=== PATIENT | male | born 1940 | race Caucasian/White ===

== ENCOUNTER 2023-07-30 15:14 | Emergency (ER) | payer OTHER, SELFPAY ==
--- NOTE | ~2023-07-30 | XR_ITS ---
EXAMINATION: XR chest 2V DATE: 07/30/2023 15:54 INDICATION: Left chest pain. TECHNIQUE: Frontal and lateral views of the chest were obtained on 3 radiographs. 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 No pleural effusion or pneumothorax. The heart size is normal. There are promin ent paracardial fat pads. Median sternotomy wires and mediastinal surgical clips are seen, likely fro m prior coronary artery bypass grafting. A left internal jugular central venous catheter is seen with tip at the superior cavoatrial junction. A right-sided ventriculoperitoneal shunt is noted. IMPRESSION: 1. No acute cardiopulmonary disease. Reviewed, dictated and finalized at location E.
--- NOTE | 2023-07-30 15:18 | ECG_ITS ---
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
[2023-07-30 15:46] VITALS: BP 144/69; PULSE 58; RESP 16; TEMP 36.6; O2SAT 97
[2023-07-30 16:23] LABS: Prothrombin Time 13.9 Seconds (11.1-14.7)
[2023-07-30 16:24] LABS: Partial Thromboplastin Time 40.5 SECONDS (22.3-36.8)
[2023-07-30 16:25] LABS: Alanine Aminotransferase 15 U/L (6-50); Albumin Level 3.8 g/dL (3.5-5.1); Alkaline Phosphatase 60 U/L (38-126); Anion Gap 9 mmol/L (8-16); Aspartate Amino Transferase 34 U/L (17-59); Bilirubin,Total 0.8 mg/dL (0.2-1.3); Blood Urea Nitrogen 50 mg/dL (9-20); Calcium 8.7 mg/dL (8.4-10.2); Carbon Dioxide 36 mmol/L (22-30); Chloride 90 mmol/L (98-107); Estimated Glomerular Filt Rate 22; Glucose 121 mg/dL (65-110); Lipase 217 U/L (23-300); Potassium 3.8 mmol/L (3.4-5.0); Sodium 135 mmol/L (137-145)
[2023-07-30 16:30] VITALS: BP 130/85; PULSE 84; RESP 16; O2SAT 96
--- NOTE | 2023-07-30 16:49 | ED.CHESTPAIN ---
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 Patient recently started hemodialysis for CKD. He has a maturing fistula in his right arm. Currently using tunneled dialysis catheter left chest. Today in the middle of dialysis he developed chest tightness. He was noted to be hypotensive pressures in the 60s to 70s over 40s. Dialysis was stopped and he received a fluid bolus. His blood pressures improved and the chest discomfort went away but they became concerned so EMS was called. Currently, he denies any complaints. States that he feels at baseline. He denies lightheadedness or shortness of breath. No leg swelling. Denies infectious symptoms. No further concerns. Related Data Allergies Allergy/AdvReac Type Severity Reaction Status Date / Time lisinopril Allergy Mild coughing Verified 05/15/19 18:11 Sulfa (Sulfonamide Allergy Unknown unknown Verified 05/15/19 18:11 Antibiotics) Review of Systems Review of Systems: All systems reviewed & are unremarkable except as noted in HPI and below Exam Narrative: GENERAL: Well-appearing, in no acute distress, pleasant and cooperative HEAD: Normocephalic, atraumatic. EYES: PERRLA and EOMI. ENT: Mucous membranes moist. NECK: Supple. CHEST: Clear to auscultation. No respiratory distress. +TDC left anterior chest HEART: Regular rate and rhythm. Normal peripheral pulses. ABDOMEN: Soft, nontender, nondistended EXTREMITIES: Normal range of motion. No edema. SKIN: Warm, dry, no rash. NEURO: Alert and oriented x3. PSYCH: Normal mood and affect. Course Vital Signs Vital signs: Vital Signs Temperature 97.8 F 07/30/23 15:46 Pulse Rate 58 L 07/30/23 15:46 Respiratory Rate 16 07/30/23 15:46 Blood Pressure 144/69 H 07/30/23 15:46 Pulse Oximetry 97 07/30/23 15:46 Oxygen Delivery Room Air 07/30/23 15:46 Temperature 97.8 F 07/30/23 15:46 Pulse Rate 80 07/30/23 19:21 Respiratory Rate 16 07/30/23 19:21 Blood Pressure 139/74 07/30/23 19:21 Pulse Oximetry 97 07/30/23 19:21 Oxygen Delivery Room Air 07/30/23 15:46 MDM - Chest Pain Lab Data 07/30/23 17:00 07/30/23 16:07 Labs: Lab Results 07/30/23 07/30/23 07/30/23 Range/Units 16:07 17:00 19:36 WBC 10.5 H (4.5-10.0) K/mm3 RBC 3.43 L (4.6-6.20) M/mm3 Hgb 10.4 L (14.0-18.0) g/dL Hct 32.5 L (42.0-52.0) % MCV 94.8 (80-100) fl MCH 30.3 (26-34) pg MCHC 32.0 (32-36) g/dl RDW 14.1 (11.5-14.5) % Plt Count 158 (150-375) k/mm3 MPV 9.8 (7.4-10.4) fl Immature Gran % (Auto) 1.7 H (0-0.5) % Neut % (Auto) 60.0 (45.5-73.1) % Lymph % (Auto) 28.4 (18.3-44.2) % [place] % (Auto) 7.7 (2.6-8.5) % Eos % (Auto) 1.7 (0-4.4) % Baso % (Auto) 0.5 (0.2-1.2) % Lymph # (Auto) 2.97 (0.9-3.2) K/mm3 [place] # (Auto) 0.8 H (0.1-0.6) K/mm3 Eos # (Auto) 0.2 (0-0.3) K/mm3 Baso # (Auto) 0.1 (0.0-0.1) K/mm3 Abs Immat Gran (auto) 0.18 H (0.00-0.031) K/mm3 Absolute Neuts (auto) 6.3 (1.3-6.7) K/mm3 Absolute Nucleated RBC 0.0 (0.0-0.012) K/mm3 Nucleated RBC % 0.0 (0.0-0.2) % PT 13.9 (11.1-14.7) Seconds INR 1.0 APTT 40.5 H (22.3-36.8) SECONDS Sodium 135 L (137-145) mmol/L Potassium 3.8 (3.4-5.0) mmol/L Chloride 90 L (98-107) mmol/L Carbon Dioxide 36 H (22-30) mmol/L Anion Gap 9 (8-16) mmol/L BUN 50 H (9-20) mg/dL Creatinine 2.80 H (0.7-1.3) mg/dL Estim Creat Clear Calc Not Reportable Estimated GFR 22 L (59 - ) Glucose 121 H (65-110) mg/dL Calcium 8.7 (8.4-10.2) mg/dL Total Bilirubin 0.8 (0.2-1.3) mg/dL AST 34
[2023-07-30 17:12] LABS: Basophils Absolute Auto 0.1 K/mm3 (0.0-0.1); Basophils Percent Auto 0.5 % (0.2-1.2); Eosinophils Absolute Auto 0.2 K/mm3 (0-0.3); Eosinophils Percent Auto 1.7 % (0-4.4); Hematocrit 32.5 % (42.0-52.0); Hemoglobin 10.4 g/dL (14.0-18.0); Immature Granulocyte Absolute 0.18 K/mm3 (0.00-0.031); Immature Granulocyte Percent A 1.7 % (0-0.5); Lymphocytes Absolute Auto 2.97 K/mm3 (0.9-3.2); Lymphocytes Percent Auto 28.4 % (18.3-44.2); Mean Corpuscular Hemoglobin 30.3 pg (26-34); Mean Corpuscular Volume 94.8 fl (80-100); Mean Platelet Volume 9.8 fl (7.4-10.4); Monocytes Absolute Auto 0.8 K/mm3 (0.1-0.6); Monocytes Percent Auto 7.7 % (2.6-8.5); Neutrophils Absolute Auto 6.3 K/mm3 (1.3-6.7); Platelet Count Result 158 k/mm3 (150-375); Red Blood Count 3.43 M/mm3 (4.6-6.20); Red Cell Distribution Width 14.1 % (11.5-14.5); White Blood Count 10.5 K/mm3 (4.5-10.0)
[2023-07-30 17:30] VITALS: BP 130/74; PULSE 80; RESP 16; O2SAT 98
[2023-07-30 18:30] VITALS: BP 137/67; PULSE 79; RESP 16; O2SAT 98
[2023-07-30 19:21] VITALS: BP 139/74; PULSE 80; RESP 16; O2SAT 97
--- NOTE | 2023-07-30 19:22 | PC.NURSE ---
Report taken from PENELOPE Garcia and care of pt assumed at this time. Pt resting comfortably on stretcher.
[2023-07-30 20:06] LABS: Troponin I 0.029 ng/mL (0.000-0.034)
[2023-07-30 20:53] VITALS: BP 140/73; PULSE 58; RESP 16; O2SAT 97
== END 2023-07-30 20:55 | disposition home or self-care (01) ==
PROVIDERS: Preventive Medicine Aerospace Medicine; Emergency Provider Emergency Medicine
DX: R07.89 Other chest pain (principal); I12.0 Hypertensive chronic kidney disease with stage 5 chronic kidney disease or end stage renal disease; N18.6 End stage renal disease; Z99.2 Dependence on renal dialysis; I25.10 Atherosclerotic heart disease of native coronary artery without angina pectoris; Z95.1 Presence of aortocoronary bypass graft; Z95.5 Presence of coronary angioplasty implant and graft; I44.0 Atrioventricular block, first degree; R00.1 Bradycardia, unspecified
CPT/HCPCS: 36415; 71046; 80053; 83690; 84484; 85025; 85610; 85730; 93005; 99284

== ENCOUNTER 2025-05-31 13:41 | Emergency (ER) | payer OTHER, MEDICARE, SELFPAY ==
[2025-05-31] VITALS (7 sets, daily range): BP systolic 100–140; BP diastolic 56–87; PULSE 70–96; RESP 15–18; TEMP 36.2; O2SAT 96–100
--- NOTE | ~2025-05-31 | XR_ITS ---
XR hand LT min 3V Ordering provider: Taty Samayoa PA-C History: . lacerations 4th/5th digits . Comparison: None. FINDINGS: BONES: No acute fracture. Minimal subluxation the distal interphalangeal joint of the middle finger. JOINT SPACES: Narrowing of the distal interphalangeal joints. SOFT TISSUES: Foreign bodies seen in the subcutaneous tissues of the area of the proximal interphalan geal joint of the fourth and fifth finger. IMPRESSION: No definite acute osseous abnormality left hand. Subluxation in the distal interphalangeal joint of t he middle finger which is most likely chronic. Polyarticular osteoarthritic changes. Subcutaneous foreign bodies are present and the fourth and fifth fingers soft tissues opposite the pr oximal interphalangeal joints. Reviewed, dictated and finalized at location A. IMPRESSION: No definite acute osseous abnormality left hand. Subluxation in the distal inte rphalangeal joint of the middle finger which is most likely chronic. Polyarticular osteoarthritic changes. Subcutaneous foreign bodies are present and the fourth and fifth fingers soft t issues opposite the proximal interphalangeal joints.
--- NOTE | ~2025-05-31 | CT_ITS ---
EXAMINATION: CT brain wo con DATE: 05/31/2025 14:05 INDICATION: Anticoagulated patient post fall TECHNIQUE: Computed tomography (CT) of the head was performed without intravenous contrast. Sagittal and coronal reconstructions were performed. The mA was adjusted according to patient size. Iterative reconstruction technique was employed. The dose-length product was 605.33 mGy-cm. COMPARISON: head CT dated 06/25/2016 FINDINGS: Ventricular drainage catheter extending through a right parietal radha hole extending to the right lat eral ventricle with distal tip along the interventricular septum near the foramen of Barrow. High att enuation debris/foreign bodies in the soft tissues surrounding a deep laceration anteriorly at the fo rehead. No fracture. Small regions of encephalomalacia at the right temporal lobe and left frontal lo be consistent with sequela of old infarcts. No acute intracranial hemorrhage, acute infarction or abn ormal extra axial fluid collection. There is mild scattered white matter hypoattenuation consistent w ith chronic small vessel ischemic disease. Symmetric prominence of the sulci and ventricles consisten t with moderate age-appropriate diffuse cerebral volume loss. No mass/mass effect. Changes of bilater al intraocular lens replacement. The orbits and mastoid air cells are normal. Mild mucosal thickening in the left maxillary sinus. IMPRESSION: 1. High attenuation debris/foreign bodies along a deep scalp laceration anteriorly at the forehead wi th no underlying fracture or acute intracranial process. 2. 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 3. Age-related changes including moderate diffuse on loss and mild scattered white matter hypoattenua tion consistent with chronic small vessel ischemic disease. 4. Distal tip of a right parietal ventricular drainage catheter in the anterior right lateral ventric le near the foramen of Monro. Reviewed, dictated and finalized at location B. IMPRESSION: 1. High attenuation debris/foreign bodies along a deep scalp laceration anterio rly at the forehead with no underlying fracture or acute intracranial process. 2. 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 3. Age-related changes including moderate diffuse on loss and mild scattered wh ite matter hypoattenuation consistent with chronic small vessel ischemic diseas e. 4. Distal tip of a right parietal ventricular drainage catheter in the anterior right lateral ventricle near the foramen of Monro.
--- NOTE | ~2025-05-31 | CT_ITS ---
EXAMINATION: CT cervical spine wo con DATE: 05/31/2025 14:05 INDICATION: Fall with head injury TECHNIQUE: Computed tomography (CT) of the cervical spine was performed without intravenous contrast. Automated exposure control and iterative reconstruction technique were employed. The dose-length pro duct was 406.50 mGy-cm. COMPARISON: None FINDINGS: Alignment is normal. Severe osteoarthritis at the atlantoaxial articulation. Vertebral body heights a re normal. No acute fracture. There are prominent bridging or nearly bridging anterior osteophytes ex tending from C2 through T1. There is also prominent ossification of the posterior longitudinal ligame nt resulting in mild central canal stenosis at C2 through C4 as well as at C5-C6. There is fusion acr oss the uncovertebral joints at C3-C4 and at C5-C6 there is also some fusion more centrally across th e moderately narrowed disc space. Minimal to mild disc height loss throughout the remainder of the ce rvical disc spaces. There is mild to moderate uncovertebral osteoarthritis the remaining unfused unco vertebral joints. There is also multilevel moderate and severe facet osteoarthritis throughout the ce rvical spine with left-sided prominence. This contributes to moderate neural foraminal stenosis on th e left at C3-C4 and C4-C5 and on the right at C4-C5 with mild neural from stenosis at the remaining c ervical levels. Atherosclerotic calcification is at the bilateral carotid bulbs. Ventricular drainage catheter courses along the subcutaneous tissues of the lateral right neck. Visualized apices of lung s are clear. IMPRESSION: 1. No acute osseous abnormality. 2. 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 3. Prominent bridging and nearly bridging anterior endplate osteophytes and ossification along the po sterior longitudinal ligament. Reviewed, dictated and finalized at location B. IMPRESSION: 1. No acute osseous abnormality. 2. Moderate cervical spondylosis with moderate to severe multilevel facet osteo arthritis with multilevel mild central canal and mild and moderate neural rosy inal stenosis. 3. Prominent bridging and nearly bridging anterior endplate osteophytes and oss ification along the posterior longitudinal ligament.
--- OUTSIDE RECORDS SUMMARY | 2025-05-31 13:44 | XMS_ITS | Patient Health Record ---
Author Organization [facility] Address [address] [place] [address] Care Team Providers Care Airplane Pilot Name Role Phone [facility], [place] Primary Care Provider Unavail able Nithin Rodrigues Unavailable [phone] ALLERGIES Allergen (clinical drug ingredient) Drug/Non Drug Allergy documented on EMR Reaction Allergy Type Onset Date Status lisinopril Lisinopril Unknown Drug Allergy Activ e Substance with sulfonamide structure and antibacterial mechanism of action (substance) Sulfa Antibiotics rash Drug Allergy Active terazosin Terazosin hypotension Drug Allergy Activ e REASON FOR REFERRAL No Information MEDICATIONS Medication SIG (Take, Route, Frequency, Duration) Notes Start Date End Date Status Atorvastatin Calcium 80 MG 1 tablet Oral ly Once a day for 30 day(s) Active Lidocaine 5 % 1 patch remove after 12 hours Externally Once a day Active Amoxicillin 500 MG 1 capsule Orally ronny ry 8 hrs for 5 day(s) Active Isosorbide Dinitrate 20 MG 1 tablet Oral ly Twice a day for 30 day(s) Active Naloxone HCl 4 MG/10ML as directed Injection Active hydrALAZINE HCl 100 MG 1 tablet with edel d Orally Twice a day for 30 day(s) Active metOLazone 5 MG 1 tablet Orally Once a day for 30 day(s) Active Fish Oil 1000 MG 1 capsule Orally Onc e a day for 30 day(s) Active Tamsulosin HCl 0.4 MG 1 capsule Orally O nce a day for 30 day(s) Active Aspirin 81 MG 1 tablet Orally Once a day for 30 day(s) Active Potassium Chloride 20 MEQ 1 packet with food Orally Once a day for 30 day(s) Active amLODIPine Besylate 5 MG 1 tablet Orally Once a day for 30 day(s) Active Mirtazapine 45 MG 1 tablet at bedtime Orally Once a day for 30 day(s) Active Albuterol Sulfate HFA 108 (90 Base) MCG/ACT 1 puff as needed Inhalation every 4 hrs Active Melatonin 3 MG 1 tablet at bedtime as needed Orally Once a day for 30 day(s) Active HYDROcodone-Acetaminophen 5-325 MG 1 tablet as needed Orally 3x/day Active Carvedilol 25 MG 1 tablet with food O rally Twice a day for 30 day(s) Active Venlafaxine HCl ER 150 MG 1 capsule with food Orally Once a day for 30 day(s) Active Bumetanide 2 MG 1 tablet Orally Once a day for 30 day(s) Active Topiramate 50 MG 1 tablet Orally Once a day for 30 day(s) Active PROBLEMS Problem Type ICD Code Onset Dates Problem Status W/U Status Risk SNOMED Code Notes Problem Fear of injections and transfusions (F40.231) Active confirmed Fear of medical treatment (557999172) Problem Spondylosis without myelopathy or radiculopathy, cervical region (M47.812) Active confirmed Cervical spondylosis without myelopathy (787882242) Problem Spondylosis without myelopathy or radiculopathy, cervicothoracic region (M47.813) Active confirmed Cervical spondylosis without myelopathy (285754039) Problem Spinal stenosis, cervical region (M48.02) Active confirmed Spinal stenosis in cervical region (60292355) Problem Radiculopathy, cervical region (M54.12) Active confirmed Cervical radiculopathy (29136455) Problem Radiculopathy, cervicothoracic region (M54.13) Active confirmed Cervical radiculopathy (72577976) Problem Postlaminectomy syndrome, not elsewhere classified (M96.1) Active confirmed Post-lami nectomy syndrome (03487847) Problem 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) Active confirmed Spinal stenosis in cervical region (92229726) Problem technician terminal and repeater (current) use of anticoagulants (Z79.01) Active confirmed Long-term current use of anticoagulant (067983474) PLAN OF TREATMENT No Information Insurance Providers Payer Name Payer Address Payer Phone Subscriber Number Group Number Insured Name Patient Relationship to Insured Coverage Start Date Coverage End Date [employer] [id number] AIXA LEA Self - patient is the insured MEDICAL (GENERAL) HISTORY Medical History History ICD Code Sleep apnea Diabetes type 2 Abdominal aortic aneurysm BPH Hypertension Migraine Insomnia COPD Chronic kidney disease stage 4 CAD Parkinsonism Surgical History Surgery Date(Month/Year) C4-5 Fusion 1998 Lumbar laminectomy 2004 CABG x 3 2007 Aortic graft 07/2022
--- OUTSIDE RECORDS SUMMARY | 2025-05-31 13:44 | XMS_ITS | Referral Summary ---
Author Organization [facility] al Address [address] [place] [address] Care Team Providers Care Parking Meter Attendant Name Role Phone Angi Andrade MD Primary Care Provider Encounters Date Type Department Care Team Description 04/10/2025 Orders Only [facility] Health Information Management [address] [place] [address] Scanning, Provider 04/10/2025 2:05 PM CDT Office Visit [facility] [address] [facility] [place] [facility] 6th [place] [address] [place] [address] Kelly Vazquez NP Hydrocephalus, unspecified type (HCC) (Primary Dx) 04/10/2025 12:09 PM CDT - 04/10/2025 11:59 PM CDT Hospital Encounter [facility] [address] [place] [id number] Margie Guidry MD PhD Encounter for imaging to screen for metal prior to magnetic resonance imaging (MRI) Discharge Disposition: Discharge to home or self care 04/10/2025 12:00 PM CDT - 04/10/2025 11:59 PM CDT Hospital Encounter [facility] ([facility]) [address] [place] [id number] Other low back pain Discharge Disposition: Discharge to home or self care 03/02/2025 Telephone [facility] [address] [place] [address] Chanel Morrow from Last 3 Months Allergies Active Allergy Reactions Criticality Noted Date Comments Lisinopril Unknown 01/03/2019 Sulfa (Sulfonamide Antibiotics) Other (See comments),Rash Medium 04/21/2019 Reaction: Terazosin Other (See comments),Unknown Low 01/03/2019 Reaction: Other Medications mirtazapine (REMERON) 30 mg tablet 1.5 tablets (45 mg total) nightly 6 Active therapeutic multivitamin (THERA) tabletIndications :Vitamin Deficiency Prevention Active polyethylene glycol (MIRALAX) 17 gram/dose powder Take 17 g by mouth as needed Active docusate sodium (COLACE) 100 mg capsuleIndication s:constipation Take 1 capsule (100 mg total) by mouth 2 (two) times a day Active atorvastatin (LIPITOR) 80 mg tablet Take 1 tablet (80 mg total) by mouth daily Active albuterol HFA (PROVENTIL HFA,VENTOLIN HFA,PROAIR HFA) 90 mcg/actuation inhaler every 4 hours 2 Active amoxicillin-clavu lanate (AUGMENTIN) 875-125 mg per tablet Take 500 mg by mouth Active bumetanide (BUMEX) 1 mg tablet Take 3 tablets (3 mg total) by mouth 2 (two) times a day Active carvediloL (COREG) 25 mg tablet Take 0.5 tablets (12.5 mg total) by mouth 2 (two) times a day with meals Active metOLazone (ZAROXOLYN) 5 mg tablet 1 tablet (5 mg total) Active cholecalciferol, vitamin D3, (VITAMIN D3 ORAL) Take 1,000 Units by mouth Active ipratropium (ATROVENT) 21 mcg (0.03 %) nasal spray Administer 2 sprays into each nostril every 12 (twelve) hours Active DULoxetine DR (CYMBALTA) 60 mg capsule Take 1 capsule (60 mg total) by mouth daily Active divalproex ER (DEPAKOTE ER) 500 mg 24 hr tablet Take 1 tablet (500 mg total) by mouth daily Active cetirizine (ZyrTEC) 10 mg tabletIndications :Allergic Rhinitis Take 1 tablet (10 mg total) by mouth daily 4 Active tamsulosin (FLOMAX) 0.4 mg extended release capsule Take 2 capsules (0.8 mg total) by mouth daily with dinner 4 Active acetaminophen (TYLENOL) 325 mg tablet Take 2 tablets (650 mg total) by mouth every 6 (six) hours as needed for pain 4 Active levETIRAcetam (KEPPRA) 500 mg tablet Take 1 tablet (500 mg total) by mouth 2 (two) times a day for 7 doses 7 tablet 4 Active HYDROcodone-aceta minophen (NORCO) 5-325 mg per tablet 1 tablet as needed Orally 3x/day Active omega 9-fup-gen-fish oil (Fish OiL) 1,000 (120-180) mg capsule 1 capsule (1,000 mg total) daily Active calcium acetate,phosphat bind, (PHOSLO) 667 mg capsule Take 1 capsule (667 mg total) by mouth 4 Active methyl salicylate-mentho l 15-10 % cream Apply topically 4 Active tiotropium bromide (SPIRIVA RESPIMAT) 2.5 mcg/actuation inhaler Inhale 4 Active Active Problems Problem Noted Date Diagnosed Date Bradycardia, unspecified 04/10/2025 Chronic respiratory failure with hypoxia 025 Contusion of left forearm 04/10/2025 Age-related osteoporosis wit hout current pathological fracture 04/10/2025 Osteoporosis 04/10/2025 Other seborrheic keratosis 04/10/2025 Stenosis of other vascular p rosthetic devices, implants and grafts, initial encounter 04/10/2025 Ventricular tachycardia, unspecified 04/10/2025 Fear of injections and transfusions 03/27/2025 Acute kidney failure, unspecified 06/23/2024 Arteriosclerosis of coronary artery 06/23/2024 Overview (06/23/2024): Dec 31, 2022 Entered By: CAROLYN HARDY Comment: s/p 3v CABG Arteriovenous fistula, acquired 06/23/2024 Basal cell carcinoma of skin of right lower limb, including hip 06/23/2024 Benign prostatic hyperplasia 06/23/2024 Cardiomyopathy, unspecified 06/23/2024 Cervicalgia 06/23/2024 Chronic combined systolic and diastolic heart fa ilure 06/23/2024 Chronic obstructive pulmonary disease 06/23/2024 Complete loss of teeth, unsp ecified cause, unspecified class 06/23/2024 Dependence on renal dialysis 06/23/2024 Depressive disorder 06/23/2024 Dysphagia, unspecified 06/23/2024 Erectile dysfunction 06/23/2024 Hyperlipidemia, unspecified 06/23/2024 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, stage IV 06/23/2024 Hypokalemia 06/23/2024 Insomnia 06/23/2024 Irritability and anger 06/23/2024 Lumbar spinal stenosis 06/23/2024 Major depressive disorder, recurrent, mild 06/23 Major depressive disorder, single episode, unspe cified 06/23/2024 Melanocytic nevi, unspecified 06/23/2024 Migraine 06/23/2024 Moderate protein-calorie mal nutrition (weight for age 60-74% of standard) 06/23/2024 Neoplasm of unspecified beha vior of bone, soft tissue, and skin 06/23/2024 Obstructive sleep apnea 06/23/2024 Other fatigue 06/23/2024 Other general symptoms and signs 06/23/2024 Pain in left leg 06/23/2024 Pain in left shoulder 06/23/2024 Presence of aortocoronary bypass graft Sensorineural hearing loss, bilateral 06/23/2024 Shortness of breath 06/23/2024 Subdural hemorrhage followin g injury, no loss of consciousness 06/23/2024 Vascular graft infection 06/23/2024 Overview (06/23/2024): Dec 31, 2022 Entered By: CAROLYN HARDY Comment: 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 07/2022 Vitamin D deficiency 06/23/2024 Subdural hematoma 05/20/2024 Assessment & Plan (05/23/2024 10:58 AM CDT): -NSGY c/s -NSGY adjusted [employer] shunt from 5->7 on admission -Transfused 2u PLT 05/20 -Repeat CTH 05/20 and 05/21 stable -keppra 500 BID x 7 days -BI consult -Q4h NC -Ok for DVT ppx - SQH -NSGY outpatient follow up in [address] head ESRD on dialysis 05/20/2024 Assessment & Plan (05/23/2024 10:58 AM CDT): - Schedule: 4x/week - Last dialyzed on 05/18 before admission - Access: RUE AVF - Nephrology following, plan for HD today - Daily BMP Hypertension 05/20/2024 CHF (congestive heart failure) 05/20/2024 Assessment & Plan (05/21/2024 10:53 AM CDT): Home meds: bumex, metolazone, carvedilol - Restarted home carvedilol 05/20 - Restarted home bumex and metolazone 05/21 Cervical radiculopathy 04/07/2023 3 Cervical spondylosis without myelopathy 04/07/20 23 04/07/2023 Complication of surgical procedure 04/07/2023 04/07/2023 DM (diabetes mellitus) 08/27/2022 3 Infection of aortic graft 08/13/20222022 Abdominal aortic aneurysm without rupture 202104/07/2023 Abdominal pain, generalized 08/05/202203/29 Idiopathic normal pressure hydrocephalus 019 Primary osteoarthritis of both knees 02/23/2019 Primary osteoarthritis of left knee 01/03/2019 Headache(784.0) 03/02/2017 Normal pressure hydrocephalus 03/02/2017 Unsteady gait 12/16/2016 Mid back pain 06/30/2016 Chronic constipation 06/08/2016 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 06/08/2016 Assessment & Plan (05/20/2024 5:32 PM CDT): - home meds: duloxetine, valproate, mirtazapine - Restart home meds Parkinsonism 06/08/2016 Stenosis of intervertebral foramina 12/03/2015 Immunizations Immunization Administration Dates Next Due H1N1 All Forms 10/30/2009 Hep B Vaccine 07/10/2023,02/09/2023,01/05/2023 Influenza, Quadrivalent, Spl it, Preservative Free, Intramuscular 09/26/2018 Influenza, Trivalent, Preser vative Free, Intramuscular 10/03/2017,08/29/2016,07/30/2016,09/16 Influenza, Unspecified 09/03/2023,2021,10/03/2017,09/26,10/11/2013,08/17/2012,10/15/2011 ,10/01/2010,08/08/2009,09/25/2008,08/29,09/21/2006,11/20/2005, 4,09/19/2002 Pfizer SARS-CoV-2 Monovalent Vaccination (12+ Yrs) PURPLE 10/08/2021,01/07/2021,12/17/2020 Pneumococcal Conjugate PCV 13 09/25/2015 Pneumococcal Polysaccharide PPV23 10/01/2014 Pneumococcal, Unspecified 01/19/2003 RSV, Bivalent, Protein Subun it Rsvpref, Diluent (Abrysvo) 09/16/2023 Td, Unspecified 06/18/2010 Tdap 10/15/2020 ZOSTER LIVE 01/17/2010 ZOSTER Recombinant 04/12/2019,06/14/2018 Social History Tobacco Use Types Packs/Day Years Used Date Smoking Tobacco: Former Smokeless Tobacco: Former Tobacco Cessation:Counseling Given: Not Answered [facility] [employer] Answer Date Recorded In the past 12 months has [facility] [place], [employer], oil, or water [employer] threatened to shut off services in your home? No 05/21/2024 Humiliation, Afraid, Rape, and Kick questionnair e Answer Date Recorded Within the last year, have y ou been afraid of your partner or ex-partner? No 05/21/2024 Within the last year, have y ou been humiliated or emotionally abused in other ways by your partner or ex-partner? No Within the last year, have y ou been kicked, hit, slapped, or otherwise physically hurt by your partner or ex-partner? No 05/21/2024 Within the last year, have y ou been raped or forced to have any kind of sexual activity by your partner or ex-partner? No 05/21/2024 Social Connection and Isolat ion Panel [NHANES] Answer Date Recorded In a typical week, how many times do you talk on the phone with family, friends, or neighbors? More than three times a week 05/21/2024 How often do you get togethe r with friends or relatives? Twice a week 05/21/2024 How often do you attend chur ch or islam services? Never 05/21/2024 Do you belong to any clubs o r organizations such as scientologist groups, unions, fraternal or athletic groups, or school groups? Yes 05/21/2024 How often do you attend meet ings of the clubs or organizations you belong to? Never 05/21/2024 Are you , , di vorced, , never , or living with a partner? 05/21/2024 AUDIT-C Answer Date Recorded Q1: How often do you have a drink containing alcohol? Monthly or less 05/21/2024 Q2: How many drinks containi ng alcohol do you have on a typical day when you are drinking? Patient does not drink Q3: How often do you have si x or more drinks on one occasion? Never 05/21/2024 Overall Financial Resource Strain (CARDIA) Answe r Date Recorded How hard is it for you to pa y for the very basics like food, housing, medical care, and heating? Not hard at all 05/21/2024 [facility] - Occupational Stress Questionnaire Answer Date Recorded Do you feel stress - tense, restless, nervous, or anxious, or unable to sleep at night because your mind is troubled all the time - these days? Not at all 05/21/2024 Exercise Vital Sign Answer Date Recorde d On average, how many days pe r week do you engage in moderate to strenuous exercise (like a brisk walk)? 0 days 05/21/2024 On average, how many minutes do you engage in exercise at this level? 0 min 05/21/2024 Hunger Vital Sign Answer Date Recorded Within the past 12 months, y ou worried that your food would run out before you got the money to buy more. Never true 05/21/20 24 Within the past 12 months, t he food you bought just didn't last and you didn't have money to get more. Never true 05/21/2024 PRAPARE - Transportation Answer Date Re corded In the past 12 months, has l ack of transportation kept you from medical appointments or from getting medications? No 04/30 In the past 12 months, has l ack of transportation kept you from meetings, work, or from getting things needed for daily living? No 05/21/2024 Housing Stability Vital Sign Answer [place] Recorded In the last 12 months, was t here a time when you were not able to pay the mortgage or rent on time? No 05/21/2024 Number of Times Moved in the Last Year Not on fi le 05/21/2024 At any time in the past 12 m [facility], were you homeless or living in a half-way (including now)? No 05/21/2024 Personal Safety Answer Date Recorded Have you ever been in or are you currently in a harmful physical or emotional relationship or is someone making you feel afraid or unsafe? Denies 05/20/2024 Sex and Gender Information Value Date Recorded Sex Assigned at Not on file Legal Sex Male 12:27 AM [employer] J[employer] Gender Identity Not on file Sexual Orientation Not on file Last Filed Vital Signs Vital Sign Reading Time Taken Comments Blood Pressure 112/71 12/12/2024 2:39 PM [employer]AZINE JOU[employer] Pulse 92 12/12/2024 2:39 PM [employer]AZINE JOU[employer] Temperature 36.4 C (97.5 F) 05/23/2024 12:30 PM CDT Respiratory Rate 18 11/07/2024 2:25 PM [employer]AZINE JOU[employer] Oxygen Saturation 92% 12/12/2024 2:39 PM MAGAZINE JOURNALIST Inhaled Oxygen Concentration - - Weight 89 kg (196 lb 3.4 oz) 04/10/2025 12:45 PM CDT Height 182.9 cm (6') 04/10/2025 12:45 PM CDT Body Mass Index 26.61 04/10/2025 12:45 PM CDT Plan of Treatment Not on file Medical Devices Implanted Type Area Interior Design Professional Device Identifier Shelf Expiration Date Model / Serial / Lot Cardiac Stent Heart Hardware In Femur Left: Femur Sternal Wires Sternum Procedures Procedure Name Priority Date/Time Associated Diagnosis Comments MRI LUMBAR SPINE WO CONTRAST Schedule Routine, Read Routine (OP Routine) 04/10/2025 1:48 PM CDT Other low back pain XR EYE FOREIGN BODY BILATERAL Schedule Routine, Read Routine (OP Routine) 04/10/2025 12:18 PM CDT Encounter for imaging to screen for metal prior to magnetic resonance imaging (MRI) SCAN - OTHER ORDERS 04/10/2025 EGFR Routine 05/22/2024 8:45 PM CDT HEMOGLOBIN A1C Routine 05/22/2024 8:45 PM CDT LIPID PANEL STAT 06/28/2017 2:09 PM CDT from Last 3 Months or Most Recently Relevant to Health Maintenance Results * MRI Lumbar Spine WO Contrast (04/10/2025 1:48 PM CDT) Anatomical Region Laterality Modality Spine N/A Magnetic Resonan ce 04/10/2025 4:13 PM CDT Impressions 04/10/2025 5:14 PM CDT 1. Postsurgical changes of L3-L4 and L4-L5 laminectomies with residual synovial cysts contributing to up to [id number] spinal canal stenosis at L4-L5, similar to prior. 2. Advanced lumbar facet arthropathy with up to severe neuroforaminal stenosis on the left at L3-L4. Please see above report for [id number] details. Dictated by: Franco Haas MD The radiology attending physician has personally reviewed this study, and had reviewed and/or edited this written report and agrees with it. Electronically signed by: Joe Sellers M.D. Narrative 04/10/2025 5:14 PM CDT EXAMINATION: Magnetic resonance imaging (MRI) of the lumbar spine without contrast HISTORY: 85-year-old man with low back pain. TECHNIQUE: Multiplanar multi-weighted MRI of the lumbar spine was performed without intravenous contrast using the standard protocol. COMPARISON: 08/20/2020 FINDINGS: Postsurgical changes of laminectomy at L3-L4 and L4-L5, similar to prior. There is mild retrolisthesis of L2 on L3 and L3 on L4. Vertebral bodies demonstrate normal signal intensity on all sequences. There are no compression fractures. The conus medullaris terminates at the level of L1-L2. The distal spinal cord signal intensity is normal. Multilevel degenerative disc height loss with disc desiccation at multiple levels, greatest at L3-L4 and L4-L5, progressed from prior examination. Annular fissure at L3-L4 and L4-L5. Limited views of the abdomen and pelvis shows left renal atrophy. Mild atrophy of the paraspinal musculature. The aorta is normal. L1-L2: Disc bulge. There is moderate bilateral facet arthropathy with ligamentum flavum infolding. There is mild right and no left neuroforaminal stenosis. There is mild spinal canal stenosis. L2-L3: Disc bulge. There is moderate bilateral facet arthropathy with ligamentum flavum infolding. There is no neuroforaminal stenosis. There is no spinal canal stenosis. L3-L4: Disc bulge. There are small T2 hyperintense foci extending medially from the left L3-L4 facet joint measuring up to 3 mm in diameter (series 7, image 14), likely representing small synovial cysts, similar to prior. There is severe bilateral facet arthropathy with ligamentum flavum infolding. There is mild right and severe left neuroforaminal stenosis. There is mild spinal canal stenosis. L4-L5: Disc bulge. Bilateral synovial cysts measuring 6 mm, similar to prior study. There is severe bilateral facet arthropathy. There is moderate right and moderate left neuroforaminal stenosis. There is [id number]-sa-[id number] spinal canal stenosis. L5-S1: Disc bulge. There is severe left greater than right facet arthropathy. There is moderate left greater than right neuroforaminal stenosis. There is no spinal canal stenosis. Procedure Note Joe Sellers MD - 04/10/2025 EXAMINATION: Magnetic resonance imaging (MRI) of the lumbar spine without contrast HISTORY: 85-year-old man with low back pain. TECHNIQUE: Multiplanar multi-weighted MRI of the lumbar spine was performed without intravenous contrast using the standard protocol. COMPARISON: 08/20/2020 FINDINGS: Postsurgical changes of laminectomy at L3-L4 and L4-L5, similar to prior. There is mild retrolisthesis of L2 on L3 and L3 on L4. Vertebral bodies demonstrate normal signal intensity on all sequences. There are no compression fractures. The conus medullaris terminates at the level of L1-L2. The distal spinal cord signal intensity is normal. Multilevel degenerative disc height loss with disc desiccation at multiple levels, greatest at L3-L4 and L4-L5, progressed from prior examination. Annular fissure at L3-L4 and L4-L5. Limited views of the abdomen and pelvis shows left renal atrophy. Mild atrophy of the paraspinal musculature. The aorta is normal. L1-L2: Disc bulge. There is moderate bilateral facet arthropathy with ligamentum flavum infolding. There is mild right and no left neuroforaminal stenosis. There is mild spinal canal stenosis. L2-L3: Disc bulge. There is moderate bilateral facet arthropathy with ligamentum flavum infolding. There is no neuroforaminal stenosis. There is no spinal canal stenosis. L3-L4: Disc bulge. There are small T2 hyperintense foci extending medially from the left L3-L4 facet joint measuring up to 3 mm in diameter (series 7, image 14), likely representing small synovial cysts, similar to prior. There is severe bilateral facet arthropathy with ligamentum flavum infolding. There is mild right and severe left neuroforaminal stenosis. There is mild spinal canal stenosis. L4-L5: Disc bulge. Bilateral synovial cysts measuring 6 mm, similar to prior study. There is severe bilateral facet arthropathy. There is moderate right and moderate left neuroforaminal stenosis. There is [id number] spinal canal stenosis. L5-S1: Disc bulge. There is severe left greater than right facet arthropathy. There is moderate left greater than right neuroforaminal stenosis. There is no spinal canal stenosis. IMPRESSION: 1. Postsurgical changes of L3-L4 and L4-L5 laminectomies with residual synovial cysts contributing to up to [id number]-[id number] spinal canal stenosis at L4-L5, similar to prior. 2. Advanced lumbar facet arthropathy with up to severe neuroforaminal stenosis on the left at L3-L4. Please see above report for [id number] details. Dictated by: Franco Haas MD The radiology attending physician has personally reviewed this study, and had reviewed and/or edited this written report and agrees with it. Electronically signed by: Joe Sellers M.D. us Notinfile Unknown IMG MRI PROCEDURES Final Resul t * XR Eye Foreign Body Bilateral (04/10/2025 12:18 PM CDT) Anatomical Region Laterality Modality Head and Neck Bilateral Computed Radiogr aphy 04/10/2025 1:0 2 PM CDT Impressions 04/10/2025 1:32 PM CDT No metallic foreign bodies identified projecting over the orbits. Dictated by: David Partida D.O. The radiology attending physician has personally reviewed this study, and had reviewed and/or edited this written report and agrees with it. Electronically signed by: Josephine Dowd M.D. Narrative 04/10/2025 1:32 PM CDT EXAMINATION: XR EYE FOREIGN BODY BILATERAL HISTORY: magnetic resonance imaging TECHNIQUE: One view provided for interpretation COMPARISON: CT head 08/11/2024 FINDINGS: No metallic foreign bodies identified overlying the orbits. Metallic density seen overlying the right temporal bone/maxilla Partially evaluated right occipital approach ventriculostomy catheter. Procedure Note Josephine Dowd MD - 04/10/2025 EXAMINATION: XR EYE FOREIGN BODY BILATERAL HISTORY: magnetic resonance imaging TECHNIQUE: One view provided for interpretation COMPARISON: CT head 08/11/2024 FINDINGS: No metallic foreign bodies identified overlying the orbits. Metallic density seen overlying the right temporal bone/maxilla Partially evaluated right occipital approach ventriculostomy catheter. IMPRESSION: No metallic foreign bodies identified projecting over the orbits. Dictated by: David Partida D.O. The radiology attending physician has personally reviewed this study, and had reviewed and/or edited this written report and agrees with it. Electronically signed by: Josephine Dowd M.D. us Margie Guidry MD PhD IMG XR PROCEDURES Fi nal Result * SCAN - OTHER ORDERS (04/10/2025) us Provider Scanning Final Result * (ABNORMAL) eGFR (05/22/2024 8:45 PM CDT) eGFR 13(L) >=60 mL/min/1. 73 m2 Comment: Interpretive Data Reference Interval Normal >/= 90 mL/min/1.73m2 Mildly decreased* 60 - 89 mL/min/1.73m2 Mildly to moderately decreased 45 - 59 mL/min/1.73m2 Moderately to severely decreased 30 - 44 mL/min/1.73m2 Severely decreased 15 - 29 mL/min/1.73m2 Kidney Failure < 15 mL/min/1.73m2 *Relative to young adult level Estimated glomerular filtration rate is determined by the 2020 CKD-EPI equation recommended by the National Kidney Foundation (A Unifying Approach to GFR Estimation: Recommendations of the NKF-ASK Task Force on Reassessing the Inclusion of Race in Diagnosing Kidney Disease, JASN 2020). The CKD-EPI equation should not be used for patients with unstable renal function and has not been validated in children and those over 70. Current interpretive data was last reviewed 2021. Blood 05/22/2024 8:45 PM CDT 05/22/2024 9:04 PM CDT Cecil Fish MD LAB BLOOD ORDERABLES Laura l Result Performing Organization Address [facility] de Phone Number [facility] [employer] [place] [address] * Hemoglobin A1c (05/22/2024 8:45 PM CDT) Pathologist [facility] Hgb A1C 5.0 4.0 - 5.6 % Estimated Average Glucose 97 mg/dL [facility] Comment: The ADA recommends reporting an estimated Average Glucose (eAG) with all Hemoglobin A1c results using the equation derived from a study of 507 normal and diabetic adults. Minority populations were underrepresented and children were not included. (Diabetes Care 2020; 43(S1): S66-S76). The eAG is not equivalent to a fasting glucose. Blood 05/22/2024 8:45 PM CDT 05/22/2024 9:08 PM CDT Cecil Fish MD LAB BLOOD ORDERABLES Laura l Result Performing Organization Address [facility] Co de Phone Number [facility] Department [place] [address] * (ABNORMAL) Lipid panel (06/28/2017 2:09 PM CDT) Cholesterol 131 30 - 200 mg/dL [facility] LU[facility] Comment: Interpretive Data Desirable: <200 mg/dL Borderline high: 200-239 mg/dL High: > or = 240 mg/dL Literature Reference: National Cholesterol Education Program (NCEP) Expert Panel on Detection, Evaluation, and Treatment of High Blood Cholesterol in Adults (Adult Treatment Panel III). Circulation 2004; 110:227. Current interpretive data was last revised on 2015. Triglycerides 246(H) 0 - 150 mg/dL [facility] Comment: Interpretive Data Desirable: < 150 mg/dL Borderline High: 150 - 199 mg/dL High: 200 - 499 mg/dL Very High: > or = 499 mg/dL Literature Reference: See Cholesterol Current interpretive data was last revised on 2015. HDL 32(L) >=40 mg/dL [facility] Comment: Interpretive Data Less than 40 mg/dL - low; A major risk factor for heart disease. Greater than or equal to 60 mg/dL - High; considered protective of heart disease. Literature Reference: See Cholesterol Current interpretive data was last revised on 2015. LDL, calculated 50 10 - 129 mg/dL [facility] Comment: Interpretive Data Optimal: < 100 mg/dL Near Optimal: 100 - 129 mg/dL Borderline High: 130 - 159 mg/dL High: 160 - 189 mg/dL Very high: > or = 190 mg/dL Literature Reference: See Cholesterol Current interpretive data was last revised on 2015. Non-HDL Cholesterol 99 mg/dL [facility] Comment: Interpretive Data When triglycerides are >200 mg/dL, non-HDL C is a secondary target of therapy, with a goal 30 mg/dL higher than the identified LDL-C goal. Reference: See Cholesterol Reference. Current interpretive data was last revised 2015. Blood specimen (specimen) 06/28/2017 2:09 PM CDT 06/28/2017 2:30 PM CDT us Cecelia Calles MD LAB BLOOD ORDERABLES Final Result [facility] Department of Laboratories [place], [place] [id number] from Last 3 Months or Most Recently Relevant to Health Maintenance Insurance [facility] MEDICARE [facility] MEDICARE MEDICARE [facility] Advance Directives For more information, please contact: [phone] Documents on File Type Date Recorded Patient Nuclear Medicine Technician Expl anation ADVANCE DIRECTIVE 05/25/2024 4:24 PM POWER OF CERAMIC CHEMIST-MEDICAL * Full Code (Latest Code Status on File) Date Activated Date Inactivated Comments 05/20/2024 1:34 PM 05/23/2024 8:04 PM Care Teams Parking Meter Attendant Relationship Specialty Start Date End Date Angi Andrade MD [address] [place] [address] PCP - General Internal Medicine 08/02/24
--- OUTSIDE RECORDS SUMMARY | 2025-05-31 13:44 | XMS_ITS | Clinical Summary ---
Author Organization [facility] Address [address] [place] [address] Care Team Providers Care Audiology Assistant Name Role Phone Amanda Montilla MD Primary Care Provider Amy vailable Source Comments [facility],non-owned Affiliates and Associated Physician Practices is amultiple site organization consisting of ambulatory clinics and hospital sitesin [place], [place], [place] and [place]. This disclosure is being madepursuant to the Care Everywhere program and may not contain all information available regarding this patient. Last updated 18.[facility] Allergies Active Allergy Reactions Criticality Noted Date Comments Lisinopril Unknown 01/03/2019 Sulfa Drugs Unknown 04/21/2019 Terazosin Unknown 01/03/2019 Medications * Be aware that medications may not be up to date on this document. Alwaysverify current medications with the patient. docusate sodium (COLACE) 100 MG capsule Take 1 (one) capsule by mouth 2 times daily Active topiramate (TOPAMAX) 50 MG tablet Take 1 (one) tablet by mouth 2 times daily Active atorvastatin (LIPITOR) 80 MG tablet Take 1 (one) tablet by mouth at bedtime Active Multiple Vitamins-Southgate als (MULTIVITAMIN & MINERAL PO) Take 1 tablet by mouth once daily Active Yoder-3 Fatty Acids (EQL OMEGA 3 FISH OIL) 1200 MG Take 1,200 mg by mouth at bedtime Active polyethylene glycol 3350 (MIRALAX) powder Take 17 (seventeen) g by mouth once daily as needed for Constipation Active miconazole (Lotrimin Af) 2 % powder Apply 1 Product to affected area once daily 2 Active acetaminophen (Tylenol) 500 MG tablet Take 1 (one) tablet by mouth every 6 hours as needed Maximum allowable Acetaminophen amount = 4 Grams (4000 mg) / 24 hours. 2 Active Additional Information Patient not taking.Reported on 12/28/2022 hydrocortisone (Hytone) 2.5 % cream Apply to affected area 4 times daily 2 Active Additional Information Patient not taking.Reported on 12/28/2022 melatonin 3 MG tablet Take 2 (two) tablets by mouth at bedtime 2 Active venlafaxine (Effexor) 25 MG tablet Take 1 (one) tablet by mouth every 8 hours 90 tablet 2 Active Additional Information Patient taking differently: 150 mgOralDAILY, Reported on 12/28/2022 lidocaine (Lidoderm) 5 % patch Apply 2 (two) patches to skin every 24 hours Apply patch to most painful area and remove after 12 hours. May reapply a new patch 12 hours later. 30 patch 2 Active tamsulosin (Flomax) 0.4 MG capsule Take 1 (one) capsule by mouth once daily At the same time every day after a meal. 30 capsule 2 Active Additional Information Patient taking differently: 0.8 mgOral DAILY, At the same time every day after a meal., Reported on 12/28/2022 diphenhydrAMIN E (Benadryl) 25 MG tablet Take by mouth nightly as needed for Itching Active carvedilol (Coreg) 12.5 MG tablet Take 2 (two) tablets by mouth 2 times daily with morning and evening meal Active amoxicillin-cl avulanate (Augmentin) 875-125 MG tablet Take 500 mg by mouth Active isosorbide dinitrate CR (Isordil Tembid) 40 MG tablet Take 1 (one) tablet by mouth 3 times daily Active bumetanide (Bumex) 1 MG tablet Take 3 (three) tablets by mouth 2 times daily Active metOLazone (Zaroxolyn) 5 MG tablet Take 1 (one) tablet by mouth once daily Active Psyllium 33 % MIX AND DRINK 1 ROUNDED TABLESPOONFUL BY MOUTH TWICE A DAY FOR FIBER SUPPLEMENTATION; MIX IN GLASS OF WATER/JUICE. 2 Active potassium chloride ER (Klor-Con M) 20 MEQ tablet 3 (three) tablets 3 Active naloxone HCl (Narcan) 4 MG/0.1ML nasal spray USE 1 SPRAY (4MG) INTO ONE NOSTRIL ONLY ONE-TIME FOR OPIOID OVERDOSE DO NOT PRIME NASAL SPRAYS. GIVE ADDITIONAL DOSE IF PATIENT DOES NOT RESPOND WITHIN 2-3 MINUTES OR RESPONDING BUT STOPS BREATHING AGAIN. CALL 911. IF USED, NOTIFY YOUR PROVIDER. 3 Active mirtazapine (Remeron) 45 MG tablet 1 (one) tablet 2 Active HYDROcodone-ac etaminophen ([place]) 5-325 MG tablet Take 1 (one) tablet by mouth 3 times daily as needed 2 Active hydrALAZINE (Apresoline) 100 MG tablet 1 (one) tablet 3 Active diphenhydrAMIN E HCl, Sleep, 25 MG Take 1 tablet by mouth at bedtime Active cyclobenzaprin e (Flexeril) 10 MG tablet Take 1 (one) tablet by mouth 3 times daily as needed Active albuterol HFA (Proventil; Ventolin; Proair) 108 (90 Base) MCG/ACT inhaler INHALE 2 PUFFS BY ORAL INHALATION FOUR TIMES A DAY NEEDED FOR BREATHING. SHAKE WELL. RINSE MOUTHPIECE FREQUENTLY TO PREVENT CLOGGING. 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 Primary osteoarthritis of both knees 02/23/2019 Primary osteoarthritis of left knee 01/03/2019 Immunizations Immunization Administration Dates Next Due [employer] PFIZER BIVALENT 12Y+ 30mcg/0.3ML 2 INFLUENZA VACCINE 09/03/2022 Social History Tobacco Use Types Packs/Day Years Used Date Smoking Tobacco: Former Cigarettes 2 43 0 11/29/1936 - 11/29/1979 Smokeless Tobacco: Never Tobacco Cessation:Counseling Given: Not Answered Alcohol Use Standard Drinks/Week Comments Not Currently 0 (1 standard drink = 0.6 oz pur e alcohol) socially AUDIT-C Answer Date Recorded Q1: How often do you have a drink containing alcohol? Never 08/05/2022 Q2: How many drinks containi ng alcohol do you have on a typical day when you are drinking? Patient does not drink Q3: How often do you have si x or more drinks on one occasion? Never 08/05/2022 PHQ-2 Answer Date Recorded PHQ2 TOTAL SCORE 0 01/04/2023 Hunger Vital Sign Answer Date Recorded Within the past 12 months, y ou worried that your food would run out before you got the money to buy more. Never true 08/06/20 22 Within the past 12 months, t he food you bought just didn't last and you didn't have money to get more. Never true 08/06/2022 Comments Unknown Sex and Gender Information Value Date Recorded Sex Assigned at Female 09/09/2022 12:36 AM CDT Legal Sex Male 5:22 AM AUTOMOBILE MECHANIC Gender Identity Male 09/09/2022 12:36 AM CDT Sexual Orientation Not on file Last Filed Vital Signs Vital Sign Reading Time Taken Comments Blood Pressure 167/88 04/13/2023 10:27 AM CDT Pulse 82 01/21/2023 2:50 PM AUTOMOBILE MECHANIC Temperature 36.8 C (98.3 F) 01/04/2023 3:52 PM AUTOMOBILE MECHANIC Respiratory Rate 17 01/21/2023 2:50 PM AUTOMOBILE MECHANIC Oxygen Saturation 98% 04/13/2023 10:27 AM CDT Inhaled Oxygen Concentration 40% 08/13/2022 8 :19 AM CDT Weight 83.1 kg (183 lb 3.2 oz) 01/21/2023 11:56 AM AUTOMOBILE MECHANIC Height 182.9 cm (6') 01/21/2023 11:56 AM AUTOMOBILE MECHANIC Body Mass Index 24.85 01/21/2023 11:56 AM AUTOMOBILE MECHANIC Plan of Treatment Health Maintenance Due Date Last Done Comments BONE DENSITY TESTING 1940 MEDICARE AWV 12 MONTHS 1938 DTAP/TDAP/TD VACCINES (1 - Tdap) 1957 PNEUMOCOCCAL VACCINE 50+ (1 of 2 - PCV) 1957 HEPATITIS B VACCINE (1 of 3 - Risk Dialysis 4-dose series) 1958 ZOSTER VACCINE (1 of 2) 1988 Respiratory Syncytial Virus (RSV) Vaccine Pt: or over 60 yrs (1 - 1-dose 75+ series) 2013 COVID-19 VACCINE ( - season) 2024 08/27/2022, 10/08/2021, 01/07/2021, Additional history exists DEPRESSION SCREENING 11/29/2024 01/04/2023 INFLUENZA VACCINE (Season Ended) 2025 09/03/2022, 09/26/2018, 10/03/2017, Additional history exists HIB VACCINE Aged Out No longer eligi ble based on patient's age to complete this topic HPV VACCINE Aged Out No longer eligi ble based on patient's age to complete this topic MENINGOCOCCAL (Group B) VACCINE SHARED DECISION-MAKING Aged Out No longer eligible based on patient's age to complete this topic MENINGOCOCCAL GROUPS A/C/Y/W VACCINE Aged Out No longer eligible based on patient's age to complete this topic Medical Devices Implanted Type Area Senior Net Architect Device Identifier Shelf Expiration Date Model / Serial / Lot Graft Vasc 20mm 10mm 40cm Polystr 2 Vlr Implanted:Qty: 1 on 08/12/2022 by Regulo Langford MD at [facility] N/A: Aorta Maquet 09/28/2024 [id number] Description:IMPLANT RINSED W ITH RIFAMPIN PER SURGEON REQUEST ON STERILE FIELD Patch Srg 4x2in Slnt Evarrest Fbrn - [id number] Implanted:Qty: 1 on 08/12/2022 by Regulo Langford MD at [facility] N/A: Aorta [employer] 07/26/2024 [id number] / Graft Cv 6mm 30cm Hmsh Pl Polystr 2 Vlr Implanted:Qty: 1 on 08/12/2022 by Regulo Langford MD at [facility] Left: Aorta Maquet 12/29/2026 [id number] / / [id number] Insurance MEDICARE [facility] MEDICARE Advance Directives Documents on File Type Date Recorded Patient Electrical Drafter Expl anation Adv Directive/Living Will/POA 08/28/2022 3:58 PM * Full Code (Latest Code Status on File) Date Activated Date Inactivated Comments 08/07/2022 9:43 AM 08/27/2022 7:53 PM * Full Code Date Activated Date Inactivated Comments 08/05/2022 1:40 AM 08/07/2022 9:43 AM Care Teams Audiology Assistant Relationship Specialty Start Date End Date Amanda Montilla MD PCP - General Student Resident 04/13/23
--- OUTSIDE RECORDS SUMMARY | 2025-05-31 13:44 | XMS_ITS ---
Author Organization [facility] Address [address] [place] [address] Care Team Providers Care Bar Examiner Name Role Phone Angi Andrade MD Primary Care Provider Dialysis Access Sites Type Status Location Placement Date Removal Da te AV fistula Active Right Upper Arm - Anterior Procedures Procedure Name Priority Date/Time Associated Diagnosis [...] or Most Recently Relevant to Health Maintenance Allergies Active Allergy Reactions Criticality Noted Date [...] tablet as needed Orally 3x/day Active omega 2-ekh-kev-fish oil (Fish OiL) 1,000 (120-180) mg capsule 1 capsule (1,000 mg total) daily Active calcium acetate,phosphat bind, (PHOSLO) 667 mg capsule Take 1 capsule (667 mg total) by mouth 4 Active methyl salicylate-mentho l 15-10 % cream Apply topically Active tiotropium bromide (SPIRIVA RESPIMAT) 2.5 mcg/actuation [...] 10:58 AM CDT): -NSGY c/s -NSGY adjusted NEONATAL SPECIALIST shunt from 5->7 on admission -Transfused 2u [...] radiculopathy 04/07/2023 3 Cervical spondylosis without myelopathy 04/07/2004/07/2023 Complication of surgical procedure 04/07/2023 04/07/2023 DM [...] Tobacco: Former Tobacco Cessation:Counseling Given: Not Answered [employer] Answer Date Recorded In the past 12 months has e [employer], [employer], or water [employer] threatened to shut off services in your [...] often do you attend chur ch or hindu services? Never 05/21/2024 Do you belong to any clubs o r organizations such as buddhism groups, unions, fraternal or athletic groups, or [...] and heating? Not hard at all 05/21/2024 [facility] - Occupational Stress [...] any time in the past [address] [facility], were you homeless or living in a penitentiary (including now)? No 05/21/2024 Personal Safety Answer Date Recorded Have you ever been in or are you currently in a harmful physical or emotional relationship or is someone making you feel afraid or unsafe? Denies 05/20/2024 Sex and Gender Information Value Date Recorded Sex Assigned at Not on file Legal Sex Male 12:27 AM CREW DIRECTOR Gender Identity Not on file Sexual Orientation Not on file Last Filed Vital Signs Vital Sign Reading Time Taken Comments Blood Pressure 112/71 12/12/2024 2:39 PM CREW DIRECTOR Pulse 92 12/12/2024 2:39 PM CREW DIRECTOR Temperature 36.4 C (97.5 F) 05/23/2024 12:30 PM CDT Respiratory Rate 18 11/07/2024 2:25 PM CREW DIRECTOR Oxygen Saturation 92% 12/12/2024 2:39 PM CREW DIRECTOR Inhaled Oxygen Concentration - - Weight 89 kg (196 lb 3.4 oz) 04/10/2025 12:45 PM CDT Height 182.9 cm (6') 04/10/2025 12:45 PM CDT Body Mass Index 26.61 04/10/2025 12:45 PM CDT Results * MRI Lumbar Spine WO Contrast (04/10/2025 1:48 PM CDT) Anatomical Region Laterality Modality Spine N/A Magnetic Resonan ce 04/10/2025 4:13 PM CDT Impressions 04/10/2025 5:14 PM CDT 1. Postsurgical changes of L3-L4 and L4-L5 laminectomies with residual synovial cysts contributing to up to etfrenyj-ia-xgynww spinal canal stenosis at L4-L5, similar to prior. 2. Advanced lumbar facet arthropathy with up to severe neuroforaminal stenosis on the left at L3-L4. Please see above report for [id number] details. Dictated by: Franco Haas MD The [...] and moderate left neuroforaminal stenosis. There is naqrptdd-oy-qsorzt spinal canal stenosis. L5-S1: Disc bulge. There [...] and moderate left neuroforaminal stenosis. There is gamnthfy-ke-sycwob spinal canal stenosis. L5-S1: Disc bulge. There is severe left greater than right facet arthropathy. There is moderate left greater than right neuroforaminal stenosis. There is no spinal canal stenosis. IMPRESSION: 1. Postsurgical changes of L3-L4 and L4-L5 laminectomies with residual synovial cysts contributing to up to gmtiowfh-lw-vugtrn spinal canal stenosis at L4-L5, similar to prior. 2. Advanced lumbar facet arthropathy with up to severe neuroforaminal stenosis on the left at L3-L4. Please see above report for ituoy-[id number] details. Dictated by: Franco Haas MD The [...] and Neck Bilateral Computed Radiogr aphy 04/10/2025 1:02 PM CDT Impressions 04/10/2025 1:32 PM CDT [...] identified projecting over the orbits. Dictated by: Noor Alnazal, D.O. The radiology attending physician has personally reviewed this study, and had reviewed and/or edited this written report and agrees with it. Electronically signed by: Josephine Dowd M.D. us Mragie Guidry MD PhD IMG XR PROCEDURES Fi [...] 8:45 PM CDT 05/22/2024 9:04 PM CDT us Cecil Fish MD LAB BLOOD ORDERABLES Laura l Result [facility] [place] [address] * Hemoglobin A1c (05/22/2024 8:45 PM CDT) Hgb A1C 5.0 4.0 - 5.6 % Estimated Average Glucose 97 mg/dL [facility] Comment: The ADA recommends reporting an estimated Average Glucose (eAG) with all Hemoglobin A1c results using the equation derived from a study of 507 normal and diabetic adults. Minority populations were underrepresented and children were not included. (Diabetes Care 2020; 43(S1): S66-S76). The eAG is not equivalent to a fasting glucose. Blood 05/22/2024 8:45 PM CDT 05/22/2024 9:08 PM CDT us Cecil Fish MD LAB BLOOD ORDERABLES Laura valenzuela Result [facility] [place] [address] * (ABNORMAL) Lipid panel (06/28/2017 2:09 PM CDT) Cholesterol 131 30 - 200 mg/dL [facility] Comment: Interpretive Data Desirable: <200 mg/dL Borderline high: 200-239 mg/dL High: > or = 240 mg/dL Literature Reference: National Cholesterol Education Program (NCEP) Expert Panel on Detection, Evaluation, and Treatment of High Blood Cholesterol in Adults (Adult Treatment Panel III). Circulation 2004; 110:227. Current interpretive data was last revised on 2015. Triglycerides 246(H) 0 - 150 mg/dL [facility] Comment: Interpretive Data Desirable: < 150 mg/dL Borderline High: 150 - 199 mg/dL High: 200 - 499 mg/dL Very High: > or = 499 mg/dL Literature Reference: See Cholesterol Current interpretive data was last revised on 2015. HDL 32(L) >=40 mg/dL [facility] Comment: Interpretive Data Less than 40 mg/dL - low; A major risk factor for heart disease. Greater than or equal to 60 mg/dL - High; considered protective of heart disease. Literature Reference: See Cholesterol Current interpretive data was last revised on 2015. LDL, calculated 50 10 - 129 mg/dL [facility] Comment: Interpretive Data Optimal: < 100 mg/dL Near Optimal: 100 - 129 mg/dL Borderline High: 130 - 159 mg/dL High: 160 - 189 mg/dL Very high: > or = 190 mg/dL Literature Reference: See Cholesterol Current interpretive data was last revised on 2015. Non-HDL Cholesterol 99 mg/dL [facility] Comment: Interpretive Data When triglycerides are >200 mg/dL, non-HDL C is a secondary target of therapy, with a goal 30 mg/dL higher than the identified LDL-C goal. Reference: See Cholesterol Reference. Current interpretive data was last revised 2015. Blood specimen (specimen) 06/28/2017 2:09 PM CDT 06/28/2017 2:30 PM CDT us Cecelia Calles MD LAB BLOOD ORDERABLES Final Result [facility] [place] [address] from Last 3 Months or Most Recently Relevant to Health Maintenance
--- OUTSIDE RECORDS SUMMARY | 2025-05-31 13:44 | XMS_ITS ---
Author Organization [facility] Address [address] [place] [address] Care Team Providers Care Escalator Mechanic Name Role Phone Angi Andrade MD Primary Care Provider Active Problems Problem Noted Date Diagnosed Date [...] 10:58 AM CDT): -NSGY c/s -NSGY adjusted INFANTRYMAN shunt from 5->7 on admission -Transfused 2u [...] dialyzed on 05/18 before admission - Access: TESSA AVF - Nephrology following, plan for HD today - Daily BMP Hypertension 05/20/2024 CHF (congestive heart failure) 05/20/2024 Assessment & Plan (05/21/2024 10:53 AM CDT): Home meds: bumex, metolazone, carvedilol - Restarted home carvedilol 05/20 - Restarted home bumex and metolazone 05/21 Cervical radiculopathy 04/07/2023 Cervical spondylosis without myelopathy 04/07/2004/07/2023 Complication of [...] Parkinsonism 06/08/2016 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 Past Treatment and Therapy Plans No past plan information found. Lifetime Dose Tracking * Chemical Lifetime Dose Automatic Entry Manual Entr y DLP 3,716 mGycm 3,716 mGycm 0 mGycm
--- OUTSIDE RECORDS SUMMARY | 2025-05-31 13:45 | XMS_ITS | Clinical Summary ---
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 Encounters Date Type Department Care Team Description 04/10/2025 2:05 PM CDT Office Visit [facility] Neurosurgery [address] [facility] Advanced Medicine 6th [place] [address] [place] [address] Kelly Vazquez NP Hydrocephalus, unspecified type (HCC) (Primary Dx) 04/10/2025 12:09 PM CDT - 04/10/2025 11:59 PM CDT Hospital Encounter [facility] [address] [place] [id number] Margie Guidry MD PhD Encounter for imaging to screen for metal prior to magnetic resonance imaging (MRI) Discharge Disposition: Discharge to home or self care 04/10/2025 12:00 PM CDT - 04/10/2025 11:59 PM CDT Hospital Encounter [facility] ([facility]) [address] [place] [id number] Other low back pain Discharge Disposition: Discharge to home or self care 04/10/2025 Orders Only [facility] Health Information Management [address] [facility] [address] Scanning, Provider 03/02/2025 Telephone [facility] Scheduling [address] [place] [address] Chanel Morrow from Last 3 Months Immunizations Immunization Administration Dates Next Due H1N1 [...] 10/15/2020 ZOSTER LIVE 01/17/2010 ZOSTER Recombinant 04/12/2019,06/14/2018 Surgical History Surgery Date Site/Laterality Comments LUMBAR PUNCTURE WO INJECTION, DIAGNOSTIC 11/12/2015 N/A FL UPPER GI AIR CONTRAST W KUB 04/13/2023 Left PORT PLACEMENT CHEST >5 YEARS 08/10/2022 N/A FL FLUORO GUIDED LUMBAR PUNCTURE 10/22/2020 Right FL FLUORO GUIDED LUMBAR PUNCTURE 05/04/2019 Right Medical History Medical History Date Comments Aneurysm COPD (chronic obstructive pulmonary disease) (HC C) Coronary artery disease Deep vein thrombosis (HCC) Depression Type 2 diabetes mellitus (HCC) Hypertension Disc disorder of lumbar region Lumbar stenosis Myocardial infarction (HCC) TIA (transient ischemic attack) Family History Medical History Relation Name Comments Depression Mother Relation Name Status Comments Mother Social History Tobacco Use Types Packs/Day Years Used Date Smoking Tobacco: Former Smokeless Tobacco: Former Tobacco Cessation:Counseling Given: Not Answered [facility] Utilities Answer Date Recorded In the past 12 months has [employer], gas, oil, or water Vends[employer] threatened to shut off services in your [...] week 05/21/2024 How often do you attend [facility] or orthodox services? Never 05/21/2024 Do you belong to any clubs o r organizations such as synagogue groups, unions, fraternal or athletic groups, or [...] and heating? Not hard at all 05/21/2024 [facility] [place] of Occupat ional Health - Occupational Stress [...] any time in the past 12 m [facility], were you homeless or living in a custodial (including now)? No 05/21/2024 Personal Safety Answer Date Recorded Have you ever been in or are you currently in a harmful physical or emotional relationship or is someone making you feel afraid or unsafe? Denies 05/20/2024 Sex and Gender Information Value Date Recorded Sex Assigned at Not on file Legal Sex Male 12:27 AM FINISHING MANAGER Gender Identity Not on file Sexual Orientation Not on file Obstetrics History Last Filed Vital Signs Vital Sign Reading Time Taken Comments Blood Pressure 112/71 12/12/2024 2:39 PM FINISHING MANAGER Pulse 92 12/12/2024 2:39 PM FINISHING MANAGER Temperature 36.4 C (97.5 F) 05/23/2024 12:30 PM CDT Respiratory Rate 18 11/07/2024 2:25 PM FINISHING MANAGER Oxygen Saturation 92% 12/12/2024 2:39 PM FINISHING MANAGER Inhaled Oxygen Concentration - - Weight 89 kg (196 lb 3.4 oz) 04/10/2025 12:45 PM CDT Height 182.9 cm (6') 04/10/2025 12:45 PM CDT Body Mass Index 26.61 04/10/2025 12:45 PM CDT Plan of Treatment Health Maintenance Due Date Last Done Comments Albumin Creatinine Ratio, Urine 1938 Depression Screening 1940 Dilated Eye Exam 1938 Foot Exam 1938 Well Visit 65+ 2003 Lipid Panel 06/28/2018 06/28/2017, 11/08/2015 Covid-19 Vaccine (2023-12 5 season) 2024 09/16/2023, 08/27/2022, 10/08/2021, Additional history exists Hemoglobin A1C 11/22/2024 05/23/2024, 04/30, 09/23/2017, Additional history exists eGFR 05/22/2025 05/22/2024, 04/30, 05/20/2024, Additional history exists Fall Risk Assessment 05/23/2025 05/23/2024 DTaP/Tdap/Td Vaccine (2 - Td or Tdap) 10/15/2030 10/15/2020, 06/18/2010 Pneumococcal vaccine 65+ Completed 015, 10/01/2014, 01/19/2003 Zoster Vaccine Completed 04/12/2019, 05/29, 01/17/2010 Hepatitis B Screening Completed 07/10/2023 , 02/09/2023, 01/05/2023 Influenza Vaccine Completed 08/30/2024, , 09/03/2022, Additional history exists Medical Devices Implanted Type Area Head Of Business Development Device Identifier Shelf Expiration Date Model / [...] residual synovial cysts contributing to up to wowohwnr-es-zlhrrl spinal canal stenosis at L4-L5, similar to prior. 2. Advanced lumbar facet arthropathy with up to severe neuroforaminal stenosis on the left at L3-L4. Please see above report for [id number] details. Dictated by: Franco Haas MD The [...] and moderate left neuroforaminal stenosis. There is dejbwamb-lj-hgmswq spinal canal stenosis. L5-S1: Disc bulge. There [...] and moderate left neuroforaminal stenosis. There is bxavhdsb-ce-ujstrw spinal canal stenosis. L5-S1: Disc bulge. There is severe left greater than right facet arthropathy. There is moderate left greater than right neuroforaminal stenosis. There is no spinal canal stenosis. IMPRESSION: 1. Postsurgical changes of L3-L4 and L4-L5 laminectomies with residual synovial cysts contributing to up to lpoxqfeo-ug-cyfnez spinal canal stenosis at L4-L5, similar to prior. 2. Advanced lumbar facet arthropathy with up to severe neuroforaminal stenosis on the left at L3-L4. Please see above report for [id number] details. Dictated by: Franco Haas MD The [...] it. Electronically signed by: Josephine Dowd M.D. Margie Guidry MD PhD IMG XR PROCEDURES [...] of Race in Diagnosing Kidney Disease, JASN 202). The CKD-EPI equation should not be used for patients with unstable renal function and has not been validated in children and those over 70. Current interpretive data was last reviewed 2021. Blood 05/22/2024 8:45 PM CDT 05/22/2024 9:04 PM CDT Cecil Fish MD LAB BLOOD ORDERABLES Laura l Result Performing Organization Address [facility] de Phone Number [facility] [place] [address] * Hemoglobin A1c (05/22/2024 8:45 PM CDT) [facility] Hgb A1C 5.0 4.0 - 5.6 % Estimated Average Glucose 97 mg/dL [facility] Comment: The ADA recommends reporting an estimated [...] ORDERABLES Laura l Result Performing Organization Address [facility] Co de Phone Number [facility] [place] [place] [address] * (ABNORMAL) Lipid panel (06/28/2017 2:09 PM CDT) Cholesterol 131 30 - 200 mg/dL [facility] Comment: Interpretive Data Desirable: <200 mg/dL Borderline high: 200-239 mg/dL High: > or = 240 mg/dL Literature Reference: National Cholesterol Education Program (NCEP) Expert Panel on Detection, Evaluation, and Treatment of High Blood Cholesterol in Adults (Adult Treatment Panel III). Circulation 2004; 110:227. Current interpretive data was last revised on 2015. Triglycerides 246(H) 0 - 150 mg/dL [facility] Comment: Interpretive Data Desirable: < 150 mg/dL Borderline High: 150 - 199 mg/dL High: 200 - 499 mg/dL Very High: > or = 499 mg/dL Literature Reference: See Cholesterol Current interpretive data was last revised on 2015. HDL 32(L) >=40 mg/dL [facility] Comment: Interpretive Data Less than 40 mg/dL - low; A major risk factor for heart disease. Greater than or equal to 60 mg/dL - High; considered protective of heart disease. Literature Reference: See Cholesterol Current interpretive data was last revised on 2015. LDL, calculated 50 10 - 129 mg/dL [facility] Comment: Interpretive Data Optimal: < 100 mg/dL Near Optimal: 100 - 129 mg/dL Borderline High: 130 - 159 mg/dL High: 160 - 189 mg/dL Very high: > or = 190 mg/dL Literature Reference: See Cholesterol Current interpretive data was last revised on 2015. Non-HDL Cholesterol 99 mg/dL [facility] Comment: Interpretive Data When triglycerides are >200 mg/dL, non-HDL C is a secondary target of therapy, with a goal 30 mg/dL higher than the identified LDL-C goal. Reference: See Cholesterol Reference. Current interpretive data was last revised 2015. Blood specimen (specimen) 06/28/2017 2:09 PM CDT 06/28/2017 2:30 PM CDT us Cecelia Calles MD LAB BLOOD ORDERABLES Final Result [facility] Department of Laboratories [place], [place] [id number] from Last 3 Months or Most Recently Relevant to Health Maintenance Insurance [facility] MEDICARE [facility] MEDICARE MEDICARE [facility] Advance Directives For more information, please contact: [phone] Documents on File Type Date Recorded Patient Software Developer Mid Level Expl anation ADVANCE DIRECTIVE 05/25/2024 4:24 PM POWER OF ELECTRICAL PARTS RECONDITIONER-MEDICAL * Full Code (Latest Code Status on File) Date Activated Date Inactivated Comments 05/20/2024 1:34 PM 05/23/2024 8:04 PM Care Teams Stick Inserter Relationship Specialty Start Date End Date Angi Andrade MD [address] [place] [address] PCP - General Internal Medicine 08/02/24
--- NOTE | 2025-05-31 15:43 | ED.FALL ---
HPI - Fall General Chief Complaint: Fall <NELY Park Last Filed: 05/31/25 15:53> Stated Complaint: fall out of wheelchair, on heparin <NELY Park Last Filed: 05/31/25 15:53> Time Seen by Provider: 05/31/25 15:43 <NELY Park Last Filed: 05/31/25 15:53> Focused HPI: Patient is an 85 y/o male, with PMH of ESRD on home hemodialysis four times a week, who presents to the ED with report of head injury. Patient was being wheeled out of his house in his wheelchair down a ramp when he felt forward out of his wheelchair. Hit his head on the gravel driveway, sustained large laceration to forehead. Laceration is very contaminated by debris/gravel. Also sustained lacerations/abrasions to L 3rd-5th fingers. Patient c/o pain to his head and neck. Denies back pain, numbness. Tetanus unknown. Patient is on heparin for his home dialysis. GENERAL: Elderly, chronically ill appearing, and in no acute distress. HEAD: Normocephalic. Large irregular laceration/contusion/macerated tissue with innumerable amount of debris/gravel deep in wounds. CHEST: Clear to auscultation. ?No respiratory distress. HEART: Regular rate and rhythm.? MSK: Abrasions/skin avulsions to extensor surface of L 3rd-5th fingers with macerated tissues. Laceration over L 5th digit PIP joint. NEURO: ?Alert and oriented x3. Patient screened in triage and initial orders placed.? ?Additional care and disposition to be based upon?diagnostic testing and treatment. <NELY Park Last Filed: 05/31/25 15:53> Source: patient and family <NELY Park Last Filed: 05/31/25 15:53> Mode of arrival: wheelchair <NELY Park Last Filed: 05/31/25 15:53> Limitations: no limitations <NELY Park Filed: 05/31/25 15:53> History of Present Illness HPI Narrative: Agree with the HPI above <Wilbert Strong MD - Last Filed: 05/31/25 23:24> Related Data Allergies/Adverse Reactions: Allergies Allergy/AdvReac Type Severity Reaction Status Date / Time lisinopril Allergy Mild coughing Verified 05/15/19 18:11 Sulfa (Sulfonamide Allergy Unknown unknown Verified 05/15/19 18:11 Antibiotics) <Taty Samayoa PA-C - Last Filed: 05/31/25 15:53> Review of Systems Review of Systems: As reviewed above in HPI <Wilbert Strong MD - Last Filed: 05/31/25 23:24> Exam Narrative: GENERAL: Elderly, chronically ill appearing, and in no acute distress. HEAD: Normocephalic. Large irregular laceration/contusion/macerated tissue with innumerable amount of debris/gravel deep in wounds. CHEST: Clear to auscultation. ?No respiratory distress. HEART: Regular rate and rhythm.? MSK: Abrasions/skin avulsions to extensor surface of L 3rd-5th fingers with macerated tissues. Laceration over L 5th digit PIP joint. NEURO: ?Alert and oriented x3. No focal deficits and moving all extremities equally. No facial asymmetry. <Wilbert Strong MD - Last Filed: 05/31/25 23:24> Course Vital Signs Vital signs: Vital Signs Temperature 36.2 C L 05/31/25 13:53 Pulse Rate 96 05/31/25 13:53 Respiratory Rate 18 05/31/25 13:53 Blood Pressure 102/56 L 05/31/25 13:53 Pulse Oximetry 100 05/31/25 13:53 Oxygen Delivery Room Air 05/31/25 13:53 Temperature 36.2 C L 05/31/25 13:53 Pulse Rate 94 05/31/25 18:45 Respiratory Rate 16 05/31/25 18:45 Blood Pressure 140/74 05/31/25 18:45 Pulse Oximetry 98 05/31/25 18:45 Oxygen Delivery Room Air 05/31/25 13:53 <Taty Samayoa PA-C - Last Filed: 05/31/25 15:53> Vital Signs Temperature 36.2 C L 05/31/25 13:53 Pulse Rate 96 05/31/25 13:53 Respiratory Rate 18 05/31/25 13:53 Blood Pressure 102/56 L 05/31/25 13:53 Pulse Oximetry 100 05/31/25 13:53 Oxygen Delivery Room Air 05/31/25 13:53 Temperature 36.2 C L 05/31/25 13:53 Pulse Rate 94 05/31/25 18:45 Respiratory Rate 16 05/31/25 18:45 Blood Pressure 140/74 05/31/25 18:45 Pulse Oximetry 98 05/31/25 18:45 Oxygen Delivery Room Air 05/31/25 13:53 <Wilbert Strong MD - Last Filed: 05/31/25 23:24> Procedures Laceration Laceration 1: Date: 05/31/25 <Wilbert Strong MD - Last Filed: 05/31/25 23:24> Time: 23:17 <Wilbert Strong MD - Last Filed: 05/31/25 23:24> Site: scalp <Wilbert Strong MD - Last Filed: 05/31/25 23:24> Side (If applicable): right <Wilbert Strong MD - Last Filed: 05/31/25 23:24> Size (cm): 2.5 <Wilbert Strong MD - Last Filed: 05/31/25 23:24> Description: linear <Wilbert Strong MD - Last Filed: 05/31/25 23:24> Depth: simple, single layer <Wilbert Strong MD - Last Filed: 05/31/25 23:24> Local Anesthetic: lidocaine 1% <Wilbert Strong MD - Last Filed: 05/31/25 23:24> Amount of anesthesia used (mL): 3 <Wilbert Strong MD - Last Filed: 05/31/25 23:24> Pre-repair: wound explored, irrigated extensively, minor debridement and deep structures intact <Wilbert Strong MD - Last Filed: 05/31/25 23:24> ====== Skin Level ======: Skin layer closed with: nylon <Wilbert Strong MD - Last Filed: 05/31/25 23:24> Size (cm): 4-0 <Wilbert Strong MD - Last Filed: 05/31/25 23:24> Number of sutures: 4 <Wilbert Strong MD - Last Filed: 05/31/25 23:24> Technique: simple, interrupted <Wilbert Strong MD - Last Filed: 05/31/25 23:24> ====== Subcutaneous Layer ======: ====== Muscle Layer ======: ====== Tendon Layer ======: Dressing: Non adherent dressing <Wilbert Strong MD - Last Filed: 05/31/25 23:24> Laceration 2: Date: 05/31/25 <Wilbert Strong MD - Last Filed: 05/31/25 23:24> Time: 23:18 <Wilbert Strong MD - Last Filed: 05/31/25 23:24> Site: scalp <Wilbert Strong MD - Last Filed: 05/31/25 23:24> Side (If applicable): left <Wilbert Strong MD - Last Filed: 05/31/25 23:24> Size (cm): 5.0 <Wilbert Strong MD - Last Filed: 05/31/25 23:24> Description: stellate, irregular and contaminated <Wilbert Strong MD - Last Filed: 05/31/25 23:24> Depth: simple, single layer <Wilbert Strong MD - Last Filed: 05/31/25 23:24> Local Anesthetic: lidocaine 1% <Wilbert Strong MD - Last Filed: 05/31/25 23:24> Amount of anesthesia used (mL): 5 <Wilbert Strong MD - Last Filed: 05/31/25 23:24> Pre-repair: wound explored, irrigated extensively, extensive debridement and deep structures intact <Wilbert Strong MD - Last Filed: 05/31/25 23:24> ====== Skin Level ======: Skin layer closed with: nylon <Wilbert Strong MD - Last Filed: 05/31/25 23:24> Size (cm): 4-0 <Wilbert Strong MD - Last Filed: 05/31/25 23:24> Number of sutures: 8 <Wilbert Strong MD - Last Filed: 05/31/25 23:24> Technique: simple, interrupted <Wilbert Strong MD - Last Filed: 05/31/25 23:24> ====== Subcutaneous Layer ======: ====== Muscle Layer ======: ====== Tendon Layer ======: Dressing: Not adherent dressing <Wilbert Strong MD - Last Filed: 05/31/25 23:24> Laceration 3: Date: 05/31/25 <Wilbert Strong MD - Last Filed: 05/31/25 23:24> Time: 23:19 <Wilbert Strong MD - Last Filed: 05/31/25 23:24> Site: scalp <Wilbert Strong MD - Last Filed: 05/31/25 23:24> Side (If applicable): right <Wilbert Strong MD - Last Filed: 05/31/25 23:24> Size (cm): 1 <Wilbert Strong MD - Last Filed: 05/31/25 23:24> Description: linear <Wilbert Strong MD - Last Filed: 05/31/25 23:24> Depth: simple, single layer <Wilbert Strong MD - Last Filed: 05/31/25 23:24> Local Anesthetic: lidocaine 1% <Wilbert Strong MD - Last Filed: 05/31/25 23:24> Amount of anesthesia used (mL): 1 <Wilbert Strong MD - Last Filed: 05/31/25 23:24> Pre-repair: wound explored, irrigated extensively and minor debridement <Wilbert Strong MD - Last Filed: 05/31/25 23:24> ====== Skin Level ======: Skin layer closed with: nylon <Wilbert Strong MD - Last Filed: 05/31/25 23:24> Size (cm): 4-0 <Wilbert Strong MD - Last Filed: 05/31/25 23:24> Number of sutures: 1 <Wilbert Strong MD - Last Filed: 05/31/25 23:24> Technique: simple, interrupted <Wilbert Strong MD - Last Filed: 05/31/25 23:24> ====== Subcutaneous Layer ======: ====== Muscle Layer ======: ====== Tendon Layer ======: Dressing: Not hand dressing <Wilbert Strong MD - Last Filed: 05/31/25 23:24> MDM - Fall MDM Narrative Medical decision making narrative: MSE by RADHA in triage. <Taty Samayoa PA-C - Last Filed: 05/31/25 15:53> MSE by RADHA in triage. Patient is an 85 y/o male, with PMH of ESRD on home hemodialysis four times a week, who presents to the ED with report of head injury. Patient was being wheeled out of his house in his wheelchair down a ramp when he felt forward out of his wheelchair. Hit his head on the gravel driveway, sustained large laceration to forehead. Laceration is very contaminated by debris/gravel. Also sustained lacerations/abrasions to L 3rd-5th fingers. Patient c/o pain to his head and neck. Denies back pain, numbness. Tetanus unknown. Patient is on heparin for his home dialysis. Patient is not any acute distress and otherwise well-appearing but does have significant amounts of debris in his wounds on the forehead and his left upper extremity at the hand. None any pain in his tetanus was updated here. Who placed on Keflex for bacterial prophylaxis given the contaminated wounds. CTs of the head neck and x-rays of the hand were obtained. Tetanus updated. Will close the wounds loosely with sutures and have him follow-up with General surgery for wound check. And x-ray showed no definitive osseous abnormalities, chronic subluxation of the distal interphalangeal joints, positive early osteoarthritis. Foreign bodies identified which were debrided at bedside with extensive irrigation. CT of the cervical spine shows no acute abnormalities. CT of the head shows no acute intracranial abnormalities but lots of debris in the forehead which was irrigated extensively debrided at bedside with good return without any obvious foreign bodies left over with copious amounts of irrigation. Wound closed with loose approximation. Refer to procedure notes above. Patient's wounds were irrigated extensively and debrided of all of the visible foreign bodies. Arrival was in the wounds and the wounds are contaminated. Discussed this with the patient and he is already on a prophylactic antibiotic daily including Augmentin and this will be able to cover his antibiosis needs for the forehead and hand as well. His wounds were repaired and all 3 lacerations of his forehead were repaired with loose approximation and his hand was bandaged up without any need for wound repair given the avulsed skin and not needing stitches. Full range of motion of the hand. He is awake alert oriented and safe for discharge home at this time family member bedside comfortable with this at this time and will follow-up with General surgery for wound check in 10-14 days and suture removal at that time. Patient given return precautions. <Wilbert Strong MD - Last Filed: 05/31/25 23:24> Medical Records Attestation: I reviewed the patient's medical records. <Wilbert Strong MD - Last Filed: 05/31/25 23:24> Imaging Data Attestation: I personally reviewed and interpreted this imaging study as follows: <Wilbert Strong MD - Last Filed: 05/31/25 23:24> My impression: Impressions Head CT 05/31/25 14:38 IMPRESSION: 1. High attenuation debris/foreign bodies along a deep scalp laceration anteriorly at the forehead with no underlying fracture or acute intracranial process. 2. 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 3. Age-related changes including moderate diffuse on loss and mild scattered white matter hypoattenuation consistent with chronic small vessel ischemic disease. 4. Distal tip of a right parietal ventricular drainage catheter in the anterior right lateral ventricle near the foramen of Monro. Cervical Spine CT 05/31/25 14:49 IMPRESSION: 1. No acute osseous abnormality. 2. Moderate cervical spondylosis with moderate to severe multilevel facet osteoarthritis with multilevel mild central canal and mild and moderate neural foraminal stenosis. 3. Prominent bridging and nearly bridging anterior endplate osteophytes and ossification along the posterior longitudinal ligament. Hand X-Ray 05/31/25 16:10 IMPRESSION: No definite acute osseous abnormality left hand. Subluxation in the distal interphalangeal joint of the middle finger which is most likely chronic. Polyarticular osteoarthritic changes. Subcutaneous foreign bodies are present and the fourth and fifth fingers soft tissues opposite the proximal interphalangeal joints. <Wilbert Strong MD - Last Filed: 05/31/25 23:24> Discharge Plan Discharge Clinical Impression: CHI (closed head injury), Contaminated complex laceration of forehead, Avulsion of skin of finger <Taty Samayoa PA-C - Last Filed: 05/31/25 15:53> Patient Disposition: Home <Taty Samayoa PA-C - Last Filed: 05/31/25 15:53> Condition: Stable <NELY Park Last Filed: 05/31/25 15:53> Instructions: Antibiotic Form, Laceration (ED), Skin Avulsion (ED), Abrasion (ED) <NELY Park Last Filed: 05/31/25 15:53> Additional Instructions: You have 13 stitches in your forehead keep the area clean and dry and change the dressings once or twice a day with nonadherent Telfa dressing. Take the antibiotics that you are already prescribed to make sure that these wounds do not get infected. The skin avulsion on your left finger does not need any repair aside from wound care locally. Your scans showed no acute injuries. Follow-up with your general surgery in 10-14 days for wound check and suture removal at that time. Return with any signs of infection or worsening concerns. <Taty Samayoa PA-C - Last Filed: 05/31/25 15:53> Patient Language: Occitan <Taty Samayoa PA-C - Last Filed: 05/31/25 15:53> Follow-up/Referrals: Gurpreet Rodriguez MD [Physician] - 2 Weeks (Wound follow-up after ER visit) PHYSICIAN NOT ON STAFF,NONSTAFF [Primary Care Provider] - <Taty Samayoa PA-C - Last Filed: 05/31/25 15:53> Time of Disposition: 23:24 <Taty Samayoa PA-C - Last Filed: 05/31/25 15:53> 23:24 <Wilbert Strong MD - Last Filed: 05/31/25 23:24>
[2025-05-31] MEDS: TETANUS,DIPHTHERIA,AC PERTUSSIS ADULT (0.5 ML) BOOSTRIX IM (15:44)
--- OUTSIDE RECORDS SUMMARY | 2025-05-31 19:17 | XMS_ITS ---
Author Organization [facility] [employer] Sydni melendez ([facility]) Address [address] [place] [id number] Care Team Providers Care Platform Beater Name Role Phone Unavailable Unavailable Unavailable Allergies, Adverse Reactions, Alerts Allergy Name Allergy Type Status Severity Reaction(s) Onset Date Inactive Date Treating Clinician Comments Tuberculin Purified Protein Derivative Allergy Active Mild Allergy 2023-08 05:00:0 0 Sulfa 10 Allergy Active Unknown 2022-07 05:00:0 0 Terazosin Allergy Active Unknown 2022-07 05:00:0 0 Lisinopril Allergy Active Unknown 2022-07 05:00:0 0 Medications Ordered Medication Name Filled Medication Name Start Date Stop Date Current Medication? Ordering Clinician Indication Dosage Frequency Signature (SIG) Comments Components Mircera 05-14 15:43: 13 Yes [id number] Number of Repeats Allowed: Frequency: RON dosing, every three to four weeks Mircera 04-09 17:08: 37 Yes [id number] Number of Repeats Allowed: Frequency: RON dosing, every three to four weeks Potassium Chloride 04-06 19:19: 53 Yes Number of Repeats Allowed: Frequency: Two times a day Cetirizine HCl 03-15 19:46: 20 Yes Number of Repeats Allowed: Frequency: One time a day Acetaminoph en 03-15 19:46: 00 Yes Number of Repeats Allowed: Frequency: Three times a day metOLazone 03-15 19:45: 14 Yes Number of Repeats Allowed: Frequency: One time a day Lidocaine 03-15 19:44: 54 Yes Number of Repeats Allowed: Frequency: As needed Polyethylen e Glycol 3350 12 17:56: 34 Yes Number of Repeats Allowed: Frequency: One time a day Docusate Sodium 212 17:53: 41 Yes Number of Repeats Allowed: Frequency: Two times a day Albuterol Sulfate HFA 2023-11 0 19:43: 54 Yes Number of Repeats Allowed: Frequency: As needed Spiriva Respimat 2023-11 0 19:43: 07 Yes Number of Repeats Allowed: Frequency: One time a day HYDROcodone -Acetaminop hen 9 18:39: 40 Yes Number of Repeats Allowed: Frequency: Every eight hours Cyclobenzap rine HCl 05-26 13:04: 36 Yes Number of Repeats Allowed: Frequency: As needed Bumetanide 02-22 20:38: 11 Yes Number of Repeats Allowed: Frequency: Two times a day Nepro/CarbS teady 02-15 15:01: 05 Yes Number of Repeats Allowed: Frequency: Every other day Divalproex Sodium ER 12-15 14:09: 34 Yes Number of Repeats Allowed: Frequency: One time a day Tamsulosin HCl 07-29 18:18: 47 Yes Number of Repeats Allowed: Frequency: Once a day, at bedtime Renal Vitamin 07-29 18:17: 43 Yes Number of Repeats Allowed: Frequency: One time a day Mirtazapine 07-29 18:13: 17 Yes Number of Repeats Allowed: Frequency: Once a day, at bedtime Menthol-Met hyl Salicylate 07-29 18:12: 02 Yes Number of Repeats Allowed: Frequency: As needed Melatonin 07-29 18:10: 05 Yes Number of Repeats Allowed: Frequency: Once a day, at bedtime DULoxetine HCl 07-29 17:58: 44 Yes Number of Repeats Allowed: Frequency: Every morning Atorvastati n Calcium 07-29 17:48: 14 Yes Number of Repeats Allowed: Frequency: Every evening Amoxicillin -Pot Clavulanate 07-29 17:46: 31 Yes Number of Repeats Allowed: Frequency: Two times a day Problems This patient has no known problems. Procedures Procedure Date / Time Performed Performing Clinician Tita ce Details AV Fistula 2023-05-31 05:00:00 Access Site Upper Arm (Right) Access Use Start Date 2024-02-21 17:58:0 0 Central Venous Catheter (CVC)2022-08-15 05:00:00 Access Site Chest (Right) Access Use Start Date 2022-08-28 05:00:0 0 Access Use End Date 2024-03-24 05:00:00 DIALYSIS TREATMENT INFORMATION Conventional Hemodialysis Date Type Treatment Start Date Treatment End Date Pre-Treatment Vitals Post-Treatment Vitals Weight Gain BFR DFR Actual UF Dialysis Access May 29, 2025 Home Hemod ialys is Treat ment BP Sitting (Pre-Dialysis) 153/78 mmHg BP Sitting (Post-D ialysis ) 143/ 83 mmHg Weight Pre-Dialysis 90.5 kg Weight Post-Dialysis 87.8 kg May 27, 2025 Home Hemodialysis Treatment BP Sitting (Pre-Dialysis) 166/79 mmHg BP Sitting (Post-Dialysis) 137/74 mmHg Concurrent Access: NoAV Fistula (Upper Arm (Right)) ArterialAV Fistula (Upper Arm (Right)) Venous Weight Pre-Dialysis 91 kg Weight Post-Dialysis 87.1 kg May 25, 2025 Home Hemodialysis Treatment BP Sitting (Pre-Dialysis) 157/82 mmHg BP Sitting (Post-Dialysis) 127/82 mmHg Concurrent Access: NoAV Fistula (Upper Arm (Right)) ArterialAV Fistula (Upper Arm (Right)) Venous Weight Pre-Dialysis 90.7 kg Weight Post-Dialysis 85.7 kg May 24, 2025 Home Hemodialysis Treatment BP Sitting (Pre-Dialysis) 158/73 mmHg BP Sitting (Post-Dialysis) 115/85 mmHg Concurrent Access: NoAV Fistula (Upper Arm (Right)) ArterialAV Fistula (Upper Arm (Right)) Venous Weight Pre-Dialysis 95.1 kg Weight Post-Dialysis 87.5 kg May 22, 2025 Home Hemodialysis Treatment BP Sitting (Pre-Dialysis) 144/67 mmHg BP Sitting (Post-Dialysis) 145/74 mmHg Concurrent Access: NoAV Fistula (Upper Arm (Right)) ArterialAV Fistula (Upper Arm (Right)) Venous Weight Pre-Dialysis 93.4 kg Weight Post-Dialysis 87.7 kg May 21, 2025 Home Hemodialysis Treatment BP Sitting (Pre-Dialysis) 137/79 mmHg BP Sitting (Post-Dialysis) 126/73 mmHg Concurrent Access: NoAV Fistula (Upper Arm (Right)) ArterialAV Fistula (Upper Arm (Right)) Venous Weight Pre-Dialysis 89.7 kg Weight Post-Dialysis 87.7 kg May 18, 2025 Home Hemodialysis Treatment BP Sitting (Pre-Dialysis) 135/74 mmHg BP Sitting (Post-Dialysis) 128/66 mmHg Concurrent Access: NoAV Fistula (Upper Arm (Right)) ArterialAV Fistula (Upper Arm (Right)) Venous Weight Pre-Dialysis 89.3 kg Weight Post-Dialysis 88.2 kg May 17, 2025 Home Hemodialysis Treatment BP Sitting (Pre-Dialysis) 138/69 mmHg BP Sitting (Post-Dialysis) 150/72 mmHg Concurrent Access: NoAV Fistula (Upper Arm (Right)) ArterialAV Fistula (Upper Arm (Right)) Venous Weight Pre-Dialysis 90.3 kg Weight Post-Dialysis 87.5 kg May 15, 2025 Home Hemodialysis Treatment BP Sitting (Pre-Dialysis) 120/49 mmHg Concurrent Access: NoAV Fistula (Upper Arm (Right)) ArterialAV Fistula (Upper Arm (Right)) Venous Sitting Heart Rate Pre-Dialysis 72 BPM Temperature Pre-Dialysis 97.3 degF Weight Pre-Dialysis 87.4 kg May 15, 2025 Home Hemodialysis Treatment BP Sitting (Pre-Dialysis) 137/70 mmHg BP Sitting (Post-Dialysis) 140/69 mmHg Concurrent Access: NoAV Fistula (Upper Arm (Right)) ArterialAV Fistula (Upper Arm (Right)) Venous Weight Pre-Dialysis 91.1 kg Weight Post-Dialysis 87.4 kg May 14, 2025 Home Hemodialysis Treatment 300 mL/min Concurrent Access: NoAV Fistula (Upper Arm (Right)) ArterialAV Fistula (Upper Arm (Right)) Venous May 13, 2025 Home Hemodialysis Treatment BP Sitting (Pre-Dialy sis) 134/75 mmHg BP Sitting (Post-Dial ysis) 131/66 mmHg Concurrent Access: NoAV Fistula (Upper Arm (Right)) ArterialAV Fistula (Upper Arm (Right)) Venous Weight Pre-Dialysis 92 kg Weight Post-Dialysis 87.8 kg May 11, 2025 Home Hemodialysis Treatment BP Sitting (Pre-Dialysis) 152/74 mmHg BP Sitting (Post-Dialysis) 134/74 mmHg Concurrent Access: NoAV Fistula (Upper Arm (Right)) ArterialAV Fistula (Upper Arm (Right)) Venous Weight Pre-Dialysis 89.7 kg Weight Post-Dialysis 87.3 kg May 10, 2025 Home Hemodialysis Treatment BP Sitting (Pre-Dialysis) 150/75 mmHg BP Sitting (Post-Dialysis) 142/79 mmHg Concurrent Access: NoAV Fistula (Upper Arm (Right)) ArterialAV Fistula (Upper Arm (Right)) Venous Weight Pre-Dialysis 92.5 kg Weight Post-Dialysis 86.7 kg May 08, 2025 Home Hemodialysis Treatment BP Sitting (Pre-Dialysis) 155/78 mmHg BP Sitting (Post-Dialysis) 128/70 mmHg Concurrent Access: NoAV Fistula (Upper Arm (Right)) ArterialAV Fistula (Upper Arm (Right)) Venous Weight Pre-Dialysis 91.6 kg Weight Post-Dialysis 87.4 kg May 06, 2025 Home Hemodialysis Treatment BP Sitting (Pre-Dialysis) 154/76 mmHg BP Sitting (Post-Dialysis) 138/67 mmHg Concurrent Access: NoAV Fistula (Upper Arm (Right)) ArterialAV Fistula (Upper Arm (Right)) Venous Weight Pre-Dialysis 91.6 kg Weight Post-Dialysis 88 kg May 04, 2025 Home Hemodialysis Treatment BP Sitting (Pre-Dialysis) 137/78 mmHg BP Sitting (Post-Dialysis) 120/71 mmHg Concurrent Access: NoAV Fistula (Upper Arm (Right)) ArterialAV Fistula (Upper Arm (Right)) Venous Weight Pre-Dialysis 82 kg Weight Post-Dialysis 83 kg May 02, 2025 Home Hemodialysis Treatment BP Sitting (Pre-Dialysis) 140/67 mmHg BP Sitting (Post-Dialysis) 140/65 mmHg Concurrent Access: NoAV Fistula (Upper Arm (Right)) ArterialAV Fistula (Upper Arm (Right)) Venous Weight Pre-Dialysis 92.5 kg Weight Post-Dialysis 87.5 kg April 30, 2025 Home Hemodialysis Treatment BP Sitting (Pre-Dialysis) 152/75 mmHg BP Sitting (Post-Dialysis) 130/68 mmHg Concurrent Access: NoAV Fistula (Upper Arm (Right)) ArterialAV Fistula (Upper Arm (Right)) Venous Weight Pre-Dialysis 94.1 kg Weight Post-Dialysis 88.4 kg April 28, 2025 Home Hemodialysis Treatment BP Sitting (Pre-Dialysis) 137/75 mmHg BP Sitting (Post-Dialysis) 125/62 mmHg Concurrent Access: NoAV Fistula (Upper Arm (Right)) ArterialAV Fistula (Upper Arm (Right)) Venous Weight Pre-Dialysis 88.9 kg Weight Post-Dialysis 87.2 kg April 27, 2025 Home Hemodialysis Treatment BP Sitting (Pre-Dialysis) 150/67 mmHg BP Sitting (Post-Dialysis) 149/78 mmHg Concurrent Access: NoAV Fistula (Upper Arm (Right)) ArterialAV Fistula (Upper Arm (Right)) Venous Weight Pre-Dialysis 93 kg Weight Post-Dialysis 87.4 kg April 26, 2025 Home Hemodialysis Treatment 300 mL/min Concu rrent Access: NoAV Fistula (Upper Arm (Right)) ArterialAV Fistula (Upper Arm (Right)) Venous April 25, 2025 Home Hemodialysis Treatment BP Sitting (Pre-Dialysi s) 122/63 mmHg Concurrent Access: NoAV Fistula (Upper Arm (Right)) ArterialAV Fistula (Upper Arm (Right)) Venous Sitting Heart Rate Pre-Dialysis 90 BPM Temperature Pre-Dialysis 97.6 degF Weight Pre-Dialysis 85.5 kg April 24, 2025 Home Hemodialysis Treatment BP Sitting (Pre-Dialysis) 135/71 mmHg BP Sitting (Post-Dialysis) 122/63 mmHg Concurrent Access: NoAV Fistula (Upper Arm (Right)) ArterialAV Fistula (Upper Arm (Right)) Venous Weight Pre-Dialysis 92 kg Weight Post-Dialysis 85.5 kg April 23, 2025 Home Hemodialysis Treatment BP Sitting (Pre-Dialysis) 157/74 mmHg BP Sitting (Post-Dialysis) 136/73 mmHg Concurrent Access: NoAV Fistula (Upper Arm (Right)) ArterialAV Fistula (Upper Arm (Right)) Venous Weight Pre-Dialysis 94.9 kg Weight Post-Dialysis 89.2 kg April 19, 2025 Home Hemodialysis Treatment BP Sitting (Pre-Dialysis) 159/78 mmHg BP Sitting (Post-Dialysis) 141/73 mmHg Concurrent Access: NoAV Fistula (Upper Arm (Right)) ArterialAV Fistula (Upper Arm (Right)) Venous Weight Post-Dialysis 86.5 kg April 18, 2025 Home Hemodialysis Treatment BP Sitting (Pre-Dialysis) 168/78 mmHg BP Sitting (Post-Dialysis) 140/69 mmHg Concurrent Access: NoAV Fistula (Upper Arm (Right)) ArterialAV Fistula (Upper Arm (Right)) Venous Weight Pre-Dialysis 91.2 kg Weight Post-Dialysis 87.3 kg April 17, 2025 Home Hemodialysis Treatment BP Sitting (Pre-Dialysis) 117/52 mmHg Concurrent Access: NoAV Fistula (Upper Arm (Right)) ArterialAV Fistula (Upper Arm (Right)) Venous Sitting Heart Rate Pre-Dialysis 81 BPM Temperature Pre-Dialysis 97.7 degF Weight Pre-Dialysis 90.1 kg April 15, 2025 Home Hemodialysis Treatment BP Sitting (Pre-Dialysis) 136/68 mmHg BP Sitting (Post-Dialysis) 144/70 mmHg Concurrent Access: NoAV Fistula (Upper Arm (Right)) ArterialAV Fistula (Upper Arm (Right)) Venous Weight Pre-Dialysis 91.7 kg Weight Post-Dialysis 86 kg April 13, 2025 Home Hemodialysis Treatment BP Sitting (Pre-Dialysis) 130/67 mmHg BP Sitting (Post-Dialysis) 130/55 mmHg Concurrent Access: NoAV Fistula (Upper Arm (Right)) ArterialAV Fistula (Upper Arm (Right)) Venous Weight Pre-Dialysis 91.8 kg Weight Post-Dialysis 87.6 kg April 11, 2025 Home Hemodialysis Retraining BP Sitting (Pre-Dialysis) 131/61 mmHg BP Sitting (Post-Dialysis) 130/68 mmHg Concurrent Access: NoAV Fistula (Upper Arm (Right)) ArterialAV Fistula (Upper Arm (Right)) Venous Sitting Heart Rate Pre-Dialysis 84 BPM Sitting H eart Rate Post-Dialysis 84 BPM Temperature Pre-Dialysis 97.5 degF Temperature Post -Dialysis 97.4 degF Weight Pre-Dialysis 91.6 kg April 09, 2025 Home Hemodialysis Treatment Concurrent Access: NoAV Fistula (Upper Arm (Right)) ArterialAV Fistula (Upper Arm (Right)) Venous April 09, 2025 Home Hemodialysis Retraining BP Sitting (Pre-Dialys is) 136/61 mmHg BP Sitting (Post-Dial ysis) 122/56 mmHg Concurrent Access: NoAV Fistula (Upper Arm (Right)) ArterialAV Fistula (Upper Arm (Right)) Venous Sitting Heart Rate Pre-Dialysis 82 BPM Sitting H eart Rate Post-Dialysis 78 BPM Temperature Pre-Dialysis 97.5 degF Temperature Post -Dialysis 97.5 degF Weight Pre-Dialysis 90.1 kg April 06, 2025 Home Hemodialysis Retraining BP Sitting (Pre-Dialysis) 158/81 mmHg BP Sitting (Post-Dialysis) 138/87 mmHg Concurrent Access: NoAV Fistula (Upper Arm (Right)) ArterialAV Fistula (Upper Arm (Right)) Venous Sitting Heart Rate Pre-Dialysis 63 BPM Sitting H eart Rate Post-Dialysis 93 BPM Temperature Pre-Dialysis 97.3 degF Temperature Post -Dialysis 97.6 degF Weight Pre-Dialysis 90.6 kg April 04, 2025 Home Hemodialysis Retraining BP Sitting (Pre-Dialysis) 140/73 mmHg BP Sitting (Post-Dialysis) 122/74 mmHg Concurrent Access: NoAV Fistula (Upper Arm (Right)) ArterialAV Fistula (Upper Arm (Right)) Venous Sitting Heart Rate Pre-Dialysis 74 BPM Sitting H eart Rate Post-Dialysis 91 BPM Temperature Pre-Dialysis 98 degF Temperature Post -Dialysis 97.2 degF Weight Pre-Dialysis 92.5 kg April 03, 2025 Home Hemodialysis Treatment BP Sitting (Pre-Dialysis) 149/56 mmHg BP Sitting (Post-Dialysis) 164/84 mmHg Concurrent Access: NoAV Fistula (Upper Arm (Right)) ArterialAV Fistula (Upper Arm (Right)) Venous Weight Pre-Dialysis 92 kg Weight Post-Dialysis 88.5 kg April 01, 2025 Home Hemodialysis Treatment BP Sitting (Pre-Dialysis) 134/52 mmHg BP Sitting (Post-Dialysis) 112/67 mmHg Concurrent Access: NoAV Fistula (Upper Arm (Right)) ArterialAV Fistula (Upper Arm (Right)) Venous Weight Pre-Dialysis 94.8 kg March 29, 2025 Home Hemodialysis Treatment BP Sitting (Pre-Dialysis) 126/71 mmHg BP Sitting (Post-Dialysis) 116/70 mmHg Concurrent Access: NoAV Fistula (Upper Arm (Right)) ArterialAV Fistula (Upper Arm (Right)) Venous Weight Pre-Dialysis 90.3 kg Weight Post-Dialysis 87.9 kg March 28, 2025 Home Hemodialysis Treatment BP Sitting (Pre-Dialysis) 134/64 mmHg BP Sitting (Post-Dialysis) 142/66 mmHg Concurrent Access: NoAV Fistula (Upper Arm (Right)) ArterialAV Fistula (Upper Arm (Right)) Venous Weight Pre-Dialysis 91 kg Weight Post-Dialysis 88.6 kg March 26, 2025 Home Hemodialysis Treatment BP Sitting (Pre-Dialysis) 134/53 mmHg BP Sitting (Post-Dialysis) 143/72 mmHg Concurrent Access: NoAV Fistula (Upper Arm (Right)) ArterialAV Fistula (Upper Arm (Right)) Venous Weight Pre-Dialysis 90.3 kg Weight Post-Dialysis 88 kg March 24, 2025 Home Hemodialysis Treatment BP Sitting (Pre-Dialysis) 128/60 mmHg BP Sitting (Post-Dialysis) 136/78 mmHg Concurrent Access: NoAV Fistula (Upper Arm (Right)) ArterialAV Fistula (Upper Arm (Right)) Venous Weight Pre-Dialysis 92.9 kg Weight Post-Dialysis 88.2 kg March 22, 2025 Home Hemodialysis Treatment BP Sitting (Pre-Dialysis) 132/68 mmHg BP Sitting (Post-Dialysis) 137/61 mmHg Concurrent Access: NoAV Fistula (Upper Arm (Right)) ArterialAV Fistula (Upper Arm (Right)) Venous Weight Pre-Dialysis 90.2 kg Weight Post-Dialysis 88.8 kg March 21, 2025 Home Hemodialysis Treatment BP Sitting (Pre-Dialysis) 136/63 mmHg BP Sitting (Post-Dialysis) 134/71 mmHg Concurrent Access: NoAV Fistula (Upper Arm (Right)) ArterialAV Fistula (Upper Arm (Right)) Venous Weight Pre-Dialysis 93.5 kg Weight Post-Dialysis 88 kg March 19, 2025 Home Hemodialysis Treatment BP Sitting (Pre-Dialysis) 121/57 mmHg BP Sitting (Post-Dialysis) 116/59 mmHg Concurrent Access: NoAV Fistula (Upper Arm (Right)) ArterialAV Fistula (Upper Arm (Right)) Venous Weight Pre-Dialysis 91.3 kg Weight Post-Dialysis 88.5 kg March 17, 2025 Home Hemodialysis Treatment BP Sitting (Pre-Dialysis) 145/67 mmHg BP Sitting (Post-Dialysis) 114/64 mmHg Concurrent Access: NoAV Fistula (Upper Arm (Right)) ArterialAV Fistula (Upper Arm (Right)) Venous Weight Pre-Dialysis 93.1 kg Weight Post-Dialysis 88.7 kg March 15, 2025 Home Hemodialysis Treatment BP Sitting (Pre-Dialysis) 117/57 mmHg Concurrent Access: NoAV Fistula (Upper Arm (Right)) ArterialAV Fistula (Upper Arm (Right)) Venous Sitting Heart Rate Pre-Dialysis 70 BPM Temperature Pre-Dialysis 97.4 degF Weight Pre-Dialysis 88.3 kg March 15, 2025 Home Hemodialysis Treatment BP Sitting (Pre-Dialysis) 160/69 mmHg BP Sitting (Post-Dialysis) 137/70 mmHg Concurrent Access: NoAV Fistula (Upper Arm (Right)) ArterialAV Fistula (Upper Arm (Right)) Venous Weight Pre-Dialysis 93.2 kg Weight Post-Dialysis 89.1 kg March 12, 2025 Home Hemodialysis Treatment BP Sitting (Pre-Dialysis) 135/68 mmHg BP Sitting (Post-Dialysis) 137/71 mmHg Concurrent Access: NoAV Fistula (Upper Arm (Right)) ArterialAV Fistula (Upper Arm (Right)) Venous Weight Pre-Dialysis 89.5 kg Weight Post-Dialysis 88.3 kg March 11, 2025 Home Hemodialysis Treatment BP Sitting (Pre-Dialysis) 130/68 mmHg BP Sitting (Post-Dialysis) 135/74 mmHg Concurrent Access: NoAV Fistula (Upper Arm (Right)) ArterialAV Fistula (Upper Arm (Right)) Venous Weight Pre-Dialysis 91.5 kg Weight Post-Dialysis 88.1 kg March 10, 2025 Home Hemodialysis Treatment BP Sitting (Pre-Dialysis) 157/69 mmHg BP Sitting (Post-Dialysis) 138/69 mmHg Concurrent Access: NoAV Fistula (Upper Arm (Right)) ArterialAV Fistula (Upper Arm (Right)) Venous Weight Pre-Dialysis 90 kg Weight Post-Dialysis 88.2 kg March 07, 2025 Home Hemodialysis Treatment BP Sitting (Pre-Dialysis) 131/64 mmHg BP Sitting (Post-Dialysis) 111/58 mmHg Concurrent Access: NoAV Fistula (Upper Arm (Right)) ArterialAV Fistula (Upper Arm (Right)) Venous Weight Pre-Dialysis 91.7 kg Weight Post-Dialysis 88.5 kg March 05, 2025 Home Hemodialysis Treatment BP Sitting (Pre-Dialysis) 136/68 mmHg BP Sitting (Post-Dialysis) 112/62 mmHg Concurrent Access: NoAV Fistula (Upper Arm (Right)) ArterialAV Fistula (Upper Arm (Right)) Venous Weight Pre-Dialysis 91 kg Weight Post-Dialysis 86.8 kg March 04, 2025 Home Hemodialysis Treatment BP Sitting (Pre-Dialysis) 145/60 mmHg BP Sitting (Post-Dialysis) 121/62 mmHg Concurrent Access: NoAV Fistula (Upper Arm (Right)) ArterialAV Fistula (Upper Arm (Right)) Venous Weight Pre-Dialysis 94 kg Weight Post-Dialysis 89.6 kg March 01, 2025 Home Hemodialysis Treatment BP Sitting (Pre-Dialysis) 127/68 mmHg BP Sitting (Post-Dialysis) 128/69 mmHg Concurrent Access: NoAV Fistula (Upper Arm (Right)) ArterialAV Fistula (Upper Arm (Right)) Venous Weight Pre-Dialysis 90 kg Weight Post-Dialysis 88.3 kg February 28, 2025 Home Hemodialysis Treatment BP Sitting (Pre-Dialysis) 140/82 mmHg BP Sitting (Post-Dialysis) 124/54 mmHg Concurrent Access: NoAV Fistula (Upper Arm (Right)) ArterialAV Fistula (Upper Arm (Right)) Venous Weight Pre-Dialysis 90.5 kg Weight Post-Dialysis 88.2 kg February 27, 2025 Home Hemodialysis Treatment BP Sitting (Pre-Dialysis) 147/62 mmHg BP Sitting (Post-Dialysis) 101/61 mmHg Concurrent Access: NoAV Fistula (Upper Arm (Right)) ArterialAV Fistula (Upper Arm (Right)) Venous Weight Pre-Dialysis 92 kg Weight Post-Dialysis 87.4 kg February 24, 2025 Home Hemodialysis Treatment BP Sitting (Pre-Dialysis) 147/53 mmHg BP Sitting (Post-Dialysis) 126/61 mmHg Concurrent Access: NoAV Fistula (Upper Arm (Right)) ArterialAV Fistula (Upper Arm (Right)) Venous Weight Pre-Dialysis 92 kg Weight Post-Dialysis 88.2 kg February 22, 2025 Home Hemodialysis Treatment BP Sitting (Pre-Dialysis) 140/77 mmHg BP Sitting (Post-Dialysis) 118/63 mmHg Concurrent Access: NoAV Fistula (Upper Arm (Right)) ArterialAV Fistula (Upper Arm (Right)) Venous Weight Pre-Dialysis 91.9 kg Weight Post-Dialysis 89 kg February 20, 2025 Home Hemodialysis Treatment BP Sitting (Pre-Dialysis) 125/61 mmHg BP Sitting (Post-Dialysis) 123/61 mmHg Concurrent Access: NoAV Fistula (Upper Arm (Right)) ArterialAV Fistula (Upper Arm (Right)) Venous Weight Pre-Dialysis 91.1 kg February 19, 2025 Home Hemodialysis Treatment BP Sitting (Pre-Dialysis) 138/70 mmHg BP Sitting (Post-Dialysis) 139/76 mmHg Concurrent Access: NoAV Fistula (Upper Arm (Right)) ArterialAV Fistula (Upper Arm (Right)) Venous Weight Pre-Dialysis 93.4 kg Weight Post-Dialysis 88.9 kg February 17, 2025 Home Hemodialysis Treatment BP Sitting (Pre-Dialysis) 152/68 mmHg BP Sitting (Post-Dialysis) 133/81 mmHg Concurrent Access: NoAV Fistula (Upper Arm (Right)) ArterialAV Fistula (Upper Arm (Right)) Venous Weight Pre-Dialysis 90.1 kg Weight Post-Dialysis 89.4 kg February 15, 2025 Home Hemodialysis Treatment BP Sitting (Pre-Dialysis) 154/71 mmHg BP Sitting (Post-Dialysis) 138/64 mmHg Concurrent Access: NoAV Fistula (Upper Arm (Right)) ArterialAV Fistula (Upper Arm (Right)) Venous Weight Pre-Dialysis 90.1 kg Weight Post-Dialysis 88.6 kg February 13, 2025 Home Hemodialysis Treatment BP Sitting (Pre-Dialysis) 101/54 mmHg Concurrent Access: NoAV Fistula (Upper Arm (Right)) ArterialAV Fistula (Upper Arm (Right)) Venous Sitting Heart Rate Pre-Dialysis 91 BPM Temperature Pre-Dialysis 97.3 degF Weight Pre-Dialysis 88.4 kg February 13, 2025 Home Hemodialysis Treatment BP Sitting (Pre-Dialysis) 137/56 mmHg BP Sitting (Post-Dialysis) 123/55 mmHg Concurrent Access: NoAV Fistula (Upper Arm (Right)) ArterialAV Fistula (Upper Arm (Right)) Venous Weight Pre-Dialysis 90.3 kg Weight Post-Dialysis 88.5 kg February 12, 2025 Home Hemodialysis Treatment BP Sitting (Pre-Dialysis) 119/58 mmHg BP Sitting (Post-Dialysis) 97/58 mmHg Concurrent Access: NoAV Fistula (Upper Arm (Right)) ArterialAV Fistula (Upper Arm (Right)) Venous Weight Pre-Dialysis 92.8 kg Weight Post-Dialysis 87.3 kg February 10, 2025 Home Hemodialysis Treatment BP Sitting (Pre-Dialysis) 149/66 mmHg BP Sitting (Post-Dialysis) 123/61 mmHg Concurrent Access: NoAV Fistula (Upper Arm (Right)) ArterialAV Fistula (Upper Arm (Right)) Venous Weight Pre-Dialysis 92.4 kg Weight Post-Dialysis 88.4 kg February 08, 2025 Home Hemodialysis Treatment BP Sitting (Pre-Dialysis) 116/54 mmHg BP Sitting (Post-Dialysis) 126/69 mmHg Concurrent Access: NoAV Fistula (Upper Arm (Right)) ArterialAV Fistula (Upper Arm (Right)) Venous Weight Pre-Dialysis 92.4 kg Weight Post-Dialysis 87.8 kg February 06, 2025 Home Hemodialysis Treatment BP Sitting (Pre-Dialysis) 138/56 mmHg BP Sitting (Post-Dialysis) 126/63 mmHg Concurrent Access: NoAV Fistula (Upper Arm (Right)) ArterialAV Fistula (Upper Arm (Right)) Venous Weight Pre-Dialysis 88.4 kg Weight Post-Dialysis 88.1 kg February 05, 2025 Home Hemodialysis Treatment BP Sitting (Pre-Dialysis) 153/58 mmHg BP Sitting (Post-Dialysis) 123/69 mmHg Concurrent Access: NoAV Fistula (Upper Arm (Right)) ArterialAV Fistula (Upper Arm (Right)) Venous Weight Pre-Dialysis 92 kg Weight Post-Dialysis 85.1 kg February 03, 2025 Home Hemodialysis Treatment BP Sitting (Pre-Dialysis) 138/52 mmHg BP Sitting (Post-Dialysis) 126/80 mmHg Concurrent Access: NoAV Fistula (Upper Arm (Right)) ArterialAV Fistula (Upper Arm (Right)) Venous Weight Pre-Dialysis 92 kg Weight Post-Dialysis 87.5 kg February 01, 2025 Home Hemodialysis Treatment BP Sitting (Pre-Dialysis) 119/48 mmHg BP Sitting (Post-Dialysis) 122/63 mmHg Concurrent Access: NoAV Fistula (Upper Arm (Right)) ArterialAV Fistula (Upper Arm (Right)) Venous Weight Pre-Dialysis 89.8 kg Weight Post-Dialysis 87.9 kg January 31, 2025 Home Hemodialysis Treatment BP Sitting (Pre-Dialysis) 159/73 mmHg BP Sitting (Post-Dialysis) 130/69 mmHg Concurrent Access: NoAV Fistula (Upper Arm (Right)) ArterialAV Fistula (Upper Arm (Right)) Venous Weight Pre-Dialysis 93.6 kg Weight Post-Dialysis 89.2 kg January 28, 2025 Home Hemodialysis Treatment BP Sitting (Pre-Dialysis) 142/57 mmHg BP Sitting (Post-Dialysis) 115/62 mmHg Concurrent Access: NoAV Fistula (Upper Arm (Right)) ArterialAV Fistula (Upper Arm (Right)) Venous Weight Pre-Dialysis 91.7 kg Weight Post-Dialysis 89.6 kg January 27, 2025 Home Hemodialysis Treatment BP Sitting (Pre-Dialysis) 154/75 mmHg BP Sitting (Post-Dialysis) 126/69 mmHg Concurrent Access: NoAV Fistula (Upper Arm (Right)) ArterialAV Fistula (Upper Arm (Right)) Venous Weight Pre-Dialysis 92.6 kg Weight Post-Dialysis 89.3 kg January 25, 2025 Home Hemodialysis Treatment BP Sitting (Pre-Dialysis) 136/60 mmHg BP Sitting (Post-Dialysis) 119/69 mmHg Concurrent Access: NoAV Fistula (Upper Arm (Right)) ArterialAV Fistula (Upper Arm (Right)) Venous Weight Pre-Dialysis 93 kg Weight Post-Dialysis 89.7 kg January 23, 2025 Home Hemodialysis Treatment BP Sitting (Pre-Dialysis) 121/61 mmHg BP Sitting (Post-Dialysis) 119/63 mmHg Concurrent Access: NoAV Fistula (Upper Arm (Right)) ArterialAV Fistula (Upper Arm (Right)) Venous Weight Pre-Dialysis 90 kg Weight Post-Dialysis 89.8 kg January 22, 2025 Home Hemodialysis Treatment BP Sitting (Pre-Dialysis) 126/48 mmHg BP Sitting (Post-Dialysis) 121/69 mmHg Concurrent Access: NoAV Fistula (Upper Arm (Right)) ArterialAV Fistula (Upper Arm (Right)) Venous Weight Pre-Dialysis 92.7 kg Weight Post-Dialysis 87.5 kg January 20, 2025 Home Hemodialysis Treatment BP Sitting (Pre-Dialysis) 133/67 mmHg BP Sitting (Post-Dialysis) 126/69 mmHg Concurrent Access: NoAV Fistula (Upper Arm (Right)) ArterialAV Fistula (Upper Arm (Right)) Venous Weight Pre-Dialysis 91.3 kg Weight Post-Dialysis 88.7 kg January 19, 2025 Home Hemodialysis Treatment BP Sitting (Pre-Dialysis) 144/68 mmHg BP Sitting (Post-Dialysis) 117/63 mmHg Concurrent Access: NoAV Fistula (Upper Arm (Right)) ArterialAV Fistula (Upper Arm (Right)) Venous Weight Pre-Dialysis 93.9 kg Weight Post-Dialysis 89.2 kg January 16, 2025 Home Hemodialysis Treatment BP Sitting (Pre-Dialysis) 151/73 mmHg BP Sitting (Post-Dialysis) 115/64 mmHg Concurrent Access: NoAV Fistula (Upper Arm (Right)) ArterialAV Fistula (Upper Arm (Right)) Venous Weight Pre-Dialysis 91.5 kg Weight Post-Dialysis 88.2 kg January 15, 2025 Home Hemodialysis Treatment BP Sitting (Pre-Dialysis) 135/61 mmHg BP Sitting (Post-Dialysis) 135/68 mmHg Concurrent Access: NoAV Fistula (Upper Arm (Right)) ArterialAV Fistula (Upper Arm (Right)) Venous Weight Pre-Dialysis 94.1 kg Weight Post-Dialysis 90.4 kg January 12, 2025 Home Hemodialysis Treatment BP Sitting (Pre-Dialysis) 119/69 mmHg Concurrent Access: NoAV Fistula (Upper Arm (Right)) ArterialAV Fistula (Upper Arm (Right)) Venous Sitting Heart Rate Pre-Dialysis 65 BPM Temperature Pre-Dialysis 96.6 degF Weight Pre-Dialysis 88.7 kg January 11, 2025 Home Hemodialysis Treatment BP Sitting (Pre-Dialysis) 152/60 mmHg BP Sitting (Post-Dialysis) 137/61 mmHg Concurrent Access: NoAV Fistula (Upper Arm (Right)) ArterialAV Fistula (Upper Arm (Right)) Venous Weight Pre-Dialysis 90.4 kg Weight Post-Dialysis 89 kg January 10, 2025 Home Hemodialysis Treatment BP Sitting (Pre-Dialysis) 143/56 mmHg BP Sitting (Post-Dialysis) 123/63 mmHg Concurrent Access: NoAV Fistula (Upper Arm (Right)) ArterialAV Fistula (Upper Arm (Right)) Venous Weight Pre-Dialysis 89.8 kg Weight Post-Dialysis 88.3 kg January 09, 2025 Home Hemodialysis Treatment BP Sitting (Pre-Dialysis) 125/65 mmHg Concurrent Access: NoAV Fistula (Upper Arm (Right)) ArterialAV Fistula (Upper Arm (Right)) Venous Sitting Heart Rate Pre-Dialysis 76 BPM Temperature Pre-Dialysis 97.3 degF Weight Pre-Dialysis 88.7 kg January 09, 2025 Home Hemodialysis Treatment BP Sitting (Pre-Dialysis) 155/55 mmHg BP Sitting (Post-Dialysis) 101/94 mmHg Concurrent Access: NoAV Fistula (Upper Arm (Right)) ArterialAV Fistula (Upper Arm (Right)) Venous Weight Pre-Dialysis 92.6 kg Weight Post-Dialysis 88.7 kg January 07, 2025 Home Hemodialysis Treatment BP Sitting (Pre-Dialysis) 133/56 mmHg BP Sitting (Post-Dialysis) 143/66 mmHg Concurrent Access: NoAV Fistula (Upper Arm (Right)) ArterialAV Fistula (Upper Arm (Right)) Venous Weight Pre-Dialysis 90 kg Weight Post-Dialysis 88.7 kg January 06, 2025 Home Hemodialysis Treatment BP Sitting (Pre-Dialysis) 131/55 mmHg BP Sitting (Post-Dialysis) 120/63 mmHg Concurrent Access: NoAV Fistula (Upper Arm (Right)) ArterialAV Fistula (Upper Arm (Right)) Venous Weight Pre-Dialysis 92.3 kg Weight Post-Dialysis 88.7 kg January 04, 2025 Home Hemodialysis Treatment BP Sitting (Pre-Dialysis) 145/61 mmHg BP Sitting (Post-Dialysis) 132/64 mmHg Concurrent Access: NoAV Fistula (Upper Arm (Right)) ArterialAV Fistula (Upper Arm (Right)) Venous Weight Pre-Dialysis 92.6 kg Weight Post-Dialysis 89.2 kg January 02, 2025 Home Hemodialysis Treatment BP Sitting (Pre-Dialysis) 134/66 mmHg BP Sitting (Post-Dialysis) 113/67 mmHg Concurrent Access: NoAV Fistula (Upper Arm (Right)) ArterialAV Fistula (Upper Arm (Right)) Venous Weight Pre-Dialysis 92.7 kg Weight Post-Dialysis 88.5 kg January 01, 2025 Home Hemodialysis Treatment BP Sitting (Pre-Dialysis) 138/66 mmHg BP Sitting (Post-Dialysis) 106/61 mmHg Concurrent Access: NoAV Fistula (Upper Arm (Right)) ArterialAV Fistula (Upper Arm (Right)) Venous Weight Pre-Dialysis 94 kg Weight Post-Dialysis 90.3 kg December 30, 2024 Home Hemodialysis Treatment BP Sitting (Pre-Dialysis) 142/66 mmHg BP Sitting (Post-Dialysis) 136/52 mmHg Concurrent Access: NoAV Fistula (Upper Arm (Right)) ArterialAV Fistula (Upper Arm (Right)) Venous Weight Pre-Dialysis 93.8 kg Weight Post-Dialysis 90 kg December 28, 2024 Home Hemodialysis Treatment BP Sitting (Pre-Dialysis) 147/70 mmHg BP Sitting (Post-Dialysis) 132/58 mmHg Concurrent Access: NoAV Fistula (Upper Arm (Right)) ArterialAV Fistula (Upper Arm (Right)) Venous Weight Pre-Dialysis 92.9 kg Weight Post-Dialysis 88.6 kg December 26, 2024 Home Hemodialysis Treatment BP Sitting (Pre-Dialysis) 133/72 mmHg BP Sitting (Post-Dialysis) 123/75 mmHg Concurrent Access: NoAV Fistula (Upper Arm (Right)) ArterialAV Fistula (Upper Arm (Right)) Venous Weight Pre-Dialysis 91.2 kg Weight Post-Dialysis 88.6 kg December 25, 2024 Home Hemodialysis Treatment BP Sitting (Pre-Dialysis) 145/65 mmHg BP Sitting (Post-Dialysis) 117/63 mmHg Concurrent Access: NoAV Fistula (Upper Arm (Right)) ArterialAV Fistula (Upper Arm (Right)) Venous Weight Pre-Dialysis 91.9 kg Weight Post-Dialysis 87.7 kg December 23, 2024 Home Hemodialysis Treatment BP Sitting (Pre-Dialysis) 131/70 mmHg BP Sitting (Post-Dialysis) 129/64 mmHg Concurrent Access: NoAV Fistula (Upper Arm (Right)) ArterialAV Fistula (Upper Arm (Right)) Venous Weight Pre-Dialysis 92.2 kg Weight Post-Dialysis 87.4 kg December 20, 2024 Home Hemodialysis Treatment BP Sitting (Pre-Dialysis) 150/99 mmHg BP Sitting (Post-Dialysis) 129/64 mmHg Concurrent Access: NoAV Fistula (Upper Arm (Right)) ArterialAV Fistula (Upper Arm (Right)) Venous Weight Pre-Dialysis 90.1 kg Weight Post-Dialysis 89 kg December 19, 2024 Home Hemodialysis Treatment BP Sitting (Pre-Dialysis) 136/68 mmHg Concurrent Access: NoAV Fistula (Upper Arm (Right)) ArterialAV Fistula (Upper Arm (Right)) Venous Sitting Heart Rate Pre-Dialysis 89 BPM Temperature Pre-Dialysis 98.1 degF Weight Pre-Dialysis 89.1 kg December 19, 2024 Home Hemodialysis Treatment BP Sitting (Pre-Dialysis) 134/62 mmHg BP Sitting (Post-Dialysis) 128/67 mmHg Concurrent Access: NoAV Fistula (Upper Arm (Right)) ArterialAV Fistula (Upper Arm (Right)) Venous Weight Pre-Dialysis 92.2 kg Weight Post-Dialysis 87.7 kg December 18, 2024 Home Hemodialysis Treatment BP Sitting (Pre-Dialysis) 145/65 mmHg BP Sitting (Post-Dialysis) 119/63 mmHg Concurrent Access: NoAV Fistula (Upper Arm (Right)) ArterialAV Fistula (Upper Arm (Right)) Venous Weight Pre-Dialysis 92.9 kg Weight Post-Dialysis 89.1 kg December 16, 2024 Home Hemodialysis Treatment BP Sitting (Pre-Dialysis) 152/73 mmHg BP Sitting (Post-Dialysis) 123/64 mmHg Concurrent Access: NoAV Fistula (Upper Arm (Right)) ArterialAV Fistula (Upper Arm (Right)) Venous Weight Pre-Dialysis 92.5 kg Weight Post-Dialysis 88.6 kg December 14, 2024 Home Hemodialysis Treatment BP Sitting (Pre-Dialysis) 134/63 mmHg BP Sitting (Post-Dialysis) 114/67 mmHg Concurrent Access: NoAV Fistula (Upper Arm (Right)) ArterialAV Fistula (Upper Arm (Right)) Venous Weight Pre-Dialysis 92.5 kg Weight Post-Dialysis 90.1 kg December 12, 2024 Home Hemodialysis Treatment BP Sitting (Pre-Dialysis) 142/67 mmHg BP Sitting (Post-Dialysis) 125/64 mmHg Concurrent Access: NoAV Fistula (Upper Arm (Right)) ArterialAV Fistula (Upper Arm (Right)) Venous Weight Pre-Dialysis 92.5 kg Weight Post-Dialysis 88.7 kg December 11, 2024 Home Hemodialysis Treatment BP Sitting (Pre-Dialysis) 26/74 mmHg BP Sitting (Post-Dialysis) 127/59 mmHg Concurrent Access: NoAV Fistula (Upper Arm (Right)) ArterialAV Fistula (Upper Arm (Right)) Venous Weight Pre-Dialysis 93.9 kg Weight Post-Dialysis 90 kg December 09, 2024 Home Hemodialysis Treatment BP Sitting (Pre-Dialysis) 127/59 mmHg BP Sitting (Post-Dialysis) 128/56 mmHg Concurrent Access: NoAV Fistula (Upper Arm (Right)) ArterialAV Fistula (Upper Arm (Right)) Venous Weight Pre-Dialysis 91.4 kg Weight Post-Dialysis 89.3 kg December 07, 2024 Home Hemodialysis Treatment BP Sitting (Pre-Dialysis) 149/71 mmHg BP Sitting (Post-Dialysis) 108/89 mmHg Concurrent Access: NoAV Fistula (Upper Arm (Right)) ArterialAV Fistula (Upper Arm (Right)) Venous Weight Pre-Dialysis 92.5 kg Weight Post-Dialysis 86.5 kg December 05, 2024 Home Hemodialysis Treatment BP Sitting (Pre-Dialysis) 125/64 mmHg BP Sitting (Post-Dialysis) 115/57 mmHg Concurrent Access: NoAV Fistula (Upper Arm (Right)) ArterialAV Fistula (Upper Arm (Right)) Venous Weight Pre-Dialysis 90.3 kg Weight Post-Dialysis 87.5 kg December 04, 2024 Home Hemodialysis Treatment BP Sitting (Pre-Dialysis) 152/72 mmHg BP Sitting (Post-Dialysis) 112/82 mmHg Concurrent Access: NoAV Fistula (Upper Arm (Right)) ArterialAV Fistula (Upper Arm (Right)) Venous Weight Pre-Dialysis 90.4 kg Weight Post-Dialysis 88.9 kg December 02, 2024 Home Hemodialysis Treatment BP Sitting (Pre-Dialysis) 151/78 mmHg BP Sitting (Post-Dialysis) 126/65 mmHg Concurrent Access: NoAV Fistula (Upper Arm (Right)) ArterialAV Fistula (Upper Arm (Right)) Venous Weight Pre-Dialysis 90.8 kg Weight Post-Dialysis 88.5 kg November 30, 2024 Home Hemodialysis Treatment BP Sitting (Pre-Dialysis) 125/60 mmHg BP Sitting (Post-Dialysis) 124/68 mmHg Concurrent Access: NoAV Fistula (Upper Arm (Right)) ArterialAV Fistula (Upper Arm (Right)) Venous Weight Pre-Dialysis 91.4 kg Weight Post-Dialysis 87.7 kg November 28, 2024 Home Hemodialysis Treatment BP Sitting (Pre-Dialysis) 151/69 mmHg BP Sitting (Post-Dialysis) 112/78 mmHg Concurrent Access: NoAV Fistula (Upper Arm (Right)) ArterialAV Fistula (Upper Arm (Right)) Venous Weight Pre-Dialysis 89.4 kg Weight Post-Dialysis 88.2 kg November 27, 2024 Home Hemodialysis Treatment BP Sitting (Pre-Dialysis) 148/68 mmHg BP Sitting (Post-Dialysis) 137/61 mmHg Concurrent Access: NoAV Fistula (Upper Arm (Right)) ArterialAV Fistula (Upper Arm (Right)) Venous Weight Pre-Dialysis 91.9 kg Weight Post-Dialysis 88.4 kg November 25, 2024 Home Hemodialysis Treatment BP Sitting (Pre-Dialysis) 142/69 mmHg BP Sitting (Post-Dialysis) 130/63 mmHg Concurrent Access: NoAV Fistula (Upper Arm (Right)) ArterialAV Fistula (Upper Arm (Right)) Venous Weight Pre-Dialysis 92.4 kg Weight Post-Dialysis 86.5 kg November 23, 2024 Home Hemodialysis Treatment BP Sitting (Pre-Dialysis) 157/71 mmHg BP Sitting (Post-Dialysis) 115/78 mmHg Concurrent Access: NoAV Fistula (Upper Arm (Right)) ArterialAV Fistula (Upper Arm (Right)) Venous Weight Pre-Dialysis 91.3 kg Weight Post-Dialysis 89.4 kg November 21, 2024 Home Hemodialysis Treatment BP Sitting (Pre-Dialysis) 145/69 mmHg BP Sitting (Post-Dialysis) 127/71 mmHg Concurrent Access: NoAV Fistula (Upper Arm (Right)) ArterialAV Fistula (Upper Arm (Right)) Venous Weight Pre-Dialysis 91.6 kg Weight Post-Dialysis 88.2 kg November 20, 2024 Home Hemodialysis Treatment BP Sitting (Pre-Dialysis) 135/63 mmHg BP Sitting (Post-Dialysis) 131/58 mmHg Concurrent Access: NoAV Fistula (Upper Arm (Right)) ArterialAV Fistula (Upper Arm (Right)) Venous Weight Pre-Dialysis 93.2 kg Weight Post-Dialysis 88.8 kg November 18, 2024 Home Hemodialysis Treatment BP Sitting (Pre-Dialysis) 136/63 mmHg BP Sitting (Post-Dialysis) 141/70 mmHg Concurrent Access: NoAV Fistula (Upper Arm (Right)) ArterialAV Fistula (Upper Arm (Right)) Venous Weight Pre-Dialysis 92.4 kg Weight Post-Dialysis 88.9 kg November 16, 2024 Home Hemodialysis Treatment BP Sitting (Pre-Dialysis) 143/64 mmHg BP Sitting (Post-Dialysis) 131/69 mmHg Concurrent Access: NoAV Fistula (Upper Arm (Right)) ArterialAV Fistula (Upper Arm (Right)) Venous Weight Pre-Dialysis 91.7 kg Weight Post-Dialysis 88.1 kg November 14, 2024 Home Hemodialysis Treatment BP Sitting (Pre-Dialysis) 121/59 mmHg Concurrent Access: NoAV Fistula (Upper Arm (Right)) ArterialAV Fistula (Upper Arm (Right)) Venous Sitting Heart Rate Pre-Dialysis 68 BPM Temperature Pre-Dialysis 97.7 degF Weight Pre-Dialysis 87.9 kg November 14, 2024 Home Hemodialysis Treatment BP Sitting (Pre-Dialysis) 134/58 mmHg BP Sitting (Post-Dialysis) 130/63 mmHg Concurrent Access: NoAV Fistula (Upper Arm (Right)) ArterialAV Fistula (Upper Arm (Right)) Venous Weight Pre-Dialysis 91.2 kg Weight Post-Dialysis 88 kg November 13, 2024 Home Hemodialysis Treatment BP Sitting (Pre-Dialysis) 147/58 mmHg BP Sitting (Post-Dialysis) 138/67 mmHg Concurrent Access: NoAV Fistula (Upper Arm (Right)) ArterialAV Fistula (Upper Arm (Right)) Venous Weight Pre-Dialysis 91.6 kg Weight Post-Dialysis 87.9 kg November 11, 2024 Home Hemodialysis Treatment BP Sitting (Pre-Dialysis) 143/65 mmHg BP Sitting (Post-Dialysis) 137/71 mmHg Concurrent Access: NoAV Fistula (Upper Arm (Right)) ArterialAV Fistula (Upper Arm (Right)) Venous Weight Pre-Dialysis 91.7 kg Weight Post-Dialysis 87.8 kg November 09, 2024 Home Hemodialysis Treatment BP Sitting (Pre-Dialysis) 165/74 mmHg BP Sitting (Post-Dialysis) 147/62 mmHg Concurrent Access: NoAV Fistula (Upper Arm (Right)) ArterialAV Fistula (Upper Arm (Right)) Venous Weight Pre-Dialysis 89.9 kg Weight Post-Dialysis 88.2 kg November 07, 2024 Home Hemodialysis Treatment BP Sitting (Pre-Dialysis) 132/63 mmHg BP Sitting (Post-Dialysis) 120/57 mmHg Concurrent Access: NoAV Fistula (Upper Arm (Right)) ArterialAV Fistula (Upper Arm (Right)) Venous Weight Pre-Dialysis 90.6 kg Weight Post-Dialysis 89.7 kg November 06, 2024 Home Hemodialysis Treatment BP Sitting (Pre-Dialysis) 146/65 mmHg BP Sitting (Post-Dialysis) 123/60 mmHg Concurrent Access: NoAV Fistula (Upper Arm (Right)) ArterialAV Fistula (Upper Arm (Right)) Venous Weight Pre-Dialysis 89.7 kg Weight Post-Dialysis 88.6 kg November 04, 2024 Home Hemodialysis Treatment BP Sitting (Pre-Dialysis) 133/63 mmHg BP Sitting (Post-Dialysis) 139/70 mmHg Concurrent Access: NoAV Fistula (Upper Arm (Right)) ArterialAV Fistula (Upper Arm (Right)) Venous Weight Pre-Dialysis 92.5 kg Weight Post-Dialysis 88.4 kg October 31, 2024 Home Hemodialysis Treatment BP Sitting (Pre-Dialysis) 143/84 mmHg BP Sitting (Post-Dialysis) 145/82 mmHg Concurrent Access: NoAV Fistula (Upper Arm (Right)) ArterialAV Fistula (Upper Arm (Right)) Venous Weight Pre-Dialysis 89 kg Weight Post-Dialysis 88.2 kg October 30, 2024 Home Hemodialysis Treatment BP Sitting (Pre-Dialysis) 139/65 mmHg BP Sitting (Post-Dialysis) 142/70 mmHg Concurrent Access: NoAV Fistula (Upper Arm (Right)) ArterialAV Fistula (Upper Arm (Right)) Venous Weight Pre-Dialysis 91.7 kg Weight Post-Dialysis 87.7 kg October 29, 2024 Home Hemodialysis Treatment BP Sitting (Pre-Dialysis) 139/65 mmHg BP Sitting (Post-Dialysis) 142/70 mmHg Concurrent Access: NoAV Fistula (Upper Arm (Right)) ArterialAV Fistula (Upper Arm (Right)) Venous Weight Pre-Dialysis 91.7 kg Weight Post-Dialysis 87.7 kg October 26, 2024 Home Hemodialysis Treatment BP Sitting (Pre-Dialysis) 142/65 mmHg BP Sitting (Post-Dialysis) 145/72 mmHg Concurrent Access: NoAV Fistula (Upper Arm (Right)) ArterialAV Fistula (Upper Arm (Right)) Venous Weight Pre-Dialysis 91.4 kg Weight Post-Dialysis 89.8 kg October 24, 2024 Home Hemodialysis Treatment BP Sitting (Pre-Dialysis) 146/76 mmHg BP Sitting (Post-Dialysis) 172/94 mmHg Concurrent Access: NoAV Fistula (Upper Arm (Right)) ArterialAV Fistula (Upper Arm (Right)) Venous Weight Pre-Dialysis 113.8 kg Weight Post-Dialysis 113.2 kg October 23, 2024 Home Hemodialysis Treatment BP Sitting (Pre-Dialysis) 134/65 mmHg BP Sitting (Post-Dialysis) 121/57 mmHg Concurrent Access: NoAV Fistula (Upper Arm (Right)) ArterialAV Fistula (Upper Arm (Right)) Venous Weight Pre-Dialysis 90.7 kg Weight Post-Dialysis 87.8 kg October 22, 2024 Home Hemodialysis Treatment BP Sitting (Pre-Dialysis) 154/72 mmHg BP Sitting (Post-Dialysis) 127/60 mmHg Concurrent Access: NoAV Fistula (Upper Arm (Right)) ArterialAV Fistula (Upper Arm (Right)) Venous Weight Pre-Dialysis 91 kg Weight Post-Dialysis 88.5 kg October 21, 2024 Home Hemodialysis Treatment BP Sitting (Pre-Dialysis) 148/68 mmHg BP Sitting (Post-Dialysis) 122/55 mmHg Concurrent Access: NoAV Fistula (Upper Arm (Right)) ArterialAV Fistula (Upper Arm (Right)) Venous Weight Pre-Dialysis 91 kg Weight Post-Dialysis 88.8 kg October 18, 2024 Home Hemodialysis Treatment BP Sitting (Pre-Dialysis) 108/59 mmHg BP Sitting (Post-Dialysis) 130/64 mmHg Concurrent Access: NoAV Fistula (Upper Arm (Right)) ArterialAV Fistula (Upper Arm (Right)) Venous Weight Pre-Dialysis 88.9 kg Weight Post-Dialysis 87.5 kg October 17, 2024 Home Hemodialysis Treatment BP Sitting (Pre-Dialysis) 128/74 mmHg Concurrent Access: NoAV Fistula (Upper Arm (Right)) ArterialAV Fistula (Upper Arm (Right)) Venous Sitting Heart Rate Pre-Dialysis 76 BPM Temperature Pre-Dialysis 98.3 degF Weight Pre-Dialysis 89.7 kg October 17, 2024 Home Hemodialysis Treatment BP Sitting (Pre-Dialysis) 131/66 mmHg BP Sitting (Post-Dialysis) 114/62 mmHg Concurrent Access: NoAV Fistula (Upper Arm (Right)) ArterialAV Fistula (Upper Arm (Right)) Venous Weight Pre-Dialysis 92.3 kg Weight Post-Dialysis 88.4 kg October 16, 2024 Home Hemodialysis Treatment BP Sitting (Pre-Dialysis) 114/61 mmHg BP Sitting (Post-Dialysis) 122/62 mmHg Concurrent Access: NoAV Fistula (Upper Arm (Right)) ArterialAV Fistula (Upper Arm (Right)) Venous Weight Pre-Dialysis 90.7 kg Weight Post-Dialysis 89.7 kg October 14, 2024 Home Hemodialysis Treatment BP Sitting (Pre-Dialysis) 135/57 mmHg BP Sitting (Post-Dialysis) 114/67 mmHg Concurrent Access: NoAV Fistula (Upper Arm (Right)) ArterialAV Fistula (Upper Arm (Right)) Venous Weight Pre-Dialysis 92.6 kg Weight Post-Dialysis 87.9 kg October 12, 2024 Home Hemodialysis Treatment BP Sitting (Pre-Dialysis) 145/70 mmHg BP Sitting (Post-Dialysis) 130/62 mmHg Concurrent Access: NoAV Fistula (Upper Arm (Right)) ArterialAV Fistula (Upper Arm (Right)) Venous Weight Pre-Dialysis 89.1 kg Weight Post-Dialysis 89.1 kg October 11, 2024 Home Hemodialysis Treatment BP Sitting (Pre-Dialysis) 145/64 mmHg BP Sitting (Post-Dialysis) 130/67 mmHg Concurrent Access: NoAV Fistula (Upper Arm (Right)) ArterialAV Fistula (Upper Arm (Right)) Venous Weight Pre-Dialysis 91.6 kg Weight Post-Dialysis 89.4 kg October 09, 2024 Home Hemodialysis Treatment BP Sitting (Pre-Dialysis) 117/60 mmHg BP Sitting (Post-Dialysis) 118/61 mmHg Concurrent Access: NoAV Fistula (Upper Arm (Right)) ArterialAV Fistula (Upper Arm (Right)) Venous Weight Pre-Dialysis 91.7 kg Weight Post-Dialysis 87.8 kg October 07, 2024 Home Hemodialysis Treatment BP Sitting (Pre-Dialysis) 144/57 mmHg BP Sitting (Post-Dialysis) 131/73 mmHg Concurrent Access: NoAV Fistula (Upper Arm (Right)) ArterialAV Fistula (Upper Arm (Right)) Venous Weight Pre-Dialysis 92.1 kg Weight Post-Dialysis 87.7 kg October 05, 2024 Home Hemodialysis Treatment BP Sitting (Pre-Dialysis) 129/59 mmHg BP Sitting (Post-Dialysis) 151/68 mmHg Concurrent Access: NoAV Fistula (Upper Arm (Right)) ArterialAV Fistula (Upper Arm (Right)) Venous Weight Pre-Dialysis 90.6 kg Weight Post-Dialysis 87.8 kg October 04, 2024 Home Hemodialysis Treatment BP Sitting (Pre-Dialysis) 148/60 mmHg BP Sitting (Post-Dialysis) 132/63 mmHg Concurrent Access: NoAV Fistula (Upper Arm (Right)) ArterialAV Fistula (Upper Arm (Right)) Venous Weight Pre-Dialysis 89.5 kg Weight Post-Dialysis 89 kg October 03, 2024 Home Hemodialysis Treatment BP Sitting (Pre-Dialysis) 142/58 mmHg BP Sitting (Post-Dialysis) 110/59 mmHg Concurrent Access: NoAV Fistula (Upper Arm (Right)) ArterialAV Fistula (Upper Arm (Right)) Venous Weight Pre-Dialysis 92.5 kg Weight Post-Dialysis 88.2 kg September 30, 2024 Home Hemodialysis Treatment BP Sitting (Pre-Dialysis) 151/74 mmHg BP Sitting (Post-Dialysis) 136/80 mmHg Concurrent Access: NoAV Fistula (Upper Arm (Right)) ArterialAV Fistula (Upper Arm (Right)) Venous Weight Pre-Dialysis 93.7 kg Weight Post-Dialysis 89.6 kg September 29, 2024 Home Hemodialysis Treatment BP Sitting (Pre-Dialysis) 156/61 mmHg BP Sitting (Post-Dialysis) 134/77 mmHg Concurrent Access: NoAV Fistula (Upper Arm (Right)) ArterialAV Fistula (Upper Arm (Right)) Venous Weight Pre-Dialysis 92.2 kg Weight Post-Dialysis 89.1 kg September 28, 2024 Home Hemodialysis Treatment Concurrent Access: NoAV Fistula (Upper Arm (Right)) ArterialAV Fistula (Upper Arm (Right)) Venous September 27, 2024 Home Hemodialysis Treatment BP Sitting (Pre-Dialy sis) 148/74 mmHg BP Sitting (Post-Dial ysis) 134/70 mmHg Concurrent Access: NoAV Fistula (Upper Arm (Right)) ArterialAV Fistula (Upper Arm (Right)) Venous Weight Pre-Dialysis 93.9 kg Weight Post-Dialysis 91 kg September 25, 2024 Home Hemodialysis Treatment BP Sitting (Pre-Dialysis) 132/84 mmHg BP Sitting (Post-Dialysis) 122/63 mmHg Concurrent Access: NoAV Fistula (Upper Arm (Right)) ArterialAV Fistula (Upper Arm (Right)) Venous Weight Pre-Dialysis 94.7 kg Weight Post-Dialysis 91.1 kg September 23, 2024 Home Hemodialysis Treatment BP Sitting (Pre-Dialysis) 153/74 mmHg BP Sitting (Post-Dialysis) 148/68 mmHg Concurrent Access: NoAV Fistula (Upper Arm (Right)) ArterialAV Fistula (Upper Arm (Right)) Venous Weight Pre-Dialysis 93.3 kg Weight Post-Dialysis 92.3 kg September 21, 2024 Home Hemodialysis Treatment BP Sitting (Pre-Dialysis) 151/69 mmHg BP Sitting (Post-Dialysis) 132/70 mmHg Concurrent Access: NoAV Fistula (Upper Arm (Right)) ArterialAV Fistula (Upper Arm (Right)) Venous Weight Pre-Dialysis 93.2 kg Weight Post-Dialysis 90 kg September 19, 2024 Home Hemodialysis Treatment BP Sitting (Pre-Dialysis) 124/62 mmHg BP Sitting (Post-Dialysis) 128/88 mmHg Concurrent Access: NoAV Fistula (Upper Arm (Right)) ArterialAV Fistula (Upper Arm (Right)) Venous Weight Pre-Dialysis 92 kg Weight Post-Dialysis 88.9 kg September 18, 2024 Home Hemodialysis Treatment BP Sitting (Pre-Dialysis) 162/63 mmHg BP Sitting (Post-Dialysis) 125/70 mmHg Concurrent Access: NoAV Fistula (Upper Arm (Right)) ArterialAV Fistula (Upper Arm (Right)) Venous Weight Pre-Dialysis 93.1 kg Weight Post-Dialysis 89.1 kg September 16, 2024 Home Hemodialysis Treatment BP Sitting (Pre-Dialysis) 147/65 mmHg BP Sitting (Post-Dialysis) 134/68 mmHg Concurrent Access: NoAV Fistula (Upper Arm (Right)) ArterialAV Fistula (Upper Arm (Right)) Venous Weight Pre-Dialysis 92.4 kg Weight Post-Dialysis 91 kg September 14, 2024 Home Hemodialysis Treatment BP Sitting (Pre-Dialysis) 142/69 mmHg BP Sitting (Post-Dialysis) 141/63 mmHg Concurrent Access: NoAV Fistula (Upper Arm (Right)) ArterialAV Fistula (Upper Arm (Right)) Venous Weight Pre-Dialysis 92.3 kg Weight Post-Dialysis 89.4 kg September 13, 2024 Home Hemodialysis Treatment BP Sitting (Pre-Dialysis) 132/65 mmHg BP Sitting (Post-Dialysis) 149/70 mmHg Concurrent Access: NoAV Fistula (Upper Arm (Right)) ArterialAV Fistula (Upper Arm (Right)) Venous Weight Pre-Dialysis 92.9 kg September 09, 2024 Home Hemodialysis Treatment BP Sitting (Pre-Dialysis) 117/85 mmHg BP Sitting (Post-Dialysis) 133/72 mmHg Concurrent Access: NoAV Fistula (Upper Arm (Right)) ArterialAV Fistula (Upper Arm (Right)) Venous Weight Pre-Dialysis 90.1 kg Weight Post-Dialysis 89.2 kg September 07, 2024 Home Hemodialysis Treatment BP Sitting (Pre-Dialysis) 144/63 mmHg BP Sitting (Post-Dialysis) 123/61 mmHg Concurrent Access: NoAV Fistula (Upper Arm (Right)) ArterialAV Fistula (Upper Arm (Right)) Venous Weight Pre-Dialysis 90.8 kg Weight Post-Dialysis 87.7 kg September 06, 2024 Home Hemodialysis Treatment BP Sitting (Pre-Dialysis) 138/79 mmHg Concurrent Access: NoAV Fistula (Upper Arm (Right)) ArterialAV Fistula (Upper Arm (Right)) Venous Sitting Heart Rate Pre-Dialysis 73 BPM Temperature Pre-Dialysis 97.8 degF Weight Pre-Dialysis 87.9 kg September 05, 2024 Home Hemodialysis Treatment BP Sitting (Pre-Dialysis) 138/58 mmHg BP Sitting (Post-Dialysis) 136/74 mmHg Concurrent Access: NoAV Fistula (Upper Arm (Right)) ArterialAV Fistula (Upper Arm (Right)) Venous Weight Pre-Dialysis 90.9 kg Weight Post-Dialysis 87.9 kg September 04, 2024 Home Hemodialysis Treatment BP Sitting (Pre-Dialysis) 166/90 mmHg BP Sitting (Post-Dialysis) 143/75 mmHg Concurrent Access: NoAV Fistula (Upper Arm (Right)) ArterialAV Fistula (Upper Arm (Right)) Venous Weight Pre-Dialysis 91.7 kg Weight Post-Dialysis 88.5 kg September 02, 2024 Home Hemodialysis Treatment BP Sitting (Pre-Dialysis) 156/61 mmHg BP Sitting (Post-Dialysis) 134/72 mmHg Concurrent Access: NoAV Fistula (Upper Arm (Right)) ArterialAV Fistula (Upper Arm (Right)) Venous Weight Pre-Dialysis 92.2 kg Weight Post-Dialysis 89.1 kg August 31, 2024 Home Hemodialysis Treatment BP Sitting (Pre-Dialysis) 132/66 mmHg BP Sitting (Post-Dialysis) 137/69 mmHg Concurrent Access: NoAV Fistula (Upper Arm (Right)) ArterialAV Fistula (Upper Arm (Right)) Venous Weight Pre-Dialysis 91.4 kg Weight Post-Dialysis 88.8 kg August 29, 2024 Home Hemodialysis Treatment BP Sitting (Pre-Dialysis) 132/55 mmHg BP Sitting (Post-Dialysis) 145/74 mmHg Concurrent Access: NoAV Fistula (Upper Arm (Right)) ArterialAV Fistula (Upper Arm (Right)) Venous Weight Pre-Dialysis 89.7 kg Weight Post-Dialysis 88.7 kg August 28, 2024 Home Hemodialysis Treatment BP Sitting (Pre-Dialysis) 133/54 mmHg BP Sitting (Post-Dialysis) 124/54 mmHg Concurrent Access: NoAV Fistula (Upper Arm (Right)) ArterialAV Fistula (Upper Arm (Right)) Venous Weight Pre-Dialysis 91 kg Weight Post-Dialysis 88.5 kg August 26, 2024 Home Hemodialysis Treatment BP Sitting (Pre-Dialysis) 156/50 mmHg BP Sitting (Post-Dialysis) 136/68 mmHg Concurrent Access: NoAV Fistula (Upper Arm (Right)) ArterialAV Fistula (Upper Arm (Right)) Venous Weight Pre-Dialysis 92.3 kg Weight Post-Dialysis 89.5 kg August 24, 2024 Home Hemodialysis Treatment BP Sitting (Pre-Dialysis) 144/66 mmHg BP Sitting (Post-Dialysis) 128/87 mmHg Concurrent Access: NoAV Fistula (Upper Arm (Right)) ArterialAV Fistula (Upper Arm (Right)) Venous Weight Pre-Dialysis 91.9 kg Weight Post-Dialysis 89.4 kg August 22, 2024 Home Hemodialysis Treatment BP Sitting (Pre-Dialysis) 150/58 mmHg BP Sitting (Post-Dialysis) 109/74 mmHg Concurrent Access: NoAV Fistula (Upper Arm (Right)) ArterialAV Fistula (Upper Arm (Right)) Venous Weight Pre-Dialysis 91 kg Weight Post-Dialysis 88.1 kg August 20, 2024 Home Hemodialysis Treatment BP Sitting (Pre-Dialysis) 130/60 mmHg BP Sitting (Post-Dialysis) 123/67 mmHg Concurrent Access: NoAV Fistula (Upper Arm (Right)) ArterialAV Fistula (Upper Arm (Right)) Venous Weight Pre-Dialysis 90.3 kg Weight Post-Dialysis 88.3 kg August 19, 2024 Home Hemodialysis Treatment BP Sitting (Pre-Dialysis) 146/67 mmHg BP Sitting (Post-Dialysis) 129/62 mmHg Concurrent Access: NoAV Fistula (Upper Arm (Right)) ArterialAV Fistula (Upper Arm (Right)) Venous Weight Pre-Dialysis 90.7 kg Weight Post-Dialysis 88.3 kg August 17, 2024 Home Hemodialysis Treatment BP Sitting (Pre-Dialysis) 127/52 mmHg BP Sitting (Post-Dialysis) 115/60 mmHg Concurrent Access: NoAV Fistula (Upper Arm (Right)) ArterialAV Fistula (Upper Arm (Right)) Venous Weight Pre-Dialysis 91.4 kg Weight Post-Dialysis 89 kg August 15, 2024 Home Hemodialysis Treatment BP Sitting (Pre-Dialysis) 119/71 mmHg Concurrent Access: NoAV Fistula (Upper Arm (Right)) ArterialAV Fistula (Upper Arm (Right)) Venous Sitting Heart Rate Pre-Dialysis 73 BPM Temperature Pre-Dialysis 97.7 degF Weight Pre-Dialysis 88.9 kg August 15, 2024 Home Hemodialysis Treatment BP Sitting (Pre-Dialysis) 132/64 mmHg BP Sitting (Post-Dialysis) 135/71 mmHg Concurrent Access: NoAV Fistula (Upper Arm (Right)) ArterialAV Fistula (Upper Arm (Right)) Venous Weight Pre-Dialysis 90.6 kg Weight Post-Dialysis 88.2 kg August 14, 2024 Home Hemodialysis Treatment BP Sitting (Pre-Dialysis) 128/54 mmHg BP Sitting (Post-Dialysis) 108/63 mmHg Concurrent Access: NoAV Fistula (Upper Arm (Right)) ArterialAV Fistula (Upper Arm (Right)) Venous Weight Pre-Dialysis 91.5 kg Weight Post-Dialysis 88.9 kg August 11, 2024 Home Hemodialysis Treatment BP Sitting (Pre-Dialysis) 124/68 mmHg BP Sitting (Post-Dialysis) 126/75 mmHg Concurrent Access: NoAV Fistula (Upper Arm (Right)) ArterialAV Fistula (Upper Arm (Right)) Venous Weight Pre-Dialysis 92.4 kg Weight Post-Dialysis 89.3 kg August 10, 2024 Home Hemodialysis Treatment BP Sitting (Pre-Dialysis) 137/64 mmHg BP Sitting (Post-Dialysis) 135/71 mmHg Concurrent Access: NoAV Fistula (Upper Arm (Right)) ArterialAV Fistula (Upper Arm (Right)) Venous Weight Pre-Dialysis 92.5 kg Weight Post-Dialysis 89.5 kg August 09, 2024 Home Hemodialysis Treatment BP Sitting (Pre-Dialysis) 126/81 mmHg BP Sitting (Post-Dialysis) 134/66 mmHg Concurrent Access: NoAV Fistula (Upper Arm (Right)) ArterialAV Fistula (Upper Arm (Right)) Venous Weight Pre-Dialysis 93 kg Weight Post-Dialysis 91.3 kg August 07, 2024 Home Hemodialysis Treatment BP Sitting (Pre-Dialysis) 132/64 mmHg BP Sitting (Post-Dialysis) 120/67 mmHg Concurrent Access: NoAV Fistula (Upper Arm (Right)) ArterialAV Fistula (Upper Arm (Right)) Venous Weight Pre-Dialysis 92.9 kg Weight Post-Dialysis 89.5 kg August 05, 2024 Home Hemodialysis Treatment BP Sitting (Pre-Dialysis) 134/64 mmHg BP Sitting (Post-Dialysis) 121/65 mmHg Concurrent Access: NoAV Fistula (Upper Arm (Right)) ArterialAV Fistula (Upper Arm (Right)) Venous Weight Pre-Dialysis 92.8 kg Weight Post-Dialysis 90.5 kg August 03, 2024 Home Hemodialysis Treatment BP Sitting (Pre-Dialysis) 133/63 mmHg BP Sitting (Post-Dialysis) 142/78 mmHg Concurrent Access: NoAV Fistula (Upper Arm (Right)) ArterialAV Fistula (Upper Arm (Right)) Venous Weight Pre-Dialysis 93.9 kg Weight Post-Dialysis 90.8 kg August 02, 2024 Home Hemodialysis Treatment BP Sitting (Pre-Dialysis) 133/67 mmHg BP Sitting (Post-Dialysis) 127/66 mmHg Concurrent Access: NoAV Fistula (Upper Arm (Right)) ArterialAV Fistula (Upper Arm (Right)) Venous Weight Pre-Dialysis 94.5 kg Weight Post-Dialysis 91.8 kg July 30, 2024 Home Hemodialysis Treatment BP Sitting (Pre-Dialysis) 141/68 mmHg BP Sitting (Post-Dialysis) 119/65 mmHg Concurrent Access: NoAV Fistula (Upper Arm (Right)) ArterialAV Fistula (Upper Arm (Right)) Venous Weight Pre-Dialysis 93.5 kg Weight Post-Dialysis 91.8 kg July 28, 2024 Home Hemodialysis Treatment BP Sitting (Pre-Dialysis) 137/77 mmHg BP Sitting (Post-Dialysis) 153/80 mmHg Concurrent Access: NoAV Fistula (Upper Arm (Right)) ArterialAV Fistula (Upper Arm (Right)) Venous Weight Pre-Dialysis 92.3 kg Weight Post-Dialysis 90.5 kg July 25, 2024 Home Hemodialysis Treatment BP Sitting (Pre-Dialysis) 148/59 mmHg BP Sitting (Post-Dialysis) 126/59 mmHg Concurrent Access: NoAV Fistula (Upper Arm (Right)) ArterialAV Fistula (Upper Arm (Right)) Venous Weight Pre-Dialysis 91.5 kg Weight Post-Dialysis 90 kg July 24, 2024 Home Hemodialysis Treatment BP Sitting (Pre-Dialysis) 129/72 mmHg BP Sitting (Post-Dialysis) 141/64 mmHg Concurrent Access: NoAV Fistula (Upper Arm (Right)) ArterialAV Fistula (Upper Arm (Right)) Venous Weight Pre-Dialysis 90.9 kg July 22, 2024 Home Hemodialysis Treatment BP Sitting (Pre-Dialysis) 115/63 mmHg BP Sitting (Post-Dialysis) 128/56 mmHg Concurrent Access: NoAV Fistula (Upper Arm (Right)) ArterialAV Fistula (Upper Arm (Right)) Venous Weight Pre-Dialysis 89.5 kg Weight Post-Dialysis 88.2 kg July 20, 2024 Home Hemodialysis Treatment BP Sitting (Pre-Dialysis) 115/65 mmHg BP Sitting (Post-Dialysis) 113/67 mmHg Concurrent Access: NoAV Fistula (Upper Arm (Right)) ArterialAV Fistula (Upper Arm (Right)) Venous Weight Pre-Dialysis 90 kg Weight Post-Dialysis 87.5 kg July 18, 2024 Home Hemodialysis Treatment BP Sitting (Pre-Dialysis) 124/67 mmHg Concurrent Access: NoAV Fistula (Upper Arm (Right)) ArterialAV Fistula (Upper Arm (Right)) Venous Sitting Heart Rate Pre-Dialysis 72 BPM Temperature Pre-Dialysis 98 degF Weight Pre-Dialysis 88.3 kg July 18, 2024 Home Hemodialysis Treatment BP Sitting (Pre-Dialysis) 132/67 mmHg BP Sitting (Post-Dialysis) 136/78 mmHg Concurrent Access: NoAV Fistula (Upper Arm (Right)) ArterialAV Fistula (Upper Arm (Right)) Venous Weight Pre-Dialysis 91.4 kg Weight Post-Dialysis 88.8 kg July 16, 2024 Home Hemodialysis Treatment BP Sitting (Pre-Dialysis) 135/65 mmHg BP Sitting (Post-Dialysis) 141/70 mmHg Concurrent Access: NoAV Fistula (Upper Arm (Right)) ArterialAV Fistula (Upper Arm (Right)) Venous Weight Pre-Dialysis 89 kg Weight Post-Dialysis 88.3 kg July 15, 2024 Home Hemodialysis Treatment BP Sitting (Pre-Dialysis) 147/70 mmHg BP Sitting (Post-Dialysis) 113/69 mmHg Concurrent Access: NoAV Fistula (Upper Arm (Right)) ArterialAV Fistula (Upper Arm (Right)) Venous Weight Pre-Dialysis 90.3 kg Weight Post-Dialysis 88.7 kg July 13, 2024 Home Hemodialysis Treatment BP Sitting (Pre-Dialysis) 118/56 mmHg BP Sitting (Post-Dialysis) 106/64 mmHg Concurrent Access: NoAV Fistula (Upper Arm (Right)) ArterialAV Fistula (Upper Arm (Right)) Venous Weight Pre-Dialysis 90.6 kg Weight Post-Dialysis 88.7 kg July 11, 2024 Home Hemodialysis Treatment BP Sitting (Pre-Dialysis) 135/67 mmHg BP Sitting (Post-Dialysis) 112/64 mmHg Concurrent Access: NoAV Fistula (Upper Arm (Right)) ArterialAV Fistula (Upper Arm (Right)) Venous Weight Pre-Dialysis 90 kg Weight Post-Dialysis 88.5 kg July 10, 2024 Home Hemodialysis Treatment BP Sitting (Pre-Dialysis) 156/68 mmHg BP Sitting (Post-Dialysis) 128/70 mmHg Concurrent Access: NoAV Fistula (Upper Arm (Right)) ArterialAV Fistula (Upper Arm (Right)) Venous Weight Pre-Dialysis 90.4 kg Weight Post-Dialysis 89.2 kg July 08, 2024 Home Hemodialysis Treatment BP Sitting (Pre-Dialysis) 126/68 mmHg BP Sitting (Post-Dialysis) 130/67 mmHg Concurrent Access: NoAV Fistula (Upper Arm (Right)) ArterialAV Fistula (Upper Arm (Right)) Venous Weight Pre-Dialysis 90.5 kg Weight Post-Dialysis 86 kg July 06, 2024 Home Hemodialysis Treatment BP Sitting (Pre-Dialysis) 120/63 mmHg BP Sitting (Post-Dialysis) 117/64 mmHg Concurrent Access: NoAV Fistula (Upper Arm (Right)) ArterialAV Fistula (Upper Arm (Right)) Venous Weight Pre-Dialysis 89.7 kg Weight Post-Dialysis 88.4 kg July 05, 2024 Home Hemodialysis Treatment BP Sitting (Pre-Dialysis) 117/58 mmHg BP Sitting (Post-Dialysis) 130/71 mmHg Concurrent Access: NoAV Fistula (Upper Arm (Right)) ArterialAV Fistula (Upper Arm (Right)) Venous Weight Pre-Dialysis 90.9 kg Weight Post-Dialysis 87.2 kg July 03, 2024 Home Hemodialysis Treatment BP Sitting (Pre-Dialysis) 129/69 mmHg BP Sitting (Post-Dialysis) 141/70 mmHg Concurrent Access: NoAV Fistula (Upper Arm (Right)) ArterialAV Fistula (Upper Arm (Right)) Venous Weight Pre-Dialysis 91.4 kg Weight Post-Dialysis 88.5 kg July 01, 2024 Home Hemodialysis Treatment BP Sitting (Pre-Dialysis) 132/67 mmHg BP Sitting (Post-Dialysis) 129/73 mmHg Concurrent Access: NoAV Fistula (Upper Arm (Right)) ArterialAV Fistula (Upper Arm (Right)) Venous Weight Pre-Dialysis 90.2 kg Weight Post-Dialysis 88 kg June 29, 2024 Home Hemodialysis Treatment BP Sitting (Pre-Dialysis) 132/64 mmHg BP Sitting (Post-Dialysis) 126/71 mmHg Concurrent Access: NoAV Fistula (Upper Arm (Right)) ArterialAV Fistula (Upper Arm (Right)) Venous Weight Pre-Dialysis 91.1 kg Weight Post-Dialysis 88.3 kg June 27, 2024 Home Hemodialysis Treatment BP Sitting (Pre-Dialysis) 147/71 mmHg BP Sitting (Post-Dialysis) 149/81 mmHg Concurrent Access: NoAV Fistula (Upper Arm (Right)) ArterialAV Fistula (Upper Arm (Right)) Venous Weight Pre-Dialysis 90.7 kg Weight Post-Dialysis 87.6 kg June 26, 2024 Home Hemodialysis Treatment BP Sitting (Pre-Dialysis) 116/51 mmHg BP Sitting (Post-Dialysis) 133/70 mmHg Concurrent Access: NoAV Fistula (Upper Arm (Right)) ArterialAV Fistula (Upper Arm (Right)) Venous Weight Pre-Dialysis 92.2 kg Weight Post-Dialysis 89 kg June 23, 2024 Home Hemodialysis Treatment BP Sitting (Pre-Dialysis) 134/68 mmHg BP Sitting (Post-Dialysis) 138/65 mmHg Concurrent Access: NoAV Fistula (Upper Arm (Right)) ArterialAV Fistula (Upper Arm (Right)) Venous Weight Pre-Dialysis 92 kg Weight Post-Dialysis 89.1 kg June 22, 2024 Home Hemodialysis Treatment BP Sitting (Pre-Dialysis) 133/67 mmHg BP Sitting (Post-Dialysis) 122/62 mmHg Concurrent Access: NoAV Fistula (Upper Arm (Right)) ArterialAV Fistula (Upper Arm (Right)) Venous Weight Pre-Dialysis 89.2 kg Weight Post-Dialysis 88.4 kg June 20, 2024 Home Hemodialysis Treatment BP Sitting (Pre-Dialysis) 126/65 mmHg BP Sitting (Post-Dialysis) 128/67 mmHg Concurrent Access: NoAV Fistula (Upper Arm (Right)) ArterialAV Fistula (Upper Arm (Right)) Venous Weight Pre-Dialysis 91.2 kg Weight Post-Dialysis 88.4 kg June 19, 2024 Home Hemodialysis Treatment BP Sitting (Pre-Dialysis) 136/66 mmHg BP Sitting (Post-Dialysis) 136/65 mmHg Concurrent Access: NoAV Fistula (Upper Arm (Right)) ArterialAV Fistula (Upper Arm (Right)) Venous Weight Pre-Dialysis 92.1 kg Weight Post-Dialysis 89 kg June 16, 2024 Home Hemodialysis Treatment BP Sitting (Pre-Dialysis) 127/61 mmHg BP Sitting (Post-Dialysis) 122/58 mmHg Concurrent Access: NoAV Fistula (Upper Arm (Right)) ArterialAV Fistula (Upper Arm (Right)) Venous Weight Pre-Dialysis 89.3 kg Weight Post-Dialysis 88.1 kg June 15, 2024 Home Hemodialysis Treatment BP Sitting (Pre-Dialysis) 121/64 mmHg BP Sitting (Post-Dialysis) 122/62 mmHg Concurrent Access: NoAV Fistula (Upper Arm (Right)) ArterialAV Fistula (Upper Arm (Right)) Venous Weight Pre-Dialysis 88.8 kg Weight Post-Dialysis 87.9 kg June 13, 2024 Home Hemodialysis Treatment BP Sitting (Pre-Dialysis) 114/71 mmHg Concurrent Access: NoAV Fistula (Upper Arm (Right)) ArterialAV Fistula (Upper Arm (Right)) Venous Sitting Heart Rate Pre-Dialysis 73 BPM Temperature Pre-Dialysis 96.7 degF Weight Pre-Dialysis 88 kg June 13, 2024 Home Hemodialysis Treatment BP Sitting (Pre-Dialysis) 197/87 mmHg BP Sitting (Post-Dialysis) 159/80 mmHg Concurrent Access: NoAV Fistula (Upper Arm (Right)) ArterialAV Fistula (Upper Arm (Right)) Venous Weight Pre-Dialysis 70 kg Weight Post-Dialysis 69.4 kg June 12, 2024 Home Hemodialysis Treatment BP Sitting (Pre-Dialysis) 116/58 mmHg BP Sitting (Post-Dialysis) 143/72 mmHg Concurrent Access: NoAV Fistula (Upper Arm (Right)) ArterialAV Fistula (Upper Arm (Right)) Venous Weight Pre-Dialysis 91.1 kg Weight Post-Dialysis 88.6 kg June 10, 2024 Home Hemodialysis Treatment BP Sitting (Pre-Dialysis) 126/58 mmHg BP Sitting (Post-Dialysis) 123/58 mmHg Concurrent Access: NoAV Fistula (Upper Arm (Right)) ArterialAV Fistula (Upper Arm (Right)) Venous Weight Pre-Dialysis 89.7 kg Weight Post-Dialysis 89.2 kg June 08, 2024 Home Hemodialysis Treatment BP Sitting (Pre-Dialysis) 134/60 mmHg BP Sitting (Post-Dialysis) 133/58 mmHg Concurrent Access: NoAV Fistula (Upper Arm (Right)) ArterialAV Fistula (Upper Arm (Right)) Venous Weight Pre-Dialysis 90.7 kg Weight Post-Dialysis 88.8 kg June 06, 2024 Home Hemodialysis Treatment BP Sitting (Pre-Dialysis) 136/65 mmHg BP Sitting (Post-Dialysis) 151/71 mmHg Concurrent Access: NoAV Fistula (Upper Arm (Right)) ArterialAV Fistula (Upper Arm (Right)) Venous Weight Pre-Dialysis 90.3 kg Weight Post-Dialysis 88.5 kg June 05, 2024 Home Hemodialysis Treatment BP Sitting (Pre-Dialysis) 135/64 mmHg BP Sitting (Post-Dialysis) 136/73 mmHg Concurrent Access: NoAV Fistula (Upper Arm (Right)) ArterialAV Fistula (Upper Arm (Right)) Venous Weight Pre-Dialysis 90.3 kg Weight Post-Dialysis 88.1 kg June 03, 2024 Home Hemodialysis Treatment BP Sitting (Pre-Dialysis) 145/67 mmHg BP Sitting (Post-Dialysis) 148/70 mmHg Concurrent Access: NoAV Fistula (Upper Arm (Right)) ArterialAV Fistula (Upper Arm (Right)) Venous Weight Pre-Dialysis 91.8 kg Weight Post-Dialysis 89.1 kg May 31, 2024 Home Hemodialysis Treatment BP Sitting (Pre-Dialysis) 130/55 mmHg BP Sitting (Post-Dialysis) 123/62 mmHg Concurrent Access: NoAV Fistula (Upper Arm (Right)) ArterialAV Fistula (Upper Arm (Right)) Venous Weight Pre-Dialysis 90 kg Weight Post-Dialysis 88.6 kg May 30, 2024 Home Hemodialysis Treatment BP Sitting (Pre-Dialysis) 134/60 mmHg BP Sitting (Post-Dialysis) 121/62 mmHg Concurrent Access: NoAV Fistula (Upper Arm (Right)) ArterialAV Fistula (Upper Arm (Right)) Venous Weight Pre-Dialysis 89.8 kg Weight Post-Dialysis 88.3 kg May 28, 2024 Home Hemodialysis Treatment BP Sitting (Pre-Dialysis) 115/65 mmHg BP Sitting (Post-Dialysis) 134/67 mmHg Concurrent Access: NoAV Fistula (Upper Arm (Right)) ArterialAV Fistula (Upper Arm (Right)) Venous Weight Pre-Dialysis 89.5 kg Weight Post-Dialysis 88.4 kg May 27, 2024 Home Hemodialysis Treatment BP Sitting (Pre-Dialysis) 108/61 mmHg BP Sitting (Post-Dialysis) 145/75 mmHg Concurrent Access: NoAV Fistula (Upper Arm (Right)) ArterialAV Fistula (Upper Arm (Right)) Venous Weight Pre-Dialysis 89.7 kg Weight Post-Dialysis 88.3 kg May 25, 2024 Home Hemodialysis Treatment BP Sitting (Pre-Dialysis) 152/86 mmHg Concurrent Access: NoAV Fistula (Upper Arm (Right)) ArterialAV Fistula (Upper Arm (Right)) Venous Sitting Heart Rate Pre-Dialysis 74 BPM Temperature Pre-Dialysis 97.3 degF Weight Pre-Dialysis 90.2 kg May 25, 2024 Home Hemodialysis Treatment BP Sitting (Pre-Dialysis) 161/78 mmHg BP Sitting (Post-Dialysis) 138/72 mmHg Concurrent Access: NoAV Fistula (Upper Arm (Right)) ArterialAV Fistula (Upper Arm (Right)) Venous Weight Pre-Dialysis 90.3 kg Weight Post-Dialysis 88 kg May 18, 2024 Home Hemodialysis Treatment BP Sitting (Pre-Dialysis) 125/59 mmHg BP Sitting (Post-Dialysis) 128/65 mmHg Concurrent Access: NoAV Fistula (Upper Arm (Right)) ArterialAV Fistula (Upper Arm (Right)) Venous Weight Pre-Dialysis 90.8 kg Weight Post-Dialysis 88.4 kg May 17, 2024 Home Hemodialysis Treatment BP Sitting (Pre-Dialysis) 122/74 mmHg BP Sitting (Post-Dialysis) 131/52 mmHg Concurrent Access: NoAV Fistula (Upper Arm (Right)) ArterialAV Fistula (Upper Arm (Right)) Venous Weight Pre-Dialysis 91.6 kg Weight Post-Dialysis 89.3 kg May 16, 2024 Home Hemodialysis Treatment BP Sitting (Pre-Dialysis) 133/57 mmHg BP Sitting (Post-Dialysis) 135/62 mmHg Concurrent Access: NoAV Fistula (Upper Arm (Right)) ArterialAV Fistula (Upper Arm (Right)) Venous Weight Pre-Dialysis 92.6 kg Weight Post-Dialysis 89.6 kg May 11, 2024 Home Hemodialysis Treatment BP Sitting (Pre-Dialysis) 142/64 mmHg BP Sitting (Post-Dialysis) 118/62 mmHg Concurrent Access: NoAV Fistula (Upper Arm (Right)) ArterialAV Fistula (Upper Arm (Right)) Venous Weight Pre-Dialysis 89.8 kg Weight Post-Dialysis 69 kg May 09, 2024 Home Hemodialysis Treatment BP Sitting (Pre-Dialysis) 111/54 mmHg BP Sitting (Post-Dialysis) 115/56 mmHg Concurrent Access: NoAV Fistula (Upper Arm (Right)) ArterialAV Fistula (Upper Arm (Right)) Venous Weight Pre-Dialysis 90 kg Weight Post-Dialysis 88.7 kg May 08, 2024 Home Hemodialysis Treatment BP Sitting (Pre-Dialysis) 123/58 mmHg BP Sitting (Post-Dialysis) 109/55 mmHg Concurrent Access: NoAV Fistula (Upper Arm (Right)) ArterialAV Fistula (Upper Arm (Right)) Venous Weight Pre-Dialysis 90.9 kg Weight Post-Dialysis 88.7 kg May 05, 2024 Home Hemodialysis Treatment BP Sitting (Pre-Dialysis) 133/64 mmHg BP Sitting (Post-Dialysis) 126/60 mmHg Concurrent Access: NoAV Fistula (Upper Arm (Right)) ArterialAV Fistula (Upper Arm (Right)) Venous Weight Pre-Dialysis 90.7 kg Weight Post-Dialysis 88.8 kg May 04, 2024 Home Hemodialysis Treatment BP Sitting (Pre-Dialysis) 133/64 mmHg BP Sitting (Post-Dialysis) 126/60 mmHg Concurrent Access: NoAV Fistula (Upper Arm (Right)) ArterialAV Fistula (Upper Arm (Right)) Venous Weight Pre-Dialysis 90.7 kg Weight Post-Dialysis 88.8 kg May 03, 2024 Home Hemodialysis Treatment BP Sitting (Pre-Dialysis) 121/55 mmHg BP Sitting (Post-Dialysis) 134/54 mmHg Concurrent Access: NoAV Fistula (Upper Arm (Right)) ArterialAV Fistula (Upper Arm (Right)) Venous Weight Pre-Dialysis 89.7 kg Weight Post-Dialysis 91.1 kg April 30, 2024 Home Hemodialysis Treatment BP Sitting (Pre-Dialysis) 114/54 mmHg BP Sitting (Post-Dialysis) 116/78 mmHg Concurrent Access: NoAV Fistula (Upper Arm (Right)) ArterialAV Fistula (Upper Arm (Right)) Venous Weight Pre-Dialysis 90.3 kg Weight Post-Dialysis 88.8 kg April 28, 2024 Home Hemodialysis Treatment BP Sitting (Pre-Dialysis) 131/65 mmHg BP Sitting (Post-Dialysis) 116/65 mmHg Concurrent Access: NoAV Fistula (Upper Arm (Right)) ArterialAV Fistula (Upper Arm (Right)) Venous Weight Pre-Dialysis 89.5 kg Weight Post-Dialysis 89.2 kg April 27, 2024 Home Hemodialysis Treatment Concurrent Access: NoAV Fistula (Upper Arm (Right)) ArterialAV Fistula (Upper Arm (Right)) Venous April 25, 2024 Home Hemodialysis Treatment BP Sitting (Pre-Dialys is) 134/79 mmHg BP Sitting (Post-Dial ysis) 122/56 mmHg Concurrent Access: NoAV Fistula (Upper Arm (Right)) ArterialAV Fistula (Upper Arm (Right)) Venous Weight Pre-Dialysis 89.9 kg Weight Post-Dialysis 82.4 kg April 23, 2024 Home Hemodialysis Treatment BP Sitting (Pre-Dialysis) 141/75 mmHg BP Sitting (Post-Dialysis) 130/56 mmHg Concurrent Access: NoAV Fistula (Upper Arm (Right)) ArterialAV Fistula (Upper Arm (Right)) Venous Weight Pre-Dialysis 89.5 kg Weight Post-Dialysis 87 kg April 21, 2024 Home Hemodialysis Treatment BP Sitting (Pre-Dialysis) 123/64 mmHg BP Sitting (Post-Dialysis) 133/60 mmHg Concurrent Access: NoAV Fistula (Upper Arm (Right)) ArterialAV Fistula (Upper Arm (Right)) Venous Weight Pre-Dialysis 90.3 kg Weight Post-Dialysis 87 kg April 20, 2024 Home Hemodialysis Treatment Concurrent Access: NoAV Fistula (Upper Arm (Right)) ArterialAV Fistula (Upper Arm (Right)) Venous April 18, 2024 Home Hemodialysis Treatment BP Sitting (Pre-Dialys is) 121/60 mmHg BP Sitting (Post-Dial ysis) 109/54 mmHg Concurrent Access: NoAV Fistula (Upper Arm (Right)) ArterialAV Fistula (Upper Arm (Right)) Venous Weight Pre-Dialysis 90.4 kg Weight Post-Dialysis 88.1 kg April 17, 2024 Home Hemodialysis Treatment BP Sitting (Pre-Dialysis) 137/72 mmHg BP Sitting (Post-Dialysis) 135/67 mmHg Concurrent Access: NoAV Fistula (Upper Arm (Right)) ArterialAV Fistula (Upper Arm (Right)) Venous Weight Pre-Dialysis 92 kg Weight Post-Dialysis 89.9 kg April 14, 2024 Home Hemodialysis Treatment BP Sitting (Pre-Dialysis) 124/63 mmHg BP Sitting (Post-Dialysis) 135/60 mmHg Concurrent Access: NoAV Fistula (Upper Arm (Right)) ArterialAV Fistula (Upper Arm (Right)) Venous Weight Pre-Dialysis 89.1 kg Weight Post-Dialysis 88.4 kg April 12, 2024 Home Hemodialysis Treatment BP Sitting (Pre-Dialysis) 122/58 mmHg BP Sitting (Post-Dialysis) 130/51 mmHg Concurrent Access: NoAV Fistula (Upper Arm (Right)) ArterialAV Fistula (Upper Arm (Right)) Venous Weight Pre-Dialysis 89.2 kg Weight Post-Dialysis 88.9 kg April 11, 2024 Home Hemodialysis Treatment BP Sitting (Pre-Dialysis) 112/59 mmHg Concurrent Access: NoAV Fistula (Upper Arm (Right)) ArterialAV Fistula (Upper Arm (Right)) Venous Sitting Heart Rate Pre-Dialysis 75 BPM Temperature Pre-Dialysis 97.8 degF Weight Pre-Dialysis 88.2 kg April 11, 2024 Home Hemodialysis Treatment BP Sitting (Pre-Dialysis) 146/56 mmHg Weight Post-Dialysis 88.6 kg Concurrent Access: NoAV Fistula (Upper Arm (Right)) ArterialAV Fistula (Upper Arm (Right)) Venous Weight Pre-Dialysis 89.8 kg April 10, 2024 Home Hemodialysis Treatment BP Sitting (Pre-Dialysis) 111/46 mmHg BP Sitting (Post-Dialysis) 136/63 mmHg Concurrent Access: NoAV Fistula (Upper Arm (Right)) ArterialAV Fistula (Upper Arm (Right)) Venous Weight Pre-Dialysis 90.8 kg Weight Post-Dialysis 88.2 kg April 08, 2024 Home Hemodialysis Treatment BP Sitting (Pre-Dialysis) 122/55 mmHg BP Sitting (Post-Dialysis) 131/65 mmHg Concurrent Access: NoAV Fistula (Upper Arm (Right)) ArterialAV Fistula (Upper Arm (Right)) Venous Weight Pre-Dialysis 91.2 kg Weight Post-Dialysis 88.9 kg April 06, 2024 Home Hemodialysis Treatment BP Sitting (Pre-Dialysis) 131/55 mmHg BP Sitting (Post-Dialysis) 126/70 mmHg Concurrent Access: NoAV Fistula (Upper Arm (Right)) ArterialAV Fistula (Upper Arm (Right)) Venous Weight Pre-Dialysis 90.2 kg Weight Post-Dialysis 89.4 kg April 04, 2024 Home Hemodialysis Treatment BP Sitting (Pre-Dialysis) 144/68 mmHg BP Sitting (Post-Dialysis) 120/53 mmHg Concurrent Access: NoAV Fistula (Upper Arm (Right)) ArterialAV Fistula (Upper Arm (Right)) Venous Weight Pre-Dialysis 90.6 kg Weight Post-Dialysis 88.6 kg April 02, 2024 Home Hemodialysis Treatment BP Sitting (Pre-Dialysis) 128/59 mmHg Weight Post-Dialysis 88.4 kg Concurrent Access: NoAV Fistula (Upper Arm (Right)) ArterialAV Fistula (Upper Arm (Right)) Venous Weight Pre-Dialysis 90.1 kg April 01, 2024 Home Hemodialysis Treatment BP Sitting (Pre-Dialysis) 127/58 mmHg BP Sitting (Post-Dialysis) 145/69 mmHg Concurrent Access: NoAV Fistula (Upper Arm (Right)) ArterialAV Fistula (Upper Arm (Right)) Venous Weight Pre-Dialysis 91.2 kg Weight Post-Dialysis 89.2 kg March 29, 2024 Home Hemodialysis Treatment BP Sitting (Pre-Dialysis) 141/62 mmHg BP Sitting (Post-Dialysis) 108/65 mmHg Concurrent Access: NoAV Fistula (Upper Arm (Right)) ArterialAV Fistula (Upper Arm (Right)) Venous Weight Pre-Dialysis 91 kg Weight Post-Dialysis 88.6 kg March 27, 2024 Home Hemodialysis Treatment BP Sitting (Pre-Dialysis) 131/51 mmHg BP Sitting (Post-Dialysis) 119/62 mmHg Concurrent Access: NoAV Fistula (Upper Arm (Right)) ArterialAV Fistula (Upper Arm (Right)) Venous Weight Pre-Dialysis 91.1 kg Weight Post-Dialysis 89.4 kg March 26, 2024 Home Hemodialysis Treatment BP Sitting (Pre-Dialysis) 123/54 mmHg BP Sitting (Post-Dialysis) 104/61 mmHg Concurrent Access: NoAV Fistula (Upper Arm (Right)) ArterialAV Fistula (Upper Arm (Right)) Venous Weight Pre-Dialysis 90.4 kg Weight Post-Dialysis 89.1 kg March 24, 2024 Home Hemodialysis Treatment BP Sitting (Pre-Dialysis) 144/59 mmHg BP Sitting (Post-Dialysis) 141/72 mmHg Concurrent Access: NoAV Fistula (Upper Arm (Right)) ArterialAV Fistula (Upper Arm (Right)) Venous Weight Pre-Dialysis 91 kg Weight Post-Dialysis 88.6 kg March 22, 2024 Home Hemodialysis Treatment BP Sitting (Pre-Dialysis) 133/59 mmHg BP Sitting (Post-Dialysis) 133/61 mmHg Concurrent Access: NoAV Fistula (Upper Arm (Right)) ArterialAV Fistula (Upper Arm (Right)) Venous Weight Pre-Dialysis 90.3 kg Weight Post-Dialysis 89.2 kg March 21, 2024 Home Hemodialysis Treatment BP Sitting (Pre-Dialysis) 135/54 mmHg BP Sitting (Post-Dialysis) 127/57 mmHg Concurrent Access: NoAV Fistula (Upper Arm (Right)) ArterialAV Fistula (Upper Arm (Right)) Venous Weight Pre-Dialysis 90.1 kg Weight Post-Dialysis 88.8 kg March 20, 2024 Home Hemodialysis Treatment Concurrent Access: NoAV Fistula (Upper Arm (Right)) ArterialAV Fistula (Upper Arm (Right)) Venous March 18, 2024 Home Hemodialysis Treatment BP Sitting (Pre-Dialys is) 130/60 mmHg BP Sitting (Post-Dial ysis) 121/60 mmHg Concurrent Access: NoAV Fistula (Upper Arm (Right)) ArterialAV Fistula (Upper Arm (Right)) Venous Weight Pre-Dialysis 89.9 kg Weight Post-Dialysis 88.5 kg March 17, 2024 Home Hemodialysis Treatment BP Sitting (Pre-Dialysis) 120/55 mmHg BP Sitting (Post-Dialysis) 100/59 mmHg Concurrent Access: NoAV Fistula (Upper Arm (Right)) ArterialAV Fistula (Upper Arm (Right)) Venous Weight Pre-Dialysis 89.1 kg Weight Post-Dialysis 88.8 kg March 15, 2024 Home Hemodialysis Treatment BP Sitting (Pre-Dialysis) 132/55 mmHg BP Sitting (Post-Dialysis) 120/55 mmHg Concurrent Access: NoAV Fistula (Upper Arm (Right)) ArterialAV Fistula (Upper Arm (Right)) Venous Weight Pre-Dialysis 90.3 kg Weight Post-Dialysis 88.4 kg March 13, 2024 Home Hemodialysis Treatment BP Sitting (Pre-Dialysis) 115/55 mmHg BP Sitting (Post-Dialysis) 117/61 mmHg Concurrent Access: NoAV Fistula (Upper Arm (Right)) ArterialAV Fistula (Upper Arm (Right)) Venous Weight Pre-Dialysis 90.4 kg Weight Post-Dialysis 88.5 kg March 11, 2024 Home Hemodialysis Treatment BP Sitting (Pre-Dialysis) 137/61 mmHg BP Sitting (Post-Dialysis) 113/61 mmHg Concurrent Access: NoCentral Venous Catheter (CVC) (Chest (Right)) ArterialCentral Venous Catheter (CVC) (Chest (Right)) Venous Weight Pre-Dialysis 91.1 kg Weight Post-Dialysis 88.4 kg March 08, 2024 Home Hemodialysis Retraining BP Sitting (Pre-Dialysis) 90/64 mmHg BP Sitting (Post-Dialysis) 117/62 mmHg Concurrent Access: NoAV Fistula (Upper Arm (Right)) ArterialAV Fistula (Upper Arm (Right)) Venous Sitting Heart Rate Pre-Dialysis 65 BPM Sitting H eart Rate Post-Dialysis 81 BPM Temperature Pre-Dialysis 97.7 degF Temperature Post -Dialysis 97.2 degF Weight Pre-Dialysis 90.6 kg Weight Post-Dialysis 88.5 kg March 07, 2024 Home Hemodialysis Retraining BP Sitting (Pre-Dialysis) 118/54 mmHg BP Sitting (Post-Dialysis) 123/59 mmHg Concurrent Access: NoAV Fistula (Upper Arm (Right)) ArterialAV Fistula (Upper Arm (Right)) Venous Sitting Heart Rate Pre-Dialysis 75 BPM Sitting H eart Rate Post-Dialysis 73 BPM Temperature Pre-Dialysis 98 degF Temperature Post -Dialysis 97.6 degF Weight Pre-Dialysis 92.2 kg Weight Post-Dialysis 89 kg March 06, 2024 Home Hemodialysis Retraining BP Sitting (Pre-Dialysis) 134/52 mmHg BP Sitting (Post-Dialysis) 101/42 mmHg Concurrent Access: NoAV Fistula (Upper Arm (Right)) ArterialAV Fistula (Upper Arm (Right)) Venous Sitting Heart Rate Pre-Dialysis 57 BPM Sitting H eart Rate Post-Dialysis 67 BPM Temperature Pre-Dialysis 97.7 degF Temperature Post -Dialysis 97.5 degF Weight Pre-Dialysis 92.2 kg Weight Post-Dialysis 89.8 kg 2024 Home Hemodialysis Treatment BP Sitting (Pre-Dialysis) 140/67 mmHg BP Sitting (Post-Dialysis) 121/60 mmHg Concurrent Access: NoCentral Venous Catheter (CVC) (Chest (Right)) ArterialCentral Venous Catheter (CVC) (Chest (Right)) Venous Weight Pre-Dialysis 90.8 kg Weight Post-Dialysis 88.7 kg March 02, 2024 Home Hemodialysis Retraining BP Sitting (Pre-Dialysis) 102/51 mmHg BP Sitting (Post-Dialysis) 105/50 mmHg Concurrent Access: NoAV Fistula (Upper Arm (Right)) ArterialAV Fistula (Upper Arm (Right)) Venous Sitting Heart Rate Pre-Dialysis 72 BPM Sitting H eart Rate Post-Dialysis 50 BPM Temperature Pre-Dialysis 97.7 degF Temperature Post -Dialysis 97.1 degF Weight Pre-Dialysis 90.4 kg Weight Post-Dialysis 88.4 kg March 01, 2024 Home Hemodialysis Retraining BP Sitting (Pre-Dialysis) 106/51 mmHg BP Sitting (Post-Dialysis) 114/50 mmHg Concurrent Access: NoAV Fistula (Upper Arm (Right)) ArterialAV Fistula (Upper Arm (Right)) Venous Sitting Heart Rate Pre-Dialysis 75 BPM Sitting H eart Rate Post-Dialysis 49 BPM Temperature Pre-Dialysis 97.5 degF Temperature Post -Dialysis 97.3 degF Weight Pre-Dialysis 89.1 kg Weight Post-Dialysis 89.5 kg February 28, 2024 Home Hemodialysis Retraining BP Sitting (Pre-Dialysis) 113/55 mmHg BP Sitting (Post-Dialysis) 113/55 mmHg Concurrent Access: NoAV Fistula (Upper Arm (Right)) ArterialAV Fistula (Upper Arm (Right)) Venous Sitting Heart Rate Pre-Dialysis 76 BPM Sitting H eart Rate Post-Dialysis 76 BPM Temperature Pre-Dialysis 97.5 degF Temperature Post -Dialysis 97.5 degF Weight Pre-Dialysis 90.4 kg Weight Post-Dialysis 87.8 kg February 26, 2024 Home Hemodialysis Treatment BP Sitting (Pre-Dialysis) 121/63 mmHg BP Sitting (Post-Dialysis) 107/52 mmHg Concurrent Access: NoCentral Venous Catheter (CVC) (Chest (Right)) ArterialCentral Venous Catheter (CVC) (Chest (Right)) Venous Weight Pre-Dialysis 91 kg Weight Post-Dialysis 88 kg February 24, 2024 Home Hemodialysis Retraining BP Sitting (Pre-Dialysis) 91/56 mmHg BP Sitting (Post-Dialysis) 144/69 mmHg Concurrent Access: NoAV Fistula (Upper Arm (Right)) ArterialAV Fistula (Upper Arm (Right)) Venous Sitting Heart Rate Pre-Dialysis 77 BPM Sitting H eart Rate Post-Dialysis 75 BPM Temperature Pre-Dialysis 98.3 degF Temperature Post -Dialysis 97.8 degF Weight Pre-Dialysis 89.3 kg Weight Post-Dialysis 88.3 kg February 23, 2024 Home Hemodialysis Retraining BP Sitting (Pre-Dialysis) 114/58 mmHg BP Sitting (Post-Dialysis) 109/54 mmHg Concurrent Access: NoAV Fistula (Upper Arm (Right)) ArterialAV Fistula (Upper Arm (Right)) Venous Sitting Heart Rate Pre-Dialysis 76 BPM Sitting H eart Rate Post-Dialysis 76 BPM Temperature Pre-Dialysis 97.9 degF Temperature Post -Dialysis 97.6 degF Weight Pre-Dialysis 90.5 kg Weight Post-Dialysis 88.1 kg February 21, 2024 Home Hemodialysis Retraining BP Sitting (Pre-Dialysis) 116/57 mmHg BP Sitting (Post-Dialysis) 94/55 mmHg Concurrent Access: NoAV Fistula (Upper Arm (Right)) ArterialAV Fistula (Upper Arm (Right)) Venous Sitting Heart Rate Pre-Dialysis 77 BPM Sitting H eart Rate Post-Dialysis 77 BPM Temperature Pre-Dialysis 98 degF Temperature Post -Dialysis 97.6 degF Weight Pre-Dialysis 91.1 kg Weight Post-Dialysis 89.4 kg February 19, 2024 Home Hemodialysis Treatment BP Sitting (Pre-Dialysis) 113/57 mmHg BP Sitting (Post-Dialysis) 106/60 mmHg Concurrent Access: NoCentral Venous Catheter (CVC) (Chest (Right)) ArterialCentral Venous Catheter (CVC) (Chest (Right)) Venous Weight Pre-Dialysis 89.7 kg Weight Post-Dialysis 88.8 kg February 18, 2024 Home Hemodialysis Treatment BP Sitting (Pre-Dialysis) 107/55 mmHg BP Sitting (Post-Dialysis) 116/64 mmHg Concurrent Access: NoCentral Venous Catheter (CVC) (Chest (Right)) ArterialCentral Venous Catheter (CVC) (Chest (Right)) Venous Weight Pre-Dialysis 90.5 kg Weight Post-Dialysis 88.5 kg February 17, 2024 Home Hemodialysis Treatment BP Sitting (Pre-Dialysis) 121/53 mmHg BP Sitting (Post-Dialysis) 116/56 mmHg Concurrent Access: NoCentral Venous Catheter (CVC) (Chest (Right)) ArterialCentral Venous Catheter (CVC) (Chest (Right)) Venous Weight Pre-Dialysis 91.3 kg Weight Post-Dialysis 89.2 kg February 15, 2024 Home Hemodialysis Treatment BP Sitting (Pre-Dialysis) 114/67 mmHg Concurrent Access: NoCentral Venous Catheter (CVC) (Chest (Right)) ArterialCentral Venous Catheter (CVC) (Chest (Right)) Venous Sitting Heart Rate Pre-Dialysis 74 BPM Temperature Pre-Dialysis 98 degF Weight Pre-Dialysis 88.8 kg February 14, 2024 Home Hemodialysis Treatment BP Sitting (Pre-Dialysis) 117/48 mmHg BP Sitting (Post-Dialysis) 125/56 mmHg Concurrent Access: NoCentral Venous Catheter (CVC) (Chest (Right)) ArterialCentral Venous Catheter (CVC) (Chest (Right)) Venous Weight Pre-Dialysis 90.6 kg Weight Post-Dialysis 88.6 kg February 12, 2024 Home Hemodialysis Treatment BP Sitting (Pre-Dialysis) 119/53 mmHg BP Sitting (Post-Dialysis) 98/57 mmHg Concurrent Access: NoCentral Venous Catheter (CVC) (Chest (Right)) ArterialCentral Venous Catheter (CVC) (Chest (Right)) Venous Weight Pre-Dialysis 90.1 kg Weight Post-Dialysis 88.8 kg February 11, 2024 Home Hemodialysis Treatment BP Sitting (Pre-Dialysis) 115/52 mmHg BP Sitting (Post-Dialysis) 96/56 mmHg Concurrent Access: NoCentral Venous Catheter (CVC) (Chest (Right)) ArterialCentral Venous Catheter (CVC) (Chest (Right)) Venous Weight Pre-Dialysis 78 kg Weight Post-Dialysis 88.5 kg February 10, 2024 Home Hemodialysis Treatment BP Sitting (Pre-Dialysis) 141/65 mmHg BP Sitting (Post-Dialysis) 140/64 mmHg Concurrent Access: NoCentral Venous Catheter (CVC) (Chest (Right)) ArterialCentral Venous Catheter (CVC) (Chest (Right)) Venous Weight Pre-Dialysis 91.3 kg Weight Post-Dialysis 89 kg February 07, 2024 Home Hemodialysis Treatment BP Sitting (Pre-Dialysis) 145/62 mmHg BP Sitting (Post-Dialysis) 121/48 mmHg Concurrent Access: NoCentral Venous Catheter (CVC) (Chest (Right)) ArterialCentral Venous Catheter (CVC) (Chest (Right)) Venous Weight Pre-Dialysis 90.7 kg Weight Post-Dialysis 88 kg February 05, 2024 Home Hemodialysis Treatment BP Sitting (Pre-Dialysis) 135/66 mmHg BP Sitting (Post-Dialysis) 141/58 mmHg Concurrent Access: NoCentral Venous Catheter (CVC) (Chest (Right)) ArterialCentral Venous Catheter (CVC) (Chest (Right)) Venous Weight Pre-Dialysis 90.4 kg Weight Post-Dialysis 89.1 kg February 04, 2024 Home Hemodialysis Treatment BP Sitting (Pre-Dialysis) 93/63 mmHg Concurrent Access: NoCentral Venous Catheter (CVC) (Chest (Right)) ArterialCentral Venous Catheter (CVC) (Chest (Right)) Venous Sitting Heart Rate Pre-Dialysis 66 BPM Temperature Pre-Dialysis 97.8 degF Weight Pre-Dialysis 88.7 kg February 03, 2024 Home Hemodialysis Treatment BP Sitting (Pre-Dialysis) 126/52 mmHg BP Sitting (Post-Dialysis) 126/58 mmHg Concurrent Access: NoCentral Venous Catheter (CVC) (Chest (Right)) ArterialCentral Venous Catheter (CVC) (Chest (Right)) Venous Weight Pre-Dialysis 90.9 kg Weight Post-Dialysis 88.7 kg January 31, 2024 Home Hemodialysis Treatment BP Sitting (Pre-Dialysis) 137/63 mmHg Weight Post-Dialysis 88.5 kg Concurrent Access: NoCentral Venous Catheter (CVC) (Chest (Right)) ArterialCentral Venous Catheter (CVC) (Chest (Right)) Venous Weight Pre-Dialysis 89.6 kg January 30, 2024 Home Hemodialysis Treatment BP Sitting (Pre-Dialysis) 130/54 mmHg BP Sitting (Post-Dialysis) 135/60 mmHg Concurrent Access: NoCentral Venous Catheter (CVC) (Chest (Right)) ArterialCentral Venous Catheter (CVC) (Chest (Right)) Venous Weight Pre-Dialysis 90.5 kg Weight Post-Dialysis 88.5 kg January 29, 2024 Home Hemodialysis Treatment BP Sitting (Pre-Dialysis) 142/56 mmHg BP Sitting (Post-Dialysis) 139/65 mmHg Concurrent Access: NoCentral Venous Catheter (CVC) (Chest (Right)) ArterialCentral Venous Catheter (CVC) (Chest (Right)) Venous Weight Pre-Dialysis 91 kg Weight Post-Dialysis 89.2 kg January 27, 2024 Home Hemodialysis Treatment BP Sitting (Pre-Dialysis) 120/54 mmHg BP Sitting (Post-Dialysis) 112/52 mmHg Concurrent Access: NoCentral Venous Catheter (CVC) (Chest (Right)) ArterialCentral Venous Catheter (CVC) (Chest (Right)) Venous Weight Pre-Dialysis 90.1 kg Weight Post-Dialysis 89.4 kg January 26, 2024 Home Hemodialysis Treatment BP Sitting (Pre-Dialysis) 137/59 mmHg BP Sitting (Post-Dialysis) 134/50 mmHg Concurrent Access: NoCentral Venous Catheter (CVC) (Chest (Right)) ArterialCentral Venous Catheter (CVC) (Chest (Right)) Venous Weight Pre-Dialysis 90.3 kg Weight Post-Dialysis 88.8 kg January 24, 2024 Home Hemodialysis Treatment BP Sitting (Pre-Dialysis) 142/88 mmHg BP Sitting (Post-Dialysis) 128/64 mmHg Concurrent Access: NoCentral Venous Catheter (CVC) (Chest (Right)) ArterialCentral Venous Catheter (CVC) (Chest (Right)) Venous Weight Pre-Dialysis 90.2 kg Weight Post-Dialysis 88.8 kg January 22, 2024 Home Hemodialysis Treatment BP Sitting (Pre-Dialysis) 138/64 mmHg BP Sitting (Post-Dialysis) 136/61 mmHg Concurrent Access: NoCentral Venous Catheter (CVC) (Chest (Right)) ArterialCentral Venous Catheter (CVC) (Chest (Right)) Venous Weight Pre-Dialysis 89.9 kg Weight Post-Dialysis 89.2 kg January 21, 2024 Home Hemodialysis Treatment BP Sitting (Pre-Dialysis) 118/55 mmHg BP Sitting (Post-Dialysis) 114/56 mmHg Concurrent Access: NoCentral Venous Catheter (CVC) (Chest (Right)) ArterialCentral Venous Catheter (CVC) (Chest (Right)) Venous Weight Pre-Dialysis 89.3 kg Weight Post-Dialysis 88.8 kg January 20, 2024 Home Hemodialysis Treatment BP Sitting (Pre-Dialysis) 123/61 mmHg BP Sitting (Post-Dialysis) 135/54 mmHg Concurrent Access: NoCentral Venous Catheter (CVC) (Chest (Right)) ArterialCentral Venous Catheter (CVC) (Chest (Right)) Venous Weight Pre-Dialysis 91 kg Weight Post-Dialysis 89.4 kg January 18, 2024 Home Hemodialysis Treatment BP Sitting (Pre-Dialysis) 120/55 mmHg Concurrent Access: NoCentral Venous Catheter (CVC) (Chest (Right)) ArterialCentral Venous Catheter (CVC) (Chest (Right)) Venous Sitting Heart Rate Pre-Dialysis 81 BPM Temperature Pre-Dialysis 97.7 degF Weight Pre-Dialysis 89.4 kg January 17, 2024 Home Hemodialysis Treatment BP Sitting (Pre-Dialysis) 135/56 mmHg BP Sitting (Post-Dialysis) 129/66 mmHg Concurrent Access: NoCentral Venous Catheter (CVC) (Chest (Right)) ArterialCentral Venous Catheter (CVC) (Chest (Right)) Venous Weight Pre-Dialysis 91.1 kg Weight Post-Dialysis 89.4 kg January 13, 2024 Home Hemodialysis Treatment BP Sitting (Pre-Dialysis) 125/55 mmHg BP Sitting (Post-Dialysis) 122/51 mmHg Concurrent Access: NoCentral Venous Catheter (CVC) (Chest (Right)) ArterialCentral Venous Catheter (CVC) (Chest (Right)) Venous Weight Pre-Dialysis 89.7 kg Weight Post-Dialysis 89.2 kg January 12, 2024 Home Hemodialysis Treatment BP Sitting (Pre-Dialysis) 133/56 mmHg BP Sitting (Post-Dialysis) 119/56 mmHg Concurrent Access: NoCentral Venous Catheter (CVC) (Chest (Right)) ArterialCentral Venous Catheter (CVC) (Chest (Right)) Venous Weight Pre-Dialysis 89.4 kg Weight Post-Dialysis 88.7 kg January 11, 2024 Home Hemodialysis Treatment BP Sitting (Pre-Dialysis) 115/55 mmHg BP Sitting (Post-Dialysis) 112/53 mmHg Concurrent Access: NoCentral Venous Catheter (CVC) (Chest (Right)) ArterialCentral Venous Catheter (CVC) (Chest (Right)) Venous Weight Pre-Dialysis 89.4 kg Weight Post-Dialysis 88.7 kg January 10, 2024 Home Hemodialysis Treatment BP Sitting (Pre-Dialysis) 131/62 mmHg BP Sitting (Post-Dialysis) 132/55 mmHg Concurrent Access: NoCentral Venous Catheter (CVC) (Chest (Right)) ArterialCentral Venous Catheter (CVC) (Chest (Right)) Venous Weight Pre-Dialysis 88.1 kg Weight Post-Dialysis 87.9 kg January 08, 2024 Home Hemodialysis Treatment BP Sitting (Pre-Dialysis) 130/60 mmHg BP Sitting (Post-Dialysis) 129/64 mmHg Concurrent Access: NoCentral Venous Catheter (CVC) (Chest (Right)) ArterialCentral Venous Catheter (CVC) (Chest (Right)) Venous Weight Pre-Dialysis 90.4 kg Weight Post-Dialysis 89.3 kg January 05, 2024 Home Hemodialysis Treatment BP Sitting (Pre-Dialysis) 116/54 mmHg BP Sitting (Post-Dialysis) 105/43 mmHg Concurrent Access: NoCentral Venous Catheter (CVC) (Chest (Right)) ArterialCentral Venous Catheter (CVC) (Chest (Right)) Venous Weight Pre-Dialysis 88 kg Weight Post-Dialysis 88.3 kg January 04, 2024 Home Hemodialysis Treatment BP Sitting (Pre-Dialysis) 111/55 mmHg BP Sitting (Post-Dialysis) 120/61 mmHg Concurrent Access: NoCentral Venous Catheter (CVC) (Chest (Right)) ArterialCentral Venous Catheter (CVC) (Chest (Right)) Venous Weight Pre-Dialysis 90 kg Weight Post-Dialysis 88.4 kg January 03, 2024 Home Hemodialysis Treatment BP Sitting (Pre-Dialysis) 145/67 mmHg BP Sitting (Post-Dialysis) 142/61 mmHg Concurrent Access: NoCentral Venous Catheter (CVC) (Chest (Right)) ArterialCentral Venous Catheter (CVC) (Chest (Right)) Venous Weight Pre-Dialysis 89 kg Weight Post-Dialysis 88.5 kg December 29, 2023 Home Hemodialysis Treatment BP Sitting (Pre-Dialysis) 142/61 mmHg BP Sitting (Post-Dialysis) 125/51 mmHg Concurrent Access: NoCentral Venous Catheter (CVC) (Chest (Right)) ArterialCentral Venous Catheter (CVC) (Chest (Right)) Venous Weight Pre-Dialysis 88.2 kg Weight Post-Dialysis 87.8 kg December 28, 2023 Home Hemodialysis Treatment BP Sitting (Pre-Dialysis) 99/55 mmHg Concurrent Access: NoCentral Venous Catheter (CVC) (Chest (Right)) ArterialCentral Venous Catheter (CVC) (Chest (Right)) Venous Sitting Heart Rate Pre-Dialysis 70 BPM Temperature Pre-Dialysis 97.2 degF Weight Pre-Dialysis 88 kg December 28, 2023 Home Hemodialysis Treatment BP Sitting (Pre-Dialysis) 129/61 mmHg BP Sitting (Post-Dialysis) 124/55 mmHg Concurrent Access: NoCentral Venous Catheter (CVC) (Chest (Right)) ArterialCentral Venous Catheter (CVC) (Chest (Right)) Venous Weight Pre-Dialysis 89.2 kg Weight Post-Dialysis 88.5 kg December 26, 2023 Home Hemodialysis Treatment BP Sitting (Pre-Dialysis) 124/61 mmHg BP Sitting (Post-Dialysis) 128/65 mmHg Concurrent Access: NoCentral Venous Catheter (CVC) (Chest (Right)) ArterialCentral Venous Catheter (CVC) (Chest (Right)) Venous Weight Pre-Dialysis 88.2 kg Weight Post-Dialysis 88.2 kg December 25, 2023 Home Hemodialysis Treatment BP Sitting (Pre-Dialysis) 126/66 mmHg BP Sitting (Post-Dialysis) 134/65 mmHg Concurrent Access: NoCentral Venous Catheter (CVC) (Chest (Right)) ArterialCentral Venous Catheter (CVC) (Chest (Right)) Venous Weight Pre-Dialysis 87.3 kg December 23, 2023 Home Hemodialysis Treatment BP Sitting (Pre-Dialysis) 106/52 mmHg BP Sitting (Post-Dialysis) 119/51 mmHg Concurrent Access: NoCentral Venous Catheter (CVC) (Chest (Right)) ArterialCentral Venous Catheter (CVC) (Chest (Right)) Venous Weight Pre-Dialysis 88.1 kg Weight Post-Dialysis 88.3 kg December 21, 2023 Home Hemodialysis Treatment BP Sitting (Pre-Dialysis) 113/55 mmHg BP Sitting (Post-Dialysis) 125/60 mmHg Concurrent Access: NoCentral Venous Catheter (CVC) (Chest (Right)) ArterialCentral Venous Catheter (CVC) (Chest (Right)) Venous Weight Pre-Dialysis 88.3 kg Weight Post-Dialysis 88.7 kg December 19, 2023 Home Hemodialysis Treatment BP Sitting (Pre-Dialysis) 102/52 mmHg BP Sitting (Post-Dialysis) 115/55 mmHg Concurrent Access: NoCentral Venous Catheter (CVC) (Chest (Right)) ArterialCentral Venous Catheter (CVC) (Chest (Right)) Venous Weight Pre-Dialysis 89.4 kg Weight Post-Dialysis 88.4 kg December 17, 2023 Home Hemodialysis Treatment Concurrent Access: NoCentral Venous Catheter (CVC) (Chest (Right)) ArterialCentral Venous Catheter (CVC) (Chest (Right)) Venous December 16, 2023 Home Hemodialysis Treatment BP Sitting (Pre-Dialy sis) 115/61 mmHg BP Sitting (Post-Farheen lysis) 127/54 mmHg Concurrent Access: NoCentral Venous Catheter (CVC) (Chest (Right)) ArterialCentral Venous Catheter (CVC) (Chest (Right)) Venous Weight Pre-Dialysis 89.2 kg Weight Post-Dialysis 88.9 kg December 14, 2023 Home Hemodialysis Treatment BP Sitting (Pre-Dialysis) 115/51 mmHg Concurrent Access: NoCentral Venous Catheter (CVC) (Chest (Right)) ArterialCentral Venous Catheter (CVC) (Chest (Right)) Venous Sitting Heart Rate Pre-Dialysis 54 BPM Temperature Pre-Dialysis 97.4 degF Weight Pre-Dialysis 87.4 kg December 14, 2023 Home Hemodialysis Treatment BP Sitting (Pre-Dialysis) 119/59 mmHg BP Sitting (Post-Dialysis) 123/59 mmHg Concurrent Access: NoCentral Venous Catheter (CVC) (Chest (Right)) ArterialCentral Venous Catheter (CVC) (Chest (Right)) Venous Weight Pre-Dialysis 88.8 kg Weight Post-Dialysis 87.8 kg December 13, 2023 Home Hemodialysis Treatment BP Sitting (Pre-Dialysis) 124/60 mmHg BP Sitting (Post-Dialysis) 131/63 mmHg Concurrent Access: NoCentral Venous Catheter (CVC) (Chest (Right)) ArterialCentral Venous Catheter (CVC) (Chest (Right)) Venous Weight Pre-Dialysis 86.9 kg Weight Post-Dialysis 87.4 kg December 09, 2023 Home Hemodialysis Treatment BP Sitting (Pre-Dialysis) 119/58 mmHg BP Sitting (Post-Dialysis) 111/60 mmHg Concurrent Access: NoCentral Venous Catheter (CVC) (Chest (Right)) ArterialCentral Venous Catheter (CVC) (Chest (Right)) Venous Weight Pre-Dialysis 88 kg Weight Post-Dialysis 88.3 kg December 08, 2023 Home Hemodialysis Treatment BP Sitting (Pre-Dialysis) 124/64 mmHg BP Sitting (Post-Dialysis) 130/68 mmHg Concurrent Access: NoCentral Venous Catheter (CVC) (Chest (Right)) ArterialCentral Venous Catheter (CVC) (Chest (Right)) Venous Weight Pre-Dialysis 89.1 kg Weight Post-Dialysis 88.5 kg December 06, 2023 Home Hemodialysis Treatment BP Sitting (Pre-Dialysis) 112/52 mmHg BP Sitting (Post-Dialysis) 116/71 mmHg Concurrent Access: NoCentral Venous Catheter (CVC) (Chest (Right)) ArterialCentral Venous Catheter (CVC) (Chest (Right)) Venous Weight Pre-Dialysis 89.6 kg Weight Post-Dialysis 88.4 kg December 02, 2023 Home Hemodialysis Treatment BP Sitting (Pre-Dialysis) 124/59 mmHg BP Sitting (Post-Dialysis) 111/56 mmHg Concurrent Access: NoCentral Venous Catheter (CVC) (Chest (Right)) ArterialCentral Venous Catheter (CVC) (Chest (Right)) Venous Weight Pre-Dialysis 89.4 kg Weight Post-Dialysis 88.5 kg December 01, 2023 Home Hemodialysis Treatment BP Sitting (Pre-Dialysis) 129/59 mmHg BP Sitting (Post-Dialysis) 117/54 mmHg Concurrent Access: NoCentral Venous Catheter (CVC) (Chest (Right)) ArterialCentral Venous Catheter (CVC) (Chest (Right)) Venous Weight Pre-Dialysis 89 kg Weight Post-Dialysis 89 kg November 30, 2023 Home Hemodialysis Treatment BP Sitting (Pre-Dialysis) 134/62 mmHg BP Sitting (Post-Dialysis) 122/59 mmHg Concurrent Access: NoCentral Venous Catheter (CVC) (Chest (Right)) ArterialCentral Venous Catheter (CVC) (Chest (Right)) Venous Weight Pre-Dialysis 88.9 kg Weight Post-Dialysis 88.2 kg November 28, 2023 Home Hemodialysis Treatment BP Sitting (Pre-Dialysis) 117/47 mmHg BP Sitting (Post-Dialysis) 126/56 mmHg Concurrent Access: NoCentral Venous Catheter (CVC) (Chest (Right)) ArterialCentral Venous Catheter (CVC) (Chest (Right)) Venous Weight Pre-Dialysis 89.3 kg Weight Post-Dialysis 89.3 kg November 27, 2023 Home Hemodialysis Treatment BP Sitting (Pre-Dialysis) 120/57 mmHg BP Sitting (Post-Dialysis) 122/65 mmHg Concurrent Access: NoCentral Venous Catheter (CVC) (Chest (Right)) ArterialCentral Venous Catheter (CVC) (Chest (Right)) Venous Weight Pre-Dialysis 88.6 kg Weight Post-Dialysis 89.2 kg November 25, 2023 Home Hemodialysis Treatment BP Sitting (Pre-Dialysis) 124/61 mmHg BP Sitting (Post-Dialysis) 137/58 mmHg Concurrent Access: NoCentral Venous Catheter (CVC) (Chest (Right)) ArterialCentral Venous Catheter (CVC) (Chest (Right)) Venous Weight Pre-Dialysis 89.5 kg Weight Post-Dialysis 88.5 kg November 24, 2023 Home Hemodialysis Treatment BP Sitting (Pre-Dialysis) 115/58 mmHg BP Sitting (Post-Dialysis) 132/60 mmHg Concurrent Access: NoCentral Venous Catheter (CVC) (Chest (Right)) ArterialCentral Venous Catheter (CVC) (Chest (Right)) Venous Weight Pre-Dialysis 89.4 kg Weight Post-Dialysis 88.9 kg November 22, 2023 Home Hemodialysis Treatment BP Sitting (Pre-Dialysis) 101/52 mmHg BP Sitting (Post-Dialysis) 116/58 mmHg Concurrent Access: NoCentral Venous Catheter (CVC) (Chest (Right)) ArterialCentral Venous Catheter (CVC) (Chest (Right)) Venous Weight Pre-Dialysis 89.5 kg Weight Post-Dialysis 88.6 kg November 20, 2023 Home Hemodialysis Treatment BP Sitting (Pre-Dialysis) 136/62 mmHg BP Sitting (Post-Dialysis) 100/63 mmHg Concurrent Access: NoCentral Venous Catheter (CVC) (Chest (Right)) ArterialCentral Venous Catheter (CVC) (Chest (Right)) Venous Weight Pre-Dialysis 90.8 kg Weight Post-Dialysis 89.3 kg November 17, 2023 Home Hemodialysis Treatment BP Sitting (Pre-Dialysis) 117/66 mmHg BP Sitting (Post-Dialysis) 126/81 mmHg Concurrent Access: NoCentral Venous Catheter (CVC) (Chest (Right)) ArterialCentral Venous Catheter (CVC) (Chest (Right)) Venous Weight Pre-Dialysis 89 kg Weight Post-Dialysis 89 kg November 16, 2023 Home Hemodialysis Treatment BP Sitting (Pre-Dialysis) 104/60 mmHg Concurrent Access: NoCentral Venous Catheter (CVC) (Chest (Right)) ArterialCentral Venous Catheter (CVC) (Chest (Right)) Venous Sitting Heart Rate Pre-Dialysis 79 BPM Temperature Pre-Dialysis 98 degF Weight Pre-Dialysis 88.4 kg November 15, 2023 Home Hemodialysis Treatment BP Sitting (Pre-Dialysis) 126/57 mmHg BP Sitting (Post-Dialysis) 111/72 mmHg Concurrent Access: NoCentral Venous Catheter (CVC) (Chest (Right)) ArterialCentral Venous Catheter (CVC) (Chest (Right)) Venous Weight Pre-Dialysis 88 kg Weight Post-Dialysis 88.7 kg November 14, 2023 Home Hemodialysis Treatment BP Sitting (Pre-Dialysis) 126/57 mmHg BP Sitting (Post-Dialysis) 111/72 mmHg Concurrent Access: NoCentral Venous Catheter (CVC) (Chest (Right)) ArterialCentral Venous Catheter (CVC) (Chest (Right)) Venous Weight Pre-Dialysis 88 kg Weight Post-Dialysis 88.7 kg November 12, 2023 Home Hemodialysis Treatment BP Sitting (Pre-Dialysis) 95/74 mmHg BP Sitting (Post-Dialysis) 84/70 mmHg Concurrent Access: NoCentral Venous Catheter (CVC) (Chest (Right)) ArterialCentral Venous Catheter (CVC) (Chest (Right)) Venous Weight Pre-Dialysis 88.3 kg Weight Post-Dialysis 87.6 kg November 11, 2023 Home Hemodialysis Treatment BP Sitting (Pre-Dialysis) 97/67 mmHg BP Sitting (Post-Dialysis) 103/62 mmHg Concurrent Access: NoCentral Venous Catheter (CVC) (Chest (Right)) ArterialCentral Venous Catheter (CVC) (Chest (Right)) Venous Weight Pre-Dialysis 88.2 kg Weight Post-Dialysis 88 kg November 09, 2023 Home Hemodialysis Treatment BP Sitting (Pre-Dialysis) 103/65 mmHg BP Sitting (Post-Dialysis) 131/51 mmHg Concurrent Access: NoCentral Venous Catheter (CVC) (Chest (Right)) ArterialCentral Venous Catheter (CVC) (Chest (Right)) Venous Weight Pre-Dialysis 88.2 kg Weight Post-Dialysis 88.2 kg November 08, 2023 Home Hemodialysis Treatment BP Sitting (Pre-Dialysis) 122/64 mmHg BP Sitting (Post-Dialysis) 127/65 mmHg Concurrent Access: NoCentral Venous Catheter (CVC) (Chest (Right)) ArterialCentral Venous Catheter (CVC) (Chest (Right)) Venous Weight Pre-Dialysis 89 kg Weight Post-Dialysis 88.4 kg November 05, 2023 Home Hemodialysis Treatment BP Sitting (Pre-Dialysis) 145/94 mmHg BP Sitting (Post-Dialysis) 123/73 mmHg Concurrent Access: NoCentral Venous Catheter (CVC) (Chest (Right)) ArterialCentral Venous Catheter (CVC) (Chest (Right)) Venous Weight Pre-Dialysis 79.4 kg Weight Post-Dialysis 78.9 kg November 04, 2023 Home Hemodialysis Treatment BP Sitting (Pre-Dialysis) 103/67 mmHg BP Sitting (Post-Dialysis) 112/56 mmHg Concurrent Access: NoCentral Venous Catheter (CVC) (Chest (Right)) ArterialCentral Venous Catheter (CVC) (Chest (Right)) Venous Weight Pre-Dialysis 88.1 kg Weight Post-Dialysis 88 kg November 02, 2023 Home Hemodialysis Treatment BP Sitting (Pre-Dialysis) 125/59 mmHg BP Sitting (Post-Dialysis) 121/60 mmHg Concurrent Access: NoCentral Venous Catheter (CVC) (Chest (Right)) ArterialCentral Venous Catheter (CVC) (Chest (Right)) Venous Weight Pre-Dialysis 88.4 kg Weight Post-Dialysis 88.4 kg November 01, 2023 Home Hemodialysis Treatment BP Sitting (Pre-Dialysis) 125/89 mmHg BP Sitting (Post-Dialysis) 112/66 mmHg Concurrent Access: NoCentral Venous Catheter (CVC) (Chest (Right)) ArterialCentral Venous Catheter (CVC) (Chest (Right)) Venous Weight Pre-Dialysis 90.1 kg October 30, 2023 Home Hemodialysis Treatment BP Sitting (Pre-Dialysis) 119/60 mmHg BP Sitting (Post-Dialysis) 129/63 mmHg Concurrent Access: NoCentral Venous Catheter (CVC) (Chest (Right)) ArterialCentral Venous Catheter (CVC) (Chest (Right)) Venous Weight Pre-Dialysis 90.4 kg Weight Post-Dialysis 89.8 kg October 28, 2023 Home Hemodialysis Treatment BP Sitting (Pre-Dialysis) 146/76 mmHg BP Sitting (Post-Dialysis) 121/59 mmHg Concurrent Access: NoCentral Venous Catheter (CVC) (Chest (Right)) ArterialCentral Venous Catheter (CVC) (Chest (Right)) Venous Weight Pre-Dialysis 90 kg Weight Post-Dialysis 88.9 kg October 27, 2023 Home Hemodialysis Treatment BP Sitting (Pre-Dialysis) 134/75 mmHg BP Sitting (Post-Dialysis) 122/62 mmHg Concurrent Access: NoCentral Venous Catheter (CVC) (Chest (Right)) ArterialCentral Venous Catheter (CVC) (Chest (Right)) Venous Weight Pre-Dialysis 88.6 kg Weight Post-Dialysis 88.5 kg October 25, 2023 Home Hemodialysis Treatment BP Sitting (Pre-Dialysis) 119/69 mmHg BP Sitting (Post-Dialysis) 132/63 mmHg Concurrent Access: NoCentral Venous Catheter (CVC) (Chest (Right)) ArterialCentral Venous Catheter (CVC) (Chest (Right)) Venous Weight Pre-Dialysis 88.3 kg Weight Post-Dialysis 88.3 kg October 23, 2023 Home Hemodialysis Treatment BP Sitting (Pre-Dialysis) 122/64 mmHg BP Sitting (Post-Dialysis) 128/57 mmHg Concurrent Access: NoCentral Venous Catheter (CVC) (Chest (Right)) ArterialCentral Venous Catheter (CVC) (Chest (Right)) Venous Weight Pre-Dialysis 89.6 kg Weight Post-Dialysis 89.1 kg October 21, 2023 Home Hemodialysis Treatment BP Sitting (Pre-Dialysis) 125/59 mmHg BP Sitting (Post-Dialysis) 129/77 mmHg Concurrent Access: NoCentral Venous Catheter (CVC) (Chest (Right)) ArterialCentral Venous Catheter (CVC) (Chest (Right)) Venous Weight Pre-Dialysis 89.7 kg Weight Post-Dialysis 88.9 kg October 20, 2023 Home Hemodialysis Treatment BP Sitting (Pre-Dialysis) 114/61 mmHg BP Sitting (Post-Dialysis) 136/58 mmHg Concurrent Access: NoCentral Venous Catheter (CVC) (Chest (Right)) ArterialCentral Venous Catheter (CVC) (Chest (Right)) Venous Weight Pre-Dialysis 89.5 kg October 18, 2023 Home Hemodialysis Treatment BP Sitting (Pre-Dialysis) 138/72 mmHg BP Sitting (Post-Dialysis) 118/51 mmHg Concurrent Access: NoCentral Venous Catheter (CVC) (Chest (Right)) ArterialCentral Venous Catheter (CVC) (Chest (Right)) Venous Weight Pre-Dialysis 89.2 kg Weight Post-Dialysis 89.3 kg October 16, 2023 Home Hemodialysis Treatment BP Sitting (Pre-Dialysis) 146/74 mmHg BP Sitting (Post-Dialysis) 128/63 mmHg Concurrent Access: NoCentral Venous Catheter (CVC) (Chest (Right)) ArterialCentral Venous Catheter (CVC) (Chest (Right)) Venous Weight Pre-Dialysis 90.1 kg Weight Post-Dialysis 89.2 kg October 14, 2023 Home Hemodialysis Treatment BP Sitting (Pre-Dialysis) 122/64 mmHg Concurrent Access: NoCentral Venous Catheter (CVC) (Chest (Right)) ArterialCentral Venous Catheter (CVC) (Chest (Right)) Venous Sitting Heart Rate Pre-Dialysis 61 BPM Temperature Pre-Dialysis 97.7 degF Weight Pre-Dialysis 88.5 kg October 14, 2023 Home Hemodialysis Treatment BP Sitting (Pre-Dialysis) 127/62 mmHg BP Sitting (Post-Dialysis) 130/63 mmHg Concurrent Access: NoCentral Venous Catheter (CVC) (Chest (Right)) ArterialCentral Venous Catheter (CVC) (Chest (Right)) Venous Weight Pre-Dialysis 89.4 kg Weight Post-Dialysis 89.4 kg October 12, 2023 Home Hemodialysis Treatment BP Sitting (Pre-Dialysis) 136/62 mmHg BP Sitting (Post-Dialysis) 120/61 mmHg Concurrent Access: NoCentral Venous Catheter (CVC) (Chest (Right)) ArterialCentral Venous Catheter (CVC) (Chest (Right)) Venous Weight Pre-Dialysis 90.7 kg Weight Post-Dialysis 89.2 kg October 11, 2023 Home Hemodialysis Treatment BP Sitting (Pre-Dialysis) 111/49 mmHg BP Sitting (Post-Dialysis) 136/65 mmHg Concurrent Access: NoCentral Venous Catheter (CVC) (Chest (Right)) ArterialCentral Venous Catheter (CVC) (Chest (Right)) Venous Weight Pre-Dialysis 89.2 kg Weight Post-Dialysis 88.7 kg October 09, 2023 Home Hemodialysis Treatment BP Sitting (Pre-Dialysis) 152/67 mmHg BP Sitting (Post-Dialysis) 132/92 mmHg Concurrent Access: NoCentral Venous Catheter (CVC) (Chest (Right)) ArterialCentral Venous Catheter (CVC) (Chest (Right)) Venous Weight Pre-Dialysis 89.5 kg Weight Post-Dialysis 89.5 kg October 08, 2023 Home Hemodialysis Treatment BP Sitting (Pre-Dialysis) 131/56 mmHg Concurrent Access: NoCentral Venous Catheter (CVC) (Chest (Right)) ArterialCentral Venous Catheter (CVC) (Chest (Right)) Venous Sitting Heart Rate Pre-Dialysis 53 BPM Temperature Pre-Dialysis 97.2 degF Weight Pre-Dialysis 89 kg October 06, 2023 Home Hemodialysis Treatment BP Sitting (Pre-Dialysis) 116/57 mmHg Concurrent Access: NoCentral Venous Catheter (CVC) (Chest (Right)) ArterialCentral Venous Catheter (CVC) (Chest (Right)) Venous Weight Pre-Dialysis 89.1 kg October 04, 2023 Home Hemodialysis Treatment BP Sitting (Pre-Dialysis) 119/68 mmHg BP Sitting (Post-Dialysis) 117/61 mmHg Concurrent Access: NoCentral Venous Catheter (CVC) (Chest (Right)) ArterialCentral Venous Catheter (CVC) (Chest (Right)) Venous Weight Pre-Dialysis 90.5 kg Weight Post-Dialysis 89.2 kg October 03, 2023 Home Hemodialysis Treatment BP Sitting (Pre-Dialysis) 131/67 mmHg BP Sitting (Post-Dialysis) 103/54 mmHg Concurrent Access: NoCentral Venous Catheter (CVC) (Chest (Right)) ArterialCentral Venous Catheter (CVC) (Chest (Right)) Venous Weight Pre-Dialysis 89.9 kg Weight Post-Dialysis 88.9 kg October 02, 2023 Home Hemodialysis Treatment BP Sitting (Pre-Dialysis) 120/70 mmHg BP Sitting (Post-Dialysis) 116/60 mmHg Concurrent Access: NoCentral Venous Catheter (CVC) (Chest (Right)) ArterialCentral Venous Catheter (CVC) (Chest (Right)) Venous Weight Pre-Dialysis 90.7 kg Weight Post-Dialysis 89.6 kg September 29, 2023 Home Hemodialysis Treatment BP Sitting (Pre-Dialysis) 119/66 mmHg BP Sitting (Post-Dialysis) 115/60 mmHg Concurrent Access: NoCentral Venous Catheter (CVC) (Chest (Right)) ArterialCentral Venous Catheter (CVC) (Chest (Right)) Venous Weight Pre-Dialysis 89.9 kg Weight Post-Dialysis 90 kg September 28, 2023 Home Hemodialysis Treatment BP Sitting (Pre-Dialysis) 110/47 mmHg BP Sitting (Post-Dialysis) 109/59 mmHg Concurrent Access: NoCentral Venous Catheter (CVC) (Chest (Right)) ArterialCentral Venous Catheter (CVC) (Chest (Right)) Venous Weight Pre-Dialysis 89.3 kg Weight Post-Dialysis 89.9 kg September 25, 2023 Home Hemodialysis Treatment BP Sitting (Pre-Dialysis) 150/68 mmHg BP Sitting (Post-Dialysis) 168/68 mmHg Concurrent Access: NoCentral Venous Catheter (CVC) (Chest (Right)) ArterialCentral Venous Catheter (CVC) (Chest (Right)) Venous Weight Pre-Dialysis 90.3 kg Weight Post-Dialysis 88.8 kg September 23, 2023 Home Hemodialysis Treatment BP Sitting (Pre-Dialysis) 144/75 mmHg BP Sitting (Post-Dialysis) 147/75 mmHg Concurrent Access: NoCentral Venous Catheter (CVC) (Chest (Right)) ArterialCentral Venous Catheter (CVC) (Chest (Right)) Venous Weight Pre-Dialysis 90.1 kg Weight Post-Dialysis 89.1 kg September 21, 2023 Home Hemodialysis Treatment Weight Pre-Dialysis 90.4 kg BP Sitting (Post-Dialysis) 136/58 mmHg Concurrent Access: NoCentral Venous Catheter (CVC) (Chest (Right)) ArterialCentral Venous Catheter (CVC) (Chest (Right)) Venous Weight Post-Dialysis 89.3 kg September 20, 2023 Home Hemodialysis Treatment BP Sitting (Pre-Dialysis) 130/70 mmHg BP Sitting (Post-Dialysis) 148/82 mmHg Concurrent Access: NoCentral Venous Catheter (CVC) (Chest (Right)) ArterialCentral Venous Catheter (CVC) (Chest (Right)) Venous Weight Pre-Dialysis 81 kg Weight Post-Dialysis 90.5 kg September 18, 2023 Home Hemodialysis Treatment BP Sitting (Pre-Dialysis) 129/59 mmHg BP Sitting (Post-Dialysis) 146/70 mmHg Concurrent Access: NoCentral Venous Catheter (CVC) (Chest (Right)) ArterialCentral Venous Catheter (CVC) (Chest (Right)) Venous Weight Pre-Dialysis 89.9 kg Weight Post-Dialysis 89.3 kg September 16, 2023 Home Hemodialysis Treatment BP Sitting (Pre-Dialysis) 144/71 mmHg Concurrent Access: NoCentral Venous Catheter (CVC) (Chest (Right)) ArterialCentral Venous Catheter (CVC) (Chest (Right)) Venous Sitting Heart Rate Pre-Dialysis 54 BPM Temperature Pre-Dialysis 97.3 degF Weight Pre-Dialysis 88 kg September 15, 2023 Home Hemodialysis Treatment BP Sitting (Pre-Dialysis) 120/62 mmHg BP Sitting (Post-Dialysis) 122/74 mmHg Concurrent Access: NoCentral Venous Catheter (CVC) (Chest (Right)) ArterialCentral Venous Catheter (CVC) (Chest (Right)) Venous Weight Pre-Dialysis 88.7 kg Weight Post-Dialysis 88.8 kg September 13, 2023 Home Hemodialysis Treatment BP Sitting (Pre-Dialysis) 125/69 mmHg BP Sitting (Post-Dialysis) 140/60 mmHg Concurrent Access: NoCentral Venous Catheter (CVC) (Chest (Right)) ArterialCentral Venous Catheter (CVC) (Chest (Right)) Venous Weight Pre-Dialysis 88.5 kg Weight Post-Dialysis 87.8 kg September 12, 2023 Home Hemodialysis Treatment BP Sitting (Pre-Dialysis) 127/67 mmHg BP Sitting (Post-Dialysis) 153/86 mmHg Concurrent Access: NoCentral Venous Catheter (CVC) (Chest (Right)) ArterialCentral Venous Catheter (CVC) (Chest (Right)) Venous Weight Pre-Dialysis 88.9 kg Weight Post-Dialysis 88.3 kg September 11, 2023 Home Hemodialysis Treatment BP Sitting (Pre-Dialysis) 108/53 mmHg BP Sitting (Post-Dialysis) 139/60 mmHg Concurrent Access: NoCentral Venous Catheter (CVC) (Chest (Right)) ArterialCentral Venous Catheter (CVC) (Chest (Right)) Venous Weight Pre-Dialysis 89.2 kg Weight Post-Dialysis 88.7 kg September 09, 2023 Home Hemodialysis Treatment BP Sitting (Pre-Dialysis) 104/56 mmHg BP Sitting (Post-Dialysis) 130/63 mmHg Concurrent Access: NoCentral Venous Catheter (CVC) (Chest (Right)) ArterialCentral Venous Catheter (CVC) (Chest (Right)) Venous Weight Pre-Dialysis 88.9 kg Weight Post-Dialysis 88.9 kg September 07, 2023 Home Hemodialysis Treatment BP Sitting (Pre-Dialysis) 109/66 mmHg BP Sitting (Post-Dialysis) 150/70 mmHg Concurrent Access: NoCentral Venous Catheter (CVC) (Chest (Right)) ArterialCentral Venous Catheter (CVC) (Chest (Right)) Venous Weight Pre-Dialysis 89.4 kg Weight Post-Dialysis 88.2 kg September 06, 2023 Home Hemodialysis Treatment BP Sitting (Pre-Dialysis) 133/54 mmHg BP Sitting (Post-Dialysis) 148/65 mmHg Concurrent Access: NoCentral Venous Catheter (CVC) (Chest (Right)) ArterialCentral Venous Catheter (CVC) (Chest (Right)) Venous Weight Pre-Dialysis 89.2 kg Weight Post-Dialysis 88.2 kg September 03, 2023 Home Hemodialysis Training BP Sitting (Pre-Dialysis) 128/56 mmHg BP Sitting (Post-Dialysis) 121/57 mmHg Concurrent Access: NoCentral Venous Catheter (CVC) (Chest (Right)) ArterialCentral Venous Catheter (CVC) (Chest (Right)) Venous Sitting Heart Rate Pre-Dialysis 54 BPM Sitting H eart Rate Post-Dialysis 55 BPM Temperature Pre-Dialysis 97.2 degF Temperature Post -Dialysis 98 degF Weight Pre-Dialysis 89.1 kg Weight Post-Dialysis 88.1 kg September 02, 2023 Home Hemodialysis Training BP Sitting (Pre-Dialysis) 134/62 mmHg BP Sitting (Post-Dialysis) 132/58 mmHg Concurrent Access: NoCentral Venous Catheter (CVC) (Chest (Right)) ArterialCentral Venous Catheter (CVC) (Chest (Right)) Venous Sitting Heart Rate Pre-Dialysis 80 BPM Sitting H eart Rate Post-Dialysis 52 BPM Temperature Pre-Dialysis 98.4 degF Temperature Post -Dialysis 97.5 degF Weight Pre-Dialysis 90 kg Weight Post-Dialysis 88.7 kg September 01, 2023 Home Hemodialysis Training BP Sitting (Pre-Dialysis) 105/58 mmHg BP Sitting (Post-Dialysis) 121/42 mmHg Concurrent Access: NoCentral Venous Catheter (CVC) (Chest (Right)) ArterialCentral Venous Catheter (CVC) (Chest (Right)) Venous Sitting Heart Rate Pre-Dialysis 82 BPM Sitting H eart Rate Post-Dialysis 74 BPM Temperature Pre-Dialysis 96.4 degF Temperature Post -Dialysis 98 degF Weight Pre-Dialysis 89 kg Weight Post-Dialysis 89.5 kg August 31, 2023 Home Hemodialysis Training BP Sitting (Pre-Dialysis) 102/47 mmHg BP Sitting (Post-Dialysis) 118/51 mmHg Concurrent Access: NoCentral Venous Catheter (CVC) (Chest (Right)) ArterialCentral Venous Catheter (CVC) (Chest (Right)) Venous Sitting Heart Rate Pre-Dialysis 51 BPM Sitting H eart Rate Post-Dialysis 70 BPM Temperature Pre-Dialysis 98 degF Temperature Post -Dialysis 98 degF Weight Pre-Dialysis 89.4 kg Weight Post-Dialysis 88.8 kg August 27, 2023 Home Hemodialysis Training BP Sitting (Pre-Dialysis) 95/49 mmHg BP Sitting (Post-Dialysis) 95/59 mmHg Concurrent Access: NoCentral Venous Catheter (CVC) (Chest (Right)) ArterialCentral Venous Catheter (CVC) (Chest (Right)) Venous Sitting Heart Rate Pre-Dialysis 74 BPM Sitting H eart Rate Post-Dialysis 83 BPM Temperature Pre-Dialysis 97.2 degF Temperature Post -Dialysis 96.7 degF Weight Pre-Dialysis 88.5 kg Weight Post-Dialysis 88.5 kg August 26, 2023 Home Hemodialysis Training BP Sitting (Pre-Dialysis) 132/64 mmHg BP Sitting (Post-Dialysis) 103/46 mmHg Concurrent Access: NoCentral Venous Catheter (CVC) (Chest (Right)) ArterialCentral Venous Catheter (CVC) (Chest (Right)) Venous Sitting Heart Rate Pre-Dialysis 78 BPM Sitting H eart Rate Post-Dialysis 53 BPM Temperature Pre-Dialysis 97.7 degF Temperature Post -Dialysis 98.1 degF Weight Pre-Dialysis 89.2 kg Weight Post-Dialysis 88.5 kg August 25, 2023 Home Hemodialysis Training BP Sitting (Pre-Dialysis) 141/57 mmHg BP Sitting (Post-Dialysis) 120/68 mmHg Concurrent Access: NoCentral Venous Catheter (CVC) (Chest (Right)) ArterialCentral Venous Catheter (CVC) (Chest (Right)) Venous Sitting Heart Rate Pre-Dialysis 56 BPM Sitting H eart Rate Post-Dialysis 56 BPM Temperature Pre-Dialysis 97.9 degF Temperature Post -Dialysis 98.1 degF Weight Pre-Dialysis 88.4 kg Weight Post-Dialysis 88.3 kg August 24, 2023 Home Hemodialysis Training BP Sitting (Pre-Dialysis) 144/56 mmHg BP Sitting (Post-Dialysis) 147/58 mmHg Concurrent Access: NoCentral Venous Catheter (CVC) (Chest (Right)) ArterialCentral Venous Catheter (CVC) (Chest (Right)) Venous Sitting Heart Rate Pre-Dialysis 51 BPM Sitting H eart Rate Post-Dialysis 58 BPM Temperature Pre-Dialysis 98 degF Temperature Post -Dialysis 97.9 degF Weight Pre-Dialysis 90.7 kg Weight Post-Dialysis 89.2 kg August 20, 2023 Home Hemodialysis Training BP Sitting (Pre-Dialysis) 118/56 mmHg BP Sitting (Post-Dialysis) 125/50 mmHg Concurrent Access: NoCentral Venous Catheter (CVC) (Chest (Right)) ArterialCentral Venous Catheter (CVC) (Chest (Right)) Venous Sitting Heart Rate Pre-Dialysis 75 BPM Sitting H eart Rate Post-Dialysis 58 BPM Temperature Pre-Dialysis 97.9 degF Temperature Post -Dialysis 97.9 degF Weight Pre-Dialysis 88.2 kg Weight Post-Dialysis 88 kg August 19, 2023 Home Hemodialysis Training BP Sitting (Pre-Dialysis) 91/45 mmHg BP Sitting (Post-Dialysis) 130/58 mmHg Concurrent Access: NoCentral Venous Catheter (CVC) (Chest (Right)) ArterialCentral Venous Catheter (CVC) (Chest (Right)) Venous Sitting Heart Rate Pre-Dialysis 56 BPM Sitting H eart Rate Post-Dialysis 62 BPM Temperature Pre-Dialysis 98 degF Temperature Post -Dialysis 98 degF Weight Pre-Dialysis 88.4 kg Weight Post-Dialysis 87.6 kg August 17, 2023 Home Hemodialysis Training BP Sitting (Pre-Dialysis) 121/54 mmHg BP Sitting (Post-Dialysis) 98/54 mmHg Concurrent Access: NoCentral Venous Catheter (CVC) (Chest (Right)) ArterialCentral Venous Catheter (CVC) (Chest (Right)) Venous Sitting Heart Rate Pre-Dialysis 56 BPM Sitting H eart Rate Post-Dialysis 77 BPM Temperature Pre-Dialysis 98 degF Temperature Post -Dialysis 97.2 degF Weight Pre-Dialysis 89.1 kg Weight Post-Dialysis 87.5 kg August 16, 2023 Home Hemodialysis Training BP Sitting (Pre-Dialysis) 142/62 mmHg BP Sitting (Post-Dialysis) 117/59 mmHg Concurrent Access: NoCentral Venous Catheter (CVC) (Chest (Right)) ArterialCentral Venous Catheter (CVC) (Chest (Right)) Venous Sitting Heart Rate Pre-Dialysis 76 BPM Sitting H eart Rate Post-Dialysis 59 BPM Temperature Pre-Dialysis 97.6 degF Temperature Post -Dialysis 97.5 degF Weight Pre-Dialysis 89.5 kg Weight Post-Dialysis 88.9 kg August 13, 2023 Home Hemodialysis Training BP Sitting (Pre-Dialysis) 130/66 mmHg BP Sitting (Post-Dialysis) 113/60 mmHg Concurrent Access: NoCentral Venous Catheter (CVC) (Chest (Right)) ArterialCentral Venous Catheter (CVC) (Chest (Right)) Venous Sitting Heart Rate Pre-Dialysis 80 BPM Sitting H eart Rate Post-Dialysis 58 BPM Temperature Pre-Dialysis 97 degF Temperature Post -Dialysis 97 degF Weight Pre-Dialysis 88.8 kg Weight Post-Dialysis 87.4 kg August 11, 2023 Home Hemodialysis Training BP Sitting (Pre-Dialysis) 107/59 mmHg BP Sitting (Post-Dialysis) 108/59 mmHg Concurrent Access: NoCentral Venous Catheter (CVC) (Chest (Right)) ArterialCentral Venous Catheter (CVC) (Chest (Right)) Venous Sitting Heart Rate Pre-Dialysis 79 BPM Sitting H eart Rate Post-Dialysis 84 BPM Temperature Pre-Dialysis 98.4 degF Temperature Post -Dialysis 97.4 degF Weight Pre-Dialysis 89.3 kg Weight Post-Dialysis 87.8 kg August 09, 2023 Home Hemodialysis Training BP Sitting (Pre-Dialysis) 98/52 mmHg BP Sitting (Post-Dialysis) 140/70 mmHg Concurrent Access: NoCentral Venous Catheter (CVC) (Chest (Right)) ArterialCentral Venous Catheter (CVC) (Chest (Right)) Venous Sitting Heart Rate Pre-Dialysis 57 BPM Sitting H eart Rate Post-Dialysis 62 BPM Temperature Pre-Dialysis 97.3 degF Temperature Post -Dialysis 97.4 degF Weight Pre-Dialysis 90.1 kg Weight Post-Dialysis 89.1 kg August 06, 2023 Home Hemodialysis Training BP Sitting (Pre-Dialysis) 110/62 mmHg BP Sitting (Post-Dialysis) 118/62 mmHg Concurrent Access: NoCentral Venous Catheter (CVC) (Chest (Right)) ArterialCentral Venous Catheter (CVC) (Chest (Right)) Venous Sitting Heart Rate Pre-Dialysis 56 BPM Sitting H eart Rate Post-Dialysis 83 BPM Temperature Pre-Dialysis 98 degF Temperature Post -Dialysis 97.9 degF Weight Pre-Dialysis 89.3 kg Weight Post-Dialysis 88.7 kg August 05, 2023 Home Hemodialysis Training BP Sitting (Pre-Dialysis) 109/50 mmHg BP Sitting (Post-Dialysis) 119/54 mmHg Concurrent Access: NoCentral Venous Catheter (CVC) (Chest (Right)) ArterialCentral Venous Catheter (CVC) (Chest (Right)) Venous Sitting Heart Rate Pre-Dialysis 68 BPM Sitting H eart Rate Post-Dialysis 57 BPM Temperature Pre-Dialysis 98 degF Temperature Post -Dialysis 97.8 degF Weight Pre-Dialysis 89 kg Weight Post-Dialysis 88.5 kg August 04, 2023 Home Hemodialysis Training BP Sitting (Pre-Dialysis) 111/58 mmHg BP Sitting (Post-Dialysis) 125/60 mmHg Concurrent Access: NoCentral Venous Catheter (CVC) (Chest (Right)) ArterialCentral Venous Catheter (CVC) (Chest (Right)) Venous Sitting Heart Rate Pre-Dialysis 80 BPM Sitting H eart Rate Post-Dialysis 54 BPM Temperature Pre-Dialysis 98 degF Temperature Post -Dialysis 97.3 degF Weight Pre-Dialysis 89.1 kg Weight Post-Dialysis 88.3 kg August 03, 2023 Home Hemodialysis Training BP Sitting (Pre-Dialysis) 103/57 mmHg BP Sitting (Post-Dialysis) 127/59 mmHg Concurrent Access: NoCentral Venous Catheter (CVC) (Chest (Right)) ArterialCentral Venous Catheter (CVC) (Chest (Right)) Venous Sitting Heart Rate Pre-Dialysis 54 BPM Sitting H eart Rate Post-Dialysis 59 BPM Temperature Pre-Dialysis 98.3 degF Temperature Post -Dialysis 98.3 degF Weight Pre-Dialysis 89 kg Weight Post-Dialysis 88.4 kg July 30, 2023 Home Hemodialysis Training BP Sitting (Pre-Dialysis) 124/58 mmHg BP Sitting (Post-Dialysis) 90/50 mmHg Concurrent Access: NoCentral Venous Catheter (CVC) (Chest (Right)) ArterialCentral Venous Catheter (CVC) (Chest (Right)) Venous Sitting Heart Rate Pre-Dialysis 61 BPM Sitting H eart Rate Post-Dialysis 49 BPM Temperature Pre-Dialysis 97.4 degF Temperature Post -Dialysis 98.6 degF Weight Pre-Dialysis 88.8 kg Weight Post-Dialysis 87.8 kg July 28, 2023 Home Hemodialysis Training BP Sitting (Pre-Dialysis) 116/57 mmHg BP Sitting (Post-Dialysis) 130/58 mmHg Concurrent Access: NoCentral Venous Catheter (CVC) (Chest (Right)) ArterialCentral Venous Catheter (CVC) (Chest (Right)) Venous Sitting Heart Rate Pre-Dialysis 57 BPM Sitting H eart Rate Post-Dialysis 63 BPM Temperature Pre-Dialysis 97.8 degF Temperature Post -Dialysis 97.9 degF Weight Pre-Dialysis 88.1 kg Weight Post-Dialysis 88 kg July 27, 2023 Home Hemodialysis Training BP Sitting (Pre-Dialysis) 110/53 mmHg BP Sitting (Post-Dialysis) 120/62 mmHg Concurrent Access: NoCentral Venous Catheter (CVC) (Chest (Right)) ArterialCentral Venous Catheter (CVC) (Chest (Right)) Venous Sitting Heart Rate Pre-Dialysis 62 BPM Sitting H eart Rate Post-Dialysis 71 BPM Temperature Pre-Dialysis 97.5 degF Temperature Post -Dialysis 97.9 degF Weight Pre-Dialysis 87.9 kg Weight Post-Dialysis 87.3 kg DIALYSIS ORDER Dialysis Procedure Orders Type of Dialysis Procedure Order Order Date/Time Observations Home Hemodialysis Treatment May 22 Target Weight 87.5 kg Blood Flow Rate 300 mL/min Max UF Rate 10 mL/kg/hr Base Sodium Dialysate Base Sodium 140 mE q/L Therapy Volume 30 L Potassium Value Potassium 2 mEq/L Calcium Dialysate Calcium 3 mEq/L Lactate Lactate 45 mEq/L Access Concurrent No Arterial Access AV Fistula (Upper Ar m (Right)) Venous Access AV Fistula (Upper Ar m (Right)) Machine Type NxStage Arterial Needle Display EonsSYRailRunnerS, [email or web address] TERGUARD, 15G x 1, SHARP , TWIN Venous Needle MEDISYSTEMS, MASTERG UARD, 15G x 1, SHARP , TWIN Cartridge NxStage CAR 172-C Dialyzer NxStage CAR 172-C 11 74 Home Hemodialysis TreatmentApril 13, 2025 Observation Value Target Weight 88 kg Blood Flow Rate 300 mL/min Max UF Rate 10 mL/kg/hr Base Sodium Dialysate Base Sodium 140 mE q/L Therapy Volume 30 L Potassium Value Potassium 2 mEq/L Calcium Dialysate Calcium 3 mEq/L Lactate Lactate 45 mEq/L Access Concurrent No Arterial Access AV Fistula (Upper Ar m (Right)) Venous Access AV Fistula (Upper Ar m (Right)) Machine Type NxStage Arterial Needle Display 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, [email or web address] TERGUARD, 15G x 1, SHARP , TWIN Venous Needle MEDISYSTEMS, MASTERG UARD, 15G x 1, SHARP , TWIN Cartridge NxStage CAR 170-C Dialyzer NxStage CAR 170-C 11 74 Results Adequacy Description Draw Date Result/Unit Status Ref Range Result Comments URR% 2025-05-28 07:38:19 F Unable to Calculate.,Canceled - Specimen not received 30 days past draw date,Canceled - Specimen not received 30 days past draw date Urea nitrogen [Mass/volume] in Serum or Plasma 2025-05-28 07:23:32 F Canceled - Speci men not received 30 days past draw date,Canceled - Specimen not received 30 days past draw date Urea nitrogen [Mass/volume] in Serum or Plasma --post dialysis 2025-05-28 07:23:32 F Canceled - Speci men not received 30 days past draw date,Canceled - Specimen not received 30 days past draw date Creatinine [Mass/volume] in Serum or Plasma 2025-05-28 07:23:32 F Canceled - Speci men not received 30 days past draw date,Canceled - Specimen not received 30 days past draw date DIALYZER FLOW-QD 2025-05-11 17:54:11 63 mL/min F Dialyzer MALATHI 2025-05-11 17:54:11 1174 Calc F LENGTH OF DIALYSIS 2025-05-11 17:54:11 489 min F WEIGHT - POST DAY 1 2025-05-11 17:54:11 87.4 kg F WEIGHT - PRE DAY 1 2025-05-11 17:54:11 91.6 kg F BSA NIEVES 2025-05-11 17:54:11 2.1 sq m F WEIGHT (KG) 2025-05-11 17:54:11 88 kg F PRESCRIBED DAYS/WEEK 2025-05-11 17:54:11 4 Day/Wk F Residual kt/v 2025-05-11 17:54:11 N/A F KT/V PRESCRIBED 2025-05-11 17:54:11 F Total Kt/V 2025-05-11 17:54:11 N/A F stdKt/V (DIAL) 2025-05-11 17:54:11 2.42 F Std Renal KT/V 2025-05-11 17:54:11 0.07 F eKt/V 2025-05-11 17:54:11 0.82 F URR% 2025-05-11 17:54:11 47 % F HEIGHT IN INCHES 2025-05-11 17:54:11 72 Inches F PATIENT AGE 2025-05-11 17:54:11 85 Years F VT (KT/V TX VOL) 2025-05-11 17:54:11 N/A F AMPUTATE FACTOR 2025-05-11 17:54:11 0 F VM (KT/V MEAN VOL) 2025-05-11 17:54:11 N/A F TBW (Love) 2025-05-11 17:54:11 43.19 Liters F nPCR 2025-05-11 17:54:11 N/A F spKt/V 2025-05-11 17:54:11 0.88 F stdKT/V Total 2025-05-11 17:54:11 2.49 F TOTAL HOURS/WEEK DIALYSIS 2025-05-11 17:54:11 8 hrs F BLOOD FLOW-QWB 2025-05-11 17:54:11 300 F CURRENT KRU 2025-05-11 17:54:11 0.38 F PRESCRIBED DAYS/WEEK 2025-05-11 17:54:11 4 Day/Wk F PATIENT AGE 2025-05-11 17:54:11 85 Years F Total Kt/V 2025-05-11 17:54:11 N/A F nPCR 2025-05-11 17:54:11 N/A F WEIGHT - POST DAY 1 2025-05-11 17:54:11 87.4 kg F CURRENT KRU 2025-05-11 17:54:11 0.38 F URR% 2025-05-11 17:54:11 47 % F VM (KT/V MEAN VOL) 2025-05-11 17:54:11 N/A F Residual kt/v 2025-05-11 17:54:11 N/A F LENGTH OF DIALYSIS 2025-05-11 17:54:11 489 min F DIALYZER FLOW-QD 2025-05-11 17:54:11 63 mL/min F KT/V PRESCRIBED 2025-05-11 17:54:11 F HEIGHT IN INCHES 2025-05-11 17:54:11 72 Inches F WEIGHT (KG) 2025-05-11 17:54:11 88 kg F Dialyzer MALATHI 2025-05-11 17:54:11 1174 Calc F BSA NIEVES 2025-05-11 17:54:11 2.1 sq m F TBW (Love) 2025-05-11 17:54:11 43.19 Liters F VT (KT/V TX VOL) 2025-05-11 17:54:11 N/A F stdKT/V Total 2025-05-11 17:54:11 2.49 F AMPUTATE FACTOR 2025-05-11 17:54:11 0 F BLOOD FLOW-QWB 2025-05-11 17:54:11 300 F eKt/V 2025-05-11 17:54:11 0.82 F spKt/V 2025-05-11 17:54:11 0.88 F stdKt/V (DIAL) 2025-05-11 17:54:11 2.42 F TOTAL HOURS/WEEK DIALYSIS 2025-05-11 17:54:11 8 hrs F Std Renal KT/V 2025-05-11 17:54:11 0.07 F WEIGHT - PRE DAY 1 2025-05-11 17:54:11 91.6 kg F Urea nitrogen [Mass/volume] in Serum or Plasma --post dialysis 2025-05-10 03:03:16 30 mg/dL F 9.0-23.0 Urea nitrogen [Mass/volume] in Serum or Plasma --post dialysis 2025-05-10 03:03:16 30 mg/dL F 9.0-23.0 Creatinine [Mass/volume] in Serum or Plasma 2025-05-10 03:03:16 4.69 mg/dL F 0.7-1.3 Urea nitrogen [Mass/volume] in Serum or Plasma 2025-05-10 03:03:16 57 mg/dL F 9.0-23.0 Creatinine [Mass/volume] in Serum or Plasma 2025-05-10 03:03:16 4.69 mg/dL F 0.7-1.3 Urea nitrogen [Mass/volume] in Serum or Plasma 2025-05-10 03:03:16 57 mg/dL F 9.0-23.0 HEIGHT IN INCHES 2025-04-29 05:17:11 72 Inches F AMPUTATE FACTOR 2025-04-29 05:17:11 0 F PATIENT AGE 2025-04-29 05:17:11 85 Years F WEIGHT (KG) 2025-04-29 05:17:11 88 kg F WEIGHT (KG) 2025-04-29 05:17:11 88 kg F HEIGHT IN INCHES 2025-04-29 05:17:11 72 Inches F PATIENT AGE 2025-04-29 05:17:11 85 Years F AMPUTATE FACTOR 2025-04-29 05:17:11 0 F HEIGHT IN INCHES 2025-04-06 14:54:20 72 Inches F CURRENT KRU 2025-04-06 14:54:20 0.38 F KT/V PRESCRIBED 2025-04-06 14:54:20 F Unable to calculate: Pre BUN lab result is unknown URR% 2025-04-06 14:54:20 53 % F stdKt/V (DIAL) 2025-04-06 14:54:20 2.23 F Dialyzer MALATHI 2025-04-06 14:54:20 1174 Calc F VM (KT/V MEAN VOL) 2025-04-06 14:54:20 N/A F VT (KT/V TX VOL) 2025-04-06 14:54:20 N/A F BLOOD FLOW-QWB 2025-04-06 14:54:20 450 F Total Kt/V 2025-04-06 14:54:20 N/A F Residual kt/v 2025-04-06 14:54:20 N/A F PATIENT AGE 2025-04-06 14:54:20 85 Years F WEIGHT - PRE DAY 1 2025-04-06 14:54:20 92.5 kg F DIALYZER FLOW-QD 2025-04-06 14:54:20 200 mL/min F WEIGHT (KG) 2025-04-06 14:54:20 88.5 kg F Std Renal KT/V 2025-04-06 14:54:20 0.08 F BSA NIEVES 2025-04-06 14:54:20 2.11 sq m F WEIGHT - POST DAY 1 2025-04-06 14:54:20 88.7 kg F nPCR 2025-04-06 14:54:20 N/A F AMPUTATE FACTOR 2025-04-06 14:54:20 0 F PRESCRIBED DAYS/WEEK 2025-04-06 14:54:20 4 Day/Wk F TOTAL HOURS/WEEK DIALYSIS 2025-04-06 14:54:20 2 hrs F eKt/V 2025-04-06 14:54:20 0.78 F TBW (Love) 2025-04-06 14:54:20 43.63 Liters F LENGTH OF DIALYSIS 2025-04-06 14:54:20 179 min F stdKT/V Total 2025-04-06 14:54:20 2.31 F spKt/V 2025-04-06 14:54:20 0.92 F URR% 2025-04-06 14:54:20 53 % F DIALYZER FLOW-QD 2025-04-06 14:54:20 200 mL/min F LENGTH OF DIALYSIS 2025-04-06 14:54:20 179 min F Dialyzer MALATHI 2025-04-06 14:54:20 1174 Calc F PATIENT AGE 2025-04-06 14:54:20 85 Years F BSA NIEVES 2025-04-06 14:54:20 2.11 sq m F WEIGHT - POST DAY 1 2025-04-06 14:54:20 88.7 kg F WEIGHT - PRE DAY 1 2025-04-06 14:54:20 92.5 kg F HEIGHT IN INCHES 2025-04-06 14:54:20 72 Inches F WEIGHT (KG) 2025-04-06 14:54:20 88.5 kg F PRESCRIBED DAYS/WEEK 2025-04-06 14:54:20 4 Day/Wk F VM (KT/V MEAN VOL) 2025-04-06 14:54:20 N/A F KT/V PRESCRIBED 2025-04-06 14:54:20 F Total Kt/V 2025-04-06 14:54:20 N/A F Residual kt/v 2025-04-06 14:54:20 N/A F VT (KT/V TX VOL) 2025-04-06 14:54:20 N/A F nPCR 2025-04-06 14:54:20 N/A F AMPUTATE FACTOR 2025-04-06 14:54:20 0 F TBW (Love) 2025-04-06 14:54:20 43.63 Liters F spKt/V 2025-04-06 14:54:20 0.92 F eKt/V 2025-04-06 14:54:20 0.78 F stdKt/V (DIAL) 2025-04-06 14:54:20 2.23 F Std Renal KT/V 2025-04-06 14:54:20 0.08 F TOTAL HOURS/WEEK DIALYSIS 2025-04-06 14:54:20 2 hrs F BLOOD FLOW-QWB 2025-04-06 14:54:20 450 F stdKT/V Total 2025-04-06 14:54:20 2.31 F CURRENT KRU 2025-04-06 14:54:20 0.38 F Creatinine [Mass/volume] in Serum or Plasma 2025-04-06 14:52:17 5.11 mg/dL F 0.7-1.3 Urea nitrogen [Mass/volume] in Serum or Plasma 2025-04-06 14:52:17 60 mg/dL F 9.0-23.0 Urea nitrogen [Mass/volume] in Serum or Plasma 2025-04-06 14:52:17 60 mg/dL F 9.0-23.0 Creatinine [Mass/volume] in Serum or Plasma 2025-04-06 14:52:17 5.11 mg/dL F 0.7-1.3 Urea nitrogen [Mass/volume] in Serum or Plasma --post dialysis 2025-04-06 13:55:17 28 mg/dL F 9.0-23.0 Urea nitrogen [Mass/volume] in Serum or Plasma --post dialysis 2025-04-06 13:55:17 28 mg/dL F 9.0-23.0 URR% 2025-03-07 17:12:16 50 % F LENGTH OF DIALYSIS 2025-03-07 17:12:16 171 min F DIALYZER FLOW-QD 2025-03-07 17:12:16 208 mL/min F PATIENT AGE 2025-03-07 17:12:16 84 Years F BSA NIEVES 2025-03-07 17:12:16 2.11 sq m F WEIGHT - POST DAY 1 2025-03-07 17:12:16 88.3 kg F HEIGHT IN INCHES 2025-03-07 17:12:16 72 Inches F WEIGHT - PRE DAY 1 2025-03-07 17:12:16 90 kg F Dialyzer MALATHI 2025-03-07 17:12:16 1174 Calc F WEIGHT (KG) 2025-03-07 17:12:16 88.5 kg F PRESCRIBED DAYS/WEEK 2025-03-07 17:12:16 4 Day/Wk F VT (KT/V TX VOL) 2025-03-07 17:12:16 N/A F Residual kt/v 2025-03-07 17:12:16 N/A F Total Kt/V 2025-03-07 17:12:16 N/A F VM (KT/V MEAN VOL) 2025-03-07 17:12:16 N/A F AMPUTATE FACTOR 2025-03-07 17:12:16 0 F KT/V PRESCRIBED 2025-03-07 17:12:16 F nPCR 2025-03-07 17:12:16 N/A F TBW (Love) 2025-03-07 17:12:16 43.59 Liters F spKt/V 2025-03-07 17:12:16 0.78 F Std Renal KT/V 2025-03-07 17:12:16 0.08 F stdKt/V (DIAL) 2025-03-07 17:12:16 2.01 F eKt/V 2025-03-07 17:12:16 0.67 F TOTAL HOURS/WEEK DIALYSIS 2025-03-07 17:12:16 2 hrs F stdKT/V Total 2025-03-07 17:12:16 2.09 F BLOOD FLOW-QWB 2025-03-07 17:12:16 450 F CURRENT KRU 2025-03-07 17:12:16 0.38 F DIALYZER FLOW-QD 2025-03-07 17:12:16 208 mL/min F Dialyzer MALATHI 2025-03-07 17:12:16 1174 Calc F LENGTH OF DIALYSIS 2025-03-07 17:12:16 171 min F WEIGHT (KG) 2025-03-07 17:12:16 88.5 kg F KT/V PRESCRIBED 2025-03-07 17:12:16 F Total Kt/V 2025-03-07 17:12:16 N/A F nPCR 2025-03-07 17:12:16 N/A F eKt/V 2025-03-07 17:12:16 0.67 F stdKt/V (DIAL) 2025-03-07 17:12:16 2.01 F TOTAL HOURS/WEEK DIALYSIS 2025-03-07 17:12:16 2 hrs F CURRENT KRU 2025-03-07 17:12:16 0.38 F URR% 2025-03-07 17:12:16 50 % F PATIENT AGE 2025-03-07 17:12:16 84 Years F BSA NIEVES 2025-03-07 17:12:16 2.11 sq m F WEIGHT - POST DAY 1 2025-03-07 17:12:16 88.3 kg F WEIGHT - PRE DAY 1 2025-03-07 17:12:16 90 kg F VT (KT/V TX VOL) 2025-03-07 17:12:16 N/A F PRESCRIBED DAYS/WEEK 2025-03-07 17:12:16 4 Day/Wk F HEIGHT IN INCHES 2025-03-07 17:12:16 72 Inches F Residual kt/v 2025-03-07 17:12:16 N/A F VM (KT/V MEAN VOL) 2025-03-07 17:12:16 N/A F AMPUTATE FACTOR 2025-03-07 17:12:16 0 F TBW (Love) 2025-03-07 17:12:16 43.59 Liters F spKt/V 2025-03-07 17:12:16 0.78 F stdKT/V Total 2025-03-07 17:12:16 2.09 F Std Renal KT/V 2025-03-07 17:12:16 0.08 F BLOOD FLOW-QWB 2025-03-07 17:12:16 450 F KRU-UREA CLR UR 2025-03-07 17:11:23 0.38 mL/min K KRU-UREA CLR UR 2025-03-07 17:11:23 0.38 mL/min K TOTAL VOLUME-24 HR URINE 2025-03-07 17:10:42 100 mL F TOTAL VOLUME-24 HR URINE 2025-03-07 17:10:42 100 mL F Creatinine [Mass/volume] in Serum or Plasma 2025 23:04:20 4.57 mg/dL F 0.7-1.3 Urea nitrogen [Mass/volume] in Serum or Plasma 2025 23:04:20 58 mg/dL F 9.0-23.0 Urea nitrogen [Mass/volume] in Serum or Plasma 2025 23:04:20 58 mg/dL F 9.0-23.0 Creatinine [Mass/volume] in Serum or Plasma 2025 23:04:20 4.57 mg/dL F 0.7-1.3 Urea nitrogen [Mass/volume] in Urine 2025 22:50:10 286 mg/dL F Urea nitrogen [Mass/volume] in Urine 2025 22:50:10 286 mg/dL F Urea nitrogen [Mass/volume] in Serum or Plasma --post dialysis 2025 16:52:11 29 mg/dL F 9.0-23.0 Urea nitrogen [Mass/volume] in Serum or Plasma --post dialysis 2025 16:52:11 29 mg/dL F 9.0-23.0 COLLECTION TIME FOR URINE 2025-03-02 19:34:08 1440 min F COLLECTION TIME FOR URINE 2025-03-02 19:34:08 1440 min F DIALYZER FLOW-QD 2025-02-09 15:45:05 207 mL/min F URR% 2025-02-09 15:45:05 47 % F Dialyzer MALATHI 2025-02-09 15:45:05 1174 Calc F LENGTH OF DIALYSIS 2025-02-09 15:45:05 166 min F PATIENT AGE 2025-02-09 15:45:05 84 Years F WEIGHT - POST DAY 1 2025-02-09 15:45:05 88.1 kg F BSA NIEVES 2025-02-09 15:45:05 2.11 sq m F WEIGHT - PRE DAY 1 2025-02-09 15:45:05 88.4 kg F HEIGHT IN INCHES 2025-02-09 15:45:05 72 Inches F PRESCRIBED DAYS/WEEK 2025-02-09 15:45:05 4 Day/Wk F VM (KT/V MEAN VOL) 2025-02-09 15:45:05 N/A F WEIGHT (KG) 2025-02-09 15:45:05 88.5 kg F VT (KT/V TX VOL) 2025-02-09 15:45:05 N/A F Residual kt/v 2025-02-09 15:45:05 N/A F KT/V PRESCRIBED 2025-02-09 15:45:05 F TBW (Love) 2025-02-09 15:45:05 43.52 Liters F AMPUTATE FACTOR 2025-02-09 15:45:05 0 F nPCR 2025-02-09 15:45:05 N/A F Total Kt/V 2025-02-09 15:45:05 N/A F spKt/V 2025-02-09 15:45:05 0.68 F stdKt/V (DIAL) 2025-02-09 15:45:05 1.82 F eKt/V 2025-02-09 15:45:05 0.59 F Std Renal KT/V 2025-02-09 15:45:05 0.69 F TOTAL HOURS/WEEK DIALYSIS 2025-02-09 15:45:05 6 hrs F stdKT/V Total 2025-02-09 15:45:05 2.51 F BLOOD FLOW-QWB 2025-02-09 15:45:05 450 F CURRENT KRU 2025-02-09 15:45:05 3.18 F Urea nitrogen [Mass/volume] in Serum or Plasma --post dialysis 2025-02-08 18:27:19 33 mg/dL F 9.0-23.0 Urea nitrogen [Mass/volume] in Serum or Plasma 2025-02-08 15:46:26 62 mg/dL F 9.0-23.0 Creatinine [Mass/volume] in Serum or Plasma 2025-02-08 15:46:26 4.75 mg/dL F 0.7-1.3 URR% 2025-01-03 22:41:58 41 % F DIALYZER FLOW-QD 2025-01-03 22:41:58 202 mL/min F Dialyzer MALATHI 2025-01-03 22:41:58 1174 Calc F LENGTH OF DIALYSIS 2025-01-03 22:41:58 196 min F PATIENT AGE 2025-01-03 22:41:58 84 Years F BSA NIEVES 2025-01-03 22:41:58 2.11 sq m F WEIGHT - POST DAY 1 2025-01-03 22:41:58 90.3 kg F HEIGHT IN INCHES 2025-01-03 22:41:58 72 Inches F WEIGHT - PRE DAY 1 2025-01-03 22:41:58 94 kg F WEIGHT (KG) 2025-01-03 22:41:58 88.5 kg F PRESCRIBED DAYS/WEEK 2025-01-03 22:41:58 4 Day/Wk F Residual kt/v 2025-01-03 22:41:58 N/A F VM (KT/V MEAN VOL) 2025-01-03 22:41:58 N/A F KT/V PRESCRIBED 2025-01-03 22:41:58 F VT (KT/V TX VOL) 2025-01-03 22:41:58 N/A F AMPUTATE FACTOR 2025-01-03 22:41:58 0 F Total Kt/V 2025-01-03 22:41:58 N/A F nPCR 2025-01-03 22:41:58 N/A F TBW (Love) 2025-01-03 22:41:58 44.26 Liters F eKt/V 2025-01-03 22:41:58 0.57 F stdKt/V (DIAL) 2025-01-03 22:41:58 1.79 F Std Renal KT/V 2025-01-03 22:41:58 0.67 F spKt/V 2025-01-03 22:41:58 0.64 F stdKT/V Total 2025-01-03 22:41:58 2.46 F TOTAL HOURS/WEEK DIALYSIS 2025-01-03 22:41:58 3 hrs F BLOOD FLOW-QWB 2025-01-03 22:41:58 450 F CURRENT KRU 2025-01-03 22:41:58 3.18 F Urea nitrogen [Mass/volume] in Serum or Plasma --post dialysis 2025-01-03 22:40:21 41 mg/dL F 9.0-23.0 Urea nitrogen [Mass/volume] in Serum or Plasma 2025-01-03 18:45:26 69 mg/dL F 9.0-23.0 Creatinine [Mass/volume] in Serum or Plasma 2025-01-03 18:45:26 5.01 mg/dL F 0.7-1.3 URR% 2024-12-15 21:14:23 51 % F DIALYZER FLOW-QD 2024-12-15 21:14:23 202 mL/min F LENGTH OF DIALYSIS 2024-12-15 21:14:23 200 min F Dialyzer MALATHI 2024-12-15 21:14:23 1174 Calc F PATIENT AGE 2024-12-15 21:14:23 84 Years F BSA NIEVES 2024-12-15 21:14:23 2.11 sq m F WEIGHT - POST DAY 1 2024-12-15 21:14:23 90 kg F WEIGHT - PRE DAY 1 2024-12-15 21:14:23 93.9 kg F HEIGHT IN INCHES 2024-12-15 21:14:23 72 Inches F WEIGHT (KG) 2024-12-15 21:14:23 88.5 kg F VT (KT/V TX VOL) 2024-12-15 21:14:23 N/A F Residual kt/v 2024-12-15 21:14:23 N/A F KT/V PRESCRIBED 2024-12-15 21:14:23 F Total Kt/V 2024-12-15 21:14:23 N/A F nPCR 2024-12-15 21:14:23 N/A F PRESCRIBED DAYS/WEEK 2024-12-15 21:14:23 4 Day/Wk F AMPUTATE FACTOR 2024-12-15 21:14:23 0 F VM (KT/V MEAN VOL) 2024-12-15 21:14:23 N/A F TBW (Love) 2024-12-15 21:14:23 44.16 Liters F spKt/V 2024-12-15 21:14:23 0.88 F eKt/V 2024-12-15 21:14:23 0.76 F Std Renal KT/V 2024-12-15 21:14:23 0.67 F stdKt/V (DIAL) 2024-12-15 21:14:23 2.2 F stdKT/V Total 2024-12-15 21:14:23 2.87 F TOTAL HOURS/WEEK DIALYSIS 2024-12-15 21:14:23 4 hrs F BLOOD FLOW-QWB 2024-12-15 21:14:23 450 F CURRENT KRU 2024-12-15 21:14:23 3.18 F URR% 2024-12-15 21:14:23 51 % F Dialyzer MALATHI 2024-12-15 21:14:23 1174 Calc F LENGTH OF DIALYSIS 2024-12-15 21:14:23 200 min F DIALYZER FLOW-QD 2024-12-15 21:14:23 202 mL/min F BSA NIEVES 2024-12-15 21:14:23 2.11 sq m F PATIENT AGE 2024-12-15 21:14:23 84 Years F WEIGHT - PRE DAY 1 2024-12-15 21:14:23 93.9 kg F WEIGHT - POST DAY 1 2024-12-15 21:14:23 90 kg F VT (KT/V TX VOL) 2024-12-15 21:14:23 N/A F WEIGHT (KG) 2024-12-15 21:14:23 88.5 kg F HEIGHT IN INCHES 2024-12-15 21:14:23 72 Inches F VM (KT/V MEAN VOL) 2024-12-15 21:14:23 N/A F KT/V PRESCRIBED 2024-12-15 21:14:23 F Total Kt/V 2024-12-15 21:14:23 N/A F PRESCRIBED DAYS/WEEK 2024-12-15 21:14:23 4 Day/Wk F TBW (Love) 2024-12-15 21:14:23 44.16 Liters F nPCR 2024-12-15 21:14:23 N/A F AMPUTATE FACTOR 2024-12-15 21:14:23 0 F Residual kt/v 2024-12-15 21:14:23 N/A F spKt/V 2024-12-15 21:14:23 0.88 F eKt/V 2024-12-15 21:14:23 0.76 F stdKt/V (DIAL) 2024-12-15 21:14:23 2.2 F Std Renal KT/V 2024-12-15 21:14:23 0.67 F TOTAL HOURS/WEEK DIALYSIS 2024-12-15 21:14:23 4 hrs F BLOOD FLOW-QWB 2024-12-15 21:14:23 450 F stdKT/V Total 2024-12-15 21:14:23 2.87 F CURRENT KRU 2024-12-15 21:14:23 3.18 F KRU-UREA CLR UR 2024-12-14 14:31:27 3.18 mL/min F KRU-UREA CLR UR 2024-12-14 14:31:27 3.18 mL/min F Urea nitrogen [Mass/volume] in Urine 2024-12-14 14:21:14 281 mg/dL F Urea nitrogen [Mass/volume] in Urine 2024-12-14 14:21:14 281 mg/dL F Urea nitrogen [Mass/volume] in Serum or Plasma --post dialysis 2024-12-14 03:47:21 35 mg/dL F 9.0-23.0 Urea nitrogen [Mass/volume] in Serum or Plasma --post dialysis 2024-12-14 03:47:21 35 mg/dL F 9.0-23.0 Urea nitrogen [Mass/volume] in Serum or Plasma 2024-12-14 03:23:20 72 mg/dL F 9.0-23.0 Creatinine [Mass/volume] in Serum or Plasma 2024-12-14 03:23:20 4.38 mg/dL F 0.7-1.3 Urea nitrogen [Mass/volume] in Serum or Plasma 2024-12-14 03:23:20 72 mg/dL F 9.0-23.0 Creatinine [Mass/volume] in Serum or Plasma 2024-12-14 03:23:20 4.38 mg/dL F 0.7-1.3 COLLECTION TIME FOR URINE 2024-12-13 19:32:35 1440 min F TOTAL VOLUME-24 HR URINE 2024-12-13 19:32:35 1055 mL F COLLECTION TIME FOR URINE 2024-12-13 19:32:35 1440 min F TOTAL VOLUME-24 HR URINE 2024-12-13 19:32:35 1055 mL F DIALYZER FLOW-QD 2024-08-31 17:43:00 198 mL/min F Dialyzer MALATHI 2024-08-31 17:43:00 1174 Calc F LENGTH OF DIALYSIS 2024-08-31 17:43:00 149 min F BSA NIEVES 2024-08-31 17:43:00 2.11 sq m F PATIENT AGE 2024-08-31 17:43:00 84 Years F WEIGHT - POST DAY 1 2024-08-31 17:43:00 88.7 kg F WEIGHT - PRE DAY 1 2024-08-31 17:43:00 89.7 kg F PRESCRIBED DAYS/WEEK 2024-08-31 17:43:00 4 Day/Wk F HEIGHT IN INCHES 2024-08-31 17:43:00 72 Inches F WEIGHT (KG) 2024-08-31 17:43:00 88.5 kg F VM (KT/V MEAN VOL) 2024-08-31 17:43:00 N/A F KT/V PRESCRIBED 2024-08-31 17:43:00 F Residual kt/v 2024-08-31 17:43:00 N/A F VT (KT/V TX VOL) 2024-08-31 17:43:00 N/A F Total Kt/V 2024-08-31 17:43:00 N/A F nPCR 2024-08-31 17:43:00 N/A F TBW (Love) 2024-08-31 17:43:00 43.73 Liters F AMPUTATE FACTOR 2024-08-31 17:43:00 0 F stdKt/V (DIAL) 2024-08-31 17:43:00 1.88 F spKt/V 2024-08-31 17:43:00 0.73 F eKt/V 2024-08-31 17:43:00 0.61 F stdKT/V Total 2024-08-31 17:43:00 2.28 F Std Renal KT/V 2024-08-31 17:43:00 0.4 F TOTAL HOURS/WEEK DIALYSIS 2024-08-31 17:43:00 10 hrs F BLOOD FLOW-QWB 2024-08-31 17:43:00 450 F CURRENT KRU 2024-08-31 17:43:00 1.84 F URR% 2024-08-31 17:42:58 49 % F KRU-UREA CLR UR 2024-08-31 17:41:56 1.84 mL/min F Urea nitrogen [Mass/volume] in Urine 2024-08-31 17:41:19 334 mg/dL F Urea nitrogen [Mass/volume] in Serum or Plasma 2024-08-31 16:55:25 70 mg/dL F 9.0-23.0 Creatinine [Mass/volume] in Serum or Plasma 2024-08-31 16:55:25 5.55 mg/dL F 0.7-1.3 Urea nitrogen [Mass/volume] in Serum or Plasma --post dialysis 2024-08-31 15:11:13 36 mg/dL F 9.0-23.0 TOTAL VOLUME-24 HR URINE 2024-08-30 19:27:51 500 mL F COLLECTION TIME FOR URINE 2024-08-30 19:27:51 1440 min F DIALYZER FLOW-QD 2024-08-14 20:44:09 190 mL/min F URR% 2024-08-14 20:44:09 48 % F LENGTH OF DIALYSIS 2024-08-14 20:44:09 181 min F Dialyzer MALATHI 2024-08-14 20:44:09 1174 Calc F PATIENT AGE 2024-08-14 20:44:09 84 Years F WEIGHT - POST DAY 1 2024-08-14 20:44:09 89.5 kg F BSA NIEVES 2024-08-14 20:44:09 2.11 sq m F HEIGHT IN INCHES 2024-08-14 20:44:09 72 Inches F WEIGHT (KG) 2024-08-14 20:44:09 88.5 kg F VT (KT/V TX VOL) 2024-08-14 20:44:09 N/A F PRESCRIBED DAYS/WEEK 2024-08-14 20:44:09 4 Day/Wk F Residual kt/v 2024-08-14 20:44:09 N/A F VM (KT/V MEAN VOL) 2024-08-14 20:44:09 N/A F WEIGHT - PRE DAY 1 2024-08-14 20:44:09 92.5 kg F KT/V PRESCRIBED 2024-08-14 20:44:09 F AMPUTATE FACTOR 2024-08-14 20:44:09 0 F Total Kt/V 2024-08-14 20:44:09 N/A F nPCR 2024-08-14 20:44:09 N/A F TBW (Love) 2024-08-14 20:44:09 43.99 Liters F spKt/V 2024-08-14 20:44:09 0.77 F stdKt/V (DIAL) 2024-08-14 20:44:09 1.99 F Std Renal KT/V 2024-08-14 20:44:09 0.5 F stdKT/V Total 2024-08-14 20:44:09 2.49 F TOTAL HOURS/WEEK DIALYSIS 2024-08-14 20:44:09 3 hrs F BLOOD FLOW-QWB 2024-08-14 20:44:09 450 F eKt/V 2024-08-14 20:44:09 0.66 F CURRENT KRU 2024-08-14 20:44:09 2.33 F URR% 2024-08-14 20:44:09 48 % F DIALYZER FLOW-QD 2024-08-14 20:44:09 190 mL/min F Dialyzer MALATHI 2024-08-14 20:44:09 1174 Calc F LENGTH OF DIALYSIS 2024-08-14 20:44:09 181 min F BSA NIEVES 2024-08-14 20:44:09 2.11 sq m F PATIENT AGE 2024-08-14 20:44:09 84 Years F WEIGHT - POST DAY 1 2024-08-14 20:44:09 89.5 kg F WEIGHT - PRE DAY 1 2024-08-14 20:44:09 92.5 kg F HEIGHT IN INCHES 2024-08-14 20:44:09 72 Inches F WEIGHT (KG) 2024-08-14 20:44:09 88.5 kg F PRESCRIBED DAYS/WEEK 2024-08-14 20:44:09 4 Day/Wk F VT (KT/V TX VOL) 2024-08-14 20:44:09 N/A F VM (KT/V MEAN VOL) 2024-08-14 20:44:09 N/A F Residual kt/v 2024-08-14 20:44:09 N/A F Total Kt/V 2024-08-14 20:44:09 N/A F KT/V PRESCRIBED 2024-08-14 20:44:09 F nPCR 2024-08-14 20:44:09 N/A F AMPUTATE FACTOR 2024-08-14 20:44:09 0 F TBW (Love) 2024-08-14 20:44:09 43.99 Liters F spKt/V 2024-08-14 20:44:09 0.77 F eKt/V 2024-08-14 20:44:09 0.66 F stdKt/V (DIAL) 2024-08-14 20:44:09 1.99 F Std Renal KT/V 2024-08-14 20:44:09 0.5 F stdKT/V Total 2024-08-14 20:44:09 2.49 F TOTAL HOURS/WEEK DIALYSIS 2024-08-14 20:44:09 3 hrs F BLOOD FLOW-QWB 2024-08-14 20:44:09 450 F CURRENT KRU 2024-08-14 20:44:09 2.33 F Urea nitrogen [Mass/volume] in Serum or Plasma 2024-08-13 03:55:12 82 mg/dL F 9.0-23.0 Creatinine [Mass/volume] in Serum or Plasma 2024-08-13 03:55:12 4.66 mg/dL F 0.7-1.3 Urea nitrogen [Mass/volume] in Serum or Plasma 2024-08-13 03:55:12 82 mg/dL F 9.0-23.0 Creatinine [Mass/volume] in Serum or Plasma 2024-08-13 03:55:12 4.66 mg/dL F 0.7-1.3 Urea nitrogen [Mass/volume] in Serum or Plasma --post dialysis 2024-08-13 02:44:13 43 mg/dL F 9.0-23.0 Urea nitrogen [Mass/volume] in Serum or Plasma --post dialysis 2024-08-13 02:44:13 43 mg/dL F 9.0-23.0 DIALYZER FLOW-QD 2024-07-10 12:49:55 212 mL/min F Dialyzer MALATHI 2024-07-10 12:49:55 1174 Calc F PATIENT AGE 2024-07-10 12:49:55 84 Years F LENGTH OF DIALYSIS 2024-07-10 12:49:55 160 min F WEIGHT - POST DAY 1 2024-07-10 12:49:55 88.4 kg F HEIGHT IN INCHES 2024-07-10 12:49:55 72 Inches F WEIGHT (KG) 2024-07-10 12:49:55 88.5 kg F WEIGHT - PRE DAY 1 2024-07-10 12:49:55 89.7 kg F VT (KT/V TX VOL) 2024-07-10 12:49:55 N/A F BSA NIEVES 2024-07-10 12:49:55 2.11 sq m F VM (KT/V MEAN VOL) 2024-07-10 12:49:55 N/A F PRESCRIBED DAYS/WEEK 2024-07-10 12:49:55 4 Day/Wk F Total Kt/V 2024-07-10 12:49:55 N/A F Residual kt/v 2024-07-10 12:49:55 N/A F AMPUTATE FACTOR 2024-07-10 12:49:55 0 F KT/V PRESCRIBED 2024-07-10 12:49:55 F nPCR 2024-07-10 12:49:55 N/A F TBW (Love) 2024-07-10 12:49:55 43.62 Liters F spKt/V 2024-07-10 12:49:55 0.77 F Std Renal KT/V 2024-07-10 12:49:55 0.5 F eKt/V 2024-07-10 12:49:55 0.65 F stdKt/V (DIAL) 2024-07-10 12:49:55 1.97 F TOTAL HOURS/WEEK DIALYSIS 2024-07-10 12:49:55 2 hrs F BLOOD FLOW-QWB 2024-07-10 12:49:55 450 F stdKT/V Total 2024-07-10 12:49:55 2.47 F CURRENT KRU 2024-07-10 12:49:55 2.33 F DIALYZER FLOW-QD 2024-07-10 12:49:55 212 mL/min F Dialyzer MALATHI 2024-07-10 12:49:55 1174 Calc F LENGTH OF DIALYSIS 2024-07-10 12:49:55 160 min F PATIENT AGE 2024-07-10 12:49:55 84 Years F BSA NIEVES 2024-07-10 12:49:55 2.11 sq m F WEIGHT - POST DAY 1 2024-07-10 12:49:55 88.4 kg F WEIGHT - PRE DAY 1 2024-07-10 12:49:55 89.7 kg F HEIGHT IN INCHES 2024-07-10 12:49:55 72 Inches F VT (KT/V TX VOL) 2024-07-10 12:49:55 N/A F PRESCRIBED DAYS/WEEK 2024-07-10 12:49:55 4 Day/Wk F Residual kt/v 2024-07-10 12:49:55 N/A F VM (KT/V MEAN VOL) 2024-07-10 12:49:55 N/A F KT/V PRESCRIBED 2024-07-10 12:49:55 F nPCR 2024-07-10 12:49:55 N/A F Total Kt/V 2024-07-10 12:49:55 N/A F TBW (Love) 2024-07-10 12:49:55 43.62 Liters F AMPUTATE FACTOR 2024-07-10 12:49:55 0 F spKt/V 2024-07-10 12:49:55 0.77 F WEIGHT (KG) 2024-07-10 12:49:55 88.5 kg F Std Renal KT/V 2024-07-10 12:49:55 0.5 F stdKt/V (DIAL) 2024-07-10 12:49:55 1.97 F stdKT/V Total 2024-07-10 12:49:55 2.47 F TOTAL HOURS/WEEK DIALYSIS 2024-07-10 12:49:55 2 hrs F BLOOD FLOW-QWB 2024-07-10 12:49:55 450 F eKt/V 2024-07-10 12:49:55 0.65 F CURRENT KRU 2024-07-10 12:49:55 2.33 F URR% 2024-07-10 12:49:54 50 % F URR% 2024-07-10 12:49:54 50 % F Urea nitrogen [Mass/volume] in Serum or Plasma --post dialysis 2024-07-08 22:44:30 39 mg/dL F 9.0-23.0 Urea nitrogen [Mass/volume] in Serum or Plasma --post dialysis 2024-07-08 22:44:30 39 mg/dL F 9.0-23.0 Urea nitrogen [Mass/volume] in Serum or Plasma 2024-07-08 21:48:24 78 mg/dL F 9.0-23.0 Creatinine [Mass/volume] in Serum or Plasma 2024-07-08 21:48:24 4.93 mg/dL F 0.7-1.3 Urea nitrogen [Mass/volume] in Serum or Plasma 2024-07-08 21:48:24 78 mg/dL F 9.0-23.0 Creatinine [Mass/volume] in Serum or Plasma 2024-07-08 21:48:24 4.93 mg/dL F 0.7-1.3 URR% 2024-06-14 13:52:12 51 % F DIALYZER FLOW-QD 2024-06-14 13:52:12 208 mL/min F LENGTH OF DIALYSIS 2024-06-14 13:52:12 169 min F Dialyzer MALATHI 2024-06-14 13:52:12 1174 Calc F PATIENT AGE 2024-06-14 13:52:12 84 Years F WEIGHT - POST DAY 1 2024-06-14 13:52:12 88.5 kg F BSA NIEVES 2024-06-14 13:52:12 2.11 sq m F VT (KT/V TX VOL) 2024-06-14 13:52:12 N/A F WEIGHT - PRE DAY 1 2024-06-14 13:52:12 90.3 kg F WEIGHT (KG) 2024-06-14 13:52:12 88.5 kg F PRESCRIBED DAYS/WEEK 2024-06-14 13:52:12 4 Day/Wk F Residual kt/v 2024-06-14 13:52:12 N/A F KT/V PRESCRIBED 2024-06-14 13:52:12 F VM (KT/V MEAN VOL) 2024-06-14 13:52:12 N/A F nPCR 2024-06-14 13:52:12 N/A F Total Kt/V 2024-06-14 13:52:12 N/A F AMPUTATE FACTOR 2024-06-14 13:52:12 0 F HEIGHT IN INCHES 2024-06-14 13:52:12 72 Inches F spKt/V 2024-06-14 13:52:12 0.8 F TBW (Love) 2024-06-14 13:52:12 43.66 Liters F eKt/V 2024-06-14 13:52:12 0.68 F stdKt/V (DIAL) 2024-06-14 13:52:12 2.03 F stdKT/V Total 2024-06-14 13:52:12 2.54 F TOTAL HOURS/WEEK DIALYSIS 2024-06-14 13:52:12 2 hrs F BLOOD FLOW-QWB 2024-06-14 13:52:12 450 F Std Renal KT/V 2024-06-14 13:52:12 0.5 F CURRENT KRU 2024-06-14 13:52:12 2.33 F KRU-UREA CLR UR 2024-06-09 20:29:21 2.33 mL/min F TOTAL VOLUME-24 HR URINE 2024-06-09 20:28:26 725 mL F COLLECTION TIME FOR URINE 2024-06-09 13:50:51 1440 min F Urea nitrogen [Mass/volume] in Serum or Plasma 2024-06-08 21:40:30 67 mg/dL F 9.0-23.0 Creatinine [Mass/volume] in Serum or Plasma 2024-06-08 21:40:30 4.45 mg/dL F 0.7-1.3 Urea nitrogen [Mass/volume] in Urine 2024-06-08 21:07:31 279 mg/dL F Urea nitrogen [Mass/volume] in Serum or Plasma --post dialysis 2024-06-08 19:24:26 33 mg/dL F 9.0-23.0 DIALYZER FLOW-QD 2024-05-09 20:48:33 208 mL/min F URR% 2024-05-09 20:48:33 49 % F Dialyzer MALATHI 2024-05-09 20:48:33 1174 Calc F LENGTH OF DIALYSIS 2024-05-09 20:48:33 178 min F PATIENT AGE 2024-05-09 20:48:33 84 Years F BSA NIEVES 2024-05-09 20:48:33 2.11 sq m F WEIGHT - POST DAY 1 2024-05-09 20:48:33 88.8 kg F HEIGHT IN INCHES 2024-05-09 20:48:33 72 Inches F WEIGHT - PRE DAY 1 2024-05-09 20:48:33 90.7 kg F WEIGHT (KG) 2024-05-09 20:48:33 88.5 kg F PRESCRIBED DAYS/WEEK 2024-05-09 20:48:33 4 Day/Wk F VT (KT/V TX VOL) 2024-05-09 20:48:33 N/A F VM (KT/V MEAN VOL) 2024-05-09 20:48:33 N/A F KT/V PRESCRIBED 2024-05-09 20:48:33 F Total Kt/V 2024-05-09 20:48:33 N/A F Residual kt/v 2024-05-09 20:48:33 N/A F nPCR 2024-05-09 20:48:33 N/A F AMPUTATE FACTOR 2024-05-09 20:48:33 0 F TBW (Love) 2024-05-09 20:48:33 43.76 Liters F spKt/V 2024-05-09 20:48:33 0.77 F eKt/V 2024-05-09 20:48:33 0.67 F stdKt/V (DIAL) 2024-05-09 20:48:33 2 F stdKT/V Total 2024-05-09 20:48:33 2.65 F Std Renal KT/V 2024-05-09 20:48:33 0.65 F TOTAL HOURS/WEEK DIALYSIS 2024-05-09 20:48:33 11 hrs F BLOOD FLOW-QWB 2024-05-09 20:48:33 450 F CURRENT KRU 2024-05-09 20:48:33 3.03 F Urea nitrogen [Mass/volume] in Serum or Plasma --post dialysis 2024-05-06 18:00:32 34 mg/dL F 9.0-23.0 Urea nitrogen [Mass/volume] in Serum or Plasma 2024-05-06 17:21:29 67 mg/dL F 9.0-23.0 Creatinine [Mass/volume] in Serum or Plasma 2024-05-06 17:21:29 3.9 mg/dL F 0.7-1.3 URR% 2024-04-27 08:34:40 F Canceled - Speci men not received 30 days past draw date KRU-UREA CLR UR 2024-04-27 08:34:40 F Canceled - Speci men not received 30 days past draw date Urea nitrogen [Mass/volume] in Serum or Plasma 2024-04-27 07:29:24 F Canceled - Speci men not received 30 days past draw date Creatinine [Mass/volume] in Serum or Plasma 2024-04-27 07:29:24 F Canceled - Speci men not received 30 days past draw date Urea nitrogen [Mass/volume] in Serum or Plasma --post dialysis 2024-04-27 07:29:24 F Canceled - Speci men not received 30 days past draw date Urea nitrogen [Mass/volume] in Urine 2024-04-27 07:29:24 F Canceled - Speci men not received 30 days past draw date URR% 2024-03-31 23:01:01 48 % F Dialyzer MALATHI 2024-03-31 23:01:01 1174 Calc F DIALYZER FLOW-QD 2024-03-31 23:01:01 208 mL/min F LENGTH OF DIALYSIS 2024-03-31 23:01:01 186 min F BSA NIEVES 2024-03-31 23:01:01 2.11 sq m F PATIENT AGE 2024-03-31 23:01:01 84 Years F WEIGHT - POST DAY 1 2024-03-31 23:01:01 88.6 kg F HEIGHT IN INCHES 2024-03-31 23:01:01 72 Inches F WEIGHT (KG) 2024-03-31 23:01:01 88.5 kg F WEIGHT - PRE DAY 1 2024-03-31 23:01:01 91 kg F PRESCRIBED DAYS/WEEK 2024-03-31 23:01:01 4 Day/Wk F VT (KT/V TX VOL) 2024-03-31 23:01:01 N/A F VM (KT/V MEAN VOL) 2024-03-31 23:01:01 N/A F Residual kt/v 2024-03-31 23:01:01 N/A F Total Kt/V 2024-03-31 23:01:01 N/A F nPCR 2024-03-31 23:01:01 N/A F AMPUTATE FACTOR 2024-03-31 23:01:01 0 F TBW (Love) 2024-03-31 23:01:01 43.69 Liters F KT/V PRESCRIBED 2024-03-31 23:01:01 F spKt/V 2024-03-31 23:01:01 0.77 F stdKt/V (DIAL) 2024-03-31 23:01:01 2 F eKt/V 2024-03-31 23:01:01 0.67 F Std Renal KT/V 2024-03-31 23:01:01 0.65 F stdKT/V Total 2024-03-31 23:01:01 2.65 F BLOOD FLOW-QWB 2024-03-31 23:01:01 450 F TOTAL HOURS/WEEK DIALYSIS 2024-03-31 23:01:01 11 hrs F CURRENT KRU 2024-03-31 23:01:01 3.03 F Urea nitrogen [Mass/volume] in Serum or Plasma 2024-03-31 22:59:31 87 mg/dL F 9.0-23.0 Creatinine [Mass/volume] in Serum or Plasma 2024-03-31 22:59:31 4.34 mg/dL F 0.7-1.3 Urea nitrogen [Mass/volume] in Serum or Plasma --post dialysis 2024-03-31 18:04:25 45 mg/dL F 9.0-23.0 COLLECTION TIME FOR URINE 2024-03-29 05:18:45 1440 min F PATIENT AGE 2024-03-29 05:18:35 84 Years F WEIGHT (KG) 2024-03-29 05:18:35 88.5 kg F HEIGHT IN INCHES 2024-03-29 05:18:35 72 Inches F AMPUTATE FACTOR 2024-03-29 05:18:35 0 F TOTAL VOLUME-24 HR URINE 2024-03-29 05:18:34 DIALYZER FLOW-QD 2024-02-23 19:24:12 143 mL/min F Dialyzer MALATHI 2024-02-23 19:24:12 1174 Calc F URR% 2024-02-23 19:24:12 49 % F LENGTH OF DIALYSIS 2024-02-23 19:24:12 285 min F PATIENT AGE 2024-02-23 19:24:12 83 Years F BSA NIEVES 2024-02-23 19:24:12 2.11 sq m F WEIGHT - POST DAY 1 2024-02-23 19:24:12 88.7 kg F WEIGHT - PRE DAY 1 2024-02-23 19:24:12 90.9 kg F WEIGHT (KG) 2024-02-23 19:24:12 88.5 kg F HEIGHT IN INCHES 2024-02-23 19:24:12 72 Inches F PRESCRIBED DAYS/WEEK 2024-02-23 19:24:12 4 Day/Wk F VT (KT/V TX VOL) 2024-02-23 19:24:12 N/A F VM (KT/V MEAN VOL) 2024-02-23 19:24:12 N/A F KT/V PRESCRIBED 2024-02-23 19:24:12 F Residual kt/v 2024-02-23 19:24:12 N/A F nPCR 2024-02-23 19:24:12 N/A F TBW (Love) 2024-02-23 19:24:12 43.82 Liters F Total Kt/V 2024-02-23 19:24:12 N/A F AMPUTATE FACTOR 2024-02-23 19:24:12 0 F spKt/V 2024-02-23 19:24:12 0.8 F stdKt/V (DIAL) 2024-02-23 19:24:12 2.15 F Std Renal KT/V 2024-02-23 19:24:12 1.01 F eKt/V 2024-02-23 19:24:12 0.73 F stdKT/V Total 2024-02-23 19:24:12 3.17 F TOTAL HOURS/WEEK DIALYSIS 2024-02-23 19:24:12 14 hrs F BLOOD FLOW-QWB 2024-02-23 19:24:12 400 F CURRENT KRU 2024-02-23 19:24:12 4.97 F URR% 2024-02-23 19:24:12 49 % F Dialyzer MALATHI 2024-02-23 19:24:12 1174 Calc F DIALYZER FLOW-QD 2024-02-23 19:24:12 143 mL/min F LENGTH OF DIALYSIS 2024-02-23 19:24:12 285 min F PATIENT AGE 2024-02-23 19:24:12 83 Years F BSA NIEVES 2024-02-23 19:24:12 2.11 sq m F HEIGHT IN INCHES 2024-02-23 19:24:12 72 Inches F WEIGHT - POST DAY 1 2024-02-23 19:24:12 88.7 kg F WEIGHT - PRE DAY 1 2024-02-23 19:24:12 90.9 kg F WEIGHT (KG) 2024-02-23 19:24:12 88.5 kg F VT (KT/V TX VOL) 2024-02-23 19:24:12 N/A F PRESCRIBED DAYS/WEEK 2024-02-23 19:24:12 4 Day/Wk F VM (KT/V MEAN VOL) 2024-02-23 19:24:12 N/A F Residual kt/v 2024-02-23 19:24:12 N/A F nPCR 2024-02-23 19:24:12 N/A F KT/V PRESCRIBED 2024-02-23 19:24:12 F Total Kt/V 2024-02-23 19:24:12 N/A F AMPUTATE FACTOR 2024-02-23 19:24:12 0 F TBW (Love) 2024-02-23 19:24:12 43.82 Liters F stdKt/V (DIAL) 2024-02-23 19:24:12 2.15 F spKt/V 2024-02-23 19:24:12 0.8 F eKt/V 2024-02-23 19:24:12 0.73 F Std Renal KT/V 2024-02-23 19:24:12 1.01 F stdKT/V Total 2024-02-23 19:24:12 3.17 F TOTAL HOURS/WEEK DIALYSIS 2024-02-23 19:24:12 14 hrs F BLOOD FLOW-QWB 2024-02-23 19:24:12 400 F CURRENT KRU 2024-02-23 19:24:12 4.97 F Urea nitrogen [Mass/volume] in Serum or Plasma 2024-02-07 15:55:33 74 mg/dL F 9.0-23.0 Creatinine [Mass/volume] in Serum or Plasma 2024-02-07 15:55:33 4.21 mg/dL F 0.7-1.3 Urea nitrogen [Mass/volume] in Serum or Plasma 2024-02-07 15:55:33 74 mg/dL F 9.0-23.0 Creatinine [Mass/volume] in Serum or Plasma 2024-02-07 15:55:33 4.21 mg/dL F 0.7-1.3 Urea nitrogen [Mass/volume] in Serum or Plasma --post dialysis 2024-02-05 22:17:35 38 mg/dL F 9.0-23.0 Urea nitrogen [Mass/volume] in Serum or Plasma --post dialysis 2024-02-05 22:17:35 38 mg/dL F 9.0-23.0 URR% 2024-01-08 05:15:37 48 % F DIALYZER FLOW-QD 2024-01-08 05:15:37 192 mL/min F Dialyzer MALATHI 2024-01-08 05:15:37 1174 Calc F LENGTH OF DIALYSIS 2024-01-08 05:15:37 178 min F PATIENT AGE 2024-01-08 05:15:37 83 Years F BSA NIEVES 2024-01-08 05:15:37 2.11 sq m F WEIGHT - POST DAY 1 2024-01-08 05:15:37 88.3 kg F HEIGHT IN INCHES 2024-01-08 05:15:37 72 Inches F WEIGHT (KG) 2024-01-08 05:15:37 88.5 kg F PRESCRIBED DAYS/WEEK 2024-01-08 05:15:37 4 Day/Wk F WEIGHT - PRE DAY 1 2024-01-08 05:15:37 88 kg F VT (KT/V TX VOL) 2024-01-08 05:15:37 N/A F VM (KT/V MEAN VOL) 2024-01-08 05:15:37 N/A F Residual kt/v 2024-01-08 05:15:37 N/A F KT/V PRESCRIBED 2024-01-08 05:15:37 F nPCR 2024-01-08 05:15:37 N/A F Total Kt/V 2024-01-08 05:15:37 N/A F AMPUTATE FACTOR 2024-01-08 05:15:37 0 F TBW (Love) 2024-01-08 05:15:37 43.69 Liters F spKt/V 2024-01-08 05:15:37 0.69 F eKt/V 2024-01-08 05:15:37 0.6 F Std Renal KT/V 2024-01-08 05:15:37 1.07 F stdKt/V (DIAL) 2024-01-08 05:15:37 1.85 F stdKT/V Total 2024-01-08 05:15:37 2.92 F BLOOD FLOW-QWB 2024-01-08 05:15:37 400 F TOTAL HOURS/WEEK DIALYSIS 2024-01-08 05:15:37 9 hrs F CURRENT KRU 2024-01-08 05:15:37 4.97 F Urea nitrogen [Mass/volume] in Serum or Plasma 2024-01-08 05:13:50 44 mg/dL F 9.0-23.0 Creatinine [Mass/volume] in Serum or Plasma 2024-01-08 05:13:50 3.29 mg/dL F 0.7-1.3 Urea nitrogen [Mass/volume] in Serum or Plasma --post dialysis 2024-01-08 04:19:57 23 mg/dL F 9.0-23.0 URR% 2023-12-13 19:53:39 F Unable to calculate: Post BUN lab result is unknown Dialyzer MALATHI 2023-12-13 19:53:39 1174 Calc F LENGTH OF DIALYSIS 2023-12-13 19:53:39 177 min F DIALYZER FLOW-QD 2023-12-13 19:53:39 200 mL/min F PATIENT AGE 2023-12-13 19:53:39 83 Years F BSA NIEVES 2023-12-13 19:53:39 F Unable to calculate: Post BUN lab result is unknown WEIGHT - POST DAY 1 2023-12-13 19:53:39 88.5 kg F WEIGHT - PRE DAY 1 2023-12-13 19:53:39 89.1 kg F PRESCRIBED DAYS/WEEK 2023-12-13 19:53:39 4 Day/Wk F HEIGHT IN INCHES 2023-12-13 19:53:39 72 Inches F WEIGHT (KG) 2023-12-13 19:53:39 88.5 kg F VT (KT/V TX VOL) 2023-12-13 19:53:39 N/A F KT/V PRESCRIBED 2023-12-13 19:53:39 F Unable to calculate: Post BUN lab result is unknown Residual kt/v 2023-12-13 19:53:39 F Unable to calculate: Post BUN lab result is unknown VM (KT/V MEAN VOL) 2023-12-13 19:53:39 N/A F Total Kt/V 2023-12-13 19:53:39 F Unable to calculate: Post BUN lab result is unknown nPCR 2023-12-13 19:53:39 N/A F TBW (Love) 2023-12-13 19:53:39 F Unable to calculate: Post BUN lab result is unknown AMPUTATE FACTOR 2023-12-13 19:53:39 0 F stdKt/V (DIAL) 2023-12-13 19:53:39 F Unable to calculate: Post BUN lab result is unknown spKt/V 2023-12-13 19:53:39 F Unable to calculate: Post BUN lab result is unknown eKt/V 2023-12-13 19:53:39 F Unable to calculate: Post BUN lab result is unknown Std Renal KT/V 2023-12-13 19:53:39 F Unable to calculate: Post BUN lab result is unknown stdKT/V Total 2023-12-13 19:53:39 F Unable to calculate: Post BUN lab result is unknown TOTAL HOURS/WEEK DIALYSIS 2023-12-13 19:53:39 21 hrs F BLOOD FLOW-QWB 2023-12-13 19:53:39 400 F CURRENT KRU 2023-12-13 19:53:39 4.97 F DIALYZER FLOW-QD 2023-12-13 19:53:39 200 mL/min F URR% 2023-12-13 19:53:39 F Unable to calculate: Post BUN lab result is unknown LENGTH OF DIALYSIS 2023-12-13 19:53:39 177 min F Dialyzer MALATHI 2023-12-13 19:53:39 1174 Calc F PATIENT AGE 2023-12-13 19:53:39 83 Years F BSA NIEVES 2023-12-13 19:53:39 F Unable to calculate: Post BUN lab result is unknown WEIGHT - PRE DAY 1 2023-12-13 19:53:39 89.1 kg F WEIGHT - POST DAY 1 2023-12-13 19:53:39 88.5 kg F HEIGHT IN INCHES 2023-12-13 19:53:39 72 Inches F WEIGHT (KG) 2023-12-13 19:53:39 88.5 kg F PRESCRIBED DAYS/WEEK 2023-12-13 19:53:39 4 Day/Wk F VT (KT/V TX VOL) 2023-12-13 19:53:39 N/A F VM (KT/V MEAN VOL) 2023-12-13 19:53:39 N/A F Residual kt/v 2023-12-13 19:53:39 F Unable to calculate: Post BUN lab result is unknown Total Kt/V 2023-12-13 19:53:39 F Unable to calculate: Post BUN lab result is unknown KT/V PRESCRIBED 2023-12-13 19:53:39 F Unable to calculate: Post BUN lab result is unknown nPCR 2023-12-13 19:53:39 N/A F TBW (Love) 2023-12-13 19:53:39 F Unable to calculate: Post BUN lab result is unknown AMPUTATE FACTOR 2023-12-13 19:53:39 0 F spKt/V 2023-12-13 19:53:39 F Unable to calculate: Post BUN lab result is unknown eKt/V 2023-12-13 19:53:39 F Unable to calculate: Post BUN lab result is unknown stdKt/V (DIAL) 2023-12-13 19:53:39 F Unable to calculate: Post BUN lab result is unknown stdKT/V Total 2023-12-13 19:53:39 F Unable to calculate: Post BUN lab result is unknown Std Renal KT/V 2023-12-13 19:53:39 F Unable to calculate: Post BUN lab result is unknown TOTAL HOURS/WEEK DIALYSIS 2023-12-13 19:53:39 21 hrs F BLOOD FLOW-QWB 2023-12-13 19:53:39 400 F CURRENT KRU 2023-12-13 19:53:39 4.97 F KRU-UREA CLR UR 2023-12-13 19:53:29 4.97 mL/min F KRU-UREA CLR UR 2023-12-13 19:53:29 4.97 mL/min F TOTAL VOLUME-24 HR URINE 2023-12-13 19:52:31 1300 mL F TOTAL VOLUME-24 HR URINE 2023-12-13 19:52:31 1300 mL F Urea nitrogen [Mass/volume] in Serum or Plasma --post dialysis 2023-12-10 19:38:54 F RECOLLECT - OUTDATED SPECIMEN Urea nitrogen [Mass/volume] in Serum or Plasma --post dialysis 2023-12-10 19:38:54 F RECOLLECT - OUTDATED SPECIMEN COLLECTION TIME FOR URINE 2023-12-10 19:27:27 1440 min F COLLECTION TIME FOR URINE 2023-12-10 19:27:27 1440 min F Urea nitrogen [Mass/volume] in Serum or Plasma 2023-12-10 08:38:17 62 mg/dL F 9.0-23.0 Creatinine [Mass/volume] in Serum or Plasma 2023-12-10 08:38:17 3.22 mg/dL F 0.7-1.3 Urea nitrogen [Mass/volume] in Serum or Plasma 2023-12-10 08:38:17 62 mg/dL F 9.0-23.0 Creatinine [Mass/volume] in Serum or Plasma 2023-12-10 08:38:17 3.22 mg/dL F 0.7-1.3 Urea nitrogen [Mass/volume] in Urine 2023-12-10 07:21:57 307 mg/dL F Urea nitrogen [Mass/volume] in Urine 2023-12-10 07:21:57 307 mg/dL F URR% 2023-11-08 15:31:39 56 % F DIALYZER FLOW-QD 2023-11-08 15:31:39 200 mL/min F Dialyzer MALATHI 2023-11-08 15:31:39 1174 Calc F PATIENT AGE 2023-11-08 15:31:39 83 Years F BSA NIEVES 2023-11-08 15:31:39 2.11 sq m F WEIGHT - PRE DAY 1 2023-11-08 15:31:39 88.1 kg F WEIGHT - POST DAY 1 2023-11-08 15:31:39 88 kg F LENGTH OF DIALYSIS 2023-11-08 15:31:39 173 min F WEIGHT (KG) 2023-11-08 15:31:39 89 kg F PRESCRIBED DAYS/WEEK 2023-11-08 15:31:39 4 Day/Wk F HEIGHT IN INCHES 2023-11-08 15:31:39 72 Inches F VM (KT/V MEAN VOL) 2023-11-08 15:31:39 N/A F VT (KT/V TX VOL) 2023-11-08 15:31:39 N/A F Total Kt/V 2023-11-08 15:31:39 N/A F KT/V PRESCRIBED 2023-11-08 15:31:39 F TBW (Love) 2023-11-08 15:31:39 43.59 Liters F AMPUTATE FACTOR 2023-11-08 15:31:39 0 F Residual kt/v 2023-11-08 15:31:39 N/A F nPCR 2023-11-08 15:31:39 N/A F spKt/V 2023-11-08 15:31:39 0.87 F eKt/V 2023-11-08 15:31:39 0.74 F stdKT/V Total 2023-11-08 15:31:39 3.23 F TOTAL HOURS/WEEK DIALYSIS 2023-11-08 15:31:39 12 hrs F BLOOD FLOW-QWB 2023-11-08 15:31:39 400 F Std Renal KT/V 2023-11-08 15:31:39 1.09 F stdKt/V (DIAL) 2023-11-08 15:31:39 2.15 F CURRENT KRU 2023-11-08 15:31:39 5.04 F URR% 2023-11-08 15:31:39 56 % F Dialyzer MALATHI 2023-11-08 15:31:39 1174 Calc F DIALYZER FLOW-QD 2023-11-08 15:31:39 200 mL/min F LENGTH OF DIALYSIS 2023-11-08 15:31:39 173 min F PATIENT AGE 2023-11-08 15:31:39 83 Years F WEIGHT - PRE DAY 1 2023-11-08 15:31:39 88.1 kg F WEIGHT - POST DAY 1 2023-11-08 15:31:39 88 kg F BSA NIEVES 2023-11-08 15:31:39 2.11 sq m F HEIGHT IN INCHES 2023-11-08 15:31:39 72 Inches F PRESCRIBED DAYS/WEEK 2023-11-08 15:31:39 4 Day/Wk F VT (KT/V TX VOL) 2023-11-08 15:31:39 N/A F KT/V PRESCRIBED 2023-11-08 15:31:39 F WEIGHT (KG) 2023-11-08 15:31:39 89 kg F Residual kt/v 2023-11-08 15:31:39 N/A F VM (KT/V MEAN VOL) 2023-11-08 15:31:39 N/A F nPCR 2023-11-08 15:31:39 N/A F Total Kt/V 2023-11-08 15:31:39 N/A F spKt/V 2023-11-08 15:31:39 0.87 F TBW (Love) 2023-11-08 15:31:39 43.59 Liters F AMPUTATE FACTOR 2023-11-08 15:31:39 0 F eKt/V 2023-11-08 15:31:39 0.74 F stdKt/V (DIAL) 2023-11-08 15:31:39 2.15 F Std Renal KT/V 2023-11-08 15:31:39 1.09 F TOTAL HOURS/WEEK DIALYSIS 2023-11-08 15:31:39 12 hrs F stdKT/V Total 2023-11-08 15:31:39 3.23 F BLOOD FLOW-QWB 2023-11-08 15:31:39 400 F CURRENT KRU 2023-11-08 15:31:39 5.04 F Urea nitrogen [Mass/volume] in Serum or Plasma --post dialysis 2023-11-07 05:49:34 36 mg/dL F 9.0-23.0 Urea nitrogen [Mass/volume] in Serum or Plasma --post dialysis 2023-11-07 05:49:34 36 mg/dL F 9.0-23.0 Urea nitrogen [Mass/volume] in Serum or Plasma 2023-11-07 04:55:26 81 mg/dL F 9.0-23.0 Creatinine [Mass/volume] in Serum or Plasma 2023-11-07 04:55:26 4.89 mg/dL F 0.7-1.3 Urea nitrogen [Mass/volume] in Serum or Plasma 2023-11-07 04:55:26 81 mg/dL F 9.0-23.0 Creatinine [Mass/volume] in Serum or Plasma 2023-11-07 04:55:26 4.89 mg/dL F 0.7-1.3 URR% 2023-08-26 20:21:29 52 % F Dialyzer MALATHI 2023-08-26 20:21:29 F Unable to calculate: Treatment Run Time is zero DIALYZER FLOW-QD 2023-08-26 20:21:29 F Unable to calculate: Treatment Run Time is zero LENGTH OF DIALYSIS 2023-08-26 20:21:29 F Unable to calculate: Treatment Run Time is zero PATIENT AGE 2023-08-26 20:21:29 83 Years F BSA NIEVES 2023-08-26 20:21:29 F Unable to calculate: Treatment Run Time is zero WEIGHT - PRE DAY 1 2023-08-26 20:21:29 F Unable to calculate: Treatment Run Time is zero HEIGHT IN INCHES 2023-08-26 20:21:29 72 Inches F PRESCRIBED DAYS/WEEK 2023-08-26 20:21:29 F Unable to calculate: Treatment Run Time is zero WEIGHT (KG) 2023-08-26 20:21:29 F Unable to calculate: Treatment Run Time is zero WEIGHT - POST DAY 1 2023-08-26 20:21:29 F Unable to calculate: Treatment Run Time is zero VT (KT/V TX VOL) 2023-08-26 20:21:29 F Unable to calculate: Treatment Run Time is zero VM (KT/V MEAN VOL) 2023-08-26 20:21:29 F Unable to calculate: Treatment Run Time is zero Residual kt/v 2023-08-26 20:21:29 N/A F KT/V PRESCRIBED 2023-08-26 20:21:29 F Unable to calculate: Treatment Run Time is zero nPCR 2023-08-26 20:21:29 F Unable to calculate: Treatment Run Time is zero TBW (Love) 2023-08-26 20:21:29 F Unable to calculate: Treatment Run Time is zero AMPUTATE FACTOR 2023-08-26 20:21:29 0 F spKt/V 2023-08-26 20:21:29 N/A F eKt/V 2023-08-26 20:21:29 N/A F Total Kt/V 2023-08-26 20:21:29 N/A F stdKt/V (DIAL) 2023-08-26 20:21:29 N/A F Std Renal KT/V 2023-08-26 20:21:29 N/A F TOTAL HOURS/WEEK DIALYSIS 2023-08-26 20:21:29 F Unable to calculate: Treatment Run Time is zero stdKT/V Total 2023-08-26 20:21:29 N/A F BLOOD FLOW-QWB 2023-08-26 20:21:29 F Unable to calculate: Treatment Run Time is zero CURRENT KRU 2023-08-26 20:21:29 F Unable to calculate: Treatment Run Time is zero Urea nitrogen [Mass/volume] in Urine 2023-08-26 07:12:31 F Canceled - Speci men not received 30 days past draw date KRU-UREA CLR UR 2023-07-28 15:23:17 see comments F Unable to Calculate. Creatinine [Mass/volume] in Serum or Plasma 2023-07-28 15:22:41 3.49 mg/dL F 0.7-1.3 Urea nitrogen [Mass/volume] in Serum or Plasma 2023-07-28 15:22:39 56 mg/dL F 9.0-23.0 Urea nitrogen [Mass/volume] in Serum or Plasma --post dialysis 2023-07-28 14:05:29 27 mg/dL F 9.0-23.0 COLLECTION TIME FOR URINE 2023-07-28 05:26:48 1440 min F TOTAL VOLUME-24 HR URINE 2023-07-28 05:26:40 Std Renal KT/V TBW (Love) VM (KT/V MEAN VOL) URR% spKt/V LENGTH OF DIALYSIS BLOOD FLOW-QWB VT (KT/V TX VOL) BSA NIEVES stdKT/V Total eKt/V Creatinine [Mass/volume] in Serum or Plasma nPCR WEIGHT - PRE DAY 1 PRESCRIBED DAYS/WEEK WEIGHT - POST DAY 1 DIALYZER FLOW-QD Residual kt/v CURRENT KRU TOTAL HOURS/WEEK DIALYSIS Dialyzer MALATHI PRESCRIBED DAYS/WEEK DIALYZER FLOW-QD BLOOD FLOW-QWB LENGTH OF DIALYSIS WEIGHT - POST DAY 1 WEIGHT - PRE DAY 1 TOTAL HOURS/WEEK DIALYSIS VM (KT/V MEAN VOL) Residual kt/v stdKt/V (DIAL) BSA NIEVES TBW (Love) eKt/V nPCR stdKT/V Total Std Renal KT/V KT/V PRESCRIBED VT (KT/V TX VOL) Total Kt/V spKt/V CURRENT KRU Urea nitrogen [Mass/volume] in Serum or Plasma --post dialysis Urea nitrogen [Mass/volume] in Serum or Plasma Dialyzer MALATHI Total Kt/V stdKt/V (DIAL) KT/V PRESCRIBED DIALYZER FLOW-QD LENGTH OF DIALYSIS Dialyzer MALATHI WEIGHT - POST DAY 1 BSA NIEVES WEIGHT - PRE DAY 1 PRESCRIBED DAYS/WEEK VT (KT/V TX VOL) VM (KT/V MEAN VOL) nPCR Residual kt/v KT/V PRESCRIBED Total Kt/V TBW (Love) eKt/V spKt/V stdKT/V Total stdKt/V (DIAL) Std Renal KT/V TOTAL HOURS/WEEK DIALYSIS BLOOD FLOW-QWB CURRENT KRU Anemia Description Draw Date Result/Unit Status Ref Range Result Comments [facility] 2025-05-28 07:38:19 F Unable to Calculate.,Cance led - Specimen not received 30 days past draw date,Canceled - Specimen not received 30 days past draw date HCT CALC [id number] 2025-05-28 07:38:19 F Unable to Calculate.,Cance led - Specimen not received 30 days past draw date,Canceled - Specimen not received 30 days past draw date IRON SATURATION 2025-05-28 07:38:19 F Unable to Calculate.,Cance led - Specimen not received 30 days past draw date,Canceled - Specimen not received 30 days past draw date Platelets [#/volume] in Blood by Automated count 2025-05-28 07:23:32 F Canceled - Specimen not received 30 days past draw date,Canceled - Specimen not received 30 days past draw date Erythrocyte distribution width [Ratio] by Automated count 2025-05-28 07:23:32 F Canceled - Specimen not received 30 days past draw date,Canceled - Specimen not received 30 days past draw date Iron binding capacity.unsaturated [Mass/volume] in Serum or Plasma 2025-05-28 07:23:32 F Canceled - Specimen not received 30 days past draw date,Canceled - Specimen not received 30 days past draw date Iron [Mass/volume] in Serum or Plasma 2025-05-28 07:23:32 F Canceled - Specimen not received 30 days past draw date,Canceled - Specimen not received 30 days past draw date Hemoglobin [Mass/volume] in Blood 2025-05-28 07:23:32 F Canceled - Specimen not received 30 days past draw date,Canceled - Specimen not received 30 days past draw date Erythrocytes [#/volume] in Blood by Automated count 2025-05-28 07:23:32 F Canceled - Specimen not received 30 days past draw date,Canceled - Specimen not received 30 days past draw date Ferritin [Mass/volume] in Serum or Plasma 2025-05-28 07:23:32 F Canceled - Specimen not received 30 days past draw date,Canceled - Specimen not received 30 days past draw date MCHC [Mass/volume] by Automated count 2025-05-28 07:23:32 F Canceled - Specimen not received 30 days past draw date,Canceled - Specimen not received 30 days past draw date Hematocrit [Volume Fraction] of Blood by Automated count 2025-05-28 07:23:32 F Canceled - Specimen not received 30 days past draw date,Canceled - Specimen not received 30 days past draw date Reticulocytes/100 erythrocytes in Blood by Automated count 2025-05-28 07:23:32 F Canceled - Specimen not received 30 days past draw date,Canceled - Specimen not received 30 days past draw date MCV [Entitic volume] by Automated count 2025-05-28 07:23:32 F Canceled - Specimen not received 30 days past draw date,Canceled - Specimen not received 30 days past draw date MCH [Entitic mass] by Automated count 2025-05-28 07:23:32 F Canceled - Specimen not received 30 days past draw date,Canceled - Specimen not received 30 days past draw date IRON SATURATION 2025-05-11 17:53:18 22 % F 21.0-49.0 HCT CALC HGBX3 2025-05-11 17:53:18 33.3 % F 42.0-52.0 TIBC 2025-05-11 17:53:18 241 ug/dL F 250.0-425.0 IRON SATURATION 2025-05-11 17:53:18 22 % F 21.0-49.0 TIBC 2025-05-11 17:53:18 241 ug/dL F 250.0-425.0 HCT CALC HGBX3 2025-05-11 17:53:18 33.3 % F 42.0-52.0 Iron [Mass/volume] in Serum or Plasma 2025-05-10 07:31:57 52 ug/dL F 65.0-175.0 Iron [Mass/volume] in Serum or Plasma 2025-05-10 07:31:57 52 ug/dL F 65.0-175.0 Iron binding capacity.unsaturated [Mass/volume] in Serum or Plasma 2025-05-10 07:30:14 189 ug/dL F 75.0-360.0 Iron binding capacity.unsaturated [Mass/volume] in Serum or Plasma 2025-05-10 07:30:14 189 ug/dL F 75.0-360.0 Erythrocyte distribution width [Ratio] by Automated count 2025-05-10 02:52:09 15.2 % F 11.0-15.0 Hematocrit [Volume Fraction] of Blood by Automated count 2025-05-10 02:52:09 33.7 % F 41.0-53.0 MCV [Entitic volume] by Automated count 2025-05-10 02:52:09 98.1 fL F 80.0-100.0 MCH [Entitic mass] by Automated count 2025-05-10 02:52:09 32.4 pg F 25.9-34.2 Platelets [#/volume] in Blood by Automated count 2025-05-10 02:52:09 169 x 10^3 cells/uL F 140.0-450.0 Reticulocytes/100 erythrocytes in Blood by Automated count 2025-05-10 02:52:09 2.35 % F 0.7-2.5 Erythrocytes [#/volume] in Blood by Automated count 2025-05-10 02:52:09 3.43 x 10^6 cells/uL F 4.6-6.2 Hemoglobin [Mass/volume] in Blood 2025-05-10 02:52:09 11.1 g/dL F 14.0-18.0 MCHC [Mass/volume] by Automated count 2025-05-10 02:52:09 33.1 g/dL F 29.6-35.3 Reticulocytes/100 erythrocytes in Blood by Automated count 2025-05-10 02:52:09 2.35 % F 0.7-2.5 Erythrocyte distribution width [Ratio] by Automated count 2025-05-10 02:52:09 15.2 % F 11.0-15.0 Hemoglobin [Mass/volume] in Blood 2025-05-10 02:52:09 11.1 g/dL F 14.0-18.0 Platelets [#/volume] in Blood by Automated count 2025-05-10 02:52:09 169 x 10^3 cells/uL F 140.0-450.0 MCHC [Mass/volume] by Automated count 2025-05-10 02:52:09 33.1 g/dL F 29.6-35.3 MCH [Entitic mass] by Automated count 2025-05-10 02:52:09 32.4 pg F 25.9-34.2 Hematocrit [Volume Fraction] of Blood by Automated count 2025-05-10 02:52:09 33.7 % F 41.0-53.0 Erythrocytes [#/volume] in Blood by Automated count 2025-05-10 02:52:09 3.43 x 10^6 cells/uL F 4.6-6.2 MCV [Entitic volume] by Automated count 2025-05-10 02:52:09 98.1 fL F 80.0-100.0 Ferritin [Mass/volume] in Serum or Plasma 2025-05-10 00:37:10 350 ng/mL F 22.0-322.0 Ferritin [Mass/volume] in Serum or Plasma 2025-05-10 00:37:10 350 ng/mL F 22.0-322.0 HCT CALC HGBX3 2025-04-06 22:51:20 31.8 % F 42.0-52.0 HCT CALC HGBX3 2025-04-06 22:51:20 31.8 % F 42.0-52.0 Reticulocytes/100 erythrocytes in Blood by Automated count 2025-04-06 22:50:18 3.45 % F 0.7-2.5 Erythrocyte distribution width [Ratio] by Automated count 2025-04-06 22:50:18 15.1 % F 11.0-15.0 Hemoglobin [Mass/volume] in Blood 2025-04-06 22:50:18 10.6 g/dL F 14.0-18.0 MCH [Entitic mass] by Automated count 2025-04-06 22:50:18 31.6 pg F 25.9-34.2 Platelets [#/volume] in Blood by Automated count 2025-04-06 22:50:18 155 x 10^3 cells/uL F 140.0-450.0 MCHC [Mass/volume] by Automated count 2025-04-06 22:50:18 31.3 g/dL F 29.6-35.3 Erythrocytes [#/volume] in Blood by Automated count 2025-04-06 22:50:18 3.36 x 10^6 cells/uL F 4.6-6.2 Hematocrit [Volume Fraction] of Blood by Automated count 2025-04-06 22:50:18 33.9 % F 41.0-53.0 MCV [Entitic volume] by Automated count 2025-04-06 22:50:18 100.9 fL F 80.0-100.0 Erythrocyte distribution width [Ratio] by Automated count 2025-04-06 22:50:18 15.1 % F 11.0-15.0 Erythrocytes [#/volume] in Blood by Automated count 2025-04-06 22:50:18 3.36 x 10^6 cells/uL F 4.6-6.2 Hemoglobin [Mass/volume] in Blood 2025-04-06 22:50:18 10.6 g/dL F 14.0-18.0 MCV [Entitic volume] by Automated count 2025-04-06 22:50:18 100.9 fL F 80.0-100.0 Hematocrit [Volume Fraction] of Blood by Automated count 2025-04-06 22:50:18 33.9 % F 41.0-53.0 MCHC [Mass/volume] by Automated count 2025-04-06 22:50:18 31.3 g/dL F 29.6-35.3 Platelets [#/volume] in Blood by Automated count 2025-04-06 22:50:18 155 x 10^3 cells/uL F 140.0-450.0 MCH [Entitic mass] by Automated count 2025-04-06 22:50:18 31.6 pg F 25.9-34.2 Reticulocytes/100 erythrocytes in Blood by Automated count 2025-04-06 22:50:18 3.45 % F 0.7-2.5 IRON SATURATION 2025-04-06 16:48:53 22 % F 21.0-49.0 TIBC 2025-04-06 16:48:53 246 ug/dL F 250.0-425.0 IRON SATURATION 2025-04-06 16:48:53 22 % F 21.0-49.0 TIBC 2025-04-06 16:48:53 246 ug/dL F 250.0-425.0 Iron [Mass/volume] in Serum or Plasma 2025-04-06 16:40:57 55 ug/dL F 65.0-175.0 Iron binding capacity.unsaturated [Mass/volume] in Serum or Plasma 2025-04-06 16:40:57 191 ug/dL F 75.0-360.0 Iron [Mass/volume] in Serum or Plasma 2025-04-06 16:40:57 55 ug/dL F 65.0-175.0 Iron binding capacity.unsaturated [Mass/volume] in Serum or Plasma 2025-04-06 16:40:57 191 ug/dL F 75.0-360.0 Ferritin [Mass/volume] in Serum or Plasma 2025-03-04 05:31:18 354 ng/mL F 22.0-322.0 Ferritin [Mass/volume] in Serum or Plasma 2025-03-04 05:31:18 354 ng/mL F 22.0-322.0 IRON SATURATION 2025-03-04 05:02:17 43 % F 21.0-49.0 TIBC 2025-03-04 05:02:17 243 ug/dL F 250.0-425.0 IRON SATURATION 2025-03-04 05:02:17 43 % F 21.0-49.0 TIBC 2025-03-04 05:02:17 243 ug/dL F 250.0-425.0 Iron [Mass/volume] in Serum or Plasma 2025-03-04 04:29:17 105 ug/dL F 65.0-175.0 Iron [Mass/volume] in Serum or Plasma 2025-03-04 04:29:17 105 ug/dL F 65.0-175.0 Iron binding capacity.unsaturated [Mass/volume] in Serum or Plasma 2025-03-04 04:29:02 138 ug/dL F 75.0-360.0 Iron binding capacity.unsaturated [Mass/volume] in Serum or Plasma 2025-03-04 04:29:02 138 ug/dL F 75.0-360.0 HCT CALC HGBX3 2025 17:14:01 35.4 % F 42.0-52.0 HCT CALC HGBX3 2025 17:14:01 35.4 % F 42.0-52.0 Erythrocyte distribution width [Ratio] by Automated count 2025 17:13:11 15.1 % F 11.0-15.0 Erythrocytes [#/volume] in Blood by Automated count 2025 17:13:11 3.8 x 10^6 cells/uL F 4.6-6.2 Hemoglobin [Mass/volume] in Blood 2025 17:13:11 11.8 g/dL F 14.0-18.0 MCV [Entitic volume] by Automated count 2025 17:13:11 98.8 fL F 80.0-100.0 Hematocrit [Volume Fraction] of Blood by Automated count 2025 17:13:11 37.6 % F 41.0-53.0 MCHC [Mass/volume] by Automated count 2025 17:13:11 31.4 g/dL F 29.6-35.3 Platelets [#/volume] in Blood by Automated count 2025 17:13:11 140 x 10^3 cells/uL F 140.0-450.0 MCH [Entitic mass] by Automated count 2025 17:13:11 31.1 pg F 25.9-34.2 Reticulocytes/100 erythrocytes in Blood by Automated count 2025 17:13:11 2.8 % F 0.7-2.5 Erythrocyte distribution width [Ratio] by Automated count 2025 17:13:11 15.1 % F 11.0-15.0 Hematocrit [Volume Fraction] of Blood by Automated count 2025 17:13:11 37.6 % F 41.0-53.0 Erythrocytes [#/volume] in Blood by Automated count 2025 17:13:11 3.8 x 10^6 cells/uL F 4.6-6.2 Hemoglobin [Mass/volume] in Blood 2025 17:13:11 11.8 g/dL F 14.0-18.0 MCV [Entitic volume] by Automated count 2025 17:13:11 98.8 fL F 80.0-100.0 Reticulocytes/100 erythrocytes in Blood by Automated count 2025 17:13:11 2.8 % F 0.7-2.5 MCHC [Mass/volume] by Automated count 2025 17:13:11 31.4 g/dL F 29.6-35.3 MCH [Entitic mass] by Automated count 2025 17:13:11 31.1 pg F 25.9-34.2 Platelets [#/volume] in Blood by Automated count 2025 17:13:11 140 x 10^3 cells/uL F 140.0-450.0 IRON SATURATION 2025-02-09 15:44:07 28 % F 21.0-49.0 HCT CALC HGBX3 2025-02-09 15:44:07 38.7 % F 42.0-52.0 TIBC 2025-02-09 15:44:07 268 ug/dL F 250.0-425.0 Ferritin [Mass/volume] in Serum or Plasma 2025-02-09 07:43:16 399 ng/mL F 22.0-322.0 Iron [Mass/volume] in Serum or Plasma 2025-02-09 04:58:11 76 ug/dL F 65.0-175.0 Iron binding capacity.unsaturated [Mass/volume] in Serum or Plasma 2025-02-09 04:58:11 192 ug/dL F 75.0-360.0 Erythrocyte distribution width [Ratio] by Automated count 2025-02-08 18:22:14 15.3 % F 11.0-15.0 Hematocrit [Volume Fraction] of Blood by Automated count 2025-02-08 18:22:14 41.6 % F 41.0-53.0 Hemoglobin [Mass/volume] in Blood 2025-02-08 18:22:14 12.9 g/dL F 14.0-18.0 Erythrocytes [#/volume] in Blood by Automated count 2025-02-08 18:22:14 4.16 x 10^6 cells/uL F 4.6-6.2 MCV [Entitic volume] by Automated count 2025-02-08 18:22:14 100 fL F 80.0-100.0 MCHC [Mass/volume] by Automated count 2025-02-08 18:22:14 31 g/dL F 29.6-35.3 MCH [Entitic mass] by Automated count 2025-02-08 18:22:14 31 pg F 25.9-34.2 Platelets [#/volume] in Blood by Automated count 2025-02-08 18:22:14 154 x 10^3 cells/uL F 140.0-450.0 Reticulocytes/100 erythrocytes in Blood by Automated count 2025-02-08 18:22:14 2.33 % F 0.7-2.5 IRON SATURATION 2025-01-04 07:58:52 27 % F 21.0-49.0 TIBC 2025-01-04 07:58:52 241 ug/dL F 250.0-425.0 Ferritin [Mass/volume] in Serum or Plasma 2025-01-04 06:51:39 243 ng/mL F 22.0-322.0 Iron binding capacity.unsaturated [Mass/volume] in Serum or Plasma 2025-01-04 06:47:04 177 ug/dL F 75.0-360.0 Iron [Mass/volume] in Serum or Plasma 2025-01-04 06:37:29 64 ug/dL F 65.0-175.0 HCT CALC HGBX3 2025-01-03 20:14:49 32.4 % F 42.0-52.0 Erythrocyte distribution width [Ratio] by Automated count 2025-01-03 20:14:11 15.7 % F 11.0-15.0 Erythrocytes [#/volume] in Blood by Automated count 2025-01-03 20:14:11 3.35 x 10^6 cells/uL F 4.6-6.2 Hemoglobin [Mass/volume] in Blood 2025-01-03 20:14:11 10.8 g/dL F 14.0-18.0 Hematocrit [Volume Fraction] of Blood by Automated count 2025-01-03 20:14:11 34.1 % F 41.0-53.0 MCH [Entitic mass] by Automated count 2025-01-03 20:14:11 32.2 pg F 25.9-34.2 MCV [Entitic volume] by Automated count 2025-01-03 20:14:11 101.9 fL F 80.0-100.0 Platelets [#/volume] in Blood by Automated count 2025-01-03 20:14:11 140 x 10^3 cells/uL F 140.0-450.0 MCHC [Mass/volume] by Automated count 2025-01-03 20:14:11 31.6 g/dL F 29.6-35.3 Reticulocytes/100 erythrocytes in Blood by Automated count 2025-01-03 20:14:11 4.27 % F 0.7-2.5 IRON SATURATION 2024-12-14 13:17:35 29 % F 21.0-49.0 TIBC 2024-12-14 13:17:35 239 ug/dL F 250.0-425.0 IRON SATURATION 2024-12-14 13:17:35 29 % F 21.0-49.0 TIBC 2024-12-14 13:17:35 239 ug/dL F 250.0-425.0 Ferritin [Mass/volume] in Serum or Plasma 2024-12-14 08:17:57 382 ng/mL F 22.0-322.0 Ferritin [Mass/volume] in Serum or Plasma 2024-12-14 08:17:57 382 ng/mL F 22.0-322.0 Iron [Mass/volume] in Serum or Plasma 2024-12-14 07:14:08 69 ug/dL F 65.0-175.0 Iron binding capacity.unsaturated [Mass/volume] in Serum or Plasma 2024-12-14 07:14:08 170 ug/dL F 75.0-360.0 Iron [Mass/volume] in Serum or Plasma 2024-12-14 07:14:08 69 ug/dL F 65.0-175.0 Iron binding capacity.unsaturated [Mass/volume] in Serum or Plasma 2024-12-14 07:14:08 170 ug/dL F 75.0-360.0 HCT CALC HGBX3 2024-12-13 23:50:16 29.7 % F 42.0-52.0 HCT CALC HGBX3 2024-12-13 23:50:16 29.7 % F 42.0-52.0 Erythrocyte distribution width [Ratio] by Automated count 2024-12-13 23:49:09 15.5 % F 11.0-15.0 Erythrocytes [#/volume] in Blood by Automated count 2024-12-13 23:49:09 3.14 x 10^6 cells/uL F 4.6-6.2 Hematocrit [Volume Fraction] of Blood by Automated count 2024-12-13 23:49:09 31.4 % F 41.0-53.0 Hemoglobin [Mass/volume] in Blood 2024-12-13 23:49:09 9.9 g/dL F 14.0-18.0 MCH [Entitic mass] by Automated count 2024-12-13 23:49:09 31.4 pg F 25.9-34.2 MCV [Entitic volume] by Automated count 2024-12-13 23:49:09 100.1 fL F 80.0-100.0 MCHC [Mass/volume] by Automated count 2024-12-13 23:49:09 31.4 g/dL F 29.6-35.3 Platelets [#/volume] in Blood by Automated count 2024-12-13 23:49:09 185 x 10^3 cells/uL F 140.0-450.0 Reticulocytes/100 erythrocytes in Blood by Automated count 2024-12-13 23:49:09 4.69 % F 0.7-2.5 Erythrocyte distribution width [Ratio] by Automated count 2024-12-13 23:49:09 15.5 % F 11.0-15.0 Hematocrit [Volume Fraction] of Blood by Automated count 2024-12-13 23:49:09 31.4 % F 41.0-53.0 Erythrocytes [#/volume] in Blood by Automated count 2024-12-13 23:49:09 3.14 x 10^6 cells/uL F 4.6-6.2 Hemoglobin [Mass/volume] in Blood 2024-12-13 23:49:09 9.9 g/dL F 14.0-18.0 MCV [Entitic volume] by Automated count 2024-12-13 23:49:09 100.1 fL F 80.0-100.0 MCHC [Mass/volume] by Automated count 2024-12-13 23:49:09 31.4 g/dL F 29.6-35.3 Platelets [#/volume] in Blood by Automated count 2024-12-13 23:49:09 185 x 10^3 cells/uL F 140.0-450.0 MCH [Entitic mass] by Automated count 2024-12-13 23:49:09 31.4 pg F 25.9-34.2 Reticulocytes/100 erythrocytes in Blood by Automated count 2024-12-13 23:49:09 4.69 % F 0.7-2.5 Ferritin [Mass/volume] in Serum or Plasma 2024-09-01 04:47:43 497 ng/mL F 22.0-322.0 IRON SATURATION 2024-09-01 02:50:45 29 % F 21.0-49.0 TIBC 2024-09-01 02:50:45 258 ug/dL F 250.0-425.0 Iron [Mass/volume] in Serum or Plasma 2024-09-01 02:48:04 74 ug/dL F 65.0-175.0 Iron binding capacity.unsaturated [Mass/volume] in Serum or Plasma 2024-09-01 02:48:04 184 ug/dL F 75.0-360.0 HCT CALC HGBX3 2024-08-31 18:41:59 36.3 % F 42.0-52.0 Erythrocyte distribution width [Ratio] by Automated count 2024-08-31 18:41:09 14 % F 11.0-15.0 Hematocrit [Volume Fraction] of Blood by Automated count 2024-08-31 18:41:09 37.5 % F 41.0-53.0 Erythrocytes [#/volume] in Blood by Automated count 2024-08-31 18:41:09 3.81 x 10'6 cells/uL F 4.6-6.2 Hemoglobin [Mass/volume] in Blood 2024-08-31 18:41:09 12.1 g/dL F 14.0-18.0 MCV [Entitic volume] by Automated count 2024-08-31 18:41:09 98.3 fL F 80.0-100.0 MCHC [Mass/volume] by Automated count 2024-08-31 18:41:09 32.3 g/dL F 29.6-35.3 MCH [Entitic mass] by Automated count 2024-08-31 18:41:09 31.8 pg F 25.9-34.2 Platelets [#/volume] in Blood by Automated count 2024-08-31 18:41:09 145 x 10^3 cells/uL F 140.0-450.0 Reticulocytes/100 erythrocytes in Blood by Automated count 2024-08-31 18:41:09 2.87 % F 0.7-2.5 IRON SATURATION 2024-08-14 20:43:57 25 % F 21.0-49.0 HCT CALC HGBX3 2024-08-14 20:43:57 35.7 % F 42.0-52.0 TIBC 2024-08-14 20:43:57 248 ug/dL F 250.0-425.0 IRON SATURATION 2024-08-14 20:43:57 25 % F 21.0-49.0 HCT CALC HGBX3 2024-08-14 20:43:57 35.7 % F 42.0-52.0 TIBC 2024-08-14 20:43:57 248 ug/dL F 250.0-425.0 Reticulocytes/100 erythrocytes in Blood by Automated count 2024-08-14 20:43:20 F RECOLLECT - OUTDATED SPECIMEN Reticulocytes/100 erythrocytes in Blood by Automated count 2024-08-14 20:43:20 F RECOLLECT - OUTDATED SPECIMEN Iron binding capacity.unsaturated [Mass/volume] in Serum or Plasma 2024-08-14 19:46:48 186 ug/dL F 75.0-360.0 Iron binding capacity.unsaturated [Mass/volume] in Serum or Plasma 2024-08-14 19:46:48 186 ug/dL F 75.0-360.0 Iron [Mass/volume] in Serum or Plasma 2024-08-14 19:46:47 62 ug/dL F 65.0-175.0 Iron [Mass/volume] in Serum or Plasma 2024-08-14 19:46:47 62 ug/dL F 65.0-175.0 Erythrocytes [#/volume] in Blood by Automated count 2024-08-13 16:16:49 3.63 x 10'6 cells/uL F 4.6-6.2 Erythrocyte distribution width [Ratio] by Automated count 2024-08-13 16:16:49 15.6 % F 11.0-15.0 Hematocrit [Volume Fraction] of Blood by Automated count 2024-08-13 16:16:49 37.8 % F 41.0-53.0 Hemoglobin [Mass/volume] in Blood 2024-08-13 16:16:49 11.9 g/dL F 14.0-18.0 MCV [Entitic volume] by Automated count 2024-08-13 16:16:49 104.2 fL F 80.0-100.0 MCH [Entitic mass] by Automated count 2024-08-13 16:16:49 32.8 pg F 25.9-34.2 Platelets [#/volume] in Blood by Automated count 2024-08-13 16:16:49 113 x 10^3 cells/uL F 140.0-450.0 MCHC [Mass/volume] by Automated count 2024-08-13 16:16:49 31.5 g/dL F 29.6-35.3 Erythrocyte distribution width [Ratio] by Automated count 2024-08-13 16:16:49 15.6 % F 11.0-15.0 Hematocrit [Volume Fraction] of Blood by Automated count 2024-08-13 16:16:49 37.8 % F 41.0-53.0 Erythrocytes [#/volume] in Blood by Automated count 2024-08-13 16:16:49 3.63 x 10'6 cells/uL F 4.6-6.2 Hemoglobin [Mass/volume] in Blood 2024-08-13 16:16:49 11.9 g/dL F 14.0-18.0 MCV [Entitic volume] by Automated count 2024-08-13 16:16:49 104.2 fL F 80.0-100.0 MCH [Entitic mass] by Automated count 2024-08-13 16:16:49 32.8 pg F 25.9-34.2 Platelets [#/volume] in Blood by Automated count 2024-08-13 16:16:49 113 x 10^3 cells/uL F 140.0-450.0 MCHC [Mass/volume] by Automated count 2024-08-13 16:16:49 31.5 g/dL F 29.6-35.3 Ferritin [Mass/volume] in Serum or Plasma 2024-08-13 06:26:27 339 ng/mL F 22.0-322.0 Ferritin [Mass/volume] in Serum or Plasma 2024-08-13 06:26:27 339 ng/mL F 22.0-322.0 IRON SATURATION 2024-07-09 04:37:57 30 % F 21.0-49.0 HCT CALC HGBX3 2024-07-09 04:37:57 37.5 % F 42.0-52.0 TIBC 2024-07-09 04:37:57 254 ug/dL F 250.0-425.0 IRON SATURATION 2024-07-09 04:37:57 30 % F 21.0-49.0 HCT CALC HGBX3 2024-07-09 04:37:57 37.5 % F 42.0-52.0 TIBC 2024-07-09 04:37:57 254 ug/dL F 250.0-425.0 Ferritin [Mass/volume] in Serum or Plasma 2024-07-09 04:34:00 412 ng/mL F 22.0-322.0 Ferritin [Mass/volume] in Serum or Plasma 2024-07-09 04:34:00 412 ng/mL F 22.0-322.0 Iron [Mass/volume] in Serum or Plasma 2024-07-09 03:07:26 75 ug/dL F 65.0-175.0 Iron binding capacity.unsaturated [Mass/volume] in Serum or Plasma 2024-07-09 03:07:26 179 ug/dL F 75.0-360.0 Iron [Mass/volume] in Serum or Plasma 2024-07-09 03:07:26 75 ug/dL F 65.0-175.0 Iron binding capacity.unsaturated [Mass/volume] in Serum or Plasma 2024-07-09 03:07:26 179 ug/dL F 75.0-360.0 Hematocrit [Volume Fraction] of Blood by Automated count 2024-07-08 22:44:30 38.4 % F 41.0-53.0 Erythrocytes [#/volume] in Blood by Automated count 2024-07-08 22:44:30 3.83 x 10'6 cells/uL F 4.6-6.2 Hemoglobin [Mass/volume] in Blood 2024-07-08 22:44:30 12.5 g/dL F 14.0-18.0 MCH [Entitic mass] by Automated count 2024-07-08 22:44:30 32.7 pg F 25.9-34.2 MCHC [Mass/volume] by Automated count 2024-07-08 22:44:30 32.7 g/dL F 29.6-35.3 Platelets [#/volume] in Blood by Automated count 2024-07-08 22:44:30 220 x 10^3 cells/uL F 140.0-450.0 Erythrocyte distribution width [Ratio] by Automated count 2024-07-08 22:44:30 14.7 % F 11.0-15.0 MCV [Entitic volume] by Automated count 2024-07-08 22:44:30 100.1 fL F 80.0-100.0 Reticulocytes/100 erythrocytes in Blood by Automated count 2024-07-08 22:44:30 2.7 % F 0.7-2.5 Hemoglobin [Mass/volume] in Blood 2024-07-08 22:44:30 12.5 g/dL F 14.0-18.0 Hematocrit [Volume Fraction] of Blood by Automated count 2024-07-08 22:44:30 38.4 % F 41.0-53.0 Erythrocyte distribution width [Ratio] by Automated count 2024-07-08 22:44:30 14.7 % F 11.0-15.0 Erythrocytes [#/volume] in Blood by Automated count 2024-07-08 22:44:30 3.83 x 10'6 cells/uL F 4.6-6.2 MCH [Entitic mass] by Automated count 2024-07-08 22:44:30 32.7 pg F 25.9-34.2 MCHC [Mass/volume] by Automated count 2024-07-08 22:44:30 32.7 g/dL F 29.6-35.3 Platelets [#/volume] in Blood by Automated count 2024-07-08 22:44:30 220 x 10^3 cells/uL F 140.0-450.0 MCV [Entitic volume] by Automated count 2024-07-08 22:44:30 100.1 fL F 80.0-100.0 Reticulocytes/100 erythrocytes in Blood by Automated count 2024-07-08 22:44:30 2.7 % F 0.7-2.5 IRON SATURATION 2024-06-09 13:51:02 34 % F 21.0-49.0 HCT CALC HGBX3 2024-06-09 13:51:02 34.5 % F 42.0-52.0 TIBC 2024-06-09 13:51:02 239 ug/dL F 250.0-425.0 Iron [Mass/volume] in Serum or Plasma 2024-06-09 07:06:20 81 ug/dL F 65.0-175.0 Iron binding capacity.unsaturated [Mass/volume] in Serum or Plasma 2024-06-09 07:06:14 158 ug/dL F 75.0-360.0 Ferritin [Mass/volume] in Serum or Plasma 2024-06-09 06:44:40 347 ng/mL F 22.0-322.0 Erythrocytes [#/volume] in Blood by Automated count 2024-06-09 02:53:28 3.45 x 10'6 cells/uL F 4.6-6.2 Erythrocyte distribution width [Ratio] by Automated count 2024-06-09 02:53:28 15.1 % F 11.0-15.0 Hematocrit [Volume Fraction] of Blood by Automated count 2024-06-09 02:53:28 35.3 % F 41.0-53.0 MCH [Entitic mass] by Automated count 2024-06-09 02:53:28 33.3 pg F 25.9-34.2 Hemoglobin [Mass/volume] in Blood 2024-06-09 02:53:28 11.5 g/dL F 14.0-18.0 MCV [Entitic volume] by Automated count 2024-06-09 02:53:28 102.4 fL F 80.0-100.0 Platelets [#/volume] in Blood by Automated count 2024-06-09 02:53:28 206 x 10^3 cells/uL F 140.0-450.0 MCHC [Mass/volume] by Automated count 2024-06-09 02:53:28 32.5 g/dL F 29.6-35.3 Reticulocytes/100 erythrocytes in Blood by Automated count 2024-06-09 02:53:28 3.63 % F 0.7-2.5 IRON SATURATION 2024-05-07 04:36:10 30 % F 21.0-49.0 HCT CALC HGBX3 2024-05-07 04:36:10 33 % F 42.0-52.0 TIBC 2024-05-07 04:36:10 240 ug/dL F 250.0-425.0 Iron [Mass/volume] in Serum or Plasma 2024-05-07 04:32:22 71 ug/dL F 65.0-175.0 Iron binding capacity.unsaturated [Mass/volume] in Serum or Plasma 2024-05-07 04:32:22 169 ug/dL F 75.0-360.0 Erythrocyte distribution width [Ratio] by Automated count 2024-05-07 02:59:31 16.1 % F 11.0-15.0 Erythrocytes [#/volume] in Blood by Automated count 2024-05-07 02:59:31 3.31 x 10'6 cells/uL F 4.6-6.2 Hematocrit [Volume Fraction] of Blood by Automated count 2024-05-07 02:59:31 35.3 % F 41.0-53.0 Hemoglobin [Mass/volume] in Blood 2024-05-07 02:59:31 11 g/dL F 14.0-18.0 MCV [Entitic volume] by Automated count 2024-05-07 02:59:31 106.6 fL F 80.0-100.0 MCHC [Mass/volume] by Automated count 2024-05-07 02:59:31 31.2 g/dL F 29.6-35.3 Platelets [#/volume] in Blood by Automated count 2024-05-07 02:59:31 207 x 10^3 cells/uL F 140.0-450.0 MCH [Entitic mass] by Automated count 2024-05-07 02:59:31 33.3 pg F 25.9-34.2 Reticulocytes/100 erythrocytes in Blood by Automated count 2024-05-07 02:59:31 3.63 % F 0.7-2.5 Ferritin [Mass/volume] in Serum or Plasma 2024-05-07 00:54:35 300 ng/mL F 22.0-322.0 IRON SATURATION 2024-04-27 08:34:40 F Canceled - Specimen not received 30 days past draw date HCT CALC HGBX3 2024-04-27 08:34:40 F Canceled - Specimen not received 30 days past draw date TIBC 2024-04-27 08:34:40 F Canceled - Specimen not received 30 days past draw date Hemoglobin [Mass/volume] in Blood 2024-04-27 07:29:24 F Canceled - Specimen not received 30 days past draw date Erythrocyte distribution width [Ratio] by Automated count 2024-04-27 07:29:24 F Canceled - Specimen not received 30 days past draw date Erythrocytes [#/volume] in Blood by Automated count 2024-04-27 07:29:24 F Canceled - Specimen not received 30 days past draw date Hematocrit [Volume Fraction] of Blood by Automated count 2024-04-27 07:29:24 F Canceled - Specimen not received 30 days past draw date MCV [Entitic volume] by Automated count 2024-04-27 07:29:24 F Canceled - Specimen not received 30 days past draw date MCH [Entitic mass] by Automated count 2024-04-27 07:29:24 F Canceled - Specimen not received 30 days past draw date Platelets [#/volume] in Blood by Automated count 2024-04-27 07:29:24 F Canceled - Specimen not received 30 days past draw date MCHC [Mass/volume] by Automated count 2024-04-27 07:29:24 F Canceled - Specimen not received 30 days past draw date Reticulocytes/100 erythrocytes in Blood by Automated count 2024-04-27 07:29:24 F Canceled - Specimen not received 30 days past draw date Ferritin [Mass/volume] in Serum or Plasma 2024-04-27 07:29:24 F Canceled - Specimen not received 30 days past draw date Iron [Mass/volume] in Serum or Plasma 2024-04-27 07:29:23 F Canceled - Specimen not received 30 days past draw date Iron binding capacity.unsaturated [Mass/volume] in Serum or Plasma 2024-04-27 07:29:23 F Canceled - Specimen not received 30 days past draw date IRON SATURATION 2024-04-01 04:28:37 27 % F 21.0-49.0 TIBC 2024-04-01 04:28:37 230 ug/dL F 250.0-425.0 Iron [Mass/volume] in Serum or Plasma 2024-04-01 04:25:34 61 ug/dL F 65.0-175.0 Iron binding capacity.unsaturated [Mass/volume] in Serum or Plasma 2024-04-01 04:25:34 169 ug/dL F 75.0-360.0 Ferritin [Mass/volume] in Serum or Plasma 2024-04-01 04:11:43 316 ng/mL F 22.0-322.0 HCT CALC HGBX3 2024-03-31 19:45:31 35.1 % F 42.0-52.0 Erythrocytes [#/volume] in Blood by Automated count 2024-03-31 19:45:26 3.56 x 10'6 cells/uL F 4.6-6.2 Hematocrit [Volume Fraction] of Blood by Automated count 2024-03-31 19:45:26 34.6 % F 41.0-53.0 Hemoglobin [Mass/volume] in Blood 2024-03-31 19:45:26 11.7 g/dL F 14.0-18.0 MCV [Entitic volume] by Automated count 2024-03-31 19:45:26 97.3 fL F 80.0-100.0 MCH [Entitic mass] by Automated count 2024-03-31 19:45:26 32.9 pg F 25.9-34.2 MCHC [Mass/volume] by Automated count 2024-03-31 19:45:26 33.8 g/dL F 29.6-35.3 Erythrocyte distribution width [Ratio] by Automated count 2024-03-31 19:45:26 14 % F 11.0-15.0 Platelets [#/volume] in Blood by Automated count 2024-03-31 19:45:26 205 x 10^3 cells/uL F 140.0-450.0 Reticulocytes/100 erythrocytes in Blood by Automated count 2024-03-31 19:45:26 4.01 % F 0.7-2.5 HCT CALC HGBX3 2024-02-28 12:12:48 F Canceled - Specimen not received 30 days past draw date Erythrocyte distribution width [Ratio] by Automated count 2024-02-26 07:16:25 F Canceled - Specimen not received 30 days past draw date Hematocrit [Volume Fraction] of Blood by Automated count 2024-02-26 07:16:25 F Canceled - Specimen not received 30 days past draw date Erythrocytes [#/volume] in Blood by Automated count 2024-02-26 07:16:25 F Canceled - Specimen not received 30 days past draw date Hemoglobin [Mass/volume] in Blood 2024-02-26 07:16:25 F Canceled - Specimen not received 30 days past draw date MCV [Entitic volume] by Automated count 2024-02-26 07:16:25 F Canceled - Specimen not received 30 days past draw date MCH [Entitic mass] by Automated count 2024-02-26 07:16:25 F Canceled - Specimen not received 30 days past draw date Platelets [#/volume] in Blood by Automated count 2024-02-26 07:16:25 F Canceled - Specimen not received 30 days past draw date MCHC [Mass/volume] by Automated count 2024-02-26 07:16:25 F Canceled - Specimen not received 30 days past draw date IRON SATURATION 2024-02-07 18:58:39 F RECOLLECT - OUTDATED SPECIMEN TIBC 2024-02-07 18:58:39 F RECOLLECT - OUTDATED SPECIMEN IRON SATURATION 2024-02-07 18:58:39 F RECOLLECT - OUTDATED SPECIMEN TIBC 2024-02-07 18:58:39 F RECOLLECT - OUTDATED SPECIMEN Iron [Mass/volume] in Serum or Plasma 2024-02-07 18:57:15 F RECOLLECT - OUTDATED SPECIMEN Iron binding capacity.unsaturated [Mass/volume] in Serum or Plasma 2024-02-07 18:57:15 F RECOLLECT - OUTDATED SPECIMEN Iron [Mass/volume] in Serum or Plasma 2024-02-07 18:57:15 F RECOLLECT - OUTDATED SPECIMEN Iron binding capacity.unsaturated [Mass/volume] in Serum or Plasma 2024-02-07 18:57:15 F RECOLLECT - OUTDATED SPECIMEN HCT CALC HGBX3 2024-02-07 15:56:56 35.4 % F 42.0-52.0 HCT CALC HGBX3 2024-02-07 15:56:56 35.4 % F 42.0-52.0 Reticulocytes/100 erythrocytes in Blood by Automated count 2024-02-07 13:39:45 F RECOLLECT - OUTDATED SPECIMEN Reticulocytes/100 erythrocytes in Blood by Automated count 2024-02-07 13:39:45 F RECOLLECT - OUTDATED SPECIMEN Ferritin [Mass/volume] in Serum or Plasma 2024-02-06 07:13:38 343 ng/mL F 22.0-322.0 Ferritin [Mass/volume] in Serum or Plasma 2024-02-06 07:13:38 343 ng/mL F 22.0-322.0 Hematocrit [Volume Fraction] of Blood by Automated count 2024-02-06 03:59:34 38.9 % F 41.0-53.0 Erythrocytes [#/volume] in Blood by Automated count 2024-02-06 03:59:34 3.75 x 10'6 cells/uL F 4.6-6.2 Erythrocyte distribution width [Ratio] by Automated count 2024-02-06 03:59:34 14.1 % F 11.0-15.0 Hemoglobin [Mass/volume] in Blood 2024-02-06 03:59:34 11.8 g/dL F 14.0-18.0 MCV [Entitic volume] by Automated count 2024-02-06 03:59:34 103.6 fL F 80.0-100.0 MCH [Entitic mass] by Automated count 2024-02-06 03:59:34 31.5 pg F 25.9-34.2 MCHC [Mass/volume] by Automated count 2024-02-06 03:59:34 30.4 g/dL F 29.6-35.3 Platelets [#/volume] in Blood by Automated count 2024-02-06 03:59:34 179 x 10^3 cells/uL F 140.0-450.0 Erythrocyte distribution width [Ratio] by Automated count 2024-02-06 03:59:34 14.1 % F 11.0-15.0 Hemoglobin [Mass/volume] in Blood 2024-02-06 03:59:34 11.8 g/dL F 14.0-18.0 Hematocrit [Volume Fraction] of Blood by Automated count 2024-02-06 03:59:34 38.9 % F 41.0-53.0 Erythrocytes [#/volume] in Blood by Automated count 2024-02-06 03:59:34 3.75 x 10'6 cells/uL F 4.6-6.2 MCV [Entitic volume] by Automated count 2024-02-06 03:59:34 103.6 fL F 80.0-100.0 MCHC [Mass/volume] by Automated count 2024-02-06 03:59:34 30.4 g/dL F 29.6-35.3 MCH [Entitic mass] by Automated count 2024-02-06 03:59:34 31.5 pg F 25.9-34.2 Platelets [#/volume] in Blood by Automated count 2024-02-06 03:59:34 179 x 10^3 cells/uL F 140.0-450.0 IRON SATURATION 2024-01-08 08:43:53 74 % F 21.0-49.0 TIBC 2024-01-08 08:43:53 219 ug/dL F 250.0-425.0 Iron [Mass/volume] in Serum or Plasma 2024-01-08 08:23:54 161 ug/dL F 65.0-175.0 Iron binding capacity.unsaturated [Mass/volume] in Serum or Plasma 2024-01-08 08:23:54 58 ug/dL F 75.0-360.0 Ferritin [Mass/volume] in Serum or Plasma 2024-01-08 04:28:22 398 ng/mL F 22.0-322.0 HCT CALC HGBX3 2024-01-08 01:43:50 33.9 % F 42.0-52.0 Erythrocyte distribution width [Ratio] by Automated count 2024-01-08 01:43:46 15 % F 11.0-15.0 Erythrocytes [#/volume] in Blood by Automated count 2024-01-08 01:43:46 3.44 x 10'6 cells/uL F 4.6-6.2 Hemoglobin [Mass/volume] in Blood 2024-01-08 01:43:46 11.3 g/dL F 14.0-18.0 MCV [Entitic volume] by Automated count 2024-01-08 01:43:46 101.8 fL F 80.0-100.0 MCH [Entitic mass] by Automated count 2024-01-08 01:43:46 32.8 pg F 25.9-34.2 Hematocrit [Volume Fraction] of Blood by Automated count 2024-01-08 01:43:46 35 % F 41.0-53.0 MCHC [Mass/volume] by Automated count 2024-01-08 01:43:46 32.2 g/dL F 29.6-35.3 Platelets [#/volume] in Blood by Automated count 2024-01-08 01:43:43 131 x 10^3 cells/uL F 140.0-450.0 Reticulocytes/100 erythrocytes in Blood by Automated count 2024-01-08 01:43:43 2.77 % F 0.7-2.5 IRON SATURATION 2023-12-10 19:28:27 29 % F 21.0-49.0 HCT CALC HGBX3 2023-12-10 19:28:27 32.1 % F 42.0-52.0 TIBC 2023-12-10 19:28:27 229 ug/dL F 250.0-425.0 IRON SATURATION 2023-12-10 19:28:27 29 % F 21.0-49.0 HCT CALC HGBX3 2023-12-10 19:28:27 32.1 % F 42.0-52.0 TIBC 2023-12-10 19:28:27 229 ug/dL F 250.0-425.0 Iron [Mass/volume] in Serum or Plasma 2023-12-10 08:45:16 66 ug/dL F 65.0-175.0 Iron binding capacity.unsaturated [Mass/volume] in Serum or Plasma 2023-12-10 08:45:16 163 ug/dL F 75.0-360.0 Iron [Mass/volume] in Serum or Plasma 2023-12-10 08:45:16 66 ug/dL F 65.0-175.0 Iron binding capacity.unsaturated [Mass/volume] in Serum or Plasma 2023-12-10 08:45:16 163 ug/dL F 75.0-360.0 Ferritin [Mass/volume] in Serum or Plasma 2023-12-10 07:55:37 499 ng/mL F 22.0-322.0 Ferritin [Mass/volume] in Serum or Plasma 2023-12-10 07:55:37 499 ng/mL F 22.0-322.0 Erythrocyte distribution width [Ratio] by Automated count 2023-12-10 05:04:40 14.6 % F 11.0-15.0 Hematocrit [Volume Fraction] of Blood by Automated count 2023-12-10 05:04:40 34.4 % F 41.0-53.0 Erythrocytes [#/volume] in Blood by Automated count 2023-12-10 05:04:40 3.38 x 10'6 cells/uL F 4.6-6.2 MCV [Entitic volume] by Automated count 2023-12-10 05:04:40 101.5 fL F 80.0-100.0 MCH [Entitic mass] by Automated count 2023-12-10 05:04:40 31.8 pg F 25.9-34.2 MCHC [Mass/volume] by Automated count 2023-12-10 05:04:40 31.3 g/dL F 29.6-35.3 Hemoglobin [Mass/volume] in Blood 2023-12-10 05:04:40 10.7 g/dL F 14.0-18.0 Platelets [#/volume] in Blood by Automated count 2023-12-10 05:04:40 127 x 10^3 cells/uL F 140.0-450.0 Reticulocytes/100 erythrocytes in Blood by Automated count 2023-12-10 05:04:40 3.71 % F 0.7-2.5 Erythrocyte distribution width [Ratio] by Automated count 2023-12-10 05:04:40 14.6 % F 11.0-15.0 Erythrocytes [#/volume] in Blood by Automated count 2023-12-10 05:04:40 3.38 x 10'6 cells/uL F 4.6-6.2 Hematocrit [Volume Fraction] of Blood by Automated count 2023-12-10 05:04:40 34.4 % F 41.0-53.0 Hemoglobin [Mass/volume] in Blood 2023-12-10 05:04:40 10.7 g/dL F 14.0-18.0 MCV [Entitic volume] by Automated count 2023-12-10 05:04:40 101.5 fL F 80.0-100.0 MCH [Entitic mass] by Automated count 2023-12-10 05:04:40 31.8 pg F 25.9-34.2 MCHC [Mass/volume] by Automated count 2023-12-10 05:04:40 31.3 g/dL F 29.6-35.3 Platelets [#/volume] in Blood by Automated count 2023-12-10 05:04:40 127 x 10^3 cells/uL F 140.0-450.0 Reticulocytes/100 erythrocytes in Blood by Automated count 2023-12-10 05:04:40 3.71 % F 0.7-2.5 IRON SATURATION 2023-11-07 07:28:35 26 % F 21.0-49.0 HCT CALC HGBX3 2023-11-07 07:28:35 36.6 % F 42.0-52.0 TIBC 2023-11-07 07:28:35 258 ug/dL F 250.0-425.0 IRON SATURATION 2023-11-07 07:28:35 26 % F 21.0-49.0 HCT CALC HGBX3 2023-11-07 07:28:35 36.6 % F 42.0-52.0 TIBC 2023-11-07 07:28:35 258 ug/dL F 250.0-425.0 Iron [Mass/volume] in Serum or Plasma 2023-11-07 07:23:37 67 ug/dL F 65.0-175.0 Iron [Mass/volume] in Serum or Plasma 2023-11-07 07:23:37 67 ug/dL F 65.0-175.0 Iron binding capacity.unsaturated [Mass/volume] in Serum or Plasma 2023-11-07 07:23:32 191 ug/dL F 75.0-360.0 Iron binding capacity.unsaturated [Mass/volume] in Serum or Plasma 2023-11-07 07:23:32 191 ug/dL F 75.0-360.0 Ferritin [Mass/volume] in Serum or Plasma 2023-11-07 01:50:37 529 ng/mL F 22.0-322.0 Ferritin [Mass/volume] in Serum or Plasma 2023-11-07 01:50:37 529 ng/mL F 22.0-322.0 Erythrocytes [#/volume] in Blood by Automated count 2023-11-06 20:51:32 3.75 x 10'6 cells/uL F 4.6-6.2 Erythrocyte distribution width [Ratio] by Automated count 2023-11-06 20:51:32 14.6 % F 11.0-15.0 Hematocrit [Volume Fraction] of Blood by Automated count 2023-11-06 20:51:32 35 % F 41.0-53.0 Hemoglobin [Mass/volume] in Blood 2023-11-06 20:51:32 12.2 g/dL F 14.0-18.0 MCV [Entitic volume] by Automated count 2023-11-06 20:51:32 93.5 fL F 80.0-100.0 MCH [Entitic mass] by Automated count 2023-11-06 20:51:32 32.5 pg F 25.9-34.2 MCHC [Mass/volume] by Automated count 2023-11-06 20:51:32 34.7 g/dL F 29.6-35.3 Platelets [#/volume] in Blood by Automated count 2023-11-06 20:51:32 136 x 10^3 cells/uL F 140.0-450.0 Reticulocytes/100 erythrocytes in Blood by Automated count 2023-11-06 20:51:32 3.71 % F 0.7-2.5 Erythrocyte distribution width [Ratio] by Automated count 2023-11-06 20:51:32 14.6 % F 11.0-15.0 Hematocrit [Volume Fraction] of Blood by Automated count 2023-11-06 20:51:32 35 % F 41.0-53.0 Erythrocytes [#/volume] in Blood by Automated count 2023-11-06 20:51:32 3.75 x 10'6 cells/uL F 4.6-6.2 Hemoglobin [Mass/volume] in Blood 2023-11-06 20:51:32 12.2 g/dL F 14.0-18.0 MCV [Entitic volume] by Automated count 2023-11-06 20:51:32 93.5 fL F 80.0-100.0 MCHC [Mass/volume] by Automated count 2023-11-06 20:51:32 34.7 g/dL F 29.6-35.3 MCH [Entitic mass] by Automated count 2023-11-06 20:51:32 32.5 pg F 25.9-34.2 Platelets [#/volume] in Blood by Automated count 2023-11-06 20:51:32 136 x 10^3 cells/uL F 140.0-450.0 Reticulocytes/100 erythrocytes in Blood by Automated count 2023-11-06 20:51:32 3.71 % F 0.7-2.5 IRON SATURATION 2023-07-29 04:28:40 20 % F 21.0-49.0 TIBC 2023-07-29 04:28:40 227 ug/dL F 250.0-425.0 Iron [Mass/volume] in Serum or Plasma 2023-07-29 04:26:27 46 ug/dL F 65.0-175.0 Iron binding capacity.unsaturated [Mass/volume] in Serum or Plasma 2023-07-29 04:26:27 181 ug/dL F 75.0-360.0 Ferritin [Mass/volume] in Serum or Plasma 2023-07-29 03:46:48 132 ng/mL F 22.0-322.0 HCT CALC HGBX3 2023-07-28 17:20:55 30.9 % F 42.0-52.0 Erythrocyte distribution width [Ratio] by Automated count 2023-07-28 17:20:43 15.5 % F 11.0-15.0 Erythrocytes [#/volume] in Blood by Automated count 2023-07-28 17:20:43 3.43 x 10'6 cells/uL F 4.6-6.2 Hematocrit [Volume Fraction] of Blood by Automated count 2023-07-28 17:20:43 32.1 % F 41.0-53.0 Hemoglobin [Mass/volume] in Blood 2023-07-28 17:20:43 10.3 g/dL F 14.0-18.0 MCH [Entitic mass] by Automated count 2023-07-28 17:20:43 30.1 pg F 25.9-34.2 MCV [Entitic volume] by Automated count 2023-07-28 17:20:43 93.6 fL F 80.0-100.0 MCHC [Mass/volume] by Automated count 2023-07-28 17:20:43 32.2 g/dL F 29.6-35.3 Platelets [#/volume] in Blood by Automated count 2023-07-28 17:20:43 256 x 10^3 cells/uL F 140.0-450.0 Reticulocytes/100 erythrocytes in Blood by Automated count 2023-07-28 17:20:43 3.71 % F 0.7-2.5 Hemoglobin [Mass/volume] in Blood Ferritin [Mass/volume] in Serum or Plasma TIBC HCT CALC HGBX3 MCH [Entitic mass] by Automated count Platelets [#/volume] in Blood by Automated count Iron [Mass/volume] in Serum or Plasma MCHC [Mass/volume] by Automated count Hematocrit [Volume Fraction] of Blood by Automated count MCV [Entitic volume] by Automated count IRON SATURATION Erythrocytes [#/volume] in Blood by Automated count Reticulocytes/100 erythrocytes in Blood by Automated count Iron binding capacity.unsaturated [Mass/volume] in Serum or Plasma Erythrocyte distribution width [Ratio] by Automated count FluidBP Description Draw Date Result/Unit Status Ref Range Result Comments Sodium [Moles/volume] in Serum or Plasma 2025-05-28 07:23:32 F Canceled - Speci men not received 30 days past draw date,Canceled - Specimen not received 30 days past draw date Sodium [Moles/volume] in Serum or Plasma 2025-05-10 07:30:14 128 mEq/L F 136.0-145.0 Sodium [Moles/volume] in Serum or Plasma 2025-05-10 07:30:14 128 mEq/L F 136.0-145.0 Sodium [Moles/volume] in Serum or Plasma 2025-04-06 16:40:57 130 mEq/L F 132.0-146.0 Sodium [Moles/volume] in Serum or Plasma 2025-04-06 16:40:57 130 mEq/L F 132.0-146.0 Sodium [Moles/volume] in Serum or Plasma 2025-03-04 04:29:08 128 mEq/L F 132.0-146.0 Sodium [Moles/volume] in Serum or Plasma 2025-03-04 04:29:08 128 mEq/L F 132.0-146.0 Sodium [Moles/volume] in Serum or Plasma 2025-02-09 04:58:11 127 mEq/L F 132.0-146.0 Sodium [Moles/volume] in Serum or Plasma 2025-01-04 06:37:29 130 mEq/L F 132.0-146.0 Sodium [Moles/volume] in Serum or Plasma 2024-12-14 07:14:04 130 mEq/L F 132.0-146.0 Sodium [Moles/volume] in Serum or Plasma 2024-12-14 07:14:04 130 mEq/L F 132.0-146.0 Sodium [Moles/volume] in Serum or Plasma 2024-09-01 02:48:04 131 mEq/L F 132.0-146.0 Sodium [Moles/volume] in Serum or Plasma 2024-08-14 19:46:47 132 mEq/L F 132.0-146.0 Sodium [Moles/volume] in Serum or Plasma 2024-08-14 19:46:47 132 mEq/L F 132.0-146.0 Sodium [Moles/volume] in Serum or Plasma 2024-07-09 03:07:26 136 mEq/L F 132.0-146.0 Sodium [Moles/volume] in Serum or Plasma 2024-07-09 03:07:26 136 mEq/L F 132.0-146.0 Sodium [Moles/volume] in Serum or Plasma 2024-06-09 07:06:20 134 mEq/L F 132.0-146.0 Sodium [Moles/volume] in Serum or Plasma 2024-05-07 04:32:22 136 mEq/L F 132.0-146.0 Sodium [Moles/volume] in Serum or Plasma 2024-04-27 07:29:23 F Canceled - Speci men not received 30 days past draw date Sodium [Moles/volume] in Serum or Plasma 2024-04-01 04:25:34 129 mEq/L F 132.0-146.0 Sodium [Moles/volume] in Serum or Plasma 2024-02-07 18:57:15 F RECOLLECT - OUTDATED SPECIMEN Sodium [Moles/volume] in Serum or Plasma 2024-02-07 18:57:15 F RECOLLECT - OUTDATED SPECIMEN Sodium [Moles/volume] in Serum or Plasma 2024-01-08 08:23:54 138 mEq/L F 132.0-146.0 Sodium [Moles/volume] in Serum or Plasma 2023-12-10 08:45:16 138 mEq/L F 132.0-146.0 Sodium [Moles/volume] in Serum or Plasma 2023-12-10 08:45:16 138 mEq/L F 132.0-146.0 Sodium [Moles/volume] in Serum or Plasma 2023-11-07 07:23:37 136 mEq/L F 132.0-146.0 Sodium [Moles/volume] in Serum or Plasma 2023-11-07 07:23:37 136 mEq/L F 132.0-146.0 Sodium [Moles/volume] in Serum or Plasma 2023-07-28 15:22:39 136 mEq/L F 132.0-146.0 Sodium [Moles/volume] in Serum or Plasma General Description Draw Date Result/Unit Status Ref Range Result Comments Chloride [Moles/volume] in Serum or Plasma 2025-05-28 07:23:32 F Canceled - Specimen not received 30 days past draw date,Canceled - Specimen not received 30 days past draw date Aspartate aminotransferase [Enzymatic activity/volume] in Serum or Plasma 2025-05-28 07:23:32 F Canceled - Specimen not received 30 days past draw date,Canceled - Specimen not received 30 days past draw date Alanine aminotransferase [Enzymatic activity/volume] in Serum or Plasma 2025-05-28 07:23:32 F Canceled - Specimen not received 30 days past draw date,Canceled - Specimen not received 30 days past draw date Chloride [Moles/volume] in Serum or Plasma 2025-05-10 07:30:14 88 mEq/L F 98.0-107.0 Chloride [Moles/volume] in Serum or Plasma 2025-05-10 07:30:14 88 mEq/L F 98.0-107.0 Alanine aminotransferase [Enzymatic activity/volume] in Serum or Plasma 2025-05-10 03:03:16 17 U/L F 10.0-49.0 Aspartate aminotransferase [Enzymatic activity/volume] in Serum or Plasma 2025-05-10 03:03:16 23 U/L F 0.0-33.0 Aspartate aminotransferase [Enzymatic activity/volume] in Serum or Plasma 2025-05-10 03:03:16 23 U/L F 0.0-33.0 Alanine aminotransferase [Enzymatic activity/volume] in Serum or Plasma 2025-05-10 03:03:16 17 U/L F 10.0-49.0 Chloride [Moles/volume] in Serum or Plasma 2025-04-06 16:40:57 90 mEq/L F 99.0-109.0 Chloride [Moles/volume] in Serum or Plasma 2025-04-06 16:40:57 90 mEq/L F 99.0-109.0 Aspartate aminotransferase [Enzymatic activity/volume] in Serum or Plasma 2025-04-06 14:52:17 21 U/L F 0.0-33.0 Alanine aminotransferase [Enzymatic activity/volume] in Serum or Plasma 2025-04-06 14:52:17 16 U/L F 10.0-49.0 Alanine aminotransferase [Enzymatic activity/volume] in Serum or Plasma 2025-04-06 14:52:17 16 U/L F 10.0-49.0 Aspartate aminotransferase [Enzymatic activity/volume] in Serum or Plasma 2025-04-06 14:52:17 21 U/L F 0.0-33.0 Chloride [Moles/volume] in Serum or Plasma 2025-03-04 04:29:08 92 mEq/L F 99.0-109.0 Chloride [Moles/volume] in Serum or Plasma 2025-03-04 04:29:08 92 mEq/L F 99.0-109.0 Alanine aminotransferase [Enzymatic activity/volume] in Serum or Plasma 2025 23:04:20 20 U/L F 10.0-49.0 Aspartate aminotransferase [Enzymatic activity/volume] in Serum or Plasma 2025 23:04:20 25 U/L F 0.0-33.0 Aspartate aminotransferase [Enzymatic activity/volume] in Serum or Plasma 2025 23:04:20 25 U/L F 0.0-33.0 Alanine aminotransferase [Enzymatic activity/volume] in Serum or Plasma 2025 23:04:20 20 U/L F 10.0-49.0 Aluminum [Mass/volume] in Serum or Plasma 2025 18:02:04 10 ug/L F 0.0-9.0 Aluminum [Mass/volume] in Serum or Plasma 2025 18:02:04 10 ug/L F 0.0-9.0 Chloride [Moles/volume] in Serum or Plasma 2025-02-09 04:58:11 91 mEq/L F 99.0-109.0 Aspartate aminotransferase [Enzymatic activity/volume] in Serum or Plasma 2025-02-08 15:46:26 24 U/L F 0.0-33.0 Alanine aminotransferase [Enzymatic activity/volume] in Serum or Plasma 2025-02-08 15:46:26 20 U/L F 10.0-49.0 Chloride [Moles/volume] in Serum or Plasma 2025-01-04 06:37:29 92 mEq/L F 99.0-109.0 Alanine aminotransferase [Enzymatic activity/volume] in Serum or Plasma 2025-01-03 18:45:26 17 U/L F 10.0-49.0 Aspartate aminotransferase [Enzymatic activity/volume] in Serum or Plasma 2025-01-03 18:45:26 25 U/L F 0.0-33.0 Chloride [Moles/volume] in Serum or Plasma 2024-12-14 07:14:04 92 mEq/L F 99.0-109.0 Chloride [Moles/volume] in Serum or Plasma 2024-12-14 07:14:04 92 mEq/L F 99.0-109.0 Alanine aminotransferase [Enzymatic activity/volume] in Serum or Plasma 2024-12-14 03:23:20 17 U/L F 10.0-49.0 Aspartate aminotransferase [Enzymatic activity/volume] in Serum or Plasma 2024-12-14 03:23:20 22 U/L F 0.0-33.0 Alanine aminotransferase [Enzymatic activity/volume] in Serum or Plasma 2024-12-14 03:23:20 17 U/L F 10.0-49.0 Aspartate aminotransferase [Enzymatic activity/volume] in Serum or Plasma 2024-12-14 03:23:20 22 U/L F 0.0-33.0 Aluminum [Mass/volume] in Serum or Plasma 2024-12-13 19:49:00 10 ug/L F 0.0-9.0 Aluminum [Mass/volume] in Serum or Plasma 2024-12-13 19:49:00 10 ug/L F 0.0-9.0 Chloride [Moles/volume] in Serum or Plasma 2024-09-01 02:48:04 91 mEq/L F 99.0-109.0 Aluminum [Mass/volume] in Serum or Plasma 2024-08-31 18:06:56 10 ug/L F 0.0-9.0 Alanine aminotransferase [Enzymatic activity/volume] in Serum or Plasma 2024-08-31 16:55:25 21 U/L F 10.0-49.0 Aspartate aminotransferase [Enzymatic activity/volume] in Serum or Plasma 2024-08-31 16:55:25 26 U/L F 0.0-33.0 Chloride [Moles/volume] in Serum or Plasma 2024-08-14 19:46:47 94 mEq/L F 99.0-109.0 Chloride [Moles/volume] in Serum or Plasma 2024-08-14 19:46:47 94 mEq/L F 99.0-109.0 Alanine aminotransferase [Enzymatic activity/volume] in Serum or Plasma 2024-08-13 03:55:12 18 U/L F 10.0-49.0 Aspartate aminotransferase [Enzymatic activity/volume] in Serum or Plasma 2024-08-13 03:55:12 25 U/L F 0.0-33.0 Alanine aminotransferase [Enzymatic activity/volume] in Serum or Plasma 2024-08-13 03:55:12 18 U/L F 10.0-49.0 Aspartate aminotransferase [Enzymatic activity/volume] in Serum or Plasma 2024-08-13 03:55:12 25 U/L F 0.0-33.0 Chloride [Moles/volume] in Serum or Plasma 2024-07-09 03:07:26 93 mEq/L F 99.0-109.0 Chloride [Moles/volume] in Serum or Plasma 2024-07-09 03:07:26 93 mEq/L F 99.0-109.0 Alanine aminotransferase [Enzymatic activity/volume] in Serum or Plasma 2024-07-08 21:48:24 17 U/L F 10.0-49.0 Aspartate aminotransferase [Enzymatic activity/volume] in Serum or Plasma 2024-07-08 21:48:24 24 U/L F 0.0-33.0 Alanine aminotransferase [Enzymatic activity/volume] in Serum or Plasma 2024-07-08 21:48:24 17 U/L F 10.0-49.0 Aspartate aminotransferase [Enzymatic activity/volume] in Serum or Plasma 2024-07-08 21:48:24 24 U/L F 0.0-33.0 Chloride [Moles/volume] in Serum or Plasma 2024-06-09 07:06:20 93 mEq/L F 99.0-109.0 Aspartate aminotransferase [Enzymatic activity/volume] in Serum or Plasma 2024-06-08 21:40:30 24 U/L F 0.0-33.0 Alanine aminotransferase [Enzymatic activity/volume] in Serum or Plasma 2024-06-08 21:40:30 17 U/L F 10.0-49.0 Aluminum [Mass/volume] in Serum or Plasma 2024-06-08 17:58:34 10 ug/L F 0.0-9.0 Chloride [Moles/volume] in Serum or Plasma 2024-05-07 04:32:22 96 mEq/L F 99.0-109.0 Alanine aminotransferase [Enzymatic activity/volume] in Serum or Plasma 2024-05-06 17:21:29 15 U/L F 10.0-49.0 Aspartate aminotransferase [Enzymatic activity/volume] in Serum or Plasma 2024-05-06 17:21:29 22 U/L F 0.0-33.0 Aluminum [Mass/volume] in Serum or Plasma 2024-04-27 07:29:24 F Canceled - Specimen not received 30 days past draw date,Source: Chloride [Moles/volume] in Serum or Plasma 2024-04-27 07:29:23 F Canceled - Specimen not received 30 days past draw date Alanine aminotransferase [Enzymatic activity/volume] in Serum or Plasma 2024-04-27 07:29:23 F Canceled - Specimen not received 30 days past draw date Aspartate aminotransferase [Enzymatic activity/volume] in Serum or Plasma 2024-04-27 07:29:23 F Canceled - Specimen not received 30 days past draw date Chloride [Moles/volume] in Serum or Plasma 2024-04-01 04:25:34 89 mEq/L F 99.0-109.0 Alanine aminotransferase [Enzymatic activity/volume] in Serum or Plasma 2024-03-31 22:59:31 17 U/L F 10.0-49.0 Aspartate aminotransferase [Enzymatic activity/volume] in Serum or Plasma 2024-03-31 22:59:31 22 U/L F 0.0-33.0 Alanine aminotransferase [Enzymatic activity/volume] in Serum or Plasma 2024-02-26 07:16:25 F Canceled - Specimen not received 30 days past draw date Chloride [Moles/volume] in Serum or Plasma 2024-02-07 18:57:15 F RECOLLECT - OUTDATED SPECIMEN Chloride [Moles/volume] in Serum or Plasma 2024-02-07 18:57:15 F RECOLLECT - OUTDATED SPECIMEN Alanine aminotransferase [Enzymatic activity/volume] in Serum or Plasma 2024-02-07 15:56:09 F RECOLLECT - OUTDATED SPECIMEN Alanine aminotransferase [Enzymatic activity/volume] in Serum or Plasma 2024-02-07 15:56:09 F RECOLLECT - OUTDATED SPECIMEN Aspartate aminotransferase [Enzymatic activity/volume] in Serum or Plasma 2024-02-07 15:56:08 F RECOLLECT - OUTDATED SPECIMEN Aspartate aminotransferase [Enzymatic activity/volume] in Serum or Plasma 2024-02-07 15:56:08 F RECOLLECT - OUTDATED SPECIMEN Chloride [Moles/volume] in Serum or Plasma 2024-01-08 08:23:54 94 mEq/L F 99.0-109.0 Alanine aminotransferase [Enzymatic activity/volume] in Serum or Plasma 2024-01-08 05:13:50 20 U/L F 10.0-49.0 Aspartate aminotransferase [Enzymatic activity/volume] in Serum or Plasma 2024-01-08 05:13:50 28 U/L F 0.0-33.0 Aluminum [Mass/volume] in Serum or Plasma 2023-12-10 18:00:17 10 ug/L F 0.0-9.0 Aluminum [Mass/volume] in Serum or Plasma 2023-12-10 18:00:17 10 ug/L F 0.0-9.0 Chloride [Moles/volume] in Serum or Plasma 2023-12-10 08:45:16 96 mEq/L F 99.0-109.0 Chloride [Moles/volume] in Serum or Plasma 2023-12-10 08:45:16 96 mEq/L F 99.0-109.0 Alanine aminotransferase [Enzymatic activity/volume] in Serum or Plasma 2023-12-10 08:38:17 16 U/L F 10.0-49.0 Aspartate aminotransferase [Enzymatic activity/volume] in Serum or Plasma 2023-12-10 08:38:17 27 U/L F 0.0-33.0 Alanine aminotransferase [Enzymatic activity/volume] in Serum or Plasma 2023-12-10 08:38:17 16 U/L F 10.0-49.0 Aspartate aminotransferase [Enzymatic activity/volume] in Serum or Plasma 2023-12-10 08:38:17 27 U/L F 0.0-33.0 Chloride [Moles/volume] in Serum or Plasma 2023-11-07 07:23:37 92 mEq/L F 99.0-109.0 Chloride [Moles/volume] in Serum or Plasma 2023-11-07 07:23:37 92 mEq/L F 99.0-109.0 Alanine aminotransferase [Enzymatic activity/volume] in Serum or Plasma 2023-11-07 04:55:26 17 U/L F 10.0-49.0 Aspartate aminotransferase [Enzymatic activity/volume] in Serum or Plasma 2023-11-07 04:55:26 26 U/L F 0.0-33.0 Alanine aminotransferase [Enzymatic activity/volume] in Serum or Plasma 2023-11-07 04:55:26 17 U/L F 10.0-49.0 Aspartate aminotransferase [Enzymatic activity/volume] in Serum or Plasma 2023-11-07 04:55:26 26 U/L F 0.0-33.0 Aluminum [Mass/volume] in Serum or Plasma 2023-07-28 16:37:40 12 ug/L F 0.0-9.0 Chloride [Moles/volume] in Serum or Plasma 2023-07-28 15:22:39 97 mEq/L F 99.0-109.0 Alanine aminotransferase [Enzymatic activity/volume] in Serum or Plasma 2023-07-28 15:22:39 12 U/L F 10.0-49.0 Aspartate aminotransferase [Enzymatic activity/volume] in Serum or Plasma 2023-07-28 15:22:39 24 U/L F 0.0-33.0 Chloride [Moles/volume] in Serum or Plasma Aspartate aminotransferase [Enzymatic activity/volume] in Serum or Plasma Alanine aminotransferase [Enzymatic activity/volume] in Serum or Plasma InfectionVaccination Description Draw Date Result/Unit Status Ref Range Result Comments Leukocytes [#/volume] in Blood by Automated count 2025-05-28 07:23:32 F Canceled - Specimen not received 30 days past draw date,Canceled - Specimen not received 30 days past draw date Lymphocytes/100 leukocytes in Blood by Automated count 2025-05-28 07:23:32 F Canceled - Specimen not received 30 days past draw date,Canceled - Specimen not received 30 days past draw date Eosinophils [#/volume] in Blood by Automated count 2025-05-28 07:23:32 F Canceled - Specimen not received 30 days past draw date,Canceled - Specimen not received 30 days past draw date Eosinophils/100 leukocytes in Blood by Automated count 2025-05-28 07:23:32 F Canceled - Specimen not received 30 days past draw date,Canceled - Specimen not received 30 days past draw date Monocytes/100 leukocytes in Blood by Automated count 2025-05-28 07:23:32 F Canceled - Specimen not received 30 days past draw date,Canceled - Specimen not received 30 days past draw date Lymphocytes [#/volume] in Blood by Automated count 2025-05-28 07:23:32 F Canceled - Specimen not received 30 days past draw date,Canceled - Specimen not received 30 days past draw date Basophils/100 leukocytes in Blood by Automated count 2025-05-28 07:23:32 F Canceled - Specimen not received 30 days past draw date,Canceled - Specimen not received 30 days past draw date Neutrophils/100 leukocytes in Blood by Automated count 2025-05-28 07:23:32 F Canceled - Specimen not received 30 days past draw date,Canceled - Specimen not received 30 days past draw date Neutrophils [#/volume] in Blood by Automated count 2025-05-28 07:23:32 F Canceled - Specimen not received 30 days past draw date,Canceled - Specimen not received 30 days past draw date Basophils [#/volume] in Blood by Automated count 2025-05-28 07:23:32 F Canceled - Specimen not received 30 days past draw date,Canceled - Specimen not received 30 days past draw date Monocytes [#/volume] in Blood by Automated count 2025-05-28 07:23:32 F Canceled - Specimen not received 30 days past draw date,Canceled - Specimen not received 30 days past draw date Basophils/100 leukocytes in Blood by Automated count 2025-05-10 02:52:09 0.4 % F Eosinophils/100 leukocytes in Blood by Automated count 2025-05-10 02:52:09 2 % F Lymphocytes [#/volume] in Blood by Automated count 2025-05-10 02:52:09 2736 Cells/uL F 620.0-3660.0 Basophils [#/volume] in Blood by Automated count 2025-05-10 02:52:09 36 Cells/uL F 0.0-400.0 Neutrophils/100 leukocytes in Blood by Automated count 2025-05-10 02:52:09 61 % F Lymphocytes/100 leukocytes in Blood by Automated count 2025-05-10 02:52:09 30.5 % F Leukocytes [#/volume] in Blood by Automated count 2025-05-10 02:52:09 9 x 10^3 cells/uL F 4.0-11.0 Monocytes/100 leukocytes in Blood by Automated count 2025-05-10 02:52:09 6.1 % F Neutrophils [#/volume] in Blood by Automated count 2025-05-10 02:52:09 5472 Cells/uL F 2000.0-8800.0 Monocytes [#/volume] in Blood by Automated count 2025-05-10 02:52:09 547 Cells/uL F 0.0-1100.0 Eosinophils [#/volume] in Blood by Automated count 2025-05-10 02:52:09 179 Cells/uL F 0.0-700.0 Lymphocytes/100 leukocytes in Blood by Automated count 2025-05-10 02:52:09 30.5 % F Neutrophils/100 leukocytes in Blood by Automated count 2025-05-10 02:52:09 61 % F Monocytes/100 leukocytes in Blood by Automated count 2025-05-10 02:52:09 6.1 % F Basophils/100 leukocytes in Blood by Automated count 2025-05-10 02:52:09 0.4 % F Eosinophils/100 leukocytes in Blood by Automated count 2025-05-10 02:52:09 2 % F Basophils [#/volume] in Blood by Automated count 2025-05-10 02:52:09 36 Cells/uL F 0.0-400.0 Monocytes [#/volume] in Blood by Automated count 2025-05-10 02:52:09 547 Cells/uL F 0.0-1100.0 Eosinophils [#/volume] in Blood by Automated count 2025-05-10 02:52:09 179 Cells/uL F 0.0-700.0 Neutrophils [#/volume] in Blood by Automated count 2025-05-10 02:52:09 5472 Cells/uL F 2000.0-8800.0 Leukocytes [#/volume] in Blood by Automated count 2025-05-10 02:52:09 9 x 10^3 cells/uL F 4.0-11.0 Lymphocytes [#/volume] in Blood by Automated count 2025-05-10 02:52:09 2736 Cells/uL F 620.0-3660.0 Basophils [#/volume] in Blood by Automated count 2025-04-06 22:50:20 25 Cells/uL F 0.0-400.0 Leukocytes [#/volume] in Blood by Automated count 2025-04-06 22:50:20 8.4 x 10^3 cells/uL F 4.0-11.0 Leukocytes [#/volume] in Blood by Automated count 2025-04-06 22:50:20 8.4 x 10^3 cells/uL F 4.0-11.0 Basophils [#/volume] in Blood by Automated count 2025-04-06 22:50:20 25 Cells/uL F 0.0-400.0 Basophils/100 leukocytes in Blood by Automated count 2025-04-06 22:50:18 0.3 % F Neutrophils/100 leukocytes in Blood by Automated count 2025-04-06 22:50:18 66.4 % F Eosinophils/100 leukocytes in Blood by Automated count 2025-04-06 22:50:18 1.4 % F Monocytes/100 leukocytes in Blood by Automated count 2025-04-06 22:50:18 7.1 % F Lymphocytes/100 leukocytes in Blood by Automated count 2025-04-06 22:50:18 24.9 % F Monocytes [#/volume] in Blood by Automated count 2025-04-06 22:50:18 594 Cells/uL F 0.0-1100.0 Eosinophils [#/volume] in Blood by Automated count 2025-04-06 22:50:18 117 Cells/uL F 0.0-700.0 Neutrophils [#/volume] in Blood by Automated count 2025-04-06 22:50:18 5551 Cells/uL F 2000.0-8800.0 Lymphocytes [#/volume] in Blood by Automated count 2025-04-06 22:50:18 2082 Cells/uL F 620.0-3660.0 Neutrophils/100 leukocytes in Blood by Automated count 2025-04-06 22:50:18 66.4 % F Basophils/100 leukocytes in Blood by Automated count 2025-04-06 22:50:18 0.3 % F Lymphocytes/100 leukocytes in Blood by Automated count 2025-04-06 22:50:18 24.9 % F Monocytes/100 leukocytes in Blood by Automated count 2025-04-06 22:50:18 7.1 % F Eosinophils/100 leukocytes in Blood by Automated count 2025-04-06 22:50:18 1.4 % F Neutrophils [#/volume] in Blood by Automated count 2025-04-06 22:50:18 5551 Cells/uL F 2000.0-8800.0 Lymphocytes [#/volume] in Blood by Automated count 2025-04-06 22:50:18 2082 Cells/uL F 620.0-3660.0 Monocytes [#/volume] in Blood by Automated count 2025-04-06 22:50:18 594 Cells/uL F 0.0-1100.0 Eosinophils [#/volume] in Blood by Automated count 2025-04-06 22:50:18 117 Cells/uL F 0.0-700.0 Neutrophils/100 leukocytes in Blood by Automated count 2025 17:13:11 54 % F Basophils/100 leukocytes in Blood by Automated count 2025 17:13:11 0.3 % F Lymphocytes/100 leukocytes in Blood by Automated count 2025 17:13:11 36.4 % F Eosinophils/100 leukocytes in Blood by Automated count 2025 17:13:11 0.8 % F Monocytes/100 leukocytes in Blood by Automated count 2025 17:13:11 8.6 % F Leukocytes [#/volume] in Blood by Automated count 2025 17:13:11 9.9 x 10^3 cells/uL F 4.0-11.0 Monocytes [#/volume] in Blood by Automated count 2025 17:13:11 854 Cells/uL F 0.0-1100.0 Neutrophils [#/volume] in Blood by Automated count 2025 17:13:11 5362 Cells/uL F 2000.0-8800.0 Lymphocytes [#/volume] in Blood by Automated count 2025 17:13:11 3615 Cells/uL F 620.0-3660.0 Basophils [#/volume] in Blood by Automated count 2025 17:13:11 30 Cells/uL F 0.0-400.0 Eosinophils [#/volume] in Blood by Automated count 2025 17:13:11 79 Cells/uL F 0.0-700.0 Lymphocytes/100 leukocytes in Blood by Automated count 2025 17:13:11 36.4 % F Eosinophils/100 leukocytes in Blood by Automated count 2025 17:13:11 0.8 % F Lymphocytes [#/volume] in Blood by Automated count 2025 17:13:11 3615 Cells/uL F 620.0-3660.0 Basophils [#/volume] in Blood by Automated count 2025 17:13:11 30 Cells/uL F 0.0-400.0 Eosinophils [#/volume] in Blood by Automated count 2025 17:13:11 79 Cells/uL F 0.0-700.0 Basophils/100 leukocytes in Blood by Automated count 2025 17:13:11 0.3 % F Neutrophils/100 leukocytes in Blood by Automated count 2025 17:13:11 54 % F Leukocytes [#/volume] in Blood by Automated count 2025 17:13:11 9.9 x 10^3 cells/uL F 4.0-11.0 Monocytes/100 leukocytes in Blood by Automated count 2025 17:13:11 8.6 % F Neutrophils [#/volume] in Blood by Automated count 2025 17:13:11 5362 Cells/uL F 2000.0-8800.0 Monocytes [#/volume] in Blood by Automated count 2025 17:13:11 854 Cells/uL F 0.0-1100.0 Basophils/100 leukocytes in Blood by Automated count 2025-02-08 18:22:14 0.4 % F Lymphocytes/100 leukocytes in Blood by Automated count 2025-02-08 18:22:14 24.6 % F Neutrophils/100 leukocytes in Blood by Automated count 2025-02-08 18:22:14 67 % F Leukocytes [#/volume] in Blood by Automated count 2025-02-08 18:22:14 12.3 x 10^3 cells/uL F 4.0-11.0 Eosinophils/100 leukocytes in Blood by Automated count 2025-02-08 18:22:14 0.5 % F Monocytes/100 leukocytes in Blood by Automated count 2025-02-08 18:22:14 7.5 % F Neutrophils [#/volume] in Blood by Automated count 2025-02-08 18:22:14 8268 Cells/uL F 2000.0-8800.0 Lymphocytes [#/volume] in Blood by Automated count 2025-02-08 18:22:14 3036 Cells/uL F 620.0-3660.0 Basophils [#/volume] in Blood by Automated count 2025-02-08 18:22:14 49 Cells/uL F 0.0-400.0 Monocytes [#/volume] in Blood by Automated count 2025-02-08 18:22:14 926 Cells/uL F 0.0-1100.0 Eosinophils [#/volume] in Blood by Automated count 2025-02-08 18:22:14 62 Cells/uL F 0.0-700.0 Basophils/100 leukocytes in Blood by Automated count 2025-01-03 20:14:11 0.3 % F Lymphocytes/100 leukocytes in Blood by Automated count 2025-01-03 20:14:11 27.6 % F Monocytes/100 leukocytes in Blood by Automated count 2025-01-03 20:14:11 6.1 % F Neutrophils/100 leukocytes in Blood by Automated count 2025-01-03 20:14:11 64.7 % F Eosinophils/100 leukocytes in Blood by Automated count 2025-01-03 20:14:11 1.3 % F Leukocytes [#/volume] in Blood by Automated count 2025-01-03 20:14:11 8.2 x 10^3 cells/uL F 4.0-11.0 Neutrophils [#/volume] in Blood by Automated count 2025-01-03 20:14:11 5305 Cells/uL F 2000.0-8800.0 Monocytes [#/volume] in Blood by Automated count 2025-01-03 20:14:11 500 Cells/uL F 0.0-1100.0 Basophils [#/volume] in Blood by Automated count 2025-01-03 20:14:11 25 Cells/uL F 0.0-400.0 Lymphocytes [#/volume] in Blood by Automated count 2025-01-03 20:14:11 2263 Cells/uL F 620.0-3660.0 Eosinophils [#/volume] in Blood by Automated count 2025-01-03 20:14:11 107 Cells/uL F 0.0-700.0 Basophils/100 leukocytes in Blood by Automated count 2024-12-13 23:49:09 0.7 % F Neutrophils/100 leukocytes in Blood by Automated count 2024-12-13 23:49:09 68.4 % F Lymphocytes/100 leukocytes in Blood by Automated count 2024-12-13 23:49:09 22.8 % F Monocytes/100 leukocytes in Blood by Automated count 2024-12-13 23:49:09 6.6 % F Eosinophils/100 leukocytes in Blood by Automated count 2024-12-13 23:49:09 1.4 % F Leukocytes [#/volume] in Blood by Automated count 2024-12-13 23:49:09 8.6 x 10^3 cells/uL F 4.0-11.0 Neutrophils [#/volume] in Blood by Automated count 2024-12-13 23:49:09 5862 Cells/uL F 2000.0-8800.0 Lymphocytes [#/volume] in Blood by Automated count 2024-12-13 23:49:09 1954 Cells/uL F 620.0-3660.0 Monocytes [#/volume] in Blood by Automated count 2024-12-13 23:49:09 566 Cells/uL F 0.0-1100.0 Basophils [#/volume] in Blood by Automated count 2024-12-13 23:49:09 60 Cells/uL F 0.0-400.0 Eosinophils [#/volume] in Blood by Automated count 2024-12-13 23:49:09 120 Cells/uL F 0.0-700.0 Neutrophils/100 leukocytes in Blood by Automated count 2024-12-13 23:49:09 68.4 % F Basophils/100 leukocytes in Blood by Automated count 2024-12-13 23:49:09 0.7 % F Lymphocytes/100 leukocytes in Blood by Automated count 2024-12-13 23:49:09 22.8 % F Monocytes/100 leukocytes in Blood by Automated count 2024-12-13 23:49:09 6.6 % F Eosinophils/100 leukocytes in Blood by Automated count 2024-12-13 23:49:09 1.4 % F Leukocytes [#/volume] in Blood by Automated count 2024-12-13 23:49:09 8.6 x 10^3 cells/uL F 4.0-11.0 Lymphocytes [#/volume] in Blood by Automated count 2024-12-13 23:49:09 1954 Cells/uL F 620.0-3660.0 Neutrophils [#/volume] in Blood by Automated count 2024-12-13 23:49:09 5862 Cells/uL F 2000.0-8800.0 Monocytes [#/volume] in Blood by Automated count 2024-12-13 23:49:09 566 Cells/uL F 0.0-1100.0 Basophils [#/volume] in Blood by Automated count 2024-12-13 23:49:09 60 Cells/uL F 0.0-400.0 Eosinophils [#/volume] in Blood by Automated count 2024-12-13 23:49:09 120 Cells/uL F 0.0-700.0 Basophils/100 leukocytes in Blood by Automated count 2024-08-31 18:41:09 0.3 % F Neutrophils/100 leukocytes in Blood by Automated count 2024-08-31 18:41:09 58.8 % F Monocytes/100 leukocytes in Blood by Automated count 2024-08-31 18:41:09 7.8 % F Lymphocytes/100 leukocytes in Blood by Automated count 2024-08-31 18:41:09 32.3 % F Eosinophils/100 leukocytes in Blood by Automated count 2024-08-31 18:41:09 0.8 % F Leukocytes [#/volume] in Blood by Automated count 2024-08-31 18:41:09 9.5 x 10^3 cells/uL F 4.0-11.0 Neutrophils [#/volume] in Blood by Automated count 2024-08-31 18:41:09 5592 Cell/uL F 2000.0-8800.0 Lymphocytes [#/volume] in Blood by Automated count 2024-08-31 18:41:09 3072 Cell/uL F 620.0-3660.0 Monocytes [#/volume] in Blood by Automated count 2024-08-31 18:41:09 742 Cell/uL F 0.0-1100.0 Eosinophils [#/volume] in Blood by Automated count 2024-08-31 18:41:09 76 Cell/uL F 0.0-700.0 Basophils [#/volume] in Blood by Automated count 2024-08-31 18:41:09 29 Cell/uL F 0.0-400.0 Basophils/100 leukocytes in Blood by Automated count 2024-08-13 16:16:49 0.5 % F Neutrophils/100 leukocytes in Blood by Automated count 2024-08-13 16:16:49 57.3 % F Monocytes/100 leukocytes in Blood by Automated count 2024-08-13 16:16:49 5.8 % F Lymphocytes/100 leukocytes in Blood by Automated count 2024-08-13 16:16:49 32.9 % F Leukocytes [#/volume] in Blood by Automated count 2024-08-13 16:16:49 7.4 x 10^3 cells/uL F 4.0-11.0 Eosinophils/100 leukocytes in Blood by Automated count 2024-08-13 16:16:49 3.5 % F Neutrophils [#/volume] in Blood by Automated count 2024-08-13 16:16:49 4269 Cell/uL F 2000.0-8800.0 Lymphocytes [#/volume] in Blood by Automated count 2024-08-13 16:16:49 2451 Cell/uL F 620.0-3660.0 Basophils [#/volume] in Blood by Automated count 2024-08-13 16:16:49 37 Cell/uL F 0.0-400.0 Eosinophils [#/volume] in Blood by Automated count 2024-08-13 16:16:49 261 Cell/uL F 0.0-700.0 Monocytes [#/volume] in Blood by Automated count 2024-08-13 16:16:49 432 Cell/uL F 0.0-1100.0 Basophils/100 leukocytes in Blood by Automated count 2024-08-13 16:16:49 0.5 % F Neutrophils/100 leukocytes in Blood by Automated count 2024-08-13 16:16:49 57.3 % F Lymphocytes/100 leukocytes in Blood by Automated count 2024-08-13 16:16:49 32.9 % F Monocytes/100 leukocytes in Blood by Automated count 2024-08-13 16:16:49 5.8 % F Eosinophils/100 leukocytes in Blood by Automated count 2024-08-13 16:16:49 3.5 % F Leukocytes [#/volume] in Blood by Automated count 2024-08-13 16:16:49 7.4 x 10^3 cells/uL F 4.0-11.0 Neutrophils [#/volume] in Blood by Automated count 2024-08-13 16:16:49 4269 Cell/uL F 2000.0-8800.0 Lymphocytes [#/volume] in Blood by Automated count 2024-08-13 16:16:49 2451 Cell/uL F 620.0-3660.0 Basophils [#/volume] in Blood by Automated count 2024-08-13 16:16:49 37 Cell/uL F 0.0-400.0 Monocytes [#/volume] in Blood by Automated count 2024-08-13 16:16:49 432 Cell/uL F 0.0-1100.0 Eosinophils [#/volume] in Blood by Automated count 2024-08-13 16:16:49 261 Cell/uL F 0.0-700.0 Neutrophils/100 leukocytes in Blood by Automated count 2024-07-08 22:44:30 61.8 % F Basophils/100 leukocytes in Blood by Automated count 2024-07-08 22:44:30 0.5 % F Eosinophils/100 leukocytes in Blood by Automated count 2024-07-08 22:44:30 1.1 % F Lymphocytes/100 leukocytes in Blood by Automated count 2024-07-08 22:44:30 31 % F Monocytes/100 leukocytes in Blood by Automated count 2024-07-08 22:44:30 5.6 % F Leukocytes [#/volume] in Blood by Automated count 2024-07-08 22:44:30 10.3 x 10^3 cells/uL F 4.0-11.0 Lymphocytes [#/volume] in Blood by Automated count 2024-07-08 22:44:30 3199 Cell/uL F 620.0-3660.0 Neutrophils [#/volume] in Blood by Automated count 2024-07-08 22:44:30 6378 Cell/uL F 2000.0-8800.0 Basophils [#/volume] in Blood by Automated count 2024-07-08 22:44:30 52 Cell/uL F 0.0-400.0 Monocytes [#/volume] in Blood by Automated count 2024-07-08 22:44:30 578 Cell/uL F 0.0-1100.0 Eosinophils [#/volume] in Blood by Automated count 2024-07-08 22:44:30 114 Cell/uL F 0.0-700.0 Basophils/100 leukocytes in Blood by Automated count 2024-07-08 22:44:30 0.5 % F Neutrophils/100 leukocytes in Blood by Automated count 2024-07-08 22:44:30 61.8 % F Lymphocytes/100 leukocytes in Blood by Automated count 2024-07-08 22:44:30 31 % F Eosinophils/100 leukocytes in Blood by Automated count 2024-07-08 22:44:30 1.1 % F Monocytes/100 leukocytes in Blood by Automated count 2024-07-08 22:44:30 5.6 % F Leukocytes [#/volume] in Blood by Automated count 2024-07-08 22:44:30 10.3 x 10^3 cells/uL F 4.0-11.0 Neutrophils [#/volume] in Blood by Automated count 2024-07-08 22:44:30 6378 Cell/uL F 2000.0-8800.0 Lymphocytes [#/volume] in Blood by Automated count 2024-07-08 22:44:30 3199 Cell/uL F 620.0-3660.0 Basophils [#/volume] in Blood by Automated count 2024-07-08 22:44:30 52 Cell/uL F 0.0-400.0 Monocytes [#/volume] in Blood by Automated count 2024-07-08 22:44:30 578 Cell/uL F 0.0-1100.0 Eosinophils [#/volume] in Blood by Automated count 2024-07-08 22:44:30 114 Cell/uL F 0.0-700.0 Basophils/100 leukocytes in Blood by Automated count 2024-06-09 02:53:28 0.6 % F Monocytes/100 leukocytes in Blood by Automated count 2024-06-09 02:53:28 6.8 % F Neutrophils/100 leukocytes in Blood by Automated count 2024-06-09 02:53:28 52.6 % F Lymphocytes/100 leukocytes in Blood by Automated count 2024-06-09 02:53:28 36.6 % F Eosinophils/100 leukocytes in Blood by Automated count 2024-06-09 02:53:28 3.5 % F Leukocytes [#/volume] in Blood by Automated count 2024-06-09 02:53:28 8.6 x 10^3 cells/uL F 4.0-11.0 Neutrophils [#/volume] in Blood by Automated count 2024-06-09 02:53:28 4503 Cell/uL F 2000.0-8800.0 Lymphocytes [#/volume] in Blood by Automated count 2024-06-09 02:53:28 3133 Cell/uL F 620.0-3660.0 Monocytes [#/volume] in Blood by Automated count 2024-06-09 02:53:28 582 Cell/uL F 0.0-1100.0 Eosinophils [#/volume] in Blood by Automated count 2024-06-09 02:53:28 300 Cell/uL F 0.0-700.0 Basophils [#/volume] in Blood by Automated count 2024-06-09 02:53:28 51 Cell/uL F 0.0-400.0 Basophils/100 leukocytes in Blood by Automated count 2024-05-07 02:59:31 0.7 % F Neutrophils/100 leukocytes in Blood by Automated count 2024-05-07 02:59:31 51.2 % F Lymphocytes/100 leukocytes in Blood by Automated count 2024-05-07 02:59:31 39 % F Monocytes/100 leukocytes in Blood by Automated count 2024-05-07 02:59:31 6.2 % F Eosinophils/100 leukocytes in Blood by Automated count 2024-05-07 02:59:31 2.9 % F Leukocytes [#/volume] in Blood by Automated count 2024-05-07 02:59:31 5.5 x 10^3 cells/uL F 4.0-11.0 Neutrophils [#/volume] in Blood by Automated count 2024-05-07 02:59:31 2796 Cell/uL F 2000.0-8800.0 Lymphocytes [#/volume] in Blood by Automated count 2024-05-07 02:59:31 2129 Cell/uL F 620.0-3660.0 Basophils [#/volume] in Blood by Automated count 2024-05-07 02:59:31 38 Cell/uL F 0.0-400.0 Eosinophils [#/volume] in Blood by Automated count 2024-05-07 02:59:31 158 Cell/uL F 0.0-700.0 Monocytes [#/volume] in Blood by Automated count 2024-05-07 02:59:31 339 Cell/uL F 0.0-1100.0 Eosinophils/100 leukocytes in Blood by Automated count 2024-04-27 07:29:24 F Canceled - Specimen not received 30 days past draw date Leukocytes [#/volume] in Blood by Automated count 2024-04-27 07:29:24 F Canceled - Specimen not received 30 days past draw date Monocytes/100 leukocytes in Blood by Automated count 2024-04-27 07:29:24 F Canceled - Specimen not received 30 days past draw date Monocytes [#/volume] in Blood by Automated count 2024-04-27 07:29:24 F Canceled - Specimen not received 30 days past draw date Lymphocytes [#/volume] in Blood by Automated count 2024-04-27 07:29:24 F Canceled - Specimen not received 30 days past draw date Neutrophils [#/volume] in Blood by Automated count 2024-04-27 07:29:24 F Canceled - Specimen not received 30 days past draw date Basophils [#/volume] in Blood by Automated count 2024-04-27 07:29:24 F Canceled - Specimen not received 30 days past draw date Eosinophils [#/volume] in Blood by Automated count 2024-04-27 07:29:24 F Canceled - Specimen not received 30 days past draw date Basophils/100 leukocytes in Blood by Automated count 2024-04-27 07:29:23 F Canceled - Specimen not received 30 days past draw date Neutrophils/100 leukocytes in Blood by Automated count 2024-04-27 07:29:23 F Canceled - Specimen not received 30 days past draw date Lymphocytes/100 leukocytes in Blood by Automated count 2024-04-27 07:29:23 F Canceled - Specimen not received 30 days past draw date Neutrophils/100 leukocytes in Blood by Automated count 2024-03-31 19:45:26 60.6 % F Lymphocytes/100 leukocytes in Blood by Automated count 2024-03-31 19:45:26 30.6 % F Basophils/100 leukocytes in Blood by Automated count 2024-03-31 19:45:26 0.6 % F Monocytes/100 leukocytes in Blood by Automated count 2024-03-31 19:45:26 6.4 % F Eosinophils/100 leukocytes in Blood by Automated count 2024-03-31 19:45:26 1.9 % F Leukocytes [#/volume] in Blood by Automated count 2024-03-31 19:45:26 9.3 x 10^3 cells/uL F 4.0-11.0 Neutrophils [#/volume] in Blood by Automated count 2024-03-31 19:45:26 5630 Cell/uL F 2000.0-8800.0 Lymphocytes [#/volume] in Blood by Automated count 2024-03-31 19:45:26 2843 Cell/uL F 620.0-3660.0 Monocytes [#/volume] in Blood by Automated count 2024-03-31 19:45:26 595 Cell/uL F 0.0-1100.0 Basophils [#/volume] in Blood by Automated count 2024-03-31 19:45:26 56 Cell/uL F 0.0-400.0 Eosinophils [#/volume] in Blood by Automated count 2024-03-31 19:45:26 177 Cell/uL F 0.0-700.0 Basophils/100 leukocytes in Blood by Automated count 2024-02-26 07:16:25 F Canceled - Specimen not received 30 days past draw date Lymphocytes/100 leukocytes in Blood by Automated count 2024-02-26 07:16:25 F Canceled - Specimen not received 30 days past draw date Monocytes/100 leukocytes in Blood by Automated count 2024-02-26 07:16:25 F Canceled - Specimen not received 30 days past draw date Neutrophils/100 leukocytes in Blood by Automated count 2024-02-26 07:16:25 F Canceled - Specimen not received 30 days past draw date Eosinophils/100 leukocytes in Blood by Automated count 2024-02-26 07:16:25 F Canceled - Specimen not received 30 days past draw date Leukocytes [#/volume] in Blood by Automated count 2024-02-26 07:16:25 F Canceled - Specimen not received 30 days past draw date Neutrophils [#/volume] in Blood by Automated count 2024-02-26 07:16:25 F Canceled - Specimen not received 30 days past draw date Lymphocytes [#/volume] in Blood by Automated count 2024-02-26 07:16:25 F Canceled - Specimen not received 30 days past draw date Basophils [#/volume] in Blood by Automated count 2024-02-26 07:16:25 F Canceled - Specimen not received 30 days past draw date Eosinophils [#/volume] in Blood by Automated count 2024-02-26 07:16:25 F Canceled - Specimen not received 30 days past draw date Monocytes [#/volume] in Blood by Automated count 2024-02-26 07:16:25 F Canceled - Specimen not received 30 days past draw date Neutrophils/100 leukocytes in Blood by Automated count 2024-02-06 03:59:34 60.9 % F Basophils/100 leukocytes in Blood by Automated count 2024-02-06 03:59:34 0.8 % F Monocytes/100 leukocytes in Blood by Automated count 2024-02-06 03:59:34 5.6 % F Lymphocytes/100 leukocytes in Blood by Automated count 2024-02-06 03:59:34 30.3 % F Leukocytes [#/volume] in Blood by Automated count 2024-02-06 03:59:34 7.6 x 10^3 cells/uL F 4.0-11.0 Eosinophils/100 leukocytes in Blood by Automated count 2024-02-06 03:59:34 2.3 % F Lymphocytes [#/volume] in Blood by Automated count 2024-02-06 03:59:34 2303 Cell/uL F 620.0-3660.0 Monocytes [#/volume] in Blood by Automated count 2024-02-06 03:59:34 426 Cell/uL F 0.0-1100.0 Neutrophils [#/volume] in Blood by Automated count 2024-02-06 03:59:34 4628 Cell/uL F 2000.0-8800.0 Basophils [#/volume] in Blood by Automated count 2024-02-06 03:59:34 61 Cell/uL F 0.0-400.0 Eosinophils [#/volume] in Blood by Automated count 2024-02-06 03:59:34 175 Cell/uL F 0.0-700.0 Basophils/100 leukocytes in Blood by Automated count 2024-02-06 03:59:34 0.8 % F Neutrophils/100 leukocytes in Blood by Automated count 2024-02-06 03:59:34 60.9 % F Monocytes/100 leukocytes in Blood by Automated count 2024-02-06 03:59:34 5.6 % F Eosinophils/100 leukocytes in Blood by Automated count 2024-02-06 03:59:34 2.3 % F Lymphocytes/100 leukocytes in Blood by Automated count 2024-02-06 03:59:34 30.3 % F Leukocytes [#/volume] in Blood by Automated count 2024-02-06 03:59:34 7.6 x 10^3 cells/uL F 4.0-11.0 Neutrophils [#/volume] in Blood by Automated count 2024-02-06 03:59:34 4628 Cell/uL F 2000.0-8800.0 Monocytes [#/volume] in Blood by Automated count 2024-02-06 03:59:34 426 Cell/uL F 0.0-1100.0 Lymphocytes [#/volume] in Blood by Automated count 2024-02-06 03:59:34 2303 Cell/uL F 620.0-3660.0 Basophils [#/volume] in Blood by Automated count 2024-02-06 03:59:34 61 Cell/uL F 0.0-400.0 Eosinophils [#/volume] in Blood by Automated count 2024-02-06 03:59:34 175 Cell/uL F 0.0-700.0 Lymphocytes/100 leukocytes in Blood by Automated count 2024-01-08 01:43:46 33.4 % F Lymphocytes [#/volume] in Blood by Automated count 2024-01-08 01:43:46 2492 Cell/uL F 620.0-3660.0 Basophils/100 leukocytes in Blood by Automated count 2024-01-08 01:43:43 0.7 % F Neutrophils/100 leukocytes in Blood by Automated count 2024-01-08 01:43:43 56.9 % F Eosinophils/100 leukocytes in Blood by Automated count 2024-01-08 01:43:43 1.4 % F Leukocytes [#/volume] in Blood by Automated count 2024-01-08 01:43:43 7.5 x 10^3 cells/uL F 4.0-11.0 Neutrophils [#/volume] in Blood by Automated count 2024-01-08 01:43:43 4245 Cell/uL F 2000.0-8800.0 Monocytes [#/volume] in Blood by Automated count 2024-01-08 01:43:43 567 Cell/uL F 0.0-1100.0 Basophils [#/volume] in Blood by Automated count 2024-01-08 01:43:43 52 Cell/uL F 0.0-400.0 Eosinophils [#/volume] in Blood by Automated count 2024-01-08 01:43:43 104 Cell/uL F 0.0-700.0 Monocytes/100 leukocytes in Blood by Automated count 2024-01-08 01:43:36 7.6 % F Basophils/100 leukocytes in Blood by Automated count 2023-12-10 05:04:40 0.5 % F Neutrophils/100 leukocytes in Blood by Automated count 2023-12-10 05:04:40 51.9 % F Monocytes/100 leukocytes in Blood by Automated count 2023-12-10 05:04:40 7 % F Lymphocytes/100 leukocytes in Blood by Automated count 2023-12-10 05:04:40 38.7 % F Eosinophils/100 leukocytes in Blood by Automated count 2023-12-10 05:04:40 1.8 % F Leukocytes [#/volume] in Blood by Automated count 2023-12-10 05:04:40 7.4 x 10^3 cells/uL F 4.0-11.0 Neutrophils [#/volume] in Blood by Automated count 2023-12-10 05:04:40 3815 Cell/uL F 2000.0-8800.0 Lymphocytes [#/volume] in Blood by Automated count 2023-12-10 05:04:40 2844 Cell/uL F 620.0-3660.0 Monocytes [#/volume] in Blood by Automated count 2023-12-10 05:04:40 514 Cell/uL F 0.0-1100.0 Basophils [#/volume] in Blood by Automated count 2023-12-10 05:04:40 37 Cell/uL F 0.0-400.0 Eosinophils [#/volume] in Blood by Automated count 2023-12-10 05:04:40 132 Cell/uL F 0.0-700.0 Basophils/100 leukocytes in Blood by Automated count 2023-12-10 05:04:40 0.5 % F Neutrophils/100 leukocytes in Blood by Automated count 2023-12-10 05:04:40 51.9 % F Eosinophils/100 leukocytes in Blood by Automated count 2023-12-10 05:04:40 1.8 % F Monocytes/100 leukocytes in Blood by Automated count 2023-12-10 05:04:40 7 % F Lymphocytes/100 leukocytes in Blood by Automated count 2023-12-10 05:04:40 38.7 % F Leukocytes [#/volume] in Blood by Automated count 2023-12-10 05:04:40 7.4 x 10^3 cells/uL F 4.0-11.0 Neutrophils [#/volume] in Blood by Automated count 2023-12-10 05:04:40 3815 Cell/uL F 2000.0-8800.0 Lymphocytes [#/volume] in Blood by Automated count 2023-12-10 05:04:40 2844 Cell/uL F 620.0-3660.0 Monocytes [#/volume] in Blood by Automated count 2023-12-10 05:04:40 514 Cell/uL F 0.0-1100.0 Basophils [#/volume] in Blood by Automated count 2023-12-10 05:04:40 37 Cell/uL F 0.0-400.0 Eosinophils [#/volume] in Blood by Automated count 2023-12-10 05:04:40 132 Cell/uL F 0.0-700.0 Basophils/100 leukocytes in Blood by Automated count 2023-11-06 20:51:32 0.5 % F Neutrophils/100 leukocytes in Blood by Automated count 2023-11-06 20:51:32 54.6 % F Lymphocytes/100 leukocytes in Blood by Automated count 2023-11-06 20:51:32 37.4 % F Monocytes/100 leukocytes in Blood by Automated count 2023-11-06 20:51:32 6 % F Leukocytes [#/volume] in Blood by Automated count 2023-11-06 20:51:32 9.8 x 10^3 cells/uL F 4.0-11.0 Eosinophils/100 leukocytes in Blood by Automated count 2023-11-06 20:51:32 1.6 % F Neutrophils [#/volume] in Blood by Automated count 2023-11-06 20:51:32 5367 Cell/uL F 2000.0-8800.0 Lymphocytes [#/volume] in Blood by Automated count 2023-11-06 20:51:32 3676 Cell/uL F 620.0-3660.0 Monocytes [#/volume] in Blood by Automated count 2023-11-06 20:51:32 590 Cell/uL F 0.0-1100.0 Basophils [#/volume] in Blood by Automated count 2023-11-06 20:51:32 49 Cell/uL F 0.0-400.0 Eosinophils [#/volume] in Blood by Automated count 2023-11-06 20:51:32 157 Cell/uL F 0.0-700.0 Basophils/100 leukocytes in Blood by Automated count 2023-11-06 20:51:32 0.5 % F Neutrophils/100 leukocytes in Blood by Automated count 2023-11-06 20:51:32 54.6 % F Lymphocytes/100 leukocytes in Blood by Automated count 2023-11-06 20:51:32 37.4 % F Eosinophils/100 leukocytes in Blood by Automated count 2023-11-06 20:51:32 1.6 % F Monocytes/100 leukocytes in Blood by Automated count 2023-11-06 20:51:32 6 % F Leukocytes [#/volume] in Blood by Automated count 2023-11-06 20:51:32 9.8 x 10^3 cells/uL F 4.0-11.0 Basophils [#/volume] in Blood by Automated count 2023-11-06 20:51:32 49 Cell/uL F 0.0-400.0 Neutrophils [#/volume] in Blood by Automated count 2023-11-06 20:51:32 5367 Cell/uL F 2000.0-8800.0 Lymphocytes [#/volume] in Blood by Automated count 2023-11-06 20:51:32 3676 Cell/uL F 620.0-3660.0 Monocytes [#/volume] in Blood by Automated count 2023-11-06 20:51:32 590 Cell/uL F 0.0-1100.0 Eosinophils [#/volume] in Blood by Automated count 2023-11-06 20:51:32 157 Cell/uL F 0.0-700.0 Basophils/100 leukocytes in Blood by Automated count 2023-07-28 17:20:43 0.4 % F Neutrophils/100 leukocytes in Blood by Automated count 2023-07-28 17:20:43 63.5 % F Lymphocytes/100 leukocytes in Blood by Automated count 2023-07-28 17:20:43 28.1 % F Monocytes/100 leukocytes in Blood by Automated count 2023-07-28 17:20:43 5.8 % F Eosinophils/100 leukocytes in Blood by Automated count 2023-07-28 17:20:43 2.1 % F Leukocytes [#/volume] in Blood by Automated count 2023-07-28 17:20:43 8.3 x 10^3 cells/uL F 4.0-11.0 Neutrophils [#/volume] in Blood by Automated count 2023-07-28 17:20:43 5245 Cell/uL F 2000.0-8800.0 Lymphocytes [#/volume] in Blood by Automated count 2023-07-28 17:20:43 2321 Cell/uL F 620.0-3660.0 Monocytes [#/volume] in Blood by Automated count 2023-07-28 17:20:43 479 Cell/uL F 0.0-1100.0 Basophils [#/volume] in Blood by Automated count 2023-07-28 17:20:43 33 Cell/uL F 0.0-400.0 Eosinophils [#/volume] in Blood by Automated count 2023-07-28 17:20:43 173 Cell/uL F 0.0-700.0 Leukocytes [#/volume] in Blood by Automated count Basophils [#/volume] in Blood by Automated count Eosinophils/100 leukocytes in Blood by Automated count Monocytes/100 leukocytes in Blood by Automated count Basophils/100 leukocytes in Blood by Automated count Lymphocytes [#/volume] in Blood by Automated count Monocytes [#/volume] in Blood by Automated count Neutrophils/100 leukocytes in Blood by Automated count Neutrophils [#/volume] in Blood by Automated count Eosinophils [#/volume] in Blood by Automated count Lymphocytes/100 leukocytes in Blood by Automated count MineralBone Disorder Description Draw Date Result/Unit Status Ref Range Result Comments CA*PO4 CORRCTD 2025-05-28 07:38:19 F Unable to Calculate.,Canceled - Specimen not received 30 days past draw date,Canceled - Specimen not received 30 days past draw date CA/PHOS PRODUCT 2025-05-28 07:38:19 F Unable to Calculate.,Canceled - Specimen not received 30 days past draw date,Canceled - Specimen not received 30 days past draw date Parathyrin.intact [Mass/volume] in Serum or Plasma 2025-05-28 07:23:32 F Canceled - Speci men not received 30 days past draw date,Canceled - Specimen not received 30 days past draw date Phosphate [Mass/volume] in Serum or Plasma 2025-05-28 07:23:32 F Canceled - Speci men not received 30 days past draw date,Canceled - Specimen not received 30 days past draw date Calcium [Mass/volume] in Serum or Plasma 2025-05-28 07:23:32 F Canceled - Speci men not received 30 days past draw date,Canceled - Specimen not received 30 days past draw date Alkaline phosphatase [Enzymatic activity/volume] in Serum or Plasma 2025-05-28 07:23:32 F Canceled - Speci men not received 30 days past draw date,Canceled - Specimen not received 30 days past draw date CA CORRECTED 2025-05-11 17:54:11 9 mg/dL F CA CORRECTED 2025-05-11 17:54:11 9 mg/dL F CA/PHOS PRODUCT 2025-05-11 17:53:18 35.1 Calc F 21.0-53.0 CA*PO4 CORRCTD 2025-05-11 17:53:18 35.1 Calc F 21.0-53.0 CA*PO4 CORRCTD 2025-05-11 17:53:18 35.1 Calc F 21.0-53.0 CA/PHOS PRODUCT 2025-05-11 17:53:18 35.1 Calc F 21.0-53.0 Calcium [Mass/volume] in Serum or Plasma 2025-05-10 07:30:14 9 mg/dL F 8.7-10.4 Calcium [Mass/volume] in Serum or Plasma 2025-05-10 07:30:14 9 mg/dL F 8.7-10.4 Alkaline phosphatase [Enzymatic activity/volume] in Serum or Plasma 2025-05-10 03:03:16 91 U/L F 46.0-116.0 Phosphate [Mass/volume] in Serum or Plasma 2025-05-10 03:03:16 3.9 mg/dL F 2.4-5.1 Phosphate [Mass/volume] in Serum or Plasma 2025-05-10 03:03:16 3.9 mg/dL F 2.4-5.1 Alkaline phosphatase [Enzymatic activity/volume] in Serum or Plasma 2025-05-10 03:03:16 91 U/L F 46.0-116.0 Parathyrin.intact [Mass/volume] in Serum or Plasma 2025-05-10 00:37:10 261 pg/mL F 18.0-80.0 Parathyrin.intact [Mass/volume] in Serum or Plasma 2025-05-10 00:37:10 261 pg/mL F 18.0-80.0 CA CORRECTED 2025-04-06 16:52:19 8.9 mg/dL F CA CORRECTED 2025-04-06 16:52:19 8.9 mg/dL F CA/PHOS PRODUCT 2025-04-06 16:48:53 39.2 Calc F 21.0-53.0 CA*PO4 CORRCTD 2025-04-06 16:48:53 39.2 Calc F 21.0-53.0 CA/PHOS PRODUCT 2025-04-06 16:48:53 39.2 Calc F 21.0-53.0 CA*PO4 CORRCTD 2025-04-06 16:48:53 39.2 Calc F 21.0-53.0 Phosphate [Mass/volume] in Serum or Plasma 2025-04-06 16:40:57 4.4 mg/dL F 2.4-5.1 Phosphate [Mass/volume] in Serum or Plasma 2025-04-06 16:40:57 4.4 mg/dL F 2.4-5.1 Calcium [Mass/volume] in Serum or Plasma 2025-04-06 16:40:56 8.9 mg/dL F 8.7-10.4 Calcium [Mass/volume] in Serum or Plasma 2025-04-06 16:40:56 8.9 mg/dL F 8.7-10.4 Alkaline phosphatase [Enzymatic activity/volume] in Serum or Plasma 2025-04-06 14:52:17 63 U/L F 46.0-116.0 Alkaline phosphatase [Enzymatic activity/volume] in Serum or Plasma 2025-04-06 14:52:17 63 U/L F 46.0-116.0 CA CORRECTED 2025-03-04 05:04:23 9.1 mg/dL F CA CORRECTED 2025-03-04 05:04:23 9.1 mg/dL F CA/PHOS PRODUCT 2025-03-04 05:02:17 35.5 Calc F 21.0-53.0 CA*PO4 CORRCTD 2025-03-04 05:02:17 35.5 Calc F 21.0-53.0 CA/PHOS PRODUCT 2025-03-04 05:02:17 35.5 Calc F 21.0-53.0 CA*PO4 CORRCTD 2025-03-04 05:02:17 35.5 Calc F 21.0-53.0 Calcium [Mass/volume] in Serum or Plasma 2025-03-04 04:29:08 9.1 mg/dL F 8.7-10.4 Phosphate [Mass/volume] in Serum or Plasma 2025-03-04 04:29:08 3.9 mg/dL F 2.4-5.1 Calcium [Mass/volume] in Serum or Plasma 2025-03-04 04:29:08 9.1 mg/dL F 8.7-10.4 Phosphate [Mass/volume] in Serum or Plasma 2025-03-04 04:29:08 3.9 mg/dL F 2.4-5.1 Alkaline phosphatase [Enzymatic activity/volume] in Serum or Plasma 2025 23:04:20 69 U/L F 46.0-116.0 Alkaline phosphatase [Enzymatic activity/volume] in Serum or Plasma 2025 23:04:20 69 U/L F 46.0-116.0 Parathyrin.intact [Mass/volume] in Serum or Plasma 2025 16:47:11 242 pg/mL F 18.0-80.0 Parathyrin.intact [Mass/volume] in Serum or Plasma 2025 16:47:11 242 pg/mL F 18.0-80.0 CA CORRECTED 2025-02-09 15:45:04 8.8 mg/dL F CA/PHOS PRODUCT 2025-02-09 15:44:07 40.5 Calc F 21.0-53.0 CA*PO4 CORRCTD 2025-02-09 15:44:07 40.5 Calc F 21.0-53.0 Phosphate [Mass/volume] in Serum or Plasma 2025-02-09 04:58:11 4.6 mg/dL F 2.4-5.1 Calcium [Mass/volume] in Serum or Plasma 2025-02-09 04:58:11 8.8 mg/dL F 8.7-10.4 Parathyrin.intact [Mass/volume] in Serum or Plasma 2025-02-08 19:24:25 416 pg/mL F 18.0-80.0 Alkaline phosphatase [Enzymatic activity/volume] in Serum or Plasma 2025-02-08 15:46:26 63 U/L F 46.0-116.0 CA CORRECTED 2025-01-04 08:00:37 8.8 mg/dL F CA/PHOS PRODUCT 2025-01-04 07:58:52 40.4 Calc F 21.0-53.0 CA*PO4 CORRCTD 2025-01-04 07:58:52 41.2 Calc F 21.0-53.0 Calcium [Mass/volume] in Serum or Plasma 2025-01-04 06:37:31 8.6 mg/dL F 8.7-10.4 Phosphate [Mass/volume] in Serum or Plasma 2025-01-04 06:37:29 4.7 mg/dL F 2.4-5.1 Parathyrin.intact [Mass/volume] in Serum or Plasma 2025-01-03 21:40:22 322 pg/mL F 18.0-80.0 Alkaline phosphatase [Enzymatic activity/volume] in Serum or Plasma 2025-01-03 18:45:26 49 U/L F 46.0-116.0 CA CORRECTED 2024-12-14 13:19:38 8.6 mg/dL F CA CORRECTED 2024-12-14 13:19:38 8.6 mg/dL F CA/PHOS PRODUCT 2024-12-14 13:17:35 27.4 Calc F 21.0-53.0 CA*PO4 CORRCTD 2024-12-14 13:17:35 28.4 Calc F 21.0-53.0 CA/PHOS PRODUCT 2024-12-14 13:17:35 27.4 Calc F 21.0-53.0 CA*PO4 CORRCTD 2024-12-14 13:17:35 28.4 Calc F 21.0-53.0 Calcium [Mass/volume] in Serum or Plasma 2024-12-14 07:14:04 8.3 mg/dL F 8.7-10.4 Phosphate [Mass/volume] in Serum or Plasma 2024-12-14 07:14:04 3.3 mg/dL F 2.4-5.1 Calcium [Mass/volume] in Serum or Plasma 2024-12-14 07:14:04 8.3 mg/dL F 8.7-10.4 Phosphate [Mass/volume] in Serum or Plasma 2024-12-14 07:14:04 3.3 mg/dL F 2.4-5.1 Parathyrin.intact [Mass/volume] in Serum or Plasma 2024-12-14 04:35:15 177 pg/mL F 18.0-80.0 Parathyrin.intact [Mass/volume] in Serum or Plasma 2024-12-14 04:35:15 177 pg/mL F 18.0-80.0 Alkaline phosphatase [Enzymatic activity/volume] in Serum or Plasma 2024-12-14 03:23:20 61 U/L F 46.0-116.0 Alkaline phosphatase [Enzymatic activity/volume] in Serum or Plasma 2024-12-14 03:23:20 61 U/L F 46.0-116.0 CA CORRECTED 2024-09-01 02:56:52 8.1 mg/dL F CA/PHOS PRODUCT 2024-09-01 02:50:45 46.2 Calc F 21.0-53.0 CA*PO4 CORRCTD 2024-09-01 02:50:45 46.2 Calc F 21.0-53.0 Calcium [Mass/volume] in Serum or Plasma 2024-09-01 02:48:04 8.1 mg/dL F 8.7-10.4 Alkaline phosphatase [Enzymatic activity/volume] in Serum or Plasma 2024-08-31 16:55:25 56 U/L F 46.0-116.0 Phosphate [Mass/volume] in Serum or Plasma 2024-08-31 16:55:25 5.7 mg/dL F 2.4-5.1 Parathyrin.intact [Mass/volume] in Serum or Plasma 2024-08-31 16:38:10 383 pg/mL F 18.0-80.0 CA CORRECTED 2024-08-14 20:44:08 8.3 mg/dL F CA CORRECTED 2024-08-14 20:44:08 8.3 mg/dL F CA/PHOS PRODUCT 2024-08-14 20:43:57 45.9 Calc F 21.0-53.0 CA*PO4 CORRCTD 2024-08-14 20:43:57 46.5 Calc F 21.0-53.0 CA/PHOS PRODUCT 2024-08-14 20:43:57 45.9 Calc F 21.0-53.0 CA*PO4 CORRCTD 2024-08-14 20:43:57 46.5 Calc F 21.0-53.0 Calcium [Mass/volume] in Serum or Plasma 2024-08-14 19:46:47 8.2 mg/dL F 8.7-10.4 Calcium [Mass/volume] in Serum or Plasma 2024-08-14 19:46:47 8.2 mg/dL F 8.7-10.4 Alkaline phosphatase [Enzymatic activity/volume] in Serum or Plasma 2024-08-13 03:55:12 57 U/L F 46.0-116.0 Phosphate [Mass/volume] in Serum or Plasma 2024-08-13 03:55:12 5.6 mg/dL F 2.4-5.1 Alkaline phosphatase [Enzymatic activity/volume] in Serum or Plasma 2024-08-13 03:55:12 57 U/L F 46.0-116.0 Phosphate [Mass/volume] in Serum or Plasma 2024-08-13 03:55:12 5.6 mg/dL F 2.4-5.1 Parathyrin.intact [Mass/volume] in Serum or Plasma 2024-08-13 03:29:18 311 pg/mL F 18.0-80.0 Parathyrin.intact [Mass/volume] in Serum or Plasma 2024-08-13 03:29:18 311 pg/mL F 18.0-80.0 CA CORRECTED 2024-07-10 12:49:54 8.3 mg/dL F CA CORRECTED 2024-07-10 12:49:54 8.3 mg/dL F CA/PHOS PRODUCT 2024-07-09 04:37:57 46.5 Calc F 21.0-53.0 CA*PO4 CORRCTD 2024-07-09 04:37:57 46.5 Calc F 21.0-53.0 CA/PHOS PRODUCT 2024-07-09 04:37:57 46.5 Calc F 21.0-53.0 CA*PO4 CORRCTD 2024-07-09 04:37:57 46.5 Calc F 21.0-53.0 Calcium [Mass/volume] in Serum or Plasma 2024-07-09 03:07:26 8.3 mg/dL F 8.7-10.4 Calcium [Mass/volume] in Serum or Plasma 2024-07-09 03:07:26 8.3 mg/dL F 8.7-10.4 Parathyrin.intact [Mass/volume] in Serum or Plasma 2024-07-08 23:05:25 304 pg/mL F 18.0-80.0 Parathyrin.intact [Mass/volume] in Serum or Plasma 2024-07-08 23:05:25 304 pg/mL F 18.0-80.0 Alkaline phosphatase [Enzymatic activity/volume] in Serum or Plasma 2024-07-08 21:48:24 52 U/L F 46.0-116.0 Phosphate [Mass/volume] in Serum or Plasma 2024-07-08 21:48:24 5.6 mg/dL F 2.4-5.1 Alkaline phosphatase [Enzymatic activity/volume] in Serum or Plasma 2024-07-08 21:48:24 52 U/L F 46.0-116.0 Phosphate [Mass/volume] in Serum or Plasma 2024-07-08 21:48:24 5.6 mg/dL F 2.4-5.1 CA CORRECTED 2024-06-09 13:52:20 8.4 mg/dL F CA/PHOS PRODUCT 2024-06-09 13:51:02 35.3 Calc F 21.0-53.0 CA*PO4 CORRCTD 2024-06-09 13:51:02 36.1 Calc F 21.0-53.0 Calcium [Mass/volume] in Serum or Plasma 2024-06-09 07:06:20 8.2 mg/dL F 8.7-10.4 Parathyrin.intact [Mass/volume] in Serum or Plasma 2024-06-09 06:44:40 210 pg/mL F 18.0-80.0 Alkaline phosphatase [Enzymatic activity/volume] in Serum or Plasma 2024-06-08 21:40:30 59 U/L F 46.0-116.0 Phosphate [Mass/volume] in Serum or Plasma 2024-06-08 21:40:30 4.3 mg/dL F 2.4-5.1 CA CORRECTED 2024-05-08 17:32:53 8.6 mg/dL F CA/PHOS PRODUCT 2024-05-07 04:36:10 44.5 Calc F 21.0-53.0 CA*PO4 CORRCTD 2024-05-07 04:36:10 45.6 Calc F 21.0-53.0 Calcium [Mass/volume] in Serum or Plasma 2024-05-07 04:32:16 8.4 mg/dL F 8.7-10.4 Parathyrin.intact [Mass/volume] in Serum or Plasma 2024-05-07 00:54:33 237 pg/mL F 18.0-80.0 Alkaline phosphatase [Enzymatic activity/volume] in Serum or Plasma 2024-05-06 17:21:29 45 U/L F 46.0-116.0 Phosphate [Mass/volume] in Serum or Plasma 2024-05-06 17:21:29 5.3 mg/dL F 2.4-5.1 CA/PHOS PRODUCT 2024-04-27 08:34:40 F Canceled - Speci men not received 30 days past draw date CA*PO4 CORRCTD 2024-04-27 08:34:40 F Canceled - Speci men not received 30 days past draw date Calcium [Mass/volume] in Serum or Plasma 2024-04-27 07:29:24 F Canceled - Speci men not received 30 days past draw date Phosphate [Mass/volume] in Serum or Plasma 2024-04-27 07:29:24 F Canceled - Speci men not received 30 days past draw date Parathyrin.intact [Mass/volume] in Serum or Plasma 2024-04-27 07:29:24 F Canceled - Speci men not received 30 days past draw date Alkaline phosphatase [Enzymatic activity/volume] in Serum or Plasma 2024-04-27 07:29:23 F Canceled - Speci men not received 30 days past draw date CA CORRECTED 2024-04-01 05:22:00 8.1 mg/dL F CA/PHOS PRODUCT 2024-04-01 04:28:37 43.7 Calc F 21.0-53.0 CA*PO4 CORRCTD 2024-04-01 04:28:37 43.7 Calc F 21.0-53.0 Calcium [Mass/volume] in Serum or Plasma 2024-04-01 04:25:34 8.1 mg/dL F 8.7-10.4 Parathyrin.intact [Mass/volume] in Serum or Plasma 2024-04-01 04:11:43 243 pg/mL F 18.0-80.0 Alkaline phosphatase [Enzymatic activity/volume] in Serum or Plasma 2024-03-31 22:59:31 46 U/L F 46.0-116.0 Phosphate [Mass/volume] in Serum or Plasma 2024-03-31 22:59:31 5.4 mg/dL F 2.4-5.1 Calcium [Mass/volume] in Serum or Plasma 2024-02-07 18:57:15 F RECOLLECT - OUTDATED SPECIMEN Calcium [Mass/volume] in Serum or Plasma 2024-02-07 18:57:15 F RECOLLECT - OUTDATED SPECIMEN Alkaline phosphatase [Enzymatic activity/volume] in Serum or Plasma 2024-02-07 15:56:09 F RECOLLECT - OUTDATED SPECIMEN Phosphate [Mass/volume] in Serum or Plasma 2024-02-07 15:56:09 F RECOLLECT - OUTDATED SPECIMEN Alkaline phosphatase [Enzymatic activity/volume] in Serum or Plasma 2024-02-07 15:56:09 F RECOLLECT - OUTDATED SPECIMEN Phosphate [Mass/volume] in Serum or Plasma 2024-02-07 15:56:09 F RECOLLECT - OUTDATED SPECIMEN Parathyrin.intact [Mass/volume] in Serum or Plasma 2024-02-06 07:13:38 214 pg/mL F 18.0-80.0 Parathyrin.intact [Mass/volume] in Serum or Plasma 2024-02-06 07:13:38 214 pg/mL F 18.0-80.0 CA CORRECTED 2024-01-08 09:08:20 8.7 mg/dL F CA/PHOS PRODUCT 2024-01-08 08:43:53 37.4 Calc F 21.0-53.0 CA*PO4 CORRCTD 2024-01-08 08:43:53 38.3 Calc F 21.0-53.0 Calcium [Mass/volume] in Serum or Plasma 2024-01-08 08:23:54 8.5 mg/dL F 8.7-10.4 Alkaline phosphatase [Enzymatic activity/volume] in Serum or Plasma 2024-01-08 05:13:50 42 U/L F 46.0-116.0 Phosphate [Mass/volume] in Serum or Plasma 2024-01-08 05:13:50 4.4 mg/dL F 2.4-5.1 Parathyrin.intact [Mass/volume] in Serum or Plasma 2024-01-08 04:28:22 151 pg/mL F 18.0-80.0 CA CORRECTED 2023-12-10 19:28:37 8.1 mg/dL F CA CORRECTED 2023-12-10 19:28:37 8.1 mg/dL F CA/PHOS PRODUCT 2023-12-10 19:28:27 40 Calc F 21.0-53.0 CA*PO4 CORRCTD 2023-12-10 19:28:27 40.5 Calc F 21.0-53.0 CA/PHOS PRODUCT 2023-12-10 19:28:27 40 Calc F 21.0-53.0 CA*PO4 CORRCTD 2023-12-10 19:28:27 40.5 Calc F 21.0-53.0 Calcium [Mass/volume] in Serum or Plasma 2023-12-10 08:45:16 8 mg/dL F 8.7-10.4 Calcium [Mass/volume] in Serum or Plasma 2023-12-10 08:45:16 8 mg/dL F 8.7-10.4 Alkaline phosphatase [Enzymatic activity/volume] in Serum or Plasma 2023-12-10 08:38:17 41 U/L F 46.0-116.0 Phosphate [Mass/volume] in Serum or Plasma 2023-12-10 08:38:17 5 mg/dL F 2.4-5.1 Alkaline phosphatase [Enzymatic activity/volume] in Serum or Plasma 2023-12-10 08:38:17 41 U/L F 46.0-116.0 Phosphate [Mass/volume] in Serum or Plasma 2023-12-10 08:38:17 5 mg/dL F 2.4-5.1 Parathyrin.intact [Mass/volume] in Serum or Plasma 2023-12-10 07:55:37 200 pg/mL F 18.0-80.0 Parathyrin.intact [Mass/volume] in Serum or Plasma 2023-12-10 07:55:37 200 pg/mL F 18.0-80.0 CA CORRECTED 2023-11-08 15:31:37 8.6 mg/dL F CA CORRECTED 2023-11-08 15:31:37 8.6 mg/dL F CA/PHOS PRODUCT 2023-11-07 07:28:35 45.6 Calc F 21.0-53.0 CA*PO4 CORRCTD 2023-11-07 07:28:35 45.6 Calc F 21.0-53.0 CA/PHOS PRODUCT 2023-11-07 07:28:35 45.6 Calc F 21.0-53.0 CA*PO4 CORRCTD 2023-11-07 07:28:35 45.6 Calc F 21.0-53.0 Calcium [Mass/volume] in Serum or Plasma 2023-11-07 07:23:37 8.6 mg/dL F 8.7-10.4 Calcium [Mass/volume] in Serum or Plasma 2023-11-07 07:23:37 8.6 mg/dL F 8.7-10.4 Alkaline phosphatase [Enzymatic activity/volume] in Serum or Plasma 2023-11-07 04:55:26 47 U/L F 46.0-116.0 Phosphate [Mass/volume] in Serum or Plasma 2023-11-07 04:55:26 5.3 mg/dL F 2.4-5.1 Alkaline phosphatase [Enzymatic activity/volume] in Serum or Plasma 2023-11-07 04:55:26 47 U/L F 46.0-116.0 Phosphate [Mass/volume] in Serum or Plasma 2023-11-07 04:55:26 5.3 mg/dL F 2.4-5.1 Parathyrin.intact [Mass/volume] in Serum or Plasma 2023-11-07 01:50:37 209 pg/mL F 18.0-80.0 Parathyrin.intact [Mass/volume] in Serum or Plasma 2023-11-07 01:50:37 209 pg/mL F 18.0-80.0 CA CORRECTED 2023-07-29 04:30:40 8.4 mg/dL F CA/PHOS PRODUCT 2023-07-29 04:28:40 34.4 Calc F 21.0-53.0 CA*PO4 CORRCTD 2023-07-29 04:28:40 35.3 Calc F 21.0-53.0 Calcium [Mass/volume] in Serum or Plasma 2023-07-29 04:26:27 8.2 mg/dL F 8.7-10.4 Parathyrin.intact [Mass/volume] in Serum or Plasma 2023-07-29 03:46:48 144 pg/mL F 18.0-80.0 Alkaline phosphatase [Enzymatic activity/volume] in Serum or Plasma 2023-07-28 15:22:39 58 U/L F 46.0-116.0 Phosphate [Mass/volume] in Serum or Plasma 2023-07-28 15:22:39 4.2 mg/dL F 2.4-5.1 CA*PO4 CORRCTD Parathyrin.intact [Mass/volume] in Serum or Plasma Alkaline phosphatase [Enzymatic activity/volume] in Serum or Plasma CA/PHOS PRODUCT Phosphate [Mass/volume] in Serum or Plasma Calcium [Mass/volume] in Serum or Plasma CA CORRECTED F CA CORRECTED CA CORRECTED F CA/PHOS PRODUCT CA CORRECTED F CA*PO4 CORRCTD CA/PHOS PRODUCT CA*PO4 CORRCTD CA CORRECTED F Nutrition Description Draw Date Result/Unit Status Ref Range Result Comments A/G RATIO 2025-05-28 07:38:19 F Canceled - Specimen not received 30 days past draw date,Unable to Calculate.,Cancele d - Specimen not received 30 days past draw date GLOBULIN 2025-05-28 07:38:19 F Unable to Calculate.,Cancele d - Specimen not received 30 days past draw date,Canceled - Specimen not received 30 days past draw date Lactate dehydrogenase [Enzymatic activity/volume] in Serum or Plasma 2025-05-28 07:23:32 F Canceled - Specimen not received 30 days past draw date,Canceled - Specimen not received 30 days past draw date Bicarbonate [Moles/volume] in Serum or Plasma 2025-05-28 07:23:32 F Canceled - Specimen not received 30 days past draw date,Canceled - Specimen not received 30 days past draw date Albumin [Mass/volume] in Serum or Plasma by Bromocresol green (BCG) dye binding method 2025-05-28 07:23:32 F Canceled - Specimen not received 30 days past draw date,Canceled - Specimen not received 30 days past draw date Protein [Mass/volume] in Serum or Plasma 2025-05-28 07:23:32 F Canceled - Specimen not received 30 days past draw date,Canceled - Specimen not received 30 days past draw date Potassium [Moles/volume] in Serum or Plasma 2025-05-28 07:23:32 F Canceled - Specimen not received 30 days past draw date,Canceled - Specimen not received 30 days past draw date Potassium [Moles/volume] in Serum or Plasma 2025-05-28 07:23:30 F Canceled - Specimen not received 30 days past draw date,Canceled - Specimen not received 30 days past draw date A/G RATIO 2025-05-11 17:53:18 1.8 Calc F 1.0-2.5 GLOBULIN 2025-05-11 17:53:18 2.2 g/dL F 0.9-5.0 GLOBULIN 2025-05-11 17:53:18 2.2 g/dL F 0.9-5.0 A/G RATIO 2025-05-11 17:53:18 1.8 Calc F 1.0-2.5 Potassium [Moles/volume] in Serum or Plasma 2025-05-10 07:30:14 4.3 mEq/L F 3.5-5.1 Potassium [Moles/volume] in Serum or Plasma 2025-05-10 07:30:14 4.3 mEq/L F 3.5-5.1 Lactate dehydrogenase [Enzymatic activity/volume] in Serum or Plasma 2025-05-10 03:03:16 158 U/L F 120.0-246.0 Protein [Mass/volume] in Serum or Plasma 2025-05-10 03:03:16 6.2 g/dL F 5.7-8.2 Bicarbonate [Moles/volume] in Serum or Plasma 2025-05-10 03:03:16 28 mEq/L F 20.0-31.0 Albumin [Mass/volume] in Serum or Plasma by Bromocresol green (BCG) dye binding method 2025-05-10 03:03:16 4 g/dL F 3.2-4.8 Lactate dehydrogenase [Enzymatic activity/volume] in Serum or Plasma 2025-05-10 03:03:16 158 U/L F 120.0-246.0 Bicarbonate [Moles/volume] in Serum or Plasma 2025-05-10 03:03:16 28 mEq/L F 20.0-31.0 Albumin [Mass/volume] in Serum or Plasma by Bromocresol green (BCG) dye binding method 2025-05-10 03:03:16 4 g/dL F 3.2-4.8 Protein [Mass/volume] in Serum or Plasma 2025-05-10 03:03:16 6.2 g/dL F 5.7-8.2 Potassium [Moles/volume] in Serum or Plasma 2025-04-18 18:10:23 4.4 mEq/L F 3.5-5.5 Potassium [Moles/volume] in Serum or Plasma 2025-04-18 18:10:23 4.4 mEq/L F 3.5-5.5 Potassium [Moles/volume] in Serum or Plasma 2025-04-06 16:40:57 4.6 mEq/L F 3.5-5.5 Potassium [Moles/volume] in Serum or Plasma 2025-04-06 16:40:57 4.6 mEq/L F 3.5-5.5 GLOBULIN 2025-04-06 14:53:26 2.2 g/dL F 0.9-5.0 A/G RATIO 2025-04-06 14:53:26 1.8 Calc F 1.0-2.5 A/G RATIO 2025-04-06 14:53:26 1.8 Calc F 1.0-2.5 GLOBULIN 2025-04-06 14:53:26 2.2 g/dL F 0.9-5.0 Lactate dehydrogenase [Enzymatic activity/volume] in Serum or Plasma 2025-04-06 14:52:17 192 U/L F 120.0-246.0 Bicarbonate [Moles/volume] in Serum or Plasma 2025-04-06 14:52:17 26 mEq/L F 20.0-31.0 Albumin [Mass/volume] in Serum or Plasma by Bromocresol green (BCG) dye binding method 2025-04-06 14:52:17 4 g/dL F 3.4-4.8 Protein [Mass/volume] in Serum or Plasma 2025-04-06 14:52:17 6.2 g/dL F 5.7-8.2 Albumin [Mass/volume] in Serum or Plasma by Bromocresol green (BCG) dye binding method 2025-04-06 14:52:17 4 g/dL F 3.4-4.8 Bicarbonate [Moles/volume] in Serum or Plasma 2025-04-06 14:52:17 26 mEq/L F 20.0-31.0 Lactate dehydrogenase [Enzymatic activity/volume] in Serum or Plasma 2025-04-06 14:52:17 192 U/L F 120.0-246.0 Protein [Mass/volume] in Serum or Plasma 2025-04-06 14:52:17 6.2 g/dL F 5.7-8.2 Potassium [Moles/volume] in Serum or Plasma 2025-03-04 04:29:08 4.9 mEq/L F 3.5-5.5 Potassium [Moles/volume] in Serum or Plasma 2025-03-04 04:29:08 4.9 mEq/L F 3.5-5.5 A/G RATIO 2025 23:05:31 1.8 Calc F 1.0-2.5 GLOBULIN 2025 23:05:31 2.3 g/dL F 0.9-5.0 A/G RATIO 2025 23:05:31 1.8 Calc F 1.0-2.5 GLOBULIN 2025 23:05:31 2.3 g/dL F 0.9-5.0 Bicarbonate [Moles/volume] in Serum or Plasma 2025 23:04:20 24 mEq/L F 20.0-31.0 Albumin [Mass/volume] in Serum or Plasma by Bromocresol green (BCG) dye binding method 2025 23:04:20 4.1 g/dL F 3.4-4.8 Lactate dehydrogenase [Enzymatic activity/volume] in Serum or Plasma 2025 23:04:20 179 U/L F 120.0-246.0 Protein [Mass/volume] in Serum or Plasma 2025 23:04:20 6.4 g/dL F 5.7-8.2 Bicarbonate [Moles/volume] in Serum or Plasma 2025 23:04:20 24 mEq/L F 20.0-31.0 Lactate dehydrogenase [Enzymatic activity/volume] in Serum or Plasma 2025 23:04:20 179 U/L F 120.0-246.0 Albumin [Mass/volume] in Serum or Plasma by Bromocresol green (BCG) dye binding method 2025 23:04:20 4.1 g/dL F 3.4-4.8 Protein [Mass/volume] in Serum or Plasma 2025 23:04:20 6.4 g/dL F 5.7-8.2 A/G RATIO 2025-02-09 15:44:07 1.9 Calc F 1.0-2.5 GLOBULIN 2025-02-09 15:44:07 2.3 g/dL F 0.9-5.0 Potassium [Moles/volume] in Serum or Plasma 2025-02-09 04:58:11 5.8 mEq/L F 3.5-5.5 Albumin [Mass/volume] in Serum or Plasma by Bromocresol green (BCG) dye binding method 2025-02-08 15:46:26 4.3 g/dL F 3.4-4.8 Bicarbonate [Moles/volume] in Serum or Plasma 2025-02-08 15:46:26 23 mEq/L F 20.0-31.0 Lactate dehydrogenase [Enzymatic activity/volume] in Serum or Plasma 2025-02-08 15:46:26 178 U/L F 120.0-246.0 Protein [Mass/volume] in Serum or Plasma 2025-02-08 15:46:26 6.6 g/dL F 5.7-8.2 Potassium [Moles/volume] in Serum or Plasma 2025-01-04 06:37:29 4.7 mEq/L F 3.5-5.5 A/G RATIO 2025-01-03 19:51:38 1.8 Calc F 1.0-2.5 GLOBULIN 2025-01-03 19:51:38 2.1 g/dL F 0.9-5.0 Albumin [Mass/volume] in Serum or Plasma by Bromocresol green (BCG) dye binding method 2025-01-03 18:45:26 3.8 g/dL F 3.4-4.8 Bicarbonate [Moles/volume] in Serum or Plasma 2025-01-03 18:45:26 25 mEq/L F 20.0-31.0 Lactate dehydrogenase [Enzymatic activity/volume] in Serum or Plasma 2025-01-03 18:45:26 165 U/L F 120.0-246.0 Protein [Mass/volume] in Serum or Plasma 2025-01-03 18:45:26 5.9 g/dL F 5.7-8.2 Potassium [Moles/volume] in Serum or Plasma 2024-12-14 07:14:04 3.5 mEq/L F 3.5-5.5 Potassium [Moles/volume] in Serum or Plasma 2024-12-14 07:14:04 3.5 mEq/L F 3.5-5.5 A/G RATIO 2024-12-14 03:24:21 1.7 Calc F 1.0-2.5 GLOBULIN 2024-12-14 03:24:21 2.1 g/dL F 0.9-5.0 LDL-CHOLESTEROL 2024-12-14 03:24:21 54 mg/dL F 0.0-99.0 VLDL-CHOL(CALC) 2024-12-14 03:24:21 29 mg/dL F 0.0-29.0 CHOL/HDL RATIO 2024-12-14 03:24:21 3.8 Calc F 3.3-5.0 GLOBULIN 2024-12-14 03:24:21 2.1 g/dL F 0.9-5.0 A/G RATIO 2024-12-14 03:24:21 1.7 Calc F 1.0-2.5 VLDL-CHOL(CALC) 2024-12-14 03:24:21 29 mg/dL F 0.0-29.0 CHOL/HDL RATIO 2024-12-14 03:24:21 3.8 Calc F 3.3-5.0 LDL-CHOLESTEROL 2024-12-14 03:24:21 54 mg/dL F 0.0-99.0 Albumin [Mass/volume] in Serum or Plasma by Bromocresol green (BCG) dye binding method 2024-12-14 03:23:20 3.6 g/dL F 3.4-4.8 Cholesterol [Mass/volume] in Serum or Plasma 2024-12-14 03:23:20 113 mg/dL F 0.0-199.0 Bicarbonate [Moles/volume] in Serum or Plasma 2024-12-14 03:23:20 27 mEq/L F 20.0-31.0 Lactate dehydrogenase [Enzymatic activity/volume] in Serum or Plasma 2024-12-14 03:23:20 166 U/L F 120.0-246.0 Protein [Mass/volume] in Serum or Plasma 2024-12-14 03:23:20 146 mg/dL F 0.0-149.0 Protein [Mass/volume] in Serum or Plasma 2024-12-14 03:23:20 5.7 g/dL F 5.7-8.2 Cholesterol in HDL [Mass/volume] in Serum or Plasma 2024-12-14 03:23:20 30 mg/dL F 40.0-60.0 Albumin [Mass/volume] in Serum or Plasma by Bromocresol green (BCG) dye binding method 2024-12-14 03:23:20 3.6 g/dL F 3.4-4.8 Bicarbonate [Moles/volume] in Serum or Plasma 2024-12-14 03:23:20 27 mEq/L F 20.0-31.0 Cholesterol [Mass/volume] in Serum or Plasma 2024-12-14 03:23:20 113 mg/dL F 0.0-199.0 Lactate dehydrogenase [Enzymatic activity/volume] in Serum or Plasma 2024-12-14 03:23:20 166 U/L F 120.0-246.0 Protein [Mass/volume] in Serum or Plasma 2024-12-14 03:23:20 146 mg/dL F 0.0-149.0 Protein [Mass/volume] in Serum or Plasma 2024-12-14 03:23:20 5.7 g/dL F 5.7-8.2 Cholesterol in HDL [Mass/volume] in Serum or Plasma 2024-12-14 03:23:20 30 mg/dL F 40.0-60.0 Potassium [Moles/volume] in Serum or Plasma 2024-09-01 02:48:04 5.2 mEq/L F 3.5-5.5 GLOBULIN 2024-08-31 16:56:08 2.2 g/dL F 0.9-5.0 A/G RATIO 2024-08-31 16:56:08 1.9 Calc F 1.0-2.5 Albumin [Mass/volume] in Serum or Plasma by Bromocresol green (BCG) dye binding method 2024-08-31 16:55:25 4.1 g/dL F 3.4-4.8 Bicarbonate [Moles/volume] in Serum or Plasma 2024-08-31 16:55:25 27 mEq/L F 20.0-31.0 Lactate dehydrogenase [Enzymatic activity/volume] in Serum or Plasma 2024-08-31 16:55:25 184 U/L F 120.0-246.0 Protein [Mass/volume] in Serum or Plasma 2024-08-31 16:55:25 6.3 g/dL F 5.7-8.2 A/G RATIO 2024-08-14 20:43:57 1.9 Calc F 1.0-2.5 GLOBULIN 2024-08-14 20:43:57 2.1 g/dL F 0.9-5.0 A/G RATIO 2024-08-14 20:43:57 1.9 Calc F 1.0-2.5 GLOBULIN 2024-08-14 20:43:57 2.1 g/dL F 0.9-5.0 Potassium [Moles/volume] in Serum or Plasma 2024-08-14 19:46:47 4.6 mEq/L F 3.5-5.5 Potassium [Moles/volume] in Serum or Plasma 2024-08-14 19:46:47 4.6 mEq/L F 3.5-5.5 Albumin [Mass/volume] in Serum or Plasma by Bromocresol green (BCG) dye binding method 2024-08-13 03:55:12 3.9 g/dL F 3.4-4.8 Bicarbonate [Moles/volume] in Serum or Plasma 2024-08-13 03:55:12 25 mEq/L F 20.0-31.0 Lactate dehydrogenase [Enzymatic activity/volume] in Serum or Plasma 2024-08-13 03:55:12 183 U/L F 120.0-246.0 Protein [Mass/volume] in Serum or Plasma 2024-08-13 03:55:12 6 g/dL F 5.7-8.2 Albumin [Mass/volume] in Serum or Plasma by Bromocresol green (BCG) dye binding method 2024-08-13 03:55:12 3.9 g/dL F 3.4-4.8 Bicarbonate [Moles/volume] in Serum or Plasma 2024-08-13 03:55:12 25 mEq/L F 20.0-31.0 Lactate dehydrogenase [Enzymatic activity/volume] in Serum or Plasma 2024-08-13 03:55:12 183 U/L F 120.0-246.0 Protein [Mass/volume] in Serum or Plasma 2024-08-13 03:55:12 6 g/dL F 5.7-8.2 GLOBULIN 2024-07-09 04:37:57 2.1 g/dL F 0.9-5.0 A/G RATIO 2024-07-09 04:37:57 2 Calc F 1.0-2.5 GLOBULIN 2024-07-09 04:37:57 2.1 g/dL F 0.9-5.0 A/G RATIO 2024-07-09 04:37:57 2 Calc F 1.0-2.5 Potassium [Moles/volume] in Serum or Plasma 2024-07-09 03:07:26 4 mEq/L F 3.5-5.5 Potassium [Moles/volume] in Serum or Plasma 2024-07-09 03:07:26 4 mEq/L F 3.5-5.5 Albumin [Mass/volume] in Serum or Plasma by Bromocresol green (BCG) dye binding method 2024-07-08 21:48:24 4.1 g/dL F 3.4-4.8 Bicarbonate [Moles/volume] in Serum or Plasma 2024-07-08 21:48:24 27 mEq/L F 20.0-31.0 Lactate dehydrogenase [Enzymatic activity/volume] in Serum or Plasma 2024-07-08 21:48:24 167 U/L F 120.0-246.0 Protein [Mass/volume] in Serum or Plasma 2024-07-08 21:48:24 6.2 g/dL F 5.7-8.2 Albumin [Mass/volume] in Serum or Plasma by Bromocresol green (BCG) dye binding method 2024-07-08 21:48:24 4.1 g/dL F 3.4-4.8 Bicarbonate [Moles/volume] in Serum or Plasma 2024-07-08 21:48:24 27 mEq/L F 20.0-31.0 Lactate dehydrogenase [Enzymatic activity/volume] in Serum or Plasma 2024-07-08 21:48:24 167 U/L F 120.0-246.0 Protein [Mass/volume] in Serum or Plasma 2024-07-08 21:48:24 6.2 g/dL F 5.7-8.2 A/G RATIO 2024-06-09 13:51:02 1.7 Calc F 1.0-2.5 GLOBULIN 2024-06-09 13:51:02 2.2 g/dL F 0.9-5.0 Potassium [Moles/volume] in Serum or Plasma 2024-06-09 07:06:20 3.6 mEq/L F 3.5-5.5 Albumin [Mass/volume] in Serum or Plasma by Bromocresol green (BCG) dye binding method 2024-06-08 21:40:30 3.8 g/dL F 3.4-4.8 Lactate dehydrogenase [Enzymatic activity/volume] in Serum or Plasma 2024-06-08 21:40:30 167 U/L F 120.0-246.0 Bicarbonate [Moles/volume] in Serum or Plasma 2024-06-08 21:40:30 28 mEq/L F 20.0-31.0 Protein [Mass/volume] in Serum or Plasma 2024-06-08 21:40:30 6 g/dL F 5.7-8.2 A/G RATIO 2024-05-07 04:36:10 1.8 Calc F 1.0-2.5 GLOBULIN 2024-05-07 04:36:10 2.1 g/dL F 0.9-5.0 Potassium [Moles/volume] in Serum or Plasma 2024-05-07 04:32:22 3.5 mEq/L F 3.5-5.5 Albumin [Mass/volume] in Serum or Plasma by Bromocresol green (BCG) dye binding method 2024-05-06 17:21:29 3.8 g/dL F 3.4-4.8 Bicarbonate [Moles/volume] in Serum or Plasma 2024-05-06 17:21:29 30 mEq/L F 20.0-31.0 Lactate dehydrogenase [Enzymatic activity/volume] in Serum or Plasma 2024-05-06 17:21:29 159 U/L F 120.0-246.0 Protein [Mass/volume] in Serum or Plasma 2024-05-06 17:21:29 5.9 g/dL F 5.7-8.2 A/G RATIO 2024-04-27 08:34:40 F Canceled - Specimen not received 30 days past draw date GLOBULIN 2024-04-27 08:34:40 F Canceled - Specimen not received 30 days past draw date Albumin [Mass/volume] in Serum or Plasma by Bromocresol green (BCG) dye binding method 2024-04-27 07:29:23 F Canceled - Specimen not received 30 days past draw date Lactate dehydrogenase [Enzymatic activity/volume] in Serum or Plasma 2024-04-27 07:29:23 F Canceled - Specimen not received 30 days past draw date Bicarbonate [Moles/volume] in Serum or Plasma 2024-04-27 07:29:23 F Canceled - Specimen not received 30 days past draw date Potassium [Moles/volume] in Serum or Plasma 2024-04-27 07:29:23 F Canceled - Specimen not received 30 days past draw date Protein [Mass/volume] in Serum or Plasma 2024-04-27 07:29:23 F Canceled - Specimen not received 30 days past draw date Potassium [Moles/volume] in Serum or Plasma 2024-04-01 04:25:34 3.8 mEq/L F 3.5-5.5 A/G RATIO 2024-03-31 22:59:39 2 Calc F 1.0-2.5 GLOBULIN 2024-03-31 22:59:39 2.1 g/dL F 0.9-5.0 Albumin [Mass/volume] in Serum or Plasma by Bromocresol green (BCG) dye binding method 2024-03-31 22:59:31 4.1 g/dL F 3.4-4.8 Bicarbonate [Moles/volume] in Serum or Plasma 2024-03-31 22:59:31 26 mEq/L F 20.0-31.0 Lactate dehydrogenase [Enzymatic activity/volume] in Serum or Plasma 2024-03-31 22:59:31 175 U/L F 120.0-246.0 Protein [Mass/volume] in Serum or Plasma 2024-03-31 22:59:31 6.2 g/dL F 5.7-8.2 A/G RATIO 2024-02-07 18:58:39 F RECOLLECT - OUTDATED SPECIMEN GLOBULIN 2024-02-07 18:58:39 F RECOLLECT - OUTDATED SPECIMEN A/G RATIO 2024-02-07 18:58:39 F RECOLLECT - OUTDATED SPECIMEN GLOBULIN 2024-02-07 18:58:39 F RECOLLECT - OUTDATED SPECIMEN Potassium [Moles/volume] in Serum or Plasma 2024-02-07 18:57:15 F RECOLLECT - OUTDATED SPECIMEN Potassium [Moles/volume] in Serum or Plasma 2024-02-07 18:57:15 F RECOLLECT - OUTDATED SPECIMEN Albumin [Mass/volume] in Serum or Plasma by Bromocresol green (BCG) dye binding method 2024-02-07 15:56:09 F RECOLLECT - OUTDATED SPECIMEN Bicarbonate [Moles/volume] in Serum or Plasma 2024-02-07 15:56:09 F RECOLLECT - OUTDATED SPECIMEN Lactate dehydrogenase [Enzymatic activity/volume] in Serum or Plasma 2024-02-07 15:56:09 F RECOLLECT - OUTDATED SPECIMEN Protein [Mass/volume] in Serum or Plasma 2024-02-07 15:56:09 F RECOLLECT - OUTDATED SPECIMEN Albumin [Mass/volume] in Serum or Plasma by Bromocresol green (BCG) dye binding method 2024-02-07 15:56:09 F RECOLLECT - OUTDATED SPECIMEN Bicarbonate [Moles/volume] in Serum or Plasma 2024-02-07 15:56:09 F RECOLLECT - OUTDATED SPECIMEN Lactate dehydrogenase [Enzymatic activity/volume] in Serum or Plasma 2024-02-07 15:56:09 F RECOLLECT - OUTDATED SPECIMEN Protein [Mass/volume] in Serum or Plasma 2024-02-07 15:56:09 F RECOLLECT - OUTDATED SPECIMEN Potassium [Moles/volume] in Serum or Plasma 2024-01-08 08:23:54 3.5 mEq/L F 3.5-5.5 GLOBULIN 2024-01-08 05:14:14 2.1 g/dL F 0.9-5.0 A/G RATIO 2024-01-08 05:14:14 1.8 Calc F 1.0-2.5 Albumin [Mass/volume] in Serum or Plasma by Bromocresol green (BCG) dye binding method 2024-01-08 05:13:50 3.8 g/dL F 3.4-4.8 Bicarbonate [Moles/volume] in Serum or Plasma 2024-01-08 05:13:50 32 mEq/L F 20.0-31.0 Protein [Mass/volume] in Serum or Plasma 2024-01-08 05:13:50 5.9 g/dL F 5.7-8.2 Lactate dehydrogenase [Enzymatic activity/volume] in Serum or Plasma 2024-01-08 05:13:50 216 U/L F 120.0-246.0 A/G RATIO 2023-12-10 19:28:27 1.8 Calc F 1.0-2.5 GLOBULIN 2023-12-10 19:28:27 2.2 g/dL F 0.9-5.0 LDL-CHOLESTEROL 2023-12-10 19:28:27 64 mg/dL F 0.0-99.0 VLDL-CHOL(CALC) 2023-12-10 19:28:27 29 mg/dL F 0.0-29.0 CHOL/HDL RATIO 2023-12-10 19:28:27 4.3 Calc F 3.3-5.0 A/G RATIO 2023-12-10 19:28:27 1.8 Calc F 1.0-2.5 GLOBULIN 2023-12-10 19:28:27 2.2 g/dL F 0.9-5.0 LDL-CHOLESTEROL 2023-12-10 19:28:27 64 mg/dL F 0.0-99.0 VLDL-CHOL(CALC) 2023-12-10 19:28:27 29 mg/dL F 0.0-29.0 CHOL/HDL RATIO 2023-12-10 19:28:27 4.3 Calc F 3.3-5.0 Potassium [Moles/volume] in Serum or Plasma 2023-12-10 08:45:16 3.8 mEq/L F 3.5-5.5 Potassium [Moles/volume] in Serum or Plasma 2023-12-10 08:45:16 3.8 mEq/L F 3.5-5.5 Albumin [Mass/volume] in Serum or Plasma by Bromocresol green (BCG) dye binding method 2023-12-10 08:38:17 3.9 g/dL F 3.4-4.8 Cholesterol [Mass/volume] in Serum or Plasma 2023-12-10 08:38:17 121 mg/dL F 0.0-199.0 Bicarbonate [Moles/volume] in Serum or Plasma 2023-12-10 08:38:17 31 mEq/L F 20.0-31.0 Lactate dehydrogenase [Enzymatic activity/volume] in Serum or Plasma 2023-12-10 08:38:17 250 U/L F 120.0-246.0 Protein [Mass/volume] in Serum or Plasma 2023-12-10 08:38:17 145 mg/dL F 0.0-149.0 Protein [Mass/volume] in Serum or Plasma 2023-12-10 08:38:17 6.1 g/dL F 5.7-8.2 Cholesterol in HDL [Mass/volume] in Serum or Plasma 2023-12-10 08:38:17 28 mg/dL F 40.0-60.0 Albumin [Mass/volume] in Serum or Plasma by Bromocresol green (BCG) dye binding method 2023-12-10 08:38:17 3.9 g/dL F 3.4-4.8 Cholesterol [Mass/volume] in Serum or Plasma 2023-12-10 08:38:17 121 mg/dL F 0.0-199.0 Bicarbonate [Moles/volume] in Serum or Plasma 2023-12-10 08:38:17 31 mEq/L F 20.0-31.0 Lactate dehydrogenase [Enzymatic activity/volume] in Serum or Plasma 2023-12-10 08:38:17 250 U/L F 120.0-246.0 Protein [Mass/volume] in Serum or Plasma 2023-12-10 08:38:17 145 mg/dL F 0.0-149.0 Protein [Mass/volume] in Serum or Plasma 2023-12-10 08:38:17 6.1 g/dL F 5.7-8.2 Cholesterol in HDL [Mass/volume] in Serum or Plasma 2023-12-10 08:38:17 28 mg/dL F 40.0-60.0 A/G RATIO 2023-11-07 07:28:35 1.9 Calc F 1.0-2.5 GLOBULIN 2023-11-07 07:28:35 2.2 g/dL F 0.9-5.0 A/G RATIO 2023-11-07 07:28:35 1.9 Calc F 1.0-2.5 GLOBULIN 2023-11-07 07:28:35 2.2 g/dL F 0.9-5.0 Potassium [Moles/volume] in Serum or Plasma 2023-11-07 07:23:37 3.5 mEq/L F 3.5-5.5 Potassium [Moles/volume] in Serum or Plasma 2023-11-07 07:23:37 3.5 mEq/L F 3.5-5.5 Albumin [Mass/volume] in Serum or Plasma by Bromocresol green (BCG) dye binding method 2023-11-07 04:55:26 4.2 g/dL F 3.4-4.8 Bicarbonate [Moles/volume] in Serum or Plasma 2023-11-07 04:55:26 31 mEq/L F 20.0-31.0 Lactate dehydrogenase [Enzymatic activity/volume] in Serum or Plasma 2023-11-07 04:55:26 210 U/L F 120.0-246.0 Protein [Mass/volume] in Serum or Plasma 2023-11-07 04:55:26 6.4 g/dL F 5.7-8.2 Albumin [Mass/volume] in Serum or Plasma by Bromocresol green (BCG) dye binding method 2023-11-07 04:55:26 4.2 g/dL F 3.4-4.8 Bicarbonate [Moles/volume] in Serum or Plasma 2023-11-07 04:55:26 31 mEq/L F 20.0-31.0 Lactate dehydrogenase [Enzymatic activity/volume] in Serum or Plasma 2023-11-07 04:55:26 210 U/L F 120.0-246.0 Protein [Mass/volume] in Serum or Plasma 2023-11-07 04:55:26 6.4 g/dL F 5.7-8.2 A/G RATIO 2023-07-28 15:23:17 1.7 Calc F 1.0-2.5 GLOBULIN 2023-07-28 15:23:17 2.2 g/dL F 0.9-5.0 LDL-CHOLESTEROL 2023-07-28 15:23:17 58 mg/dL F 0.0-99.0 CHOL/HDL RATIO 2023-07-28 15:23:17 3.3 Calc F 3.3-5.0 VLDL-CHOL(CALC) 2023-07-28 15:23:17 11 mg/dL F 0.0-29.0 Albumin [Mass/volume] in Serum or Plasma by Bromocresol green (BCG) dye binding method 2023-07-28 15:22:41 3.7 g/dL F 3.4-4.8 Protein [Mass/volume] in Serum or Plasma 2023-07-28 15:22:41 54 mg/dL F 0.0-149.0 Cholesterol in HDL [Mass/volume] in Serum or Plasma 2023-07-28 15:22:41 30 mg/dL F 40.0-60.0 Cholesterol [Mass/volume] in Serum or Plasma 2023-07-28 15:22:39 99 mg/dL F 0.0-199.0 Bicarbonate [Moles/volume] in Serum or Plasma 2023-07-28 15:22:39 29 mEq/L F 20.0-31.0 Lactate dehydrogenase [Enzymatic activity/volume] in Serum or Plasma 2023-07-28 15:22:39 172 U/L F 120.0-246.0 Potassium [Moles/volume] in Serum or Plasma 2023-07-28 15:22:39 4.8 mEq/L F 3.5-5.5 Protein [Mass/volume] in Serum or Plasma 2023-07-28 15:22:39 5.9 g/dL F 5.7-8.2 Bicarbonate [Moles/volume] in Serum or Plasma Lactate dehydrogenase [Enzymatic activity/volume] in Serum or Plasma Protein [Mass/volume] in Serum or Plasma GLOBULIN Potassium [Moles/volume] in Serum or Plasma Potassium [Moles/volume] in Serum or Plasma Albumin [Mass/volume] in Serum or Plasma by Bromocresol green (BCG) dye binding method A/G RATIO Encounters No encounter information to report Immunizations Ordered Immunization Name Filled Immunization Name Date Status Comments Refusal Reason Hep B, adult 2025-04-06 21:20:00 Pneumococcal conjugate PCV20, polysaccharide [id number] conjugate, adjuvant, PF 2024-11-14 21:50:00 Hep B, adult 2024-11-14 21:45:00 Hep B, adult 2024-10-17 21:30:00 Hep B, adult 2024-09-06 18:20:00 Covid-19 Vaccination 2024-08-30 05:00:00 Influenza Vaccination 2024-08-30 05:00:00 Hep B, adult 2024-02-15 20:45:00 Hep B, adult 2023-09-16 15:30:00 Hep B, adult 2023-08-11 20:30:00 Hepatitis B Vaccination 2023-07-10 05:00:00 Hepatitis B Vaccination 2023-01-05 06:00:00 Hepatitis B Vaccination 2022-12-08 06:00:00 Pneumococcal conjugate PCV 13 2015-09-25 05:00:00 pneumococcal polysaccharide PPV23 2014-10-01 06:00:00 Pneumococcal Vaccination 2003-01-19 06:00:00 Plan of Treatment Planned Activity Provider Planned Date Details Commen ts Diagnostic Test Pending Valerio Mulligan 2025-04-17 20:07:20 Potassium [Moles/volume] in Serum or Plasma [code = 2823-3] Diagnostic Test Pending Valerio Mulligan 2025-03-29 05:00:00 Hemoglobin [Mass/volume] in Blood [code = 718-7] Diagnostic Test Pending Valerio Mulligan 2023-07-26 20:51:53 Reticulocytes/100 erythrocytes in Blood by Automated count [code = 25492-7] Diagnostic Test Pending Valerio Mulligan 2023-09-29 06:21:46 Parathyrin.intact [Mass/volume] in Serum or Plasma [code = 2731-8] Diagnostic Test Pending Valerio Mulligan 2023-07-27 06:23:21 Alanine aminotransferase [Enzymatic activity/volume] in Serum or Plasma [code = 1742-6] Diagnostic Test Pending Valerio Kellycell 2023-07-26 20:49:11 Sodium [Moles/volume] in Serum or Plasma [code = 2951-2] [facility] 2023-07-26 20:43:46 Creatinine [Mass/volume] in Serum or Plasma [code = 2160-0] Diagnostic Test [facility] 2023-07-26 20:43:59 Ferritin [Mass/volume] in Serum or Plasma [code = 2276-4] Diagnostic Test [facility] 2023-07-26 20:41:10 Aluminum [Mass/volume] in Serum or Plasma [code = 5574-9] Diagnostic Test Pending Valerio Mulligan [facility] 2025-05-22 12:53:21 Home Hemodialysis Treatment [code = QQH859] Diagnostic Test Pending Valerio Mulligan [facility] 2025-04-13 17:35:35 Home Hemodialysis Treatment [code = YAW950] Diet Order Valerio Mulligan [facility] September 08, 2023 Diet Calorie 25 kcal/kg Fluid Value 1000 mL/d Phosphorus Value 1000 mg/d Potassium Value 2000 mg/d Protein Value 1.2 gm/kg Sodium Value 2000 mg/d Calculated Weight 88 kg dietary_diet_modification Carb Controlle d;
--- OUTSIDE RECORDS SUMMARY | 2025-05-31 19:17 | XMS_ITS | Referral Summary ---
Author Organization [facility] Address [address] [place] [address] Care Team Providers Care Sales Representative Church Furniture Name Role Phone Angi Andrade MD Primary Care Provider Encounters Date Type Department Care Team Description 04/10/2025 Orders Only [facility] Health Information Management [address] [place] [address] Scanning, Provider 04/10/2025 2:05 PM CDT Office Visit [facility] Neurosurgery [address]th [place] [address] [place] [address] Kelly Vazquez NP Hydrocephalus, unspecified type (HCC) (Primary Dx) 04/10/2025 12:09 PM CDT - 04/10/2025 11:59 PM CDT Hospital Encounter [facility] [address] [place] [id number] Margie Guidry MD PhD Encounter for imaging to screen for metal prior to magnetic resonance imaging (MRI) Discharge Disposition: Discharge to home or self care 04/10/2025 12:00 PM CDT - 04/10/2025 11:59 PM CDT Hospital Encounter [facility] [address] [place] [id number] Other low back pain Discharge Disposition: Discharge to home or self care 03/02/[address] [facility] Scheduling [address] [place] [address] Chanel Morrow from Last 3 Months Allergies [...] tablet as needed Orally 3x/day Active omega 3-tda-exs-fish oil (Fish OiL) 1,000 (120-180) mg capsule [...] 10:58 AM CDT): -NSGY c/s -NSGY adjusted MILL DRESSER shunt from 5->7 on admission -Transfused 2u [...] Tobacco: Former Tobacco Cessation:Counseling Given: Not Answered [facility] immatics biotechnologiesities Answer Date Recorded In the past 12 months has [facility] [email or web address], [employer], oil, or water [employer] threatened to shut off services in your [...] often do you attend chur ch or muslim services? Never 05/21/2024 Do you belong to any clubs o r organizations such as denominational groups, unions, fraternal or athletic groups, or [...] and heating? Not hard at all 05/21/2024 [facility] - Occupational [...] any time in the past 12 m [facility], were you homeless or living in a fci (including now)? No 05/21/2024 Personal Safety Answer Date Recorded Have you ever been in or are you currently in a harmful physical or emotional relationship or is someone making you feel afraid or unsafe? Denies 05/20/2024 Sex and Gender Information Value Date Recorded Sex Assigned at Not on file Legal Sex Male 12:27 AM EXCEPTIONAL CHILDREN'S TEACHER Gender Identity Not on file Sexual Orientation Not on file Last Filed Vital Signs Vital Sign Reading Time Taken Comments Blood Pressure 112/71 12/12/2024 2:39 PM EXCEPTIONAL CHILDREN'S TEACHER Pulse 92 12/12/2024 2:39 PM EXCEPTIONAL CHILDREN'S TEACHER Temperature 36.4 C (97.5 F) 05/23/2024 12:30 PM CDT Respiratory Rate 18 11/07/2024 2:25 PM EXCEPTIONAL CHILDREN'S TEACHER Oxygen Saturation 92% 12/12/2024 2:39 PM EXCEPTIONAL CHILDREN'S TEACHER Inhaled Oxygen Concentration - - Weight 89 kg (196 lb 3.4 oz) 04/10/2025 12:45 PM CDT Height 182.9 cm (6') 04/10/2025 12:45 PM CDT Body Mass Index 26.61 04/10/2025 12:45 PM CDT Plan of Treatment Not on file Medical Devices Implanted Type Area [employer]modal Customer Service Device Identifier Shelf Expiration Date Model / [...] residual synovial cysts contributing to up to fxcgdnpd-ld-cnpjrh spinal canal stenosis at L4-L5, similar to prior. 2. Advanced lumbar facet arthropathy with up to severe neuroforaminal stenosis on the left at L3-L4. Please see above report for [id number]-om-[id number] details. Dictated by: Franco Haas MD The [...] and moderate left neuroforaminal stenosis. There is ggndgorz-rk-sckldo spinal canal stenosis. L5-S1: Disc bulge. There [...] and moderate left neuroforaminal stenosis. There is idispgvz-zh-wdsoiq spinal canal stenosis. L5-S1: Disc bulge. There is severe left greater than right facet arthropathy. There is moderate left greater than right neuroforaminal stenosis. There is no spinal canal stenosis. IMPRESSION: 1. Postsurgical changes of L3-L4 and L4-L5 laminectomies with residual synovial cysts contributing to up to nrwwzbmu-gw-lgxxei spinal canal stenosis at L4-L5, similar to prior. 2. Advanced lumbar facet arthropathy with up to severe neuroforaminal stenosis on the left at L3-L4. Please see above report for [id number]-ht-hslbi details. Dictated by: Franco Haas MD The [...] ORDERABLES Laura l Result Performing Organization Address [facility] de Phone Number [facility] [place] [address] * Hemoglobin A1c (05/22/2024 8:45 PM CDT) Pathologist [facility] Hgb A1C 5.0 4.0 - 5.6 % Estimated Average Glucose 97 mg/dL [facility] Comment: The ADA recommends reporting an estimated [...] ORDERABLES Laura l Result Performing Organization Address [facility] [[email or web address]] Co de Phone Number [facility] Department [place] [address] * (ABNORMAL) Lipid panel (06/28/2017 2:09 PM CDT) Cholesterol 131 30 - 200 mg/dL MARIA LUISA [facility] Comment: Interpretive Data Desirable: <200 mg/dL Borderline high: 200-239 mg/dL High: > or = 240 mg/dL Literature Reference: National Cholesterol Education Program (NCEP) Expert Panel on Detection, Evaluation, and Treatment of High Blood Cholesterol in Adults (Adult Treatment Panel III). Circulation 2004; 110:227. Current interpretive data was last revised on 2015. Triglycerides 246(H) 0 - 150 mg/dL [facility] Comment: Interpretive Data Desirable: < 150 mg/dL Borderline High: 150 - 199 mg/dL High: 200 - 499 mg/dL Very High: > or = 499 mg/dL Literature Reference: See Cholesterol Current interpretive data was last revised on 2015. HDL 32(L) >=40 mg/dL [facility] Comment: Interpretive Data Less than 40 mg/dL - low; A major risk factor for heart disease. Greater than or equal to 60 mg/dL - High; considered protective of heart disease. Literature Reference: See Cholesterol Current interpretive data was last revised on 2015. LDL, calculated 50 10 - 129 mg/dL [facility] Comment: Interpretive Data Optimal: < 100 mg/dL Near Optimal: 100 - 129 mg/dL Borderline High: 130 - 159 mg/dL High: 160 - 189 mg/dL Very high: > or = 190 mg/dL Literature Reference: See Cholesterol Current interpretive data was last revised on 2015. Non-HDL Cholesterol 99 mg/dL [facility] Comment: Interpretive Data When triglycerides are >200 mg/dL, non-HDL C is a secondary target of therapy, with a goal 30 mg/dL higher than the identified LDL-C goal. Reference: See Cholesterol Reference. Current interpretive data was last revised 2015. Blood specimen (specimen) 06/28/2017 2:09 PM CDT 06/28/2017 2:30 PM CDT us Cecelia Calles MD LAB BLOOD ORDERABLES Final Result [facility] Department of Laboratories [place], [place] [id number] from Last 3 Months or Most Recently Relevant to Health Maintenance Insurance [facility] MEDICARE [facility] MEDICARE MEDICARE [facility] Advance Directives For more information, please contact: [phone] Documents on File Type Date Recorded Patient Digital Editor Expl anation ADVANCE DIRECTIVE 05/25/2024 4:24 PM POWER OF COUNTY AGRICULTURAL AGENT-MEDICAL * Full Code (Latest Code Status on File) Date Activated Date Inactivated Comments 05/20/2024 1:34 PM 05/23/2024 8:04 PM Care Teams Sales Representative Church Furniture Relationship Specialty Start Date End Date Angi Andrade MD [address] [place] [address] PCP - General Internal Medicine 08/02/24
--- OUTSIDE RECORDS SUMMARY | 2025-05-31 19:17 | XMS_ITS | Clinical Summary ---
Author Organization [email or web address] Address [address] [place] [address] Care Team Providers Care Woodworking Shop Hand Name Role Phone Amanda Montilla MD Primary Care Provider Amy vailable Source Comments [email or web address],non-owned Affiliates and Associated Physician Practices is amultiple site organization consisting of ambulatory clinics and hospital sitesin [place], [place], [place] and [place]. This disclosure is being madepursuant to the Care Everywhere program and may not contain all information available regarding this patient. Last updated 18.[email or web address] Allergies Active Allergy Reactions Criticality Noted Date [...] tablet by mouth at bedtime Active Multiple Vitamins-[place] als (MULTIVITAMIN & MINERAL PO) Take 1 tablet by mouth once daily Active Port Tobacco-3 Fatty Acids (EQL OMEGA 3 FISH OIL) [...] 1 (one) tablet 2 Active HYDROcodone-ac etaminophen (Verner) 5-325 MG tablet Take 1 (one) tablet [...] 01/03/2019 Immunizations Immunization Administration Dates Next Due COVID Quantique PFIZER BIVALENT 12Y+ 30mcg/0.3ML 2 INFLUENZA VACCINE [...] AM CDT Legal Sex Male 5:22 AM TESTER ROCKET ENGINE Gender Identity Male 09/09/2022 12:36 AM CDT Sexual Orientation Not on file Last Filed Vital Signs Vital Sign Reading Time Taken Comments Blood Pressure 167/88 04/13/2023 10:27 AM CDT Pulse 82 01/21/2023 2:50 PM TESTER ROCKET ENGINE Temperature 36.8 C (98.3 F) 01/04/2023 3:52 PM TESTER ROCKET ENGINE Respiratory Rate 17 01/21/2023 2:50 PM TESTER ROCKET ENGINE Oxygen Saturation 98% 04/13/2023 10:27 AM CDT Inhaled Oxygen Concentration 40% 08/13/2022 8 :19 AM CDT Weight 83.1 kg (183 lb 3.2 oz) 01/21/2023 11:56 AM TESTER ROCKET ENGINE Height 182.9 cm (6') 01/21/2023 11:56 AM TESTER ROCKET ENGINE Body Mass Index 24.85 01/21/2023 11:56 AM TESTER ROCKET ENGINE Plan of Treatment Health Maintenance Due Date [...] this topic Medical Devices Implanted Type Area Farm Implement Mechanic Device Identifier Shelf Expiration Date Model / Serial / Lot Graft Vasc 20mm 10mm 40cm Polystr 2 Vlr Implanted:Qty: 1 on 08/12/2022 by Regulo Langford MD at [facility] N/A: Aorta Maquet 09/28/2024 [id number] Description:IMPLANT RINSED W ITH RIFAMPIN PER SURGEON REQUEST ON STERILE FIELD Patch Srg 4x2in Slnt Evarrest Fbrn - [id number] Implanted:Qty: 1 on 08/12/2022 by Regulo Langford MD at [facility] N/A: Aorta [employer] 07/26/2024 [id number] / [id number] / Graft Cv 6mm 30cm Hmsh Pl Polystr 2 Vlr Implanted:Qty: 1 on 08/12/2022 by Regulo Langford MD at [facility] Left: Aorta Maquet 12/29/2026 [id number] / / [id number] Insurance MEDICARE [facility] MEDICARE Advance Directives Documents on File Type Date Recorded Patient Community Development Aide Expl anation Adv Directive/Living Will/POA 08/28/2022 3:58 PM * Full Code (Latest Code Status on File) Date Activated Date Inactivated Comments 08/07/2022 9:43 AM 08/27/2022 7:53 PM * Full Code Date Activated Date Inactivated Comments 08/05/2022 1:40 AM 08/07/2022 9:43 AM Care Teams Woodworking Shop Hand Relationship Specialty Start Date End Date Amanda Montilla MD PCP - General Student Resident 04/13/23
--- OUTSIDE RECORDS SUMMARY | 2025-05-31 19:17 | XMS_ITS ---
Author Organization [facility] Address [address] [place] [address] Care Team Providers Care Railroad Carman Name Role Phone Angi Andrade MD Primary [...] tablet as needed Orally 3x/day Active omega 7-jyc-bvb-fish oil (Fish OiL) 1,000 (120-180) mg capsule [...] 10:58 AM CDT): -NSGY c/s -NSGY adjusted MORTGAGE PROCESSOR shunt from 5->7 on admission -Transfused 2u [...] Tobacco: Former Tobacco Cessation:Counseling Given: Not Answered [employer] Answer Date Recorded In the past 12 months has [employer], or water [employer] threatened to shut off services in your [...] often do you attend chur ch or baptism services? Never 05/21/2024 Do you belong to any clubs o r organizations such as amish groups, unions, fraternal or athletic groups, or [...] and heating? Not hard at all 05/21/2024 [facility] - [...] any time in the past 12 m [facility], were you homeless or living in a alf (including now)? No 05/21/2024 Personal Safety Answer Date Recorded Have you ever been in or are you currently in a harmful physical or emotional relationship or is someone making you feel afraid or unsafe? Denies 05/20/2024 Sex and Gender Information Value Date Recorded Sex Assigned at Not on file Legal Sex Male 12:27 AM TERMINATION CLERK Gender Identity Not on file Sexual Orientation Not on file Last Filed Vital Signs Vital Sign Reading Time Taken Comments Blood Pressure 112/71 12/12/2024 2:39 PM TERMINATION CLERK Pulse 92 12/12/2024 2:39 PM TERMINATION CLERK Temperature 36.4 C (97.5 F) 05/23/2024 12:30 PM CDT Respiratory Rate 18 11/07/2024 2:25 PM TERMINATION CLERK Oxygen Saturation 92% 12/12/2024 2:39 PM TERMINATION CLERK Inhaled Oxygen Concentration - - Weight 89 [...] residual synovial cysts contributing to up to vdgusakm-nf-hpymyv spinal canal stenosis at L4-L5, similar to prior. 2. Advanced lumbar facet arthropathy with up to severe neuroforaminal stenosis on the left at L3-L4. Please see above report for lgriq-ma-qjdrz details. Dictated by: Franco Haas MD The [...] and moderate left neuroforaminal stenosis. There is bownyqww-qo-affexj spinal canal stenosis. L5-S1: Disc bulge. There [...] and moderate left neuroforaminal stenosis. There is slpmjebc-by-bhluki spinal canal stenosis. L5-S1: Disc bulge. There is severe left greater than right facet arthropathy. There is moderate left greater than right neuroforaminal stenosis. There is no spinal canal stenosis. IMPRESSION: 1. Postsurgical changes of L3-L4 and L4-L5 laminectomies with residual synovial cysts contributing to up to ofcgdboo-fm-apixkd spinal canal stenosis at L4-L5, similar to prior. 2. Advanced lumbar facet arthropathy with up to severe neuroforaminal stenosis on the left at L3-L4. Please see above report for hbjxr-kl-iimmu details. Dictated by: Franco Haas MD The [...] LAB BLOOD ORDERABLES Laura l Result [facility] [address] [facility] Department [place] [address] * Hemoglobin A1c (05/22/2024 8:45 PM CDT) Hgb A1C 5.0 4.0 - 5.6 % Estimated Average Glucose 97 mg/dL [facility] Comment: The ADA recommends reporting an [...] LAB BLOOD ORDERABLES Laura valenzuela Result [facility] [address] [facility] Department [place] [address] * (ABNORMAL) Lipid panel (06/28/2017 2:09 PM CDT) Cholesterol 131 30 - 200 mg/dL [facility] Comment: Interpretive Data Desirable: <200 mg/dL Borderline high: 200-239 mg/dL High: > or = 240 mg/dL Literature Reference: National Cholesterol Education Program (NCEP) Expert Panel on Detection, Evaluation, and Treatment of High Blood Cholesterol in Adults (Adult Treatment Panel III). Circulation 2004; 110:227. Current interpretive data was last revised on 2015. Triglycerides 246(H) 0 - 150 mg/dL [facility] Comment: Interpretive Data Desirable: < 150 mg/dL Borderline High: 150 - 199 mg/dL High: 200 - 499 mg/dL Very High: > or = 499 mg/dL Literature Reference: See Cholesterol Current interpretive data was last revised on 2015. HDL 32(L) >=40 mg/dL [facility] Comment: Interpretive Data Less than 40 mg/dL - low; A major risk factor for heart disease. Greater than or equal to 60 mg/dL - High; considered protective of heart disease. Literature Reference: See Cholesterol Current interpretive data was last revised on 2015. LDL, calculated 50 10 - 129 mg/dL [facility] Comment: Interpretive Data Optimal: < 100 mg/dL [...] ORDERABLES Final Result [facility]IA LUISA [facility] Department [place] [address] from Last 3 Months or Most Recently Relevant to Health Maintenance
--- OUTSIDE RECORDS SUMMARY | 2025-05-31 19:17 | XMS_ITS | Clinical Summary ---
Author Organization [facility] Address [address] [place] [address] Care Team Providers Care Vac Press Operator Name Role Phone Angi Andrade MD Primary [...] tablet as needed Orally 3x/day Active omega 6-hbb-mqa-fish oil (Fish OiL) 1,000 (120-180) mg capsule [...] 10:58 AM CDT): -NSGY c/s -NSGY adjusted MANAGEMENT EXPERT shunt from 5->7 on admission -Transfused 2u [...] Description 04/10/2025 2:05 PM CDT Office Visit [facility] Neurosurgery [address] [facility] 6th [place] [address] [place] [address] Kelly Vazquez NP Hydrocephalus, unspecified type (HCC) (Primary Dx) 04/10/2025 12:09 PM CDT - 04/10/2025 11:59 PM CDT Hospital Encounter [facility] [address] [place] [id number] Margie Guidry MD PhD Encounter for imaging to screen for metal prior to magnetic resonance imaging (MRI) Discharge Disposition: Discharge to home or self care 04/10/2025 12:00 PM CDT - 04/10/2025 11:59 PM CDT Hospital Encounter [facility] [address] [place] [id number] Other low back pain Discharge Disposition: Discharge to home or self care 04/10/2025 Orders Only [facility] Health Information Management [address] [facility] [place] [address] Scanning, Provider 03/02/2025 Telephone [facility] Scheduling [address] [place] [address] Chanel Morrow from Last 3 Months Immunizations [...] Tobacco: Former Tobacco Cessation:Counseling Given: Not Answered [facility] Utilities Answer Date Recorded In the past 12 months has documistic, gas, oil, or water [employer] threatened to shut off services in your [...] week 05/21/2024 How often do you attend [facility] or zoroastrianism services? Never 05/21/2024 Do you belong to any clubs o r organizations such as sikhism groups, unions, fraternal or athletic groups, or [...] and heating? Not hard at all 05/21/2024 [facility] Occupat ional Health - Occupational Stress [...] in the past 12 m [facility], were you homeless or living in a nursing home (including now)? No 05/21/2024 Personal Safety Answer Date Recorded Have you ever been in or are you currently in a harmful physical or emotional relationship or is someone making you feel afraid or unsafe? Denies 05/20/2024 Sex and Gender Information Value Date Recorded Sex Assigned at Not on file Legal Sex Male 12:27 AM DIRECTOR FACILITIES MAINTENANCE Gender Identity Not on file Sexual Orientation Not on file Obstetrics History Last Filed Vital Signs Vital Sign Reading Time Taken Comments Blood Pressure 112/71 12/12/2024 2:39 PM DIRECTOR FACILITIES MAINTENANCE Pulse 92 12/12/2024 2:39 PM DIRECTOR FACILITIES MAINTENANCE Temperature 36.4 C (97.5 F) 05/23/2024 12:30 PM CDT Respiratory Rate 18 11/07/2024 2:25 PM DIRECTOR FACILITIES MAINTENANCE Oxygen Saturation 92% 12/12/2024 2:39 PM DIRECTOR FACILITIES MAINTENANCE Inhaled Oxygen Concentration - - Weight 89 [...] history exists Fall Risk Assessment 05/23/2025 05/23/2024 Influenza Vaccine (#1) 2025 , 09/03/2023, 09/03/2022, Additional history exists DTaP/Tdap/Td Vaccine (2 - Td or Tdap) 10/15/2030 10/15/2020, 06/18/2010 Pneumococcal vaccine 65+ Completed 015, 10/01/2014, 01/19/2003 Zoster Vaccine Completed 04/12/2019, 05/29, 01/17/2010 Hepatitis B Screening Completed 07/10/2023 , 02/09/2023, 01/05/2023 Medical Devices Implanted Type Area Rail Layer Device Identifier Shelf Expiration Date Model / [...] residual synovial cysts contributing to up to dparudrj-dk-uovrdz spinal canal stenosis at L4-L5, similar to prior. 2. Advanced lumbar facet arthropathy with up to severe neuroforaminal stenosis on the left at L3-L4. Please see above report for popnt-is-gwgfo details. Dictated by: Franco Haas MD The [...] and moderate left neuroforaminal stenosis. There is wqkswfwr-eh-rymcyy spinal canal stenosis. L5-S1: Disc bulge. There [...] and moderate left neuroforaminal stenosis. There is tojroaix-bp-pxmpgv spinal canal stenosis. L5-S1: Disc bulge. There is severe left greater than right facet arthropathy. There is moderate left greater than right neuroforaminal stenosis. There is no spinal canal stenosis. IMPRESSION: 1. Postsurgical changes of L3-L4 and L4-L5 laminectomies with residual synovial cysts contributing to up to dazgrmhv-nv-kxvsqw spinal canal stenosis at L4-L5, similar to prior. 2. Advanced lumbar facet arthropathy with up to severe neuroforaminal stenosis on the left at L3-L4. Please see above report for lbkrx-jg-msjts details. Dictated by: Franco Haas MD The [...] ORDERABLES Laura l Result Performing Organization Address [facility] Co de Phone Number [facility] [place] [address] * Hemoglobin A1c (05/22/2024 8:45 PM CDT) [facility] Hgb A1C 5.0 4.0 - 5.6 % Estimated Average Glucose 97 mg/dL [facility] Comment: The ADA recommends reporting [...] MD LAB BLOOD ORDERABLES Laura l Result [facility] [place] [address] * (ABNORMAL) Lipid panel (06/28/2017 2:09 PM CDT) Cholesterol 131 30 - 200 mg/dL [facility] Comment: Interpretive Data Desirable: <200 mg/dL Borderline high: 200-239 mg/dL High: > or = 240 mg/dL Literature Reference: National Cholesterol Education Program (NCEP) Expert Panel on Detection, Evaluation, and Treatment of High Blood Cholesterol in Adults (Adult Treatment Panel III). Circulation 2004; 110:227. Current interpretive data was last revised on 2015. Triglycerides 246(H) 0 - 150 mg/dL [facility] Comment: Interpretive Data Desirable: < 150 mg/dL Borderline High: 150 - 199 mg/dL High: 200 - 499 mg/dL Very High: > or = 499 mg/dL Literature Reference: See Cholesterol Current interpretive data was last revised on 2015. HDL 32(L) >=40 mg/dL [facility] Comment: Interpretive Data Less than 40 mg/dL - low; A major risk factor for heart disease. Greater than or equal to 60 mg/dL - High; considered protective of heart disease. Literature Reference: See Cholesterol Current interpretive data was last revised on 2015. LDL, calculated 50 10 - 129 mg/dL [facility] Comment: Interpretive Data Optimal: < 100 mg/dL Near Optimal: 100 - 129 mg/dL Borderline High: 130 - 159 mg/dL High: 160 - 189 mg/dL Very high: > or = 190 mg/dL Literature Reference: See Cholesterol Current interpretive data was last revised on 2015. Non-HDL Cholesterol 99 mg/dL [facility] Comment: Interpretive Data When triglycerides are >200 mg/dL, non-HDL C is a secondary target of therapy, with a goal 30 mg/dL higher than the identified LDL-C goal. Reference: See Cholesterol Reference. Current interpretive data was last revised 2015. Blood specimen (specimen) 06/28/2017 2:09 PM CDT 06/28/2017 2:30 PM CDT us Cecelia Calles MD LAB BLOOD ORDERABLES Final Result [facility] [place] [address] from Last 3 Months or Most Recently Relevant to Health Maintenance Insurance [facility] MEDICARE [facility] Address: [facility] [address] [place] [address] [facility] MEDICARE MEDICARE [facility] Address: [id number] [place] [address] [facility] Advance Directives For more information, please contact: [phone] Documents on File Type Date Recorded Patient Folder Seamer Automatic Expl anation ADVANCE DIRECTIVE 05/25/2024 4:24 PM POWER OF METER MECHANIC-MEDICAL * Full Code (Latest Code Status on File) Date Activated Date Inactivated Comments 05/20/2024 1:34 PM 05/23/2024 8:04 PM Care Teams Vac Press Operator Relationship Specialty Start Date End Date Angi Andrade MD [address] [place] [address] PCP - General Internal Medicine 08/02/24
--- OUTSIDE RECORDS SUMMARY | 2025-05-31 19:17 | XMS_ITS ---
Author Organization [facility] Address [address] [place] [address] Care Team Providers Care Wood Cabinetmaker Name Role Phone Angi Andrade MD Primary [...] 10:58 AM CDT): -NSGY c/s -NSGY adjusted AGRICULTURAL ECONOMIST shunt from 5->7 on admission -Transfused 2u [...]
[2025-05-31] MEDS: LIDO 1%/EPINEPHRINE 1:100,000 20 ML VIAL 10 ML INFILTRATE (20:09)
== END 2025-06-01 00:20 | disposition home or self-care (01) ==
PROVIDERS: Emergency Provider Student in an Organized Health Care Education/Training Program
DX: S01.81XA Laceration without foreign body of other part of head, initial encounter (principal); S61.219A Laceration without foreign body of unspecified finger without damage to nail, initial encounter; W05.0XXA Fall from non-moving wheelchair, initial encounter; Z23 Encounter for immunization
CPT/HCPCS: 12004; 70450; 72125; 73130; 90471; 90715; 99284; J2004